=== PATIENT | female | born 1960 | race Caucasian/White ===

== ENCOUNTER 2016-10-16 20:04 | Inpatient (IN) ==
[2016-10-16] MEDS ORDERED: Aspirin 81 MG TAB.CHEW PO ONE (20:11)
[2016-10-16] MEDS ORDERED: Ipratropium/Albuterol Neb 3 ML IH ONE (20:12)
--- NOTE | 2016-10-16 20:13 | Emergency Department Note ---
Disposition Clinical Impression: COPD exacerbation, Elevated troponin Disposition: Admitted As Inpatient Condition: Good Referrals: Unassigned,Provider [Non-Partnered Physician] - Forms: ED Satisfaction Letter Chest Pain HPI - General Chief Complaint: ED Chest Pain Stated Complaint: CP/NELLIE Time Seen by Provider: 10/16/16 20:11 Source: patient, EMS Mode of arrival: EMS Limitations: no limitations Vital Signs Reviewed: Yes Nursing Notes Reviewed: Yes - History of Present Illness HPI Narrative: 56-year-old female presents to the ER due to shortness of breath and chest pain. Pt complaint: chest pain, other (Dyspnea) Onset (ago): hour(s) Time: 19:00 Duration: constant Onset: during rest Pain Location: left chest Severity: severe Quality: sharp Pain Radiation: LUE Improves with: nothing Worsens with: palpation Associated symptoms: Reports: diaphoresis, dyspnea. Denies: nausea, vomiting, syncope, fever Treatments prior to arrival chest pain: oxygen - Related Data On Oral Contraceptives: No Home Medications Medication Instructions Recorded Confirmed Albuterol Sulfate [Albuterol 1 - 2 puff IH Q6H PRN 10/12/15 06/01/16 Inhaler] Carvedilol [Coreg] 6.25 mg PO BID 10/12/15 06/01/16 Pregabalin [Lyrica] 150 mg PO BID 10/12/15 06/01/16 SitaGLIPtin [Januvia] 100 mg PO DAILY 10/12/15 06/01/16 Loratadine [Claritin] 10 mg PO DAILY 01/09/16 06/01/16 Meloxicam [Mobic] 7.5 mg PO DAILY 01/09/16 06/01/16 Metformin HCl [Metformin HCl ER] 1,000 mg PO BID 01/09/16 06/01/16 [place]-3/Dha/Epa/Fish Oil [Fish Oil 1,000 mg PO DAILY 01/09/16 06/01/16 Dr 500 mg Softgel] Pantoprazole Sodium [Protonix] 40 mg PO BID 01/09/16 06/01/16 Venlafaxine XR (24 HR) [Effexor Xr] 150 mg PO DAILY 01/09/16 06/01/16 Famotidine [Heartburn Prevention] 20 mg PO DAILY 04/30/16 06/01/16 Nitroglycerin [Nitrostat] 0.4 mg PO Q5M PRN 04/30/16 06/01/16 SUMAtriptan Succinate [Imitrex] 100 mg PO AD PRN 04/30/16 06/01/16 Previous Rx's Medication Instructions Recorded Fenofibrate [Lofibra] 160 mg PO DAILY #30 tablet 10/14/15 Rosuvastatin [Crestor] 20 mg PO HS #30 tablet 10/14/15 Ipratropium/Albuterol Neb [Duoneb] 3 ml IH Q4HR 30 Days 05/02/16 Buspirone HCl [Buspar] 5 mg PO TID #90 tablet 06/06/16 Hydroxyzine HCl 50 mg PO TID PRN #90 tablet 06/06/16 Quetiapine Fumarate [Seroquel] 50 mg PO HS #30 tablet 06/06/16 Allergies Allergy/AdvReac Type Severity Reaction Status Date / Time latex Allergy Hives Verified 04/30/16 13:37 fluoxetine [From Prozac] AdvReac Irritable Verified 04/30/16 13:37 All systems ED: reviewed and negative except as stated. Constitutional: Denies: fever Cardiovascular: Reports: chest pain. Denies: palpitations, dyspnea on exertion Respiratory: Reports: cough, dyspnea, wheezes Gastrointestinal: Denies: abdominal pain, nausea, vomiting Musculoskeletal: Denies: neck pain Chest Pain PMH - Past Medical History Medical history: Reports: arthritis, asthma, COPD, coronary artery disease, diabetes, fibromyalgia, GERD, hyperlipidemia, hypertension, migraine, myocardial infarction, osteoporosis, peripheral artery disease, renal disease, syncope, venous stasis, other Surgical history: Reports: cholecystectomy, orthopedic, other, other Psychiatric history: Reports: anxiety, depression - Social History Smoking Status: Current every day smoker Alcohol use: Reports: none Drug use: Reports: none Physical Exam - General Limitations: no limitations General appearance: alert, anxious, in distress - Head Head exam: atraumatic, normocephalic, normal inspection - Eye Eye exam: Present: normal appearance - ENT ENT exam: normal exam - Neck Neck exam: Present: normal inspection - Chest Chest inspection: Present: normal inspection, tenderness ( tender to palpate along the left lateral rib angles as well as the sternum. ) - Respiratory Respiratory exam: Present: respiratory distress, accessory muscle use, other ( Diminished breath sounds bilaterally.) - Cardiovascular Cardiovascular exam: Present: normal rhythm, tachycardia, normal heart sounds - Abdominal Exam Abdominal exam: Present: soft, Non-Tender. Absent: guarding, rigidity - Extremities Exam Extremities exam: Present: normal inspection - Expanded Lower Extremity Exam Hip/Pelvis exam: Present: normal inspection Upper leg exam: Present: normal inspection Knee exam: Present: normal inspection Lower leg exam: Present: normal inspection Ankle exam: Present: normal inspection Foot/toe exam: Present: normal inspection - Back Exam Back exam: Present: normal inspection - Neurological Exam Neurological exam: Present: alert - Psychiatric Psychiatric exam: Present: normal affect, normal mood, anxious - Skin Skin exam: Present: warm, dry, intact Course Course Narrative: 56-year-old female history of hypertension, hyperlipidemia, diabetes, COPD on home oxygen at night who presents to the ER with a chief complaint of chest pain and shortness of breath. Patient states she had not been feeling well throughout the day. She reports that she woke up at 7 PM with abrupt onset of chest pain and shortness of breath. She reports the chest pain is sharp originating in her left chest and radiating into her left upper extremity. She reports worsening shortness of breath with this. No recent illnesses. No sick contacts that she is aware of. Denies history of DVT or PE. Reports a history of SD many years ago. Did not require stent placement. Reports she had a catheter maybe 3 or 4 years ago without intervention. No other complaints. Plan for this patient is EKG, chest x-ray, basic labs including troponin, BNP and d-dimer. Ordered DuoNebs now and aspirin. - Reevaluation(s) Reevaluation #1: Discussed results of lab work and imaging with the patient. She currently reports developing a migraine and requests Imitrex. Vital Signs Temperature 98.1 F 10/16/16 20:07 Pulse Rate 127 10/16/16 20:07 Respiratory Rate 22 10/16/16 20:07 Blood Pressure 167/126 10/16/16 20:07 O2 Sat by Pulse Oximetry 99 10/16/16 20:07 Temperature 98.1 F 10/16/16 20:07 Pulse Rate 118 10/16/16 21:43 Respiratory Rate 21 10/16/16 21:43 Blood Pressure 131/87 10/16/16 21:43 O2 Sat by Pulse Oximetry 95 10/16/16 21:43 Oxygen Delivery Oxygen Delivery Nasal Cannula Chest Pain - [facility] Narrative Medical decision making narrative: 56-year-old female presents to the ER due to chest pain and shortness of breath. Her EKG is sinus tachycardia with ST depressions and T-wave inversions which are new. Chest x-ray unremarkable. Troponin of 0.08. D-dimer negative. Did not redo an abscess, aspirin and IV Solu-Medrol. Patient will be admitted to the hospital for further management. - Lab Data Lab results reviewed: Yes I reviewed the patient's lab results. Result diagrams: 10/16/16 21:02 10/16/16 21:02 Lab Results 10/16/16 10/16/16 10/16/16 Range/Units 21:02 21: 21:02 WBC 9.2 (4.3-11.1) K/mcL RBC 4.62 (3.82-4.97) M/mcL Hgb 11.2 L (11.5-15.4) g/dL Hct 35.8 (35.3-44.9) % MCV 77.5 L (83.0-100.0) fL MCH 24.2 L (28.0-33.3) pg MCHC 31.3 L (31.6-35.5) g/dL RDW 15.4 H (11.5-14.5) % Plt Count 274 (140-400) K/mcL MPV 10.4 (9.4-12.4) fL Immature Gran % 1.3 (0-4) % Seg Neutrophils % 45.4 % Lymphocytes % 46.3 % Monocytes % 5.1 % Eosinophils % 1.5 % Basophils % 0.4 % Neutrophils # 4.1 (1.6-8.9) K/mcL Lymphocytes # 4.2 (0.6-4.6) K/mcL Monocytes # 0.5 (0.0-1.3) K/mcL Eosinophils # 0.1 (0.0-0.6) K/mcL Basophils # 0.0 (0.0-0.2) K/mcL PT 10.5 (9.4-12.1) Seconds INR 1.0 APTT 28.9 (26.0-36.0) Seconds D-Dimer 267 (0-500) ng/mLFEU Sodium (136-145) mEq/L Potassium (3.5-4.5) mEq/L Chloride (98-109) mEq/L Carbon Dioxide (19-29) mEq/L BUN (7-20) mg/dL Creatinine (0.57-1.11) mg/dL Est GFR ( Amer) (> 60) Est GFR (Non-Af Amer) (> 60) BUN/Creatinine Ratio (6-26) Glucose (70-99) mg/dL Calculated Osmolality (280-300) Calcium (8.6-10.8) mg/dL Troponin I (0-0.03) ng/mL B-Natriuretic Peptide 491 H (0-100) pg/mL 10/16/16 10/16/16 Range/Units 21:02 21:02 WBC (4.3-11.1) K/mcL RBC (3.82-4.97) M/mcL Hgb (11.5-15.4) g/dL Hct (35.3-44.9) % MCV (83.0-100.0) fL MCH (28.0-33.3) pg MCHC (31.6-35.5) g/dL RDW (11.5-14.5) % Plt Count (140-400) K/mcL MPV (9.4-12.4) fL Immature Gran % (0-4) % Seg Neutrophils % % Lymphocytes % % Monocytes % % Eosinophils % % Basophils % % Neutrophils # (1.6-8.9) K/mcL Lymphocytes # (0.6-4.6) K/mcL Monocytes # (0.0-1.3) K/mcL Eosinophils # (0.0-0.6) K/mcL Basophils # (0.0-0.2) K/mcL PT (9.4-12.1) Seconds INR APTT (26.0-36.0) Seconds D-Dimer (0-500) ng/mLFEU Sodium 139 (136-145) mEq/L Potassium 4.1 (3.5-4.5) mEq/L Chloride 103 (98-109) mEq/L Carbon Dioxide 22 (19-29) mEq/L BUN 14 (7-20) mg/dL Creatinine 0.77 (0.57-1.11) mg/dL Est GFR ( Amer) > 60 (> 60) Est GFR (Non-Af Amer) > 60 (> 60) BUN/Creatinine Ratio 18 (6-26) Glucose 275 H (70-99) mg/dL Calculated Osmolality 298 (280-300) Calcium 9.3 (8.6-10.8) mg/dL Troponin I 0.08 H* (0-0.03) ng/mL B-Natriuretic Peptide (0-100) pg/mL - Radiology Data Radiology results reviewed: Yes I reviewed the patient's radiology results. Chest X-Ray 10/16/16 20:11 IMPRESSION: No acute cardiopulmonary process. D/ / Noah Forrest MD / Noah Forrest MD Interpreting Provider: Noah Forrest MD - EKG Data EKG attestation: Yes I reviewed and interpreted this EKG. EKG results narrative: EKG shows sinus tachycardia with a rate of 126. Normal axis. UT interval 158 QRS duration 96 QTc [address] depression in leads V5. There are new T- wave inversions in leads V5 and V6 with flattening in leads V4. No ST elevations. EKG shows normal: sinus rhythm Rate: tachycardia Rhythm: other (Sinus tachycardia) [place]/QRS: normal When compared to previous EKG there are: changes noted (ST depressions in lead V5 as well as T-wave inversions in leads V5 and V6) Interpretation: nonspecific ST-T wave changes Heart Score - Score History: Slightly Suspicious EKG: Non Specific repolarisation Disturbance Age: 45-65 Risk Factors: Equal/Greater than 3 risk factor or history of atherosclerotic disease Troponin: 1-3x normal limit HEART Score Total: 5 S.B.A.R. - S.B.A.R. Situation: Demographics, MOA Background: Presenting Complaint, Relevant PMH, Meds, & Allergies Assessment: Vital Signs, Course and respsone to treatment, Exam Concerns, Patient/Family Expectation, Pertinant Lab Results, Outstanding Labs Recommendation: Barrier(s) to disposition, Recommendation based on pending studies, treatments, or consults S.B.A.R. Report Given to: Dr. Mahesh Fernández Repor Time: 22:03
[2016-10-16 21:22] LABS: Basophils % 0.4 %; Eosinophils # 0.1 K/mcL (0.0-0.6); Eosinophils % 1.5 %; Hematocrit 35.8 % (35.3-44.9); Hemoglobin 11.2 g/dL (11.5-15.4); Immature Granulocytes % 1.3 % (0-4); Lymphocytes # 4.2 K/mcL (0.6-4.6); Lymphocytes % 46.3 %; Mean Corpuscular HGB Conc 31.3 g/dL (31.6-35.5); Mean Corpuscular Hemoglobin 24.2 pg (28.0-33.3); Mean Corpuscular Volume 77.5 fL (83.0-100.0); Mean Platelet Volume 10.4 fL (9.4-12.4); Monocytes # 0.5 K/mcL (0.0-1.3); Monocytes % 5.1 %; Neutrophils # 4.1 K/mcL (1.6-8.9); Platelet Count 274 K/mcL (140-400); Red Blood Count 4.62 M/mcL (3.82-4.97); Red Cell Distribution Width 15.4 % (11.5-14.5); Segmented Neutrophils % 45.4 %
[2016-10-16] MEDS ORDERED: methylPREDNISolone 125 MG/2 ML VIAL IVP ONE (21:25)
[2016-10-16 21:33] LABS: Prothrombin Time 10.5 Seconds (9.4-12.1)
[2016-10-16 21:35] LABS: Activated Partial Thrombo Time 28.9 Seconds (26.0-36.0)
[2016-10-16 21:36] LABS: BUN/Creatinine Ratio 18 (6-26); Blood Urea Nitrogen 14 mg/dL (7-20); Calcium 9.3 mg/dL (8.6-10.8); Carbon Dioxide 22 mEq/L (19-29); Chloride 103 mEq/L (98-109); Glucose 275 mg/dL (70-99); Osmolality,Calculated 298 (280-300); Potassium 4.1 mEq/L (3.5-4.5); Sodium 139 mEq/L (136-145); eGFR For African Americans > 60 (> 60); eGFR For Non-African Americans > 60 (> 60)
[2016-10-16] MEDS ORDERED: SUMAtriptan succinate 50 MG TABLET PO ONE (21:46)
--- NOTE | 2016-10-16 22:13 | Emergency Department Note ---
Disposition Clinical Impression: COPD exacerbation, Elevated troponin Disposition: Admitted As Inpatient Condition: Good Referrals: Unassigned,Provider [Non-Partnered Physician] - Forms: ED Satisfaction Letter General Adult HPI - General Chief complaint: ED Chest Pain Stated complaint: CP/NELLIE Time Seen by Provider: 10/16/16 20:11 Source: patient, EMS Mode of arrival: EMS Limitations: no limitations - History of Present Illness Pain Scale: 9 - Related Data Home Medications Medication Instructions Recorded Confirmed Albuterol Sulfate [Albuterol 1 - 2 puff IH Q6H PRN 10/12/15 06/01/16 Inhaler] Carvedilol [Coreg] 6.25 mg PO BID 10/12/15 06/01/16 Pregabalin [Lyrica] 150 mg PO BID 10/12/15 06/01/16 SitaGLIPtin [Januvia] 100 mg PO DAILY 10/12/15 06/01/16 Loratadine [Claritin] 10 mg PO DAILY 01/09/16 06/01/16 Meloxicam [Mobic] 7.5 mg PO DAILY 01/09/16 06/01/16 Metformin HCl [Metformin HCl ER] 1,000 mg PO BID 01/09/16 06/01/16 [place]-3/Dha/Epa/Fish Oil [Fish Oil 1,000 mg PO DAILY 01/09/16 06/01/16 Dr 500 mg Softgel] Pantoprazole Sodium [Protonix] 40 mg PO BID 01/09/16 06/01/16 Venlafaxine XR (24 HR) [Effexor Xr] 150 mg PO DAILY 01/09/16 06/01/16 Famotidine [Heartburn Prevention] 20 mg PO DAILY 04/30/16 06/01/16 Nitroglycerin [Nitrostat] 0.4 mg PO Q5M PRN 04/30/16 06/01/16 SUMAtriptan Succinate [Imitrex] 100 mg PO AD PRN 04/30/16 06/01/16 Previous Rx's Medication Instructions Recorded Fenofibrate [Lofibra] 160 mg PO DAILY #30 tablet 10/14/15 Rosuvastatin [Crestor] 20 mg PO HS #30 tablet 10/14/15 Ipratropium/Albuterol Neb [Duoneb] 3 ml IH Q4HR 30 Days 05/02/16 Buspirone HCl [Buspar] 5 mg PO TID #90 tablet 06/06/16 Hydroxyzine HCl 50 mg PO TID PRN #90 tablet 06/06/16 Quetiapine Fumarate [Seroquel] 50 mg PO HS #30 tablet 06/06/16 Allergies Allergy/AdvReac Type Severity Reaction Status Date / Time latex Allergy Hives Verified 04/30/16 13:37 fluoxetine [From Prozac] AdvReac Irritable Verified 04/30/16 13:37 Constitutional: Denies: fever Cardiovascular: Reports: chest pain. Denies: palpitations, dyspnea on exertion Respiratory: Reports: cough, dyspnea, wheezes Gastrointestinal: Denies: abdominal pain, nausea, vomiting Musculoskeletal: Denies: neck pain Past Medical History - Past Medical History Medical history: Reports: arthritis, asthma, COPD, coronary artery disease, diabetes, fibromyalgia, GERD, hyperlipidemia, hypertension, migraine, myocardial infarction, osteoporosis, peripheral artery disease, renal disease, syncope, venous stasis, other Surgical history: Reports: cholecystectomy, orthopedic, other, other Psychiatric history: Reports: anxiety, depression - Social History Smoking Status: Current every day smoker Smokeless Tobacco Status: No Alcohol use: Reports: none Drug use: Reports: none Physical Exam - General Limitations: no limitations General appearance: alert, anxious, in distress Course - Reevaluation(s) Reevaluation #1: I saw the patient with the resident, Dr. Viveros. Patient presented with shortness of breath. On arrival she looks pretty short of breath with diffuse wheezing. She responded to breathing treatments. However her troponin ended up elevated. On arrival to exacerbation of her COPD seems so severe and with the elevated troponin, I patient is admitted to the hospital despite the fact that she looks better lying in bed. I am afraid to get up and walk her around because I fear she will decompensate. We spoke with the hospitalist and arranged admission Time: 22:12 Vital Signs Temperature 98.1 F 10/16/16 20:07 Pulse Rate 127 10/16/16 20:07 Respiratory Rate 22 10/16/16 20:07 Blood Pressure 167/126 10/16/16 20:07 O2 Sat by Pulse Oximetry 99 10/16/16 20:07 Temperature 98.1 F 10/16/16 20:07 Pulse Rate 118 10/16/16 21:43 Respiratory Rate 21 10/16/16 21:43 Blood Pressure 131/87 10/16/16 21:43 O2 Sat by Pulse Oximetry 95 10/16/16 21:43 Oxygen Delivery Oxygen Delivery Nasal Cannula Medical Decision Making - Lab Data Result diagrams: 10/16/16 21:02 10/16/16 21:02 Lab Results 10/16/16 10/16/16 10/16/16 Range/Units 21:02 21:02 21:02 WBC 9.2 (4.3-11.1) K/mcL RBC 4.62 (3.82-4.97) M/mcL Hgb 11.2 L (11.5-15.4) g/dL Hct 35.8 (35.3-44.9) % MCV 77.5 L (83.0-100.0) fL MCH 24.2 L (28.0-33.3) pg MCHC 31.3 L (31.6-35.5) g/dL RDW 15.4 H (11.5-14.5) % Plt Count 274 (140-400) K/mcL MPV 10.4 (9.4-12.4) fL Immature Gran % 1.3 (0-4) % Seg Neutrophils % 45.4 % Lymphocytes % 46.3 % Monocytes % 5.1 % Eosinophils % 1.5 % Basophils % 0.4 % Neutrophils # 4.1 (1.6-8.9) K/mcL Lymphocytes # 4.2 (0.6-4.6) K/mcL Monocytes # 0.5 (0.0-1.3) K/mcL Eosinophils # 0.1 (0.0-0.6) K/mcL Basophils # 0.0 (0.0-0.2) K/mcL PT 10.5 (9.4-12.1) Seconds INR 1.0 APTT 28.9 (26.0-36.0) Seconds D-Dimer 267 (0-500) ng/mLFEU Sodium (136-145) mEq/L Potassium (3.5-4.5) mEq/L Chloride (98-109) mEq/L Carbon Dioxide (19-29) mEq/L BUN (7-20) mg/dL Creatinine (0.57-1.11) mg/dL Est GFR ( Amer) (> 60) Est GFR (Non-Af Amer) (> 60) BUN/Creatinine Ratio (6-26) Glucose (70-99) mg/dL Calculated Osmolality (280-300) Calcium (8.6-10.8) mg/dL Troponin I (0-0.03) ng/mL B-Natriuretic Peptide 491 H (0-100) pg/mL 10/16/16 10/16/16 Range/Units 21:02 21:02 WBC (4.3-11.1) K/mcL RBC (3.82-4.97) M/mcL Hgb (11.5-15.4) g/dL Hct (35.3-44.9) % MCV (83.0-100.0) fL MCH (28.0-33.3) pg MCHC (31.6-35.5) g/dL RDW (11.5-14.5) % Plt Count (140-400) K/mcL MPV (9.4-12.4) fL Immature Gran % (0-4) % Seg Neutrophils % % Lymphocytes % % Monocytes % % Eosinophils % % Basophils % % Neutrophils # (1.6-8.9) K/mcL Lymphocytes # (0.6-4.6) K/mcL Monocytes # (0.0-1.3) K/mcL Eosinophils # (0.0-0.6) K/mcL Basophils # (0.0-0.2) K/mcL PT (9.4-12.1) Seconds INR APTT (26.0-36.0) Seconds D-Dimer (0-500) ng/mLFEU Sodium 139 (136-145) mEq/L Potassium 4.1 (3.5-4.5) mEq/L Chloride 103 (98-109) mEq/L Carbon Dioxide 22 (19-29) mEq/L BUN 14 (7-20) mg/dL Creatinine 0.77 (0.57-1.11) mg/dL Est GFR ( Amer) > 60 (> 60) Est GFR (Non-Af Amer) > 60 (> 60) BUN/Creatinine Ratio 18 (6-26) Glucose 275 H (70-99) mg/dL Calculated Osmolality 298 (280-300) Calcium 9.3 (8.6-10.8) mg/dL Troponin I 0.08 H* (0-0.03) ng/mL B-Natriuretic Peptide (0-100) pg/mL Attestation Statement - Attestation Attestation: I, Dr. Rowe, examined this patient [id number] and my medical decision- making was reviewed with Dr. Viveros, Resident Physician. I agree with the documented findings, disposition and treatment plan as described except to the extent set forth below. Please see my progress notes for details.
[2016-10-16] MEDS ORDERED: Naloxone 0.4 MG/ML INJ IVP PRN (23:50)
[2016-10-16] MEDS ORDERED: Acetaminophen 325 MG TABLET PO PRN (23:50)
[2016-10-16] MEDS ORDERED: Albuterol 2.5 MG/3 ML NEBULIZER ONE (23:59)
[2016-10-17] MEDS ORDERED: Nitroglycerin 1 INCH/GM PACKET ONE
[2016-10-17] MEDS ORDERED: *HR* Morphine 2 MG/ML SYRINGE ONE (00:07)
[2016-10-17] MEDS: *HR* Morphine 2 MG/ML SYRINGE IVP PRN ×3 (00:12→21:02)
[2016-10-17 00:24] LABS: ABG HCO3 18.8 mEQ/L (21-27); ABG Oxygen Saturation 100 % (95-98); ABG PO2 347 mmHg (85-104); ABG TCO2 21.3 mEq/L (20-26)
[2016-10-17 00:25] LABS: ABG PCO2 80 mmHg (35-45); ABG PH 6.98 pH Units (7.32-7.45)
[2016-10-17 00:26] LABS: Blood Gas FiO2 100 %
[2016-10-17] MEDS ORDERED: *HR* Heparin 5,000 UNIT/ML VIAL IVP ONE (00:50)
[2016-10-17] MEDS ORDERED: *HR* Heparin 5,000 UNIT/ML VIAL IVP PRN (00:50)
[2016-10-17 00:52] LABS: Prothrombin Time 10.4 Seconds (9.4-12.1)
[2016-10-17 00:55] LABS: Activated Partial Thrombo Time 27.4 Seconds (26.0-36.0)
[2016-10-17 01:00] LABS: Blood Urea Nitrogen 16 mg/dL (7-20); Calcium 9.4 mg/dL (8.6-10.8); Carbon Dioxide 18 mEq/L (19-29); Chloride 102 mEq/L (98-109); Chol/HDL Ratio 15.6 (0-4.9); Cholesterol 591 mg/dL (< 200); Glucose 484 mg/dL (70-99); HDL Cholesterol 38 mg/dL (40-59); Magnesium 1.4 mg/dL (1.6-2.6); Osmolality,Calculated 307 (280-300); Potassium 4.1 mEq/L (3.5-4.5); Sodium 137 mEq/L (136-145); Triglycerides 1711 mg/dL (< 150)
[2016-10-17] MEDS ORDERED: SUMAtriptan 6 MG/0.5 ML SQ PRN (01:01)
[2016-10-17 01:10] LABS: BUN/Creatinine Ratio 18 (6-26); eGFR For African Americans > 60 (> 60); eGFR For Non-African Americans > 60 (> 60)
[2016-10-17 01:13] LABS: Basophils % 0.4 %; Eosinophils % 0.4 %; Hematocrit 39.1 % (35.3-44.9); Hemoglobin 12.2 g/dL (11.5-15.4); Immature Granulocytes % 1.4 % (0-4); Immature Platelets 6.5 % (1.1-6.1); Lymphocytes # 1.1 K/mcL (0.6-4.6); Lymphocytes % 11.2 %; Mean Corpuscular HGB Conc 31.2 g/dL (31.6-35.5); Mean Corpuscular Hemoglobin 24.3 pg (28.0-33.3); Mean Corpuscular Volume 77.9 fL (83.0-100.0); Mean Platelet Volume 10.6 fL (9.4-12.4); Monocytes # 0.2 K/mcL (0.0-1.3); Monocytes % 1.7 %; Neutrophils # 8.3 K/mcL (1.6-8.9); Platelet Count 307 K/mcL (140-400); Red Blood Count 5.02 M/mcL (3.82-4.97); Red Cell Distribution Width 15.3 % (11.5-14.5); Segmented Neutrophils % 84.9 %
[2016-10-17] MEDS ORDERED: 0.9 % Sodium Chloride 1,000 ML IVC SCH (01:15)
--- NOTE | 2016-10-17 01:16 | Internal Med History&Physical ---
Date of Encounter: 10/17/16 Time of Encounter: 23:50 Assessment and Plan (1) NSTEMI (non-ST elevated myocardial infarction) Current visit: Yes Status: Acute During the rapid response checked an EKG which showed nonspecific ST depressions , troponin was 0.08 obtained stat. I have administered 2 mg of morphine for chest pain. I have ordered nitroglycerin paste. Within 10-15 minutes after administration of these medications. Chest pain has resolved and the patient was able to fall asleep. She was easily arousable . For COPD exacerbation I will treat the patient for IV steroids and start BiPAP. I have obtained a stat ABG which shows severe metabolic and respiratory acidosis and hypercarbic respiratory failure. I have adjusted the BiPAP settings and will recheck the ABG. We will start heparin drip. Continue with aspirin. Avoid beta blockers due to severe COPD exacerbation. Obtain echocardiogram. Consult cardiology. (2) COPD exacerbation Current visit: Yes Status: Acute (3) Acute on chronic respiratory failure with hypoxia and hypercapnia Current visit: No Status: Acute I started the patient on on BiPAP as above. We will adjust the minute ventilation according to needs to clear carbon dioxide. Repeat ABG shows improvement with BiPAP with a pH increasing from 6.89-7.17 and CO2 decreasing with BiPAP. At this point the patient is responding to therapy and does not require invasive mechanical ventilation. We will continue with BiPAP for now and recheck ABG in 2 hours. We will initiate treatment with IV bronchodilators (during the rapid response we administered 9 mL DuoNeb with a good bronchodilator response by auscultation), IV steroids and IV antibiotics. The patient is highly unstable and there is high probability of emergent and significant clinical decompensation with potential impairment of organ function including cardiovascular system and respiratory system. I have performed 45 minutes of critical care time which involved decision making of high complexity to assess, manipulate, and support vital organ system, in order to prevent further life threatening deterioration of the patient's condition. The time involved in the performance of any procedures was not counted toward critical care time and will be billed separately. Critical care time was spent evaluating the patient, reviewing EKGs, telemetry tracing, imaging studies and laboratory data, ordering medications, noninvasive ventilation and managing the settings, and reevaluating for clinical response and making adjustments to ordered medications. (4) Diabetes mellitus type 2 in obese Current visit: No Status: Chronic (5) Nicotine dependence with nicotine-induced disorder Current visit: No Status: Chronic We will provide smoking cessation counseling once the patient is no longer an acute distress Qualifiers: Nicotine product type: cigarettes Qualified Code(s): F17.219 - Nicotine dependence, cigarettes, with unspecified nicotine-induced disorders (6) Tobacco abuse Current visit: No Status: Chronic (7) DVT prophylaxis Current visit: Yes Status: Acute Currently on heparin drip. Internal Medicine - H&P: HPI Chief complaint: Shortness of breath Admitted From: Emergency Dept Plans for Post Hospital Care: Home History of present illness: Ms. Lorenzo is a 56 year old female with past medical history significant for COPD and type 2 diabetes who presented to the hospital for shortness of breath. At the time I evaluated the patient she was an acute and severe distress due to chest pain and shortness of breath and the history was extremely limited by her distress. At this time she reports crushing severe midsternal chest pain worse with breathing associated with shortness of breath and anxiety. She was admitted earlier for COPD exacerbation and she was reported to be slightly improving although in a serious condition. Review of systems past medical family and social history is per the medical record. Unobtainable from the patient due to severe respiratory distress. The patient has a history of tobacco smoking. Past Med Surg Social Fam HX - Past Medical History Medical history: arthritis, asthma, COPD, coronary artery disease, diabetes, fibromyalgia, GERD, hyperlipidemia, hypertension, migraine, myocardial infarction, osteoporosis, peripheral artery disease, renal disease, syncope, venous stasis, other Psychiatric history: anxiety, depression - Past Surgical History Surgical History: cholecystectomy, orthopedic, other, other - Social History Smoking Status: Current every day smoker Smokeless Tobacco Status: No Alcohol use: none Drug use: none - Family History Mother Living Status: Hx Family Cardiac Disorders: Yes (cardiomyothy) Father Living Status: Still Living Hx Family Cardiac Disorders: Yes (4 heart stents) Internal Medicine - H&P: Meds Albuterol Sulfate [Albuterol Inhaler] 1 - 2 puff IH Q6H PRN 10/12/15 [History] Carvedilol [Coreg] 6.25 mg PO BID 10/12/15 [History] Pregabalin [Lyrica] 150 mg PO BID 10/12/15 [History] SitaGLIPtin [Januvia] 100 mg PO DAILY 10/12/15 [History] Fenofibrate [Lofibra] 160 mg PO DAILY #30 tablet 10/14/15 [Rx] Rosuvastatin [Crestor] 20 mg PO HS #30 tablet 10/14/15 [Rx] Loratadine [Claritin] 10 mg PO DAILY 01/09/16 [History] Meloxicam [Mobic] 7.5 mg PO DAILY 01/09/16 [History] Metformin HCl [Metformin HCl ER] 1,000 mg PO BID 01/09/16 [History] [place]-3/Dha/Epa/Fish Oil [Fish Oil Dr 500 mg Softgel] 1,000 mg PO DAILY [History] Pantoprazole Sodium [Protonix] 40 mg PO BID 01/09/16 [History] Venlafaxine XR (24 HR) [Effexor Xr] 150 mg PO DAILY 01/09/16 [History] Famotidine [Heartburn Prevention] 20 mg PO DAILY 04/30/16 [History] Nitroglycerin [Nitrostat] 0.4 mg PO Q5M PRN 04/30/16 [History] SUMAtriptan Succinate [Imitrex] 100 mg PO AD PRN 04/30/16 [History] Ipratropium/Albuterol Neb [Duoneb] 3 ml IH Q4HR 30 Days 05/02/16 [Rx] Buspirone HCl [Buspar] 5 mg PO TID #90 tablet 06/06/16 [Rx] Hydroxyzine HCl 50 mg PO TID PRN #90 tablet 06/06/16 [Rx] Quetiapine Fumarate [Seroquel] 50 mg PO HS #30 tablet 06/06/16 [Rx] Citalopram [CeleXA] 20 mg PO DAILY 10/16/16 [History] Duloxetine HCl [Cymbalta] 60 mg PO DAILY 10/16/16 [History] Allergies latex Allergy (Verified 04/30/16 13:37) Hives fluoxetine [From Prozac] Adverse Reaction (Verified 04/30/16 13:37) Irritable All Systems PM: A 10-system review of systems was performed and is negative for pertinent findings except as documented above in the HPI. - Constitutional Vitals: Temp Pulse Resp BP Pulse Ox 98.1 F 117 22 135/82 97 02/20/17 20:07 10/16/16 22:53 10/16/16 23:16 10/16/16 23:16 10/16/16 22:53 General appearance: Present: severe distress - Head Head exam: Present: atraumatic, normocephalic - Eye Eye exam: Present: PERRL, conjuntiva pink, sclera anicteric Pupils: Present: PERRL - Neck Neck exam general surgery: Present: supple, trachea midline. Absent: lymphadenopathy - Respiratory Respiratory exam: Present: accessory muscle use, decreased breath sounds, prolonged expiratory phase, respiratory distress, wheezes, tachypnea. Absent: rhonchi - Cardiovascular Cardiovascular exam: Present: +S1, +S2, tachycardia. Absent: diastolic murmur, gallop, rubs, systolic murmur - GI/Abdominal GI/Abdominal exam: Present: normal bowel sounds, soft, no peritoneal signs. Absent: distended, tenderness - Extremities Exam Extremities exam: Present: warm, radial pulses palpable and symetrical. Absent : calf tenderness, cyanotic, pedal edema - Skin Skin exam: Present: dry, intact Internal Med - H&P Results - Labs CBC & Chem 7: 10/17/16 01:03 10/17/16 00:24 Labs: Short CBC 10/17/16 Range/Units 01:03 WBC 9.8 (4.3-11.1) K/mcL Hgb 12.2 (11.5-15.4) g/dL Hct 39.1 (35.3-44.9) % Plt Count 307 (140-400) K/mcL Neutrophils # 8.3 (1.6-8.9) K/mcL BMP 10/17/16 00:24 Sodium 137 Potassium 4.1 Chloride 102 Carbon Dioxide 18 L BUN 16 Creatinine 0.88 Glucose 484 H Calcium 9.4 Cardiac Enzymes 10/17/16 Range/Units 00:24 Troponin I 0.08 H* (0-0.03) ng/mL - ABG Interpretation ABG results: 10/17/16 00:23 ABG pH 6.98 L* ABG pCO2 80 H* ABG pO2 347 H ABG HCO3 18.8 L ABG Total CO2 21.3 ABG O2 Saturation 100 H ABG Base Excess -14.0 L - EKG Data -: EKG Interpreted by Myself - EKG Data EKG comments: 10/17/16 06:52 EKG from her shows sinus tachycardia [address] depressions in lateral leads. Telemetry monitoring during the time I provided bedside care shows continued sinus tachycardia 135-150.
[2016-10-17] MEDS: Heparin 25,000 UNIT/500 ML D5W 25,000 UNIT/500 ML MLS IVC SCH (01:39)
[2016-10-17 02:19] LABS: ABG Base Excess -5.9 mEq/L (-2.0 to 3.0); ABG HCO3 21.8 mEQ/L (21-27); ABG Oxygen Saturation 94 % (95-98); ABG PCO2 52 mmHg (35-45); ABG PH 7.23 pH Units (7.32-7.45); ABG PO2 83 mmHg (85-104); ABG TCO2 23.4 mEq/L (20-26)
[2016-10-17 02:23] LABS: Blood Gas FiO2 40 %
[2016-10-17] MEDS: 0.9 % Sodium Chloride 1,000 ML IVC SCH ×2 (03:01→13:15)
[2016-10-17 05:38] LABS: ABG Base Excess -2.1 mEq/L (-2.0 to 3.0); ABG HCO3 24.6 mEQ/L (21-27); ABG Oxygen Saturation 99 % (95-98); ABG PCO2 50 mmHg (35-45); ABG PO2 138 mmHg (85-104); ABG TCO2 26.1 mEq/L (20-26)
[2016-10-17 05:39] LABS: Blood Gas FiO2 40 %
[2016-10-17] MEDS: Ipratropium/Albuterol Neb 3 ML IH SCH ×6 (05:49→22:51)
[2016-10-17] MEDS ORDERED: methylPREDNISolone 125 MG/2 ML VIAL IVP SCH (08:00)
[2016-10-17] MEDS: Piperacillin/Tazobactam 3.375 GM in D5% in Water (Mini-Bag+) 100 ML IVPB SCH ×2 (08:14→18:13)
[2016-10-17] MEDS: Aspirin 81 MG TAB.CHEW PO SCH (08:15)
[2016-10-17] MEDS: Pregabalin 75 MG CAPSULE PO SCH ×2 (08:15→21:02)
--- NOTE | 2016-10-17 09:07 | Internal Med Progress Note ---
Date of Encounter: 10/17/16 Time of Encounter: 09:00 - Assessment and plan (1) NSTEMI (non-ST elevated myocardial infarction) Current Visit: Yes Status: Acute Assessment and plan: Patient was admitted due to shortness of breath, associated with substernal chest pain. Mild elevation of cardiac biomarkers. A rapid response was called overnight and the patient was started on heparin drip. There was no evidence of hypoxemia, d-dimer has been negative. Low probability of pulmonary embolism. However, in light of chest pain and elevation of cardiac biomarkers, the patient was started on heparin drip ovrnight. Additionally, she was started on noninvasive mechanical ventilation via BiPAP. The pH was 6.9 initially, has improved to 7.3. There is a component of lactic acidosis with a lactic acid of 6.9. We will monitor lactic acid levels today. We will continue with BiPAP, heparin drip. We will obtain a consultation with cardiology for further recommendations. The patient was started on Zosyn, there is no history of recent hospital admission, leukocytosis, no fever, no evidence of pneumonia in the chest x-ray. At this point we will de-escalate with switch to IV Levaquin. (2) COPD exacerbation Current Visit: Yes Status: Acute Assessment and plan: COPD exacerbation in the setting of a patient who is a chronic active smoker. She smokes one pack of cigarettes daily. She is also a use of long-term oxygen therapy. We will continue with nebulizer therapy, systemic steroids and IV antibiotics. Continue with BiPAP. High risk of respiratory failure. (3) Respiratory failure Current Visit: Yes Status: Acute Assessment and plan: Secondary to underlying COPD with CO2 retention and respiratory acidosis. Qualifiers: Chronicity: acute on chronic Respiratory failure complication: hypercapnia Qualified Code(s): J96.22 - Acute and chronic respiratory failure with hypercapnia (4) Acute exacerbation of chronic obstructive airways disease Current Visit: No Status: Acute Assessment and plan: Continue with therapy of COPD exacerbation including antibiotics, steroids, nebulizer therapy and oxygen supplementation. Continue with BiPAP. (5) Hypomagnesemia Current Visit: No Status: Acute Assessment and plan: On admission was 1.4, will supplement accordingly. (6) Tobacco abuse Current Visit: No Status: Chronic Assessment and plan: Smoking cessation was strongly recommended. - Time Spent With Patient 25 - 35 minutes - Subjective Interval history: 1st encounter with the patient. The patient was seen and examined at bedside. She was complaining of substernal chest pain and shortness of breath. She was using a BiPAP. - Constitutional Vitals: Temp Pulse Resp BP Pulse Ox 96.8 F L 116 16 106/76 98 10/17/16 08:37 10/17/16 08:37 10/17/16 08:37 10/17/16 08:37 10/17/16 08:37 General appearance: Present: cooperative, A&O X 3, obese, severe distress - Head Head exam: Present: atraumatic, normocephalic - Eye Eye exam: Present: PERRL, conjuntiva pink, sclera anicteric Pupils: Present: PERRL - Neck Neck exam general surgery: Present: supple, trachea midline. Absent: lymphadenopathy - Respiratory Respiratory exam: Present: decreased breath sounds. Absent: accessory muscle use, rales, rhonchi, wheezes - Cardiovascular Cardiovascular exam: Present: RRR, +S1, +S2. Absent: diastolic murmur, gallop, rubs, systolic murmur - GI/Abdominal GI/Abdominal exam: Present: normal bowel sounds, soft, no peritoneal signs. Absent: distended, tenderness - Extremities Exam Extremities exam: Present: warm, radial pulses palpable and symetrical. Absent : calf tenderness, cyanotic, pedal edema - Neurological Exam Neurological exam: Present: CN II-XII intact, oriented X3, no focal deficits. Absent: pronater drift, facial droop, speech deficit - Skin Skin exam: Present: dry, intact Internal Medicine: Result - Labs CBC & Chem 7: 10/17/16 01:03 10/17/16 00:24 Labs: Short CBC 10/17/16 Range/Units 01:03 WBC 9.8 (4.3-11.1) K/mcL Hgb 12.2 (11.5-15.4) g/dL Hct 39.1 (35.3-44.9) % Plt Count 307 (140-400) K/mcL Neutrophils # 8.3 (1.6-8.9) K/mcL BMP 10/17/16 00:24 Sodium 137 Potassium 4.1 Chloride 102 Carbon Dioxide 18 L BUN 16 Creatinine 0.88 Glucose 484 H Calcium 9.4 Cardiac Enzymes 10/17/16 10/17/16 Range/Units 00:24 06:48 Troponin I 0.08 H* 0.15 H* (0-0.03) ng/mL - ABG Interpretation ABG results: ABG ABG pH 7.30 pH Units (7.32-7.45) L 10/17/16 05:28 ABG pCO2 50 mmHg (35-45) H 10/17/16 05:28 ABG pO2 138 mmHg (85-104) H 10/17/16 05:28 ABG O2 Saturation 99 % (95-98) H 10/17/16 05:28 PT/INR, D-dimer PT 10.4 Seconds (9.4-12.1) 10/17/16 00:24 D-Dimer 267 ng/mLFEU (0-500) 10/16/16 21:02 Consult Discharge Plan - Plan Referrals: Roxane Henson DO [Primary Care Provider] -
--- NOTE | 2016-10-17 09:46 | Cardiology Consult Note ---
<Trinidad Onofre - Last Filed: 10/17/16 11:13> Date of Encounter: 10/17/16 Time of Encounter: 09:00 Assessment and Plan (1) Respiratory failure Current Visit: Yes Status: Acute Per cardiology: -Patient admitted for respiratory distress. Patient with pH 6.98 on admission. Patient on BiPAP and continuous pulse oximetry. -Patient with most recent pH 7.3. -Chest x-ray with no acute cardiopulmonary process. -Conversational dyspnea noted. -Patient on nebulizers, antibiotics, and BiPAP. -Continue current regimen. -Discussed with regarding persistent dyspnea. states he will order CT chest to rule out PE. D.DImer is 267, but patient remains tachycardic and dyspnic. -Management per primary service. Qualifiers: Chronicity: acute on chronic Respiratory failure complication: hypercapnia Qualified Code(s): J96.22 - Acute and chronic respiratory failure with hypercapnia (2) Elevated troponin Current Visit: Yes Status: Acute Per cardiology -Patient with elevated troponins of 0.08, 0.08, and 0.15 in the setting of respiratory failure. -Lactic acid 6.9, glucose 484, trigylcerides 1711, cholesterol 591, LDL unable to perform. -Patient currently on statin, heparin drip, and aspirin. -Patient currently tachycardic with heart rate 115. -Patient with atypical chest pain. Chest pain reproduceable with palpation. Chest pain occurs at rest and with excertion and is not relieved by rest. -Echocardiogram 06/01/16 showed LVEF 60%, normal LV chamber and size, atypical septal motion, normal right ventricular size and function, no significant valvular dysfunction, mild left diastolic dysfunction, mildly dilated left atrium. -Will add patient's home dose of beta michele. -Will increase statin therapy. -Will consider adding caleb inhibitor once we see if blood pressure is stable with adding beta michele. -Elevated troponins most likely due to demand ischemia due to respiratory failure. -Will check limited echocardiogram. -Further recommendations once echocardiogram and CT chest complete. -Recommend medical management at this time. No need for cardiac rehab. Discussion w patient/family: The assessment and plan as outlined above was discussed with the patient who expressed understanding and agreement. All questions were answered. Thank you for involving us in the care of your patient. Please call with any questions. Patient seen and examined with VIKA Cheung. Discussed and reviewed with . History of Present Illness Consult date: 10/16/16 Requesting physician: Brayden Wilson Consult reason: NSTEMI Chief complaint: Shortness of breath History of present illness: Ms. Lorenzo is a 56 year old female who presented to [place] for shortness of breath. Patient is somewhat of a poor historian. Patient states she has been sick for "3 days to a week." Patient states she has not been feeling well. Patient states she has also been having chest pain that radiates down left arm. Patient states that pain occurs at rest and with exertion. Patient states she took nitroglycerin at home and it did not relieve pain. Patient states pain was aggervated by movement and was not relieved by anything. Patient states currently she has chest pressure. Patient states pain is increased with palpation of chest. Patient is currently on Bipap. Past Med Surg Social Fam HX - Past Medical History Medical history: arthritis, asthma, COPD, coronary artery disease, diabetes, fibromyalgia, GERD, hyperlipidemia, hypertension, migraine, myocardial infarction, osteoporosis, peripheral artery disease, renal disease, syncope, venous stasis, other Psychiatric history: anxiety, depression - Past Surgical History Surgical History: cholecystectomy, orthopedic, other, other - Social History Smoking Status: Current every day smoker Smokeless Tobacco Status: No Alcohol use: none Drug use: none - Family History Mother Living Status: Hx Family Cardiac Disorders: Yes (cardiomyothy) Father Living Status: Still Living Hx Family Cardiac Disorders: Yes (4 heart stents) Medications and Allergies Albuterol Sulfate [Albuterol Inhaler] 1 - 2 puff IH Q6H PRN 10/12/15 [History] Carvedilol [Coreg] 6.25 mg PO BID 10/12/15 [History] Pregabalin [Lyrica] 150 mg PO BID 10/12/15 [History] SitaGLIPtin [Januvia] 100 mg PO DAILY 10/12/15 [History] Fenofibrate [Lofibra] 160 mg PO DAILY #30 tablet 10/14/15 [Rx] Rosuvastatin [Crestor] 20 mg PO HS #30 tablet 10/14/15 [Rx] Loratadine [Claritin] 10 mg PO DAILY 01/09/16 [History] Meloxicam [Mobic] 7.5 mg PO DAILY 01/09/16 [History] Metformin HCl [Metformin HCl ER] 1,000 mg PO BID 01/09/16 [History] [place]-3/Dha/Epa/Fish Oil [Fish Oil Dr 500 mg Softgel] 1,000 mg PO DAILY [History] Pantoprazole Sodium [Protonix] 40 mg PO BID 01/09/16 [History] Venlafaxine XR (24 HR) [Effexor Xr] 150 mg PO DAILY 01/09/16 [History] Famotidine [Heartburn Prevention] 20 mg PO DAILY 04/30/16 [History] Nitroglycerin [Nitrostat] 0.4 mg PO Q5M PRN 04/30/16 [History] SUMAtriptan Succinate [Imitrex] 100 mg PO AD PRN 04/30/16 [History] Ipratropium/Albuterol Neb [Duoneb] 3 ml IH Q4HR 30 Days 05/02/16 [Rx] Buspirone HCl [Buspar] 5 mg PO TID #90 tablet 06/06/16 [Rx] Hydroxyzine HCl 50 mg PO TID PRN #90 tablet 06/06/16 [Rx] Quetiapine Fumarate [Seroquel] 50 mg PO HS #30 tablet 06/06/16 [Rx] Citalopram [CeleXA] 20 mg PO DAILY 10/16/16 [History] Duloxetine HCl [Cymbalta] 60 mg PO DAILY 10/16/16 [History] Allergies latex Allergy (Verified 04/30/16 13:37) Hives fluoxetine [From Prozac] Adverse Reaction (Verified 04/30/16 13:37) Irritable All Systems Review: A 10-system review of systems was performed and is negative for pertinent findings except as documented above in the HPI. - Cardiovascular Cardiovascular: chest pain at rest, chest pain with exertion, dyspnea on exertion Physical Examination Vital Signs, Last 4 Hours Temp Pulse Resp BP Pulse Ox 10/17/16 08:37 96.8 F L 116 16 106/76 98 10/17/16 06:31 97.3 F L 117 15 115/77 99 10/17/16 05:49 19 99 General: Conversant, Other (Conversational dyspnea noted.) HEENT: Atraumatic, Normocephaly, Mucus Membranes Moist Neck: No JVD, Normal carotid pulses Cardiac: Normal S1 and S2, No Murmur, Other (Tachycardic) Lungs: Other (Scattered rhonchi throughout. On BiPAP 14/5. FiO2 40%. Conversational dyspnea noted. ) Abdomen: Soft, Non-Tender Skin: No rashes noted on visualized skin Musculoskeletal: Other (Left chest wall tenderness with palpation. ) Extremities: No Clubbing, No Cyanosis, No Edema, Normal Pulses Results 10/17/16 01:03 10/17/16 00:24 Lab Results 10/17/16 10/17/16 10/17/16 00:24 00:24 00:24 WBC Hgb Hct Plt Count INR 1.0 APTT 27.4 Sodium 137 Potassium 4.1 Chloride 102 Carbon Dioxide 18 L BUN 16 Creatinine 0.88 Glucose 484 H Calcium 9.4 Magnesium 1.4 L Troponin I 0.08 H* 10/17/16 10/17/16 10/17/16 01:03 06:48 06:48 WBC 9.8 Hgb 12.2 Hct 39.1 Plt Count 307 INR APTT 34.4 Sodium Potassium Chloride Carbon Dioxide BUN Creatinine Glucose Calcium Magnesium Troponin I 0.15 H* - Imaging and Cardiology Chest Xray: report reviewed Echo: pending - EKG Interpretation EKG results cardiology: personally reviewed, sinus rhythm, other (ECG reviewed with sinus tachycardia. Telemtry reviewed with average heart rate 114, sinus tachycardia. Minimum heart rate 109 and maximum heart rate 122. Occasional PVCs noted.) Consult Discharge Plan - Plan Referrals: Roxane Henson DO [Primary Care Provider] - <Chris Greenwood - Last Filed: 10/17/16 12:26> Date of Encounter: 10/17/16 Assessment and Plan Discussion w patient/family: The assessment and plan as outlined above was discussed with the patient and/or family members who expressed understanding and agreement. All questions were answered. Thank you for involving us in the care of your patient. Please call with any questions. History of Present Illness History of present illness: Ms. Lorenzo is a 56 year old female All Systems Review: A 10-system review of systems was performed and is negative for pertinent findings except as documented above in the HPI. Physical Examination Vital Signs, Last 4 Hours Temp Pulse Resp BP Pulse Ox 10/17/16 10:31 98.3 F 115 16 111/72 99 10/17/16 08:37 96.8 F L 116 16 106/76 98 Results 10/17/16 01:03 10/17/16 00:24 Lab Results 10/17/16 10/17/16 10/17/16 00:24 00:24 00:24 WBC Hgb Hct Plt Count INR 1.0 APTT 27.4 Sodium 137 Potassium 4.1 Chloride 102 Carbon Dioxide 18 L BUN 16 Creatinine 0.88 Glucose 484 H Calcium 9.4 Magnesium 1.4 L Troponin I 0.08 H* 10/17/16 10/17/16 10/17/16 01:03 06:48 06:48 WBC 9.8 Hgb 12.2 Hct 39.1 Plt Count 307 INR APTT 34.4 Sodium Potassium Chloride Carbon Dioxide BUN Creatinine Glucose Calcium Magnesium Troponin I 0.15 H* - Attending Attestation I examined this patient and my medical decision-making was reviewed with the ABORIGINAL EDUCATION TEACHER/PA/Advanced Practice Nurse/Resident Physician. I agree with the documented findings, disposition and treatment plan as described except to the extent set forth below. Pt here for COPD exacerbation , asked to see pt for left sided CP , sharp , increased with DB, no diaphoresis VSS JVD: 6 cm Chest : occ crackles CVS: CP is reproducible EKG: no a/c changes enzymes; neg plan; check ECHO does not appear to be cardiac in nature Thanks !
[2016-10-17] MEDS: Magnesium Sulfate 2 GM in D5% in Water 100 ML IVPB SCH ×2 (10:25→12:30)
--- NOTE | 2016-10-17 16:07 | ECHO - Doppler Report ---
Limited Echocardiogram Name: Bebe Lorenzo Date of Study: 10/17/2016 Date: 1960 Ht: 56.0 in Medical Record#: [id number] Age: 56 Wt: 137.0 lb Gender: Female BSA: 1.51 Order #: [id number] Location: [facility] Room #: [facility] [place] Physician: Rosa Santacruz DO Traffic Expert: Kalin Marmolejo RN Ordering Physician: Henry Chris CNP Primary Physician: Annie Henson DO Indications: Elevated Troponin Impressions: Tachycardia, consider sinus at rate 110's. Low normal LV systolic function in setting of sinus tachycardia, LVEF 50%. No LV wall motion abnormalities. RV size and function appear normal. Left Ventricular Wall Motion: Rest Echo Findings All wall segments showed normal motion. Findings: Study Quality * Technically adequate exam. ECG Findings * Regular tachycardia, consider sinus tachycardia. Left Ventricle * LVEF 50%. * Normal LV size and wall thickness. Left Atrium * Normal left atrial size. Right Ventricle * Normal right ventricular structure and function. Right Atrium * Normal right atrial size. History Hypertension Diabetes Hypercholesteremia History of Smoking Years 11 Packs 1 Family History of CAD History of CAD/PTCA Myocardial Infarction 06/01/2016 a Previous Echo was performed. Measurements: BP: 111/ 72 2D Normal Values IVSd: 1.00 cm 0.6 - 1.0 cm LVIDd: 5.40 cm 3.7 - 5.6 cm LVPWd: 1.00 cm 0.6 - 1.1 cm %FS: 25.90 cm >25 % LA volume: Updated by Rosa Santacruz on 10/17/2016 4:02:13 PM electronically signed on 10/17/2016 4:03:21 PM with status of Final Wall Motion [place]: 1=Normal, 2=Hypokinesis, 3=Akinesis, 4=Dyskinesis, 5=Aneurysmal, 6=Hyperkinetic, X=Not Visualized (Blank)=Missing
--- NOTE | 2016-10-17 17:22 | Electrocardiograph Report ---
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
[2016-10-17] MEDS ORDERED: Dextrose Gel 15 GM PO PRN ×2 (17:24)
[2016-10-17] MEDS ORDERED: *HR* Dextrose 50 % in Water (Syg) 50 ML SYRINGE IVP PRN (17:24)
[2016-10-17] MEDS ORDERED: D5% in Water 1,000 ML IV PRN (17:24)
[2016-10-17] MEDS: *HR* Heparin 5,000 UNIT/ML VIAL IVP PRN (17:30)
--- NOTE | 2016-10-17 18:09 | Electrocardiograph Report ---
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
[2016-10-17] MEDS: Insulin LISPRO 300 UNITS/3 ML VIAL SQ SCH ×2 (18:14)
[2016-10-17] MEDS ORDERED: Insulin DETEMIR 100 UNIT/ML X5UNITS SQ SCH (21:00)
[2016-10-17] MEDS ORDERED: Insulin LISPRO 300 UNITS/3 ML VIAL SQ SCH (21:00)
[2016-10-18] MEDS: Piperacillin/Tazobactam 3.375 GM in D5% in Water (Mini-Bag+) 100 ML IVPB SCH ×2 (00:40→08:15)
[2016-10-18] MEDS: methylPREDNISolone 125 MG/2 ML VIAL IVP SCH ×4 (00:42→20:25)
[2016-10-18 01:06] LABS: Prothrombin Time 10.4 Seconds (9.4-12.1)
[2016-10-18 01:09] LABS: Activated Partial Thrombo Time 54.9 Seconds (26.0-36.0)
[2016-10-18] MEDS: *HR* Heparin 5,000 UNIT/ML VIAL IVP PRN (01:31)
[2016-10-18] MEDS: Heparin 25,000 UNIT/500 ML D5W 25,000 UNIT/500 ML MLS IVC SCH (03:30)
[2016-10-18 03:36] LABS: BUN/Creatinine Ratio 26 (6-26); Blood Urea Nitrogen 22 mg/dL (7-20); Calcium 8.4 mg/dL (8.6-10.8); Carbon Dioxide 21 mEq/L (19-29); Chloride 104 mEq/L (98-109); Glucose 279 mg/dL (70-99); Osmolality,Calculated 295 (280-300); Potassium 5.1 mEq/L (3.5-4.5); Sodium 136 mEq/L (136-145); eGFR For African Americans > 60 (> 60); eGFR For Non-African Americans > 60 (> 60)
[2016-10-18 03:49] LABS: Basophils % 0.1 %; Eosinophils % 0.2 %; Hematocrit 32.4 % (35.3-44.9); Hemoglobin 10.3 g/dL (11.5-15.4); Immature Platelets 6.6 % (1.1-6.1); Lymphocytes # 1.3 K/mcL (0.6-4.6); Lymphocytes % 10.6 %; Mean Corpuscular HGB Conc 31.8 g/dL (31.6-35.5); Mean Corpuscular Hemoglobin 24.8 pg (28.0-33.3); Mean Corpuscular Volume 77.9 fL (83.0-100.0); Monocytes # 0.4 K/mcL (0.0-1.3); Monocytes % 3.3 %; Neutrophils # 10.1 K/mcL (1.6-8.9); Platelet Count 307 K/mcL (140-400); Red Blood Count 4.16 M/mcL (3.82-4.97); Red Cell Distribution Width 16.1 % (11.5-14.5); Segmented Neutrophils % 84.8 %
[2016-10-18] MEDS: Ipratropium/Albuterol Neb 3 ML IH SCH ×6 (04:14→23:21)
[2016-10-18] MEDS ORDERED: Insulin LISPRO 300 UNITS/3 ML VIAL SQ SCH ×3 (07:30→21:00)
[2016-10-18] MEDS: Aspirin 81 MG TAB.CHEW PO SCH (08:12)
[2016-10-18] MEDS: Pregabalin 75 MG CAPSULE PO SCH ×2 (08:12→22:15)
[2016-10-18] MEDS: Insulin LISPRO 300 UNITS/3 ML VIAL SQ SCH ×6 (08:14→17:56)
[2016-10-18] MEDS ORDERED: Insulin DETEMIR 100 UNIT/ML X5UNITS SQ SCH (08:47)
--- NOTE | 2016-10-18 08:59 | Cardiology Progress Note ---
Date of Encounter: 10/18/16 Time of Encounter: 08:30 Assessment and Plan (1) Respiratory failure Current Visit: Yes Status: Acute Per cardiology: -Patient admitted for respiratory distress. Patient with pH 6.98 on admission. Patient on nasal cannula at this point and continuous pulse oximetry. 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 -Patient with most recent pH 7.3. -Chest x-ray with no acute cardiopulmonary process. -Conversational dyspnea noted. -Patient on nebulizers, antibiotics, and BiPAP. -CT chest negative for PE. -Appears clinically improved from yesterday. -Continue current regimen. -Management per primary service. Qualifiers: Chronicity: acute on chronic Respiratory failure complication: hypercapnia Qualified Code(s): J96.22 - Acute and chronic respiratory failure with hypercapnia (2) Elevated troponin Current Visit: Yes Status: Acute Per cardiology -Patient with elevated troponins of 0.08, 0.08, and 0.15 in the setting of respiratory failure. Most recent troponin 0.12. -Lactic acid 6.9, glucose 484, trigylcerides 1711, cholesterol 591, LDL unable to perform. -Patient currently on statin, heparin drip, beta michele, and asa. Currently on nebulizers, antibiotics, and steroids for respiratory symptoms. -Patient currently tachycardic with heart rate 110. -Patient with atypical chest pain. Chest pain reproduceable with palpation. Chest pain occurs at rest and with excertion and is not relieved by rest. Currently chest pain free. -Echocardiogram 06/01/16 showed LVEF 60%, normal LV chamber and size, atypical septal motion, normal right ventricular size and function, no significant valvular dysfunction, mild left diastolic dysfunction, mildly dilated left atrium. -Echocardiogram 10/17/16 with LVEF 50%, no LV wall motion abnormalities, RV size and function appear normal. -Stress test 2013 negative for ischemia. -Consider increasing beta michele when blood pressure will allow. -Will consider adding caleb inhibitor once we see if blood pressure is stable with adding beta michele. -Elevated troponins most likely due to demand ischemia due to respiratory failure. -Will stop heparin drip due to most likely troponins elevated due to demand ischemia. -Consider switching nebulizers to Xopenox due to tachycardia. -Recommend medical management at this time. No need for cardiac rehab. -Can consider further ischemic evaluation as outpatient. -Cardiology will sign off and follow up in cardiology office has been set up. Discussion w patient/family: The assessment and plan as outlined above was discussed with the patient who expressed understanding and agreement. All questions were answered. Thank you for involving us in the care of your patient. Please call with any questions. Patient seen and examined with VIKA Cheung. Discussed and reviewed with . Subjective Principal diagnosis: chest pain, shortness of breath Interval history: Patient is a 56 year old female admitted for chest pain and shortness of breath. Patient with initial pH of 6.98. Latest pH 7.3. Patient has been intermittently on Bipap. Currently off Bipap. Patient states she had chest pain that was left chest wall and raidated to left arm. Patient states pain occured at rest and excertion. Pain was aggervated with palpation. Patient denied alleviating factor. Patient denies chest pain at current time. Patient states breathing is better. Objective Vital Signs, Last 4 Hours Temp Pulse Resp BP Pulse Ox 10/18/16 08:36 16 100 10/18/16 07:36 98.2 F 69 18 94/62 96 General: Conversant, Other (Conversational dyspnea noted. ) HEENT: Atraumatic, Normocephaly, Mucus Membranes Moist Neck: No JVD, Normal carotid pulses Cardiac: Normal S1 and S2, No Murmur, Other (Tachycardic) Lungs: Other (Expiratory wheezes noted throughout. ) Neuro: Alert and responsive, No focal deficits noted Abdomen: Soft, Non-Tender Skin: No rashes noted on visualized skin Musculoskeletal: No Chest Wall Tenderness Extremities: No Clubbing, No Cyanosis, No Edema, Normal Pulses Results 10/18/16 03:23 10/18/16 00:49 Lab Results 10/17/16 10/17/16 10/18/16 15:00 15:00 00:49 WBC Hgb Hct Plt Count INR 1.0 APTT 50.9 H 54.9 H Sodium Potassium Chloride Carbon Dioxide BUN Creatinine Glucose Calcium Magnesium Troponin I 0.12 H* 10/18/16 10/18/16 10/18/16 00:49 00:49 03:23 WBC 11.9 H Hgb 10.3 L D Hct 32.4 L Plt Count 307 INR APTT Sodium 136 Potassium 5.1 H D Chloride 104 Carbon Dioxide 21 BUN 22 H Creatinine 0.84 Glucose 279 H Calcium 8.4 L Magnesium 1.6 Troponin I 10/18/16 07:52 WBC Hgb Hct Plt Count INR APTT 73.6 H Sodium Potassium Chloride Carbon Dioxide BUN Creatinine Glucose Calcium Magnesium Troponin I - Imaging and Cardiology Chest Xray: report reviewed Echo: report reviewed Other Results: Chest CT report reviewed - EKG Interpretation EKG results cardiology: personally reviewed, sinus rhythm, other (ECG with sinus tachycardia. 24 hour telemetry reviewed with average heart rate 115, sinus rhythm. Occasional PVCs noted.) Consult Discharge Plan - Plan Referrals: Roxane Henson DO [Primary Care Provider] - Yemi Dietrich DO [Partnered Physician] - 10/26/16 12:00 pm
--- NOTE | 2016-10-18 09:33 | Internal Med Progress Note ---
Date of Encounter: 10/18/16 Time of Encounter: 09:31 - Assessment and plan (1) Respiratory failure Current Visit: Yes Status: Acute Assessment and plan: Secondary to underlying COPD with CO2 retention and respiratory acidosis. Clinically getting better. Has responded well to therapy with BiPAP. We will taper down steroids. Qualifiers: Chronicity: acute on chronic Respiratory failure complication: hypercapnia Qualified Code(s): J96.22 - Acute and chronic respiratory failure with hypercapnia (2) NSTEMI (non-ST elevated myocardial infarction) Current Visit: Yes Status: Acute Assessment and plan: Patient was admitted due to shortness of breath, associated with substernal chest pain. Mild elevation of cardiac biomarkers. A rapid response was called the night of admission and the patient was started on heparin drip. There was no evidence of hypoxemia, d-dimer has been negative. Low probability of pulmonary embolism. However, in light of chest pain and elevation of cardiac biomarkers, the patient was started on heparin drip. Additionally, she was started on noninvasive mechanical ventilation via BiPAP. The pH was 6.9 initially, has improved to 7.3. Lactic acid got better. Cardiology recommendations noted, no acute interventions at this point Zosyn stopped, switched to Levaquin. (3) COPD exacerbation Current Visit: Yes Status: Acute Assessment and plan: COPD exacerbation in the setting of a patient who is a chronic active smoker. She smokes one pack of cigarettes daily. She is also a use of long-term oxygen therapy. We will continue with nebulizer therapy, systemic steroids and IV antibiotics. Continue with BiPAP. High risk of respiratory failure. Patient is not a user of noninvasive ventilation at home, will try to qualify for for BiPAP with pulse oximeter evaluation overnight. (4) Acute exacerbation of chronic obstructive airways disease Current Visit: No Status: Acute Assessment and plan: Continue with therapy of COPD exacerbation including antibiotics, steroids, nebulizer therapy and oxygen supplementation. Continue with BiPAP. (5) Hypomagnesemia Current Visit: No Status: Acute Assessment and plan: On admission was 1.4, today is 1.6. (6) Tobacco abuse Current Visit: No Status: Chronic Assessment and plan: Smoking cessation was strongly recommended. - Time Spent With Patient 25 - 35 minutes - Subjective Interval history: The patient was seen and examined at bedside. The patient states that if the Metamucil indefinitely, less shortness of breath. No chest pain. She used BiPAP on and off yesterday. Today she is breathing with a nasal cannula. No fever. - Constitutional Vitals: Temp Pulse Resp BP Pulse Ox 98.2 F 69 16 94/62 100 10/18/16 07:36 10/18/16 07:36 10/18/16 08:36 10/18/16 07:36 10/18/16 08:36 General appearance: Present: cooperative, mild distress, A&O X 3, obese - Head Head exam: Present: atraumatic, normocephalic - Eye Eye exam: Present: PERRL, conjuntiva pink, sclera anicteric Pupils: Present: PERRL - Neck Neck exam general surgery: Present: supple, trachea midline. Absent: lymphadenopathy - Respiratory Respiratory exam: Present: CTAB. Absent: accessory muscle use, rales, rhonchi, wheezes - Cardiovascular Cardiovascular exam: Present: RRR, +S1, +S2. Absent: diastolic murmur, gallop, rubs, systolic murmur - GI/Abdominal GI/Abdominal exam: Present: normal bowel sounds, soft, no peritoneal signs. Absent: distended, tenderness - Extremities Exam Extremities exam: Present: warm, radial pulses palpable and symetrical. Absent : calf tenderness, cyanotic, pedal edema - Neurological Exam Neurological exam: Present: CN II-XII intact, oriented X3, no focal deficits. Absent: pronater drift, facial droop, speech deficit - Skin Skin exam: Present: dry, intact Internal Medicine: Result - Labs CBC & Chem 7: 10/18/16 03:23 10/18/16 00:49 Labs: Short CBC 10/18/16 Range/Units 03:23 WBC 11.9 H (4.3-11.1) K/mcL Hgb 10.3 L D (11.5-15.4) g/dL Hct 32.4 L (35.3-44.9) % Plt Count 307 (140-400) K/mcL Neutrophils # 10.1 H (1.6-8.9) K/mcL BMP 10/18/16 00:49 Sodium 136 Potassium 5.1 H D Chloride 104 Carbon Dioxide 21 BUN 22 H Creatinine 0.84 Glucose 279 H Calcium 8.4 L Cardiac Enzymes 02/21/17 Range/Units 15:00 Troponin I 0.12 H* (0-0.03) ng/mL - ABG Interpretation ABG results: ABG ABG pH 7.30 pH Units (7.32-7.45) L 10/17/16 05:28 ABG pCO2 50 mmHg (35-45) H 10/17/16 05:28 ABG pO2 138 mmHg (85-104) H 10/17/16 05:28 ABG O2 Saturation 99 % (95-98) H 10/17/16 05:28 PT/INR, D-dimer PT 10.4 Seconds (9.4-12.1) 10/18/16 00:49 D-Dimer 267 ng/mLFEU (0-500) 10/16/16 21:02 - Impressions Impressions Chest CTA 10/17/16 10:50 IMPRESSION: 1. No evidence of pulmonary embolism 2. Probable pulmonary venous hypertension with trace bilateral pleural effusions and bibasilar atelectasis 3. Ground-glass disease in the left lung is felt to either represent asymmetric edema or superimposed pneumonia D/ / Kyrie Roa MD / Kyrie Roa MD Interpreting Provider: Kyrie Roa MD Consult Discharge Plan - Plan Referrals: Roxane Henson DO [Primary Care Provider] -
[2016-10-18] MEDS: levoFLOXacin 500 MG TABLET PO SCH (10:47)
[2016-10-18] MEDS: hydrOXYzine pamoate 25 MG CAPSULE PO PRN ×2 (15:11→23:17)
[2016-10-18] MEDS: Insulin DETEMIR 100 UNIT/ML X5UNITS SQ SCH (22:20)
[2016-10-19] MEDS: methylPREDNISolone 125 MG/2 ML VIAL IVP SCH ×3 (00:23→10:05)
[2016-10-19] MEDS ORDERED: *HR* HYDROcodone/Acet 5/325 mg TABLET ONE (03:49)
[2016-10-19] MEDS ORDERED: Melatonin 3 MG TABLET ONE (03:49)
[2016-10-19] MEDS: Ipratropium/Albuterol Neb 3 ML IH SCH ×4 (05:46→16:22)
[2016-10-19 06:22] LABS: Basophils % 0.2 %; Eosinophils % 0.1 %; Hematocrit 30.6 % (35.3-44.9); Hemoglobin 9.5 g/dL (11.5-15.4); Immature Granulocytes % 3.7 % (0-4); Immature Platelets 7.5 % (1.1-6.1); Lymphocytes # 1.5 K/mcL (0.6-4.6); Lymphocytes % 13.8 %; Mean Corpuscular Hemoglobin 24.2 pg (28.0-33.3); Mean Corpuscular Volume 78.1 fL (83.0-100.0); Mean Platelet Volume 10.9 fL (9.4-12.4); Monocytes # 0.4 K/mcL (0.0-1.3); Monocytes % 3.7 %; Neutrophils # 8.3 K/mcL (1.6-8.9); Platelet Count 278 K/mcL (140-400); Red Blood Count 3.92 M/mcL (3.82-4.97); Red Cell Distribution Width 15.9 % (11.5-14.5); Segmented Neutrophils % 78.5 %
[2016-10-19 07:10] LABS: BUN/Creatinine Ratio 31 (6-26); Blood Urea Nitrogen 22 mg/dL (7-20); Calcium 8.7 mg/dL (8.6-10.8); Carbon Dioxide 22 mEq/L (19-29); Chloride 105 mEq/L (98-109); Glucose 313 mg/dL (70-99); Osmolality,Calculated 301 (280-300); Potassium 4.7 mEq/L (3.5-4.5); Sodium 138 mEq/L (136-145); eGFR For African Americans > 60 (> 60); eGFR For Non-African Americans > 60 (> 60)
[2016-10-19] MEDS: Pregabalin 75 MG CAPSULE PO SCH (08:02)
[2016-10-19] MEDS: levoFLOXacin 500 MG TABLET PO SCH (08:02)
[2016-10-19] MEDS: Aspirin 81 MG TAB.CHEW PO SCH (08:02)
[2016-10-19] MEDS: Insulin LISPRO 300 UNITS/3 ML VIAL SQ SCH ×4 (08:03→13:33)
[2016-10-19] MEDS: Insulin DETEMIR 100 UNIT/ML X5UNITS SQ SCH (08:03)
--- NOTE | 2016-10-19 09:35 | Discharge Summary ---
Date of Encounter: 10/19/16 Time of Encounter: 09:31 - Discharge Diagnosis (1) Respiratory failure Priority: Primary Status: Acute Qualifiers: Chronicity: acute on chronic Respiratory failure complication: hypercapnia Qualified Code(s): J96.22 - Acute and chronic respiratory failure with hypercapnia (2) NSTEMI (non-ST elevated myocardial infarction) Priority: Secondary Status: Acute (3) COPD exacerbation Priority: Secondary Status: Acute (4) Acute exacerbation of chronic obstructive airways disease Priority: Secondary Status: Acute (5) Hypomagnesemia Priority: Secondary Status: Acute (6) Tobacco abuse Priority: Secondary Status: Chronic - Discharge Medications Prescriptions: Fluticasone/Salmeterol [Advair 250-50 Diskus] 1 each IH BID 30 Days Levofloxacin [Levaquin] 500 mg PO DAILY #5 tablet PredniSONE [Prednisone] 20 mg PO DAILY 3 Days Tiotropium [Spiriva] 18 mcg IH 0700 #30 capsule Home Medications: Albuterol Sulfate [Albuterol Inhaler] 1 - 2 puff IH Q6H PRN 10/12/15 [History] Carvedilol [Coreg] 6.25 mg PO BID 10/12/15 [History] Pregabalin [Lyrica] 150 mg PO BID 10/12/15 [History] SitaGLIPtin [Januvia] 100 mg PO DAILY 10/12/15 [History] Fenofibrate [Lofibra] 160 mg PO DAILY #30 tablet 10/14/15 [Rx] Rosuvastatin [Crestor] 20 mg PO HS #30 tablet 10/14/15 [Rx] Loratadine [Claritin] 10 mg PO DAILY 01/09/16 [History] Metformin HCl [Metformin HCl ER] 1,000 mg PO BID 01/09/16 [History] [place]-3/Dha/Epa/Fish Oil [Fish Oil Dr 500 mg Softgel] 1,000 mg PO DAILY [History] Pantoprazole Sodium [Protonix] 40 mg PO BID 01/09/16 [History] Venlafaxine XR (24 HR) [Effexor Xr] 150 mg PO DAILY 01/09/16 [History] Famotidine [Heartburn Prevention] 20 mg PO DAILY 04/30/16 [History] Nitroglycerin [Nitrostat] 0.4 mg PO Q5M PRN 04/30/16 [History] SUMAtriptan Succinate [Imitrex] 100 mg PO AD PRN 04/30/16 [History] Ipratropium/Albuterol Neb [Duoneb] 3 ml IH Q4HR 30 Days 05/02/16 [Rx] Buspirone HCl [Buspar] 5 mg PO TID #90 tablet 06/06/16 [Rx] Hydroxyzine HCl 50 mg PO TID PRN #90 tablet 06/06/16 [Rx] Quetiapine Fumarate [Seroquel] 50 mg PO HS #30 tablet 06/06/16 [Rx] Citalopram [CeleXA] 20 mg PO DAILY 10/16/16 [History] Duloxetine HCl [Cymbalta] 60 mg PO DAILY 10/16/16 [History] Fluticasone/Salmeterol [Advair 250-50 Diskus] 1 each IH BID 30 Days 10/19/16 [Rx ] Levofloxacin [Levaquin] 500 mg PO DAILY #5 tablet 10/19/16 [Rx] PredniSONE [Prednisone] 20 mg PO DAILY 3 Days 10/19/16 [Rx] Tiotropium [Spiriva] 18 mcg IH 0700 #30 capsule 10/19/16 [Rx] Allergies/Adverse Reactions: Allergies latex Allergy (Verified 04/30/16 13:37) Hives fluoxetine [From Prozac] Adverse Reaction (Verified 04/30/16 13:37) Irritable Procedures/tests Complete & Pending: Procedures Performed prior 72 hours Category Date Time Status CTA chest [CT angio chest] [CT] Stat Cat Scan 10/17/16 10:50 Completed ECG 12 lead ECG [ECG] Routine Y 10/17/16 00:00 Completed EV limited echocardiogram Routine Y 10/17/16 08:11 Completed Date of admission: 10/17/16 00:20 Primary care physician: Roxane Henson DO Consults: 10/17/16 09:36 Consult to Booth Cleaner [CONS] Routine Reason for SW Consult: might need plaement to rehab upon discharge, lives by herself. 10/17/16 12:28 Consult to Occupational Therapy [CONS] Routine Comment: Evaluate, develop and implement POC Consult to Physical Therapy [CONS] Routine Comment: Evaluate, develop and implement POC Discharging clinician: Corona Benson Anticipated date of discharge: 10/19/16 - Patient Status Disposition: Home Health Service Condition: Good Functional capacity at discharge: independent ambulation Overall status at discharge: patient is back to baseline - Discharge Instructions Follow Up With: Roxane Henson DO [Primary Care Provider] - Yemi Dietrich DO [Partnered Physician] - 10/26/16 12:00 pm - Diet and Activity Activity: increase activity as tolerated Diet: diabetic diet Interval History: Ms. Lorenzo is a 56 year old female with past medical history significant for COPD and type 2 diabetes who presented to the hospital for shortness of breath. At the time I evaluated the patient she was an acute and severe distress due to chest pain and shortness of breath and the history was extremely limited by her distress. At this time she reports crushing severe midsternal chest pain worse with breathing associated with shortness of breath and anxiety. She was admitted earlier for COPD exacerbation and she was reported to be slightly improving although in a serious condition. Review of systems past medical family and social history is per the medical record. Unobtainable from the patient due to severe respiratory distress. The patient has a history of tobacco smoking. Hospital course: Ms. Lorenzo is a 56 year old female Patient was admitted due to shortness of breath, associated with substernal chest pain. Mild elevation of cardiac biomarkers. A rapid response was called the night of admission and the patient was started on heparin drip. There was no evidence of hypoxemia, d-dimer has been negative. Low probability of pulmonary embolism. However, in light of chest pain and elevation of cardiac biomarkers, the patient was started on heparin drip. Additionally, she was started on noninvasive mechanical ventilation via BiPAP. The pH was 6.9 initially, has improved to 7.3. Lactic acid got better. She responded well to bipap. Cardiology recommendations noted, no acute interventions at this point, heparin drip was stopped yesterday. Zosyn stopped, switched to Levaquin, will continue with levaquin po for 5 more days. COPD exacerbation in the setting of a patient who is a chronic active smoker. She smokes one pack of cigarettes daily. She is also a use of long-term oxygen therapy, will discharge her on albuterol and spiriva, also will eed inhaled steroids. Patient was not a user of noninvasive ventilation at home, she did qualify for BiPAP after pulse oxymeter evaluation overnight. D/W patient about discharge plan , she expressed understanding. - Time Spent with Patient Total time spent providing and/or coordinating discharge services: Greater than 30 minutes - Constitutional Vitals: Temp Pulse Resp BP Pulse Ox 97.0 F L 115 18 125/69 99 10/19/16 06:54 10/19/16 06:54 10/19/16 08:10 10/19/16 06:54 10/19/16 08:10 General appearance: Present: cooperative, mild distress, A&O X 3, obese - Head Head exam: Present: atraumatic, normocephalic - Eye Eye exam: Present: PERRL, conjuntiva pink, sclera anicteric Pupils: Present: PERRL - Neck Neck exam general surgery: Present: supple, trachea midline. Absent: lymphadenopathy - Respiratory Respiratory exam: Present: CTAB. Absent: accessory muscle use, rales, rhonchi, wheezes - Cardiovascular Cardiovascular exam: Present: RRR, +S1, +S2. Absent: diastolic murmur, gallop, rubs, systolic murmur - GI/Abdominal GI/Abdominal exam: Present: normal bowel sounds, soft, no peritoneal signs. Absent: distended, tenderness - Extremities Exam Extremities exam: Present: warm, radial pulses palpable and symetrical. Absent : calf tenderness, cyanotic, pedal edema - Neurological Exam Neurological exam: Present: CN II-XII intact, oriented X3, no focal deficits. Absent: pronater drift, facial droop, speech deficit - Skin Skin exam: Present: dry, intact
--- NOTE | 2016-10-19 09:47 | Physician Discharge Referral ---
Home Health/Hosp Referral Info Provider in Charge Post Discharge: PCP - Diagnosis (1) Respiratory failure Status: Acute (2) NSTEMI (non-ST elevated myocardial infarction) Status: Acute (3) COPD exacerbation Status: Acute (4) Acute exacerbation of chronic obstructive airways disease Status: Acute (5) Hypomagnesemia Status: Acute (6) Tobacco abuse Status: Chronic - Respiratory Orders Oxygen / L per min (3), Other (Bipap at night) Smoking Cessation: Smoking cessation has been advised. For more information, call the [place] [employer] Quit Line at 4-025-ORJU-NOW. - Diet/Nutrition Diet/Nutrition Orders: Cardiac - Activity Activity Orders: Up ad analy - Services Needed Following services are medically necessary services: Home Health Aide - Transfer Medications Prescriptions: Fluticasone/Salmeterol [Advair 250-50 Diskus] 1 each IH BID 30 Days Levofloxacin [Levaquin] 500 mg PO DAILY #5 tablet PredniSONE [Prednisone] 20 mg PO DAILY 3 Days Tiotropium [Spiriva] 18 mcg IH 0700 #30 capsule Home Medications: Albuterol Sulfate [Albuterol Inhaler] 1 - 2 puff IH Q6H PRN 10/12/15 [History] Carvedilol [Coreg] 6.25 mg PO BID 10/12/15 [History] Pregabalin [Lyrica] 150 mg PO BID 10/12/15 [History] SitaGLIPtin [Januvia] 100 mg PO DAILY 10/12/15 [History] Fenofibrate [Lofibra] 160 mg PO DAILY #30 tablet 10/14/15 [Rx] Rosuvastatin [Crestor] 20 mg PO HS #30 tablet 10/14/15 [Rx] Loratadine [Claritin] 10 mg PO DAILY 01/09/16 [History] Metformin HCl [Metformin HCl ER] 1,000 mg PO BID 01/09/16 [History] [place]-3/Dha/Epa/Fish Oil [Fish Oil Dr 500 mg Softgel] 1,000 mg PO DAILY [History] Pantoprazole Sodium [Protonix] 40 mg PO BID 01/09/16 [History] Venlafaxine XR (24 HR) [Effexor Xr] 150 mg PO DAILY 01/09/16 [History] Famotidine [Heartburn Prevention] 20 mg PO DAILY 09/04/16 [History] Nitroglycerin [Nitrostat] 0.4 mg PO Q5M PRN 04/30/16 [History] SUMAtriptan Succinate [Imitrex] 100 mg PO AD PRN 04/30/16 [History] Ipratropium/Albuterol Neb [Duoneb] 3 ml IH Q4HR 30 Days 05/02/16 [Rx] Buspirone HCl [Buspar] 5 mg PO TID #90 tablet 06/06/16 [Rx] Hydroxyzine HCl 50 mg PO TID PRN #90 tablet 06/06/16 [Rx] Quetiapine Fumarate [Seroquel] 50 mg PO HS #30 tablet 06/06/16 [Rx] Citalopram [CeleXA] 20 mg PO DAILY 10/16/16 [History] Duloxetine HCl [Cymbalta] 60 mg PO DAILY 10/16/16 [History] Fluticasone/Salmeterol [Advair 250-50 Diskus] 1 each IH BID 30 Days 10/19/16 [Rx ] Levofloxacin [Levaquin] 500 mg PO DAILY #5 tablet 10/19/16 [Rx] PredniSONE [Prednisone] 20 mg PO DAILY 3 Days 10/19/16 [Rx] Tiotropium [Spiriva] 18 mcg IH 0700 #30 capsule 10/19/16 [Rx] Allergies/Adverse Reactions: Allergies latex Allergy (Verified 04/30/16 13:37) Hives fluoxetine [From Prozac] Adverse Reaction (Verified 04/30/16 13:37) Irritable Certification: Further, I certify that my clinical findings support that this patient is homebound (i.e. absences from home require considerable and taxing effort and are for medical reasons or alevism services or infrequently or short duration when for other reasons) because: Homebound Reason: Leaving home requires considerable and taxing effort due to condition, Severity of cardiac or pulmonary status limits activity tolerance Attestation: My signature below is to certify that this patient is under my care and that I, or nurse practitioner, or a physician's bindery assistant working with me, has a face-to -face encounter with this patient.
[2016-10-19 11:07] VITALS: BP 131/75
== END 2016-10-19 16:22 | disposition home health service (06) | DRG 280 ==
LOC: 3BNU 20:04 → EMEROO 20:04 → 3BNU 23:30 → SUATTDRO 10-17 00:20
PROVIDERS: ADMIT Family Medicine; ATTEND Internal Medicine

== ENCOUNTER 2016-10-20 03:56 | Inpatient (IN) ==
[2016-10-20] MEDS ORDERED: *HR* FentaNYL (PF) 100 MCG/2 ML VIAL IVP ONE ×2 (04:10→05:44)
[2016-10-20] MEDS ORDERED: *HR* Enoxaparin 60 MG/0.6 ML SYRINGE SQ STA (04:26)
--- NOTE | 2016-10-20 04:34 | Emergency Department Note ---
Disposition Clinical Impression: NSTEMI (non-ST elevated myocardial infarction) Chest pain Qualifiers: Chest pain type: other chest pain Qualified Code(s): R07.89 - Other chest pain Disposition: Admitted As Inpatient Condition: Critical Time of Disposition: 07:31 Chest Pain HPI - General Chief Complaint: ED Chest Pain Stated Complaint: CP Time Seen by Provider: 10/20/16 04:03 Source: patient, EMS Mode of arrival: EMS Limitations: no limitations Vital Signs Reviewed: Yes Nursing Notes Reviewed: Yes - History of Present Illness HPI Narrative: 56-year-old female with history of CAD, COPD 3 L home oxygen, hypertension, hyperlipidemia, former smoker quit today presents the ED with sudden sharp left sided pleuritic chest pain and shortness of breath. This occurred an hour prior to arrival while sitting on the couch. Pain is on the left chest wall with radiation into the left arm. Patient is very diaphoretic. She took a total of 2 nitroglycerin without relief. She reports being discharged from the hospital yesterday. She reports a history of 2 heart attacks in the past with similar anginal pain. Denies any stents. She denies any recent illness, cough, blood in the stool, home offices, blood in the urine. Denies use of anticoagulation. Denies any heart catheterization or stents. Denies any history of blood clots but was recently hospitalized. Pt complaint: chest pain Severity scale (1-10): 10 - Related Data Home Medications Medication Instructions Recorded Confirmed Albuterol Sulfate [Albuterol 1 - 2 puff IH Q6H PRN 10/12/15 10/20/16 Inhaler] Pregabalin [Lyrica] 150 mg PO BID 10/12/15 10/20/16 SitaGLIPtin [Januvia] 100 mg PO DAILY 10/12/15 10/20/16 Loratadine [Claritin] 10 mg PO DAILY 01/09/16 10/20/16 [place]-3/Dha/Epa/Fish Oil [Fish Oil 1,000 mg PO DAILY 01/09/16 10/20/16 Dr 500 mg Softgel] Pantoprazole Sodium [Protonix] 40 mg PO BID 01/09/16 10/20/16 Venlafaxine XR (24 HR) [Effexor Xr] 150 mg PO DAILY 01/09/16 10/20/16 Famotidine [Heartburn Prevention] 20 mg PO DAILY 04/30/16 10/20/16 Citalopram [CeleXA] 20 mg PO DAILY 10/16/16 10/20/16 Duloxetine HCl [Cymbalta] 60 mg PO DAILY 10/16/16 10/20/16 Fluticasone/Salmeterol [Advair 1 puff IH BID 10/20/16 10/20/16 250-50 Diskus] Oxygen 3 l .ROUTE AD 10/20/16 10/20/16 Tiotropium [Spiriva] 18 mcg IH DAILY 10/20/16 10/20/16 Previous Rx's Medication Instructions Recorded Fenofibrate [Lofibra] 160 mg PO DAILY #30 tablet 10/14/15 Rosuvastatin [Crestor] 20 mg PO HS #30 tablet 10/14/15 Ipratropium/Albuterol Neb [Duoneb] 3 ml IH Q4HR 30 Days 05/02/16 Buspirone HCl [Buspar] 5 mg PO TID #90 tablet 06/06/16 Hydroxyzine HCl 50 mg PO TID PRN #90 tablet 06/06/16 Quetiapine Fumarate [Seroquel] 50 mg PO HS #30 tablet 06/06/16 PredniSONE [Prednisone] 20 mg PO DAILY 3 Days 10/19/16 Acetaminophen [Tylenol] 650 mg PO Q6HR PRN #0 tablet 10/23/16 Aspirin 81 mg PO DAILY tab.chew 10/23/16 Carvedilol [Coreg] 6.25 mg PO BIDWM tablet 10/23/16 Dextrose 50 % in Water (Syg) 25 ml IVP AD PRN #0 syringe 10/23/16 [Dextrose 50% (Syg)] Dextrose Gel [Gluctose] 15 gm PO ONCE PRN #0 gel..gram. 10/23/16 Dextrose Gel [Gluctose] 30 gm PO ONCE PRN #0 gel..gram. 10/23/16 Furosemide [Lasix] 20 mg IVP BIDDIURETIC vial 10/23/16 Heparin 2,400 unit IVP Q6H PRN #0 vial 10/23/16 Heparin 4,800 unit IVP Q6HR PRN #0 vial 10/23/16 Nicotine Gum [Nicorette gum] 2 mg BC Q2HWA PRN #0 gum 10/23/16 Nicotine Patch [Nicoderm] 14 mg TD DAILY PRN #0 patch.td24 10/23/16 Nitroglycerin 0.4 mg SL Q5MIN PRN #0 tab.subl 10/23/16 Allergies Allergy/AdvReac Type Severity Reaction Status Date / Time latex Allergy Hives Verified 04/30/16 13:37 fluoxetine [From Prozac] AdvReac Agitated Verified 10/20/16 08:23 All systems ED: reviewed and negative except as stated. Constitutional: Denies: fever, chills Cardiovascular: Reports: chest pain Respiratory: Reports: dyspnea. Denies: cough Gastrointestinal: Denies: abdominal pain, nausea, vomiting Psychiatric: Reports: anxiety Chest Pain PMH - Past Medical History Medical history: Reports: arthritis, asthma, COPD, coronary artery disease, diabetes, fibromyalgia, GERD, hyperlipidemia, hypertension, migraine, myocardial infarction, osteoporosis, peripheral artery disease, renal disease, syncope, venous stasis, other Surgical history: Reports: cholecystectomy, orthopedic, other, other Psychiatric history: Reports: anxiety, bipolar, depression - Social History Smoking Status: Former smoker Alcohol use: Reports: none Drug use: Reports: none Physical Exam - General Limitations: no limitations General appearance: alert, anxious, in distress, other (diaphoretic) - Head Head exam: atraumatic, normocephalic, normal inspection - Eye Eye exam: Present: normal appearance, PERRL, EOMI - ENT ENT exam: normal exam, normal oropharynx, mucous membranes moist - Chest Chest inspection: Present: normal inspection, symmetric chest wall rise, tenderness (pleuritic pain to left chest wall) - Respiratory Respiratory exam: Present: normal lung sounds bilaterally, respiratory distress. Absent: wheezes, stridor - Cardiovascular Cardiovascular exam: Present: normal rhythm, tachycardia, normal heart sounds. Absent: systolic murmur, diastolic murmur - Abdominal Exam Abdominal exam: Present: soft, Non-Tender, normal bowel sounds. Absent: tenderness, distention, guarding, rebound, rigidity - Extremities Exam Extremities exam: Present: normal inspection, full ROM, normal capillary refill. Absent: tenderness, pedal edema, calf tenderness - Psychiatric Psychiatric exam: Present: anxious - Skin Skin exam: Present: intact, diaphoresis Course Course Narrative: 56-year-old female presents via EMS for chest pain and difficulty in breathing. Patient reports being discharged from the hospital yesterday for similar symptoms. She is having sharp left chest pain with radiation, left arm not relieved with nitroglycerin. Patients diaphoretic and in respiratory distress. EKG does not have any ST elevations or depressions. She is tachycardia 138 with 93% on 2 L and 96% oxygen saturation on 3 L. Concern for possible pulmonary embolism. Lung are clear to auscultation bilaterally. She is very anxious. Heart is tachycardic but regular. No murmurs are heard. Negative CTA of the chest 3 days ago. Renal function checked yesterday normal, will repeat CTA of chest for R/O PE. Bedside ultrasound was limited due to tachycardia and tachypneic however on 4 chamber view reveals a thrombus. No obvious signs of RV dilatation. Will administer 1 mg/kg lovenox SQ 60 mg. Review of medical record her troponin peaked at 0.15. - Reevaluation(s) Reevaluation #1: Patient requested that I speak with daughter, Sherly, who lives in [place]. After explaining the current situation, patient wishes to remain here for further management while daughter wants transfer to [facility]. As long as we have to necessary interventions for her management it is appropriate to keep the patient's wishes as she does not have a POA. Critical troponin 0.27. She has elevated BNP 1206. Concerning for possible submassive PE pending CTA of chest. She has no absolute contraindications for thrombolysis which include no prior intracranial hemorrhage, known AVM, intracranial neoplasm, ischemic stroke within 3 months, aortic dissection, active bleed, recent surgery, or head trauma. She denies any hemoptysis, hematuria, abdominal pain, bloody stool, or black tarry stool. Reports most recent surgery was 15 years ago for right knee. Time: 05:53 Reevaluation #2: Spoke with patient's daughter Sherly again regarding patient status and situation. Daughter wishes for patient to be transferred but spoke with patient and confirmed her wishes to remain here at [facility] for treatment. Daughter spoke to patient directly on the phone and is in agreement with plan. Will proceed with admission. Repeat EKG shows no new ischemic changes, persistent ST depressions in lateral leads with T wave inversion. Patient continues to have discomfort and chest pain. Blood pressures are tolerating metoprolol. After 5 mg Metoprolol HR 100 and BP 110/83. Time: 07:10 - Consultations Consultation #1: Spoke to Dr. Salmon, interventionalist, discussed case regarding need for catheterization with elevated troponin and BNP. Initial concern for PE but negative on CTA. EKG has lateral ST depression and inverted T waves that are old but she continues to be tachycardic 130s and symptomatic. Orders to control the rate with metoprolol and admit to hospitalist Time: 06:50 Consultation #2: Spoke with Dr. Peña, hospitalist, ok to admit for chest pain and NSTEMI. No further orders at this time. Time: 07:32 Vital Signs Temperature 97.9 F 10/20/16 03:57 Pulse Rate 135 10/20/16 03:57 Respiratory Rate 36 10/20/16 03:57 Blood Pressure 158/128 10/20/16 03:57 O2 Sat by Pulse Oximetry 96 10/20/16 03:57 Temperature 97.5 F L 10/23/16 15:17 Pulse Rate 106 10/23/16 18:50 Respiratory Rate 16 10/23/16 18:50 Blood Pressure 118/78 10/23/16 18:50 O2 Sat by Pulse Oximetry 97 10/23/16 16:03 Oxygen Delivery Oxygen Delivery Nasal Cannula Chest Pain - Medical Records Medical records reviewed: Yes I reviewed the patient's medical records. - Lab Data Lab results reviewed: Yes I reviewed the patient's lab results. Result diagrams: 10/23/16 05:21 10/23/16 05:21 Lab Results 10/20/16 10/20/16 10/20/16 Range/Units 05:19 05:19 05:19 WBC 13.7 H (4.3-11.1) K/mcL RBC 4.14 (3.82-4.97) M/mcL Hgb 9.9 L (11.5-15.4) g/dL Hct 31.4 L (35.3-44.9) % MCV 75.8 L (83.0-100.0) fL MCH 23.9 L (28.0-33.3) pg MCHC 31.5 L (31.6-35.5) g/dL RDW 15.3 H (11.5-14.5) % Plt Count 245 (140-400) K/mcL MPV 9.8 (9.4-12.4) fL Immature Gran % 3.1 (0-4) % Seg Neutrophils % 61.3 % Lymphocytes % 27.2 % Monocytes % 7.7 % Eosinophils % 0.3 % Basophils % 0.4 % Neutrophils # 8.4 (1.6-8.9) K/mcL Lymphocytes # 3.7 (0.6-4.6) K/mcL Monocytes # 1.1 (0.0-1.3) K/mcL Eosinophils # 0.0 (0.0-0.6) K/mcL Basophils # 0.1 (0.0-0.2) K/mcL Nucleated RBCs/100 WBC 0.2 H (0) /100 WBC Sodium 139 (136-145) mEq/L Potassium 3.9 (3.5-4.5) mEq/L Chloride 103 (98-109) mEq/L Carbon Dioxide 24 (19-29) mEq/L BUN 18 (7-20) mg/dL Creatinine 0.72 (0.57-1.11) mg/dL Est GFR ( Amer) > 60 (> 60) Est GFR (Non-Af Amer) > 60 (> 60) BUN/Creatinine Ratio 25 (6-26) Glucose 181 H (70-99) mg/dL POC Glucose (58-89) Calculated Osmolality 294 (280-300) Calcium 8.6 (8.6-10.8) mg/dL Troponin I (0-0.03) ng/mL B-Natriuretic Peptide 1206 H (0-100) pg/mL 10/20/16 10/20/16 Range/Units 05:19 08:50 WBC (4.3-11.1) K/mcL RBC (3.82-4.97) M/mcL Hgb (11.5-15.4) g/dL Hct (35.3-44.9) % MCV (83.0-100.0) fL MCH (28.0-33.3) pg MCHC (31.6-35.5) g/dL RDW (11.5-14.5) % Plt Count (140-400) K/mcL MPV (9.4-12.4) fL Immature Gran % (0-4) % Seg Neutrophils % % Lymphocytes % % Monocytes % % Eosinophils % % Basophils % % Neutrophils # (1.6-8.9) K/mcL Lymphocytes # (0.6-4.6) K/mcL Monocytes # (0.0-1.3) K/mcL Eosinophils # (0.0-0.6) K/mcL Basophils # (0.0-0.2) K/mcL Nucleated RBCs/100 WBC (0) /100 WBC Sodium (136-145) mEq/L Potassium (3.5-4.5) mEq/L Chloride (98-109) mEq/L Carbon Dioxide (19-29) mEq/L BUN (7-20) mg/dL Creatinine (0.57-1.11) mg/dL Est GFR ( Amer) (> 60) Est GFR (Non-Af Amer) (> 60) BUN/Creatinine Ratio (6-26) Glucose (70-99) mg/dL POC Glucose 190 H (58-89) Calculated Osmolality (280-300) Calcium (8.6-10.8) mg/dL Troponin I 0.27 H* (0-0.03) ng/mL B-Natriuretic Peptide (0-100) pg/mL - Radiology Data Radiology results reviewed: Yes I reviewed the patient's radiology results. Chest X-Ray 10/20/16 04:05 IMPRESSION: No acute disease. D/ / Ismael Hercules MD / Ismael Hercules MD Interpreting Provider: Ismael Hercules MD Chest CTA 10/20/16 04:09 IMPRESSION: 1. Limited study with no definite evidence for pulmonary embolus. Small emboli cannot be excluded. 2. Slight increase in size of a trace right pleural effusion. 3. Coronary artery disease. D/ / Ismael Hercules MD / Ismael Hercules MD Interpreting Provider: Ismael Hercules MD - EKG Data EKG attestation: Yes I reviewed and interpreted this EKG. EKG results narrative: EKG performed 358 shows sinus tachycardia 140 bpm regular rhythm there is some underlying artifacts likely due to movement but does not appear to have any ST elevations. This is not a STEMI. There are ST depressions in lateral leads <1mm with T wave inversions. Compared to old EKG performed 10/16/[address] changes and T wave inversions in lateral leads. Heart Score - Score History: Highly Suspicious EKG: Non Specific repolarisation Disturbance Age: 45-65 Risk Factors: Equal/Greater than 3 risk factor or history of atherosclerotic disease Troponin: Greater than 3x normal limit HEART Score Total: 8 Attestation Statement - Attestation Attestation: I examined this patient and my medical decision-making was reviewed with the Resident Physician. I agree with the documented findings, disposition and treatment plan as described except to the extent set forth below. Clinical picture classic for PE. Awoke from sleep days after a hospitalization with severe sharp chest pain and SOB. Mildly hypoxic on presentation with persistent tachycardia 130s, tachypnea, anxiety. Procedure, emergency bedside echo: Performed by me, images obtained and interpreted by me. Image quality poor due to patient's tachypnea and restlessness. Moderately decreased LV function, no effusion. No paradoxical septal movement or RV dilation to suggest right heart strain from PE. Due to high suspicion for PE and lack of contraindications for anticoagulation, therapeutic anticoagulation was ordered with Lovenox. BNP significantly elevated , troponin mildly elevated - was strongly suspicious of a submassive PE. CT was negative, much to our surprise. Pain continued. Resident spoke with interventional cardiology, recommended emergent cath for NSTEMI with persistent pain, welfare manager declined, wanted pt admitted with plan to optimize medical management with plan for cath in AM. Checked out to relieving physician at change of shift. Critical care time: I was directly and primarily involved in the care of this pt for 65 minutes excluding procedures.
[2016-10-20 05:26] LABS: Basophils # 0.1 K/mcL (0.0-0.2); Basophils % 0.4 %; Eosinophils % 0.3 %; Hematocrit 31.4 % (35.3-44.9); Hemoglobin 9.9 g/dL (11.5-15.4); Immature Granulocytes % 3.1 % (0-4); Lymphocytes # 3.7 K/mcL (0.6-4.6); Lymphocytes % 27.2 %; Mean Corpuscular HGB Conc 31.5 g/dL (31.6-35.5); Mean Corpuscular Hemoglobin 23.9 pg (28.0-33.3); Mean Corpuscular Volume 75.8 fL (83.0-100.0); Mean Platelet Volume 9.8 fL (9.4-12.4); Monocytes # 1.1 K/mcL (0.0-1.3); Monocytes % 7.7 %; Neutrophils # 8.4 K/mcL (1.6-8.9); Nucleated Red Blood Cells 0.2 /100 WBC (0); Platelet Count 245 K/mcL (140-400); Red Blood Count 4.14 M/mcL (3.82-4.97); Red Cell Distribution Width 15.3 % (11.5-14.5); Segmented Neutrophils % 61.3 %
[2016-10-20] MEDS ORDERED: 0.9 % Sodium Chloride 1,000 ML IVC ONE (05:28)
[2016-10-20 05:39] LABS: BUN/Creatinine Ratio 25 (6-26); Blood Urea Nitrogen 18 mg/dL (7-20); Calcium 8.6 mg/dL (8.6-10.8); Carbon Dioxide 24 mEq/L (19-29); Chloride 103 mEq/L (98-109); Glucose 181 mg/dL (70-99); Osmolality,Calculated 294 (280-300); Potassium 3.9 mEq/L (3.5-4.5); Sodium 139 mEq/L (136-145); eGFR For African Americans > 60 (> 60); eGFR For Non-African Americans > 60 (> 60)
[2016-10-20] MEDS ORDERED: Aspirin 81 MG TAB.CHEW PO STA (05:53)
[2016-10-20] MEDS ORDERED: *HR* HYDROmorphone (PF) 1 MG/ML SYRINGE IVP ONE (05:53)
[2016-10-20] MEDS ORDERED: *HR* Metoprolol 5 MG/5 ML VIAL IVP PRN (06:52)
[2016-10-20] MEDS ORDERED: Nitroglycerin 25 MG/250 ML INFUS..BTL IVC SCH (08:00)
[2016-10-20] MEDS ORDERED: Naloxone 0.4 MG/ML INJ IVP PRN (09:37)
[2016-10-20] MEDS ORDERED: Ondansetron 4 MG/2 ML VIAL IVP PRN (09:37)
[2016-10-20] MEDS ORDERED: 0.9 % Sodium Chloride 1,000 ML IVC SCH ×2 (09:45→11:44)
[2016-10-20] MEDS ORDERED: NON-FORMULARY MEDICATION 1 EACH EACH (Oxygen [Oxygen] 3 L) SCH (09:45)
[2016-10-20] MEDS: Ipratropium/Albuterol Neb 3 ML IH SCH ×3 (10:41→21:50)
[2016-10-20] MEDS ORDERED: *HR* Dextrose 50 % in Water (Syg) 50 ML SYRINGE IVP PRN (10:44)
[2016-10-20] MEDS ORDERED: D5% in Water 1,000 ML IV PRN (10:44)
[2016-10-20] MEDS ORDERED: Dextrose Gel 15 GM PO PRN ×2 (10:44)
--- NOTE | 2016-10-20 11:16 | Cardiology Consult Note ---
<Ricci Campos R - Last Filed: 10/20/16 11:17> Date of Encounter: 10/20/16 Time of Encounter: 11:15 Assessment and Plan (1) NSTEMI (non-ST elevated myocardial infarction) Current Visit: Yes Status: Acute Troponin 0.27. Troponins earlier this week peaked at 0.15. Could be demand ischemia in setting of CHF exacerbation and respiratory distress , but unable to rule out NSTEMI. Will treat as NSTEMI with heparin gtt, ASA, Statin, BB. Will wait until [facility] to start Plavix. No recent ischemic evaluation. She reports LHC 15-20 years ago without intervention. Negative stress test in 2013. Compains of chest pain with typical and atypical symptoms. She reports it woke from her from sleep, was left sided and radiated down left arm, but has been constant, worse with deep inspiration and she is tender on palpation. Risk factors include HTN, HLD, DM, tobacco abuse and family hx. Recommend LHC during inpt stay once diuresed and more stable from a respiratory standpoint. R/B/A discussed and pt is agreeable. Tentatively plan for Sunday. Check limited echo to evaluate EF/wall motion. Recent echo 10/17 showed low normal EF 50%. (2) CHF (congestive heart failure) Current Visit: Yes Status: Acute BNP increased from 491 on 10/16 to 2124 currently. Chest CTA showed a trace right pleural effusion that had increased in size. No lower extremity edema, but has respiratory distress. Will diurese with IV Lasix. Recommend strict I/O, daily weights, Na and fluid restriction. Echo 10/17 low normal EF 50%. Will recheck limited echo. Qualifiers: Congestive heart failure type: diastolic Congestive heart failure chronicity: acute Qualified Code(s): I50.31 - Acute diastolic (congestive) heart failure (3) Anemia Current Visit: No Status: Chronic HGB 9.9. No evidence of bleeding. Continue to monitor. Hx of iron deficiency anemia. Qualifiers: Anemia type: iron deficiency Iron deficiency anemia type: unspecified iron deficiency Qualified Code(s): D50.9 - Iron deficiency anemia, unspecified (4) Hyperlipemia Current Visit: No Status: Chronic Total cholesterol 591, triglycerides 1711. Statin recently increased and is on fenofibrate. Lifestyle modification encouraged. Qualifiers: Hyperlipidemia type: unspecified Qualified Code(s): E78.5 - Hyperlipidemia , unspecified (5) Hypertension Current Visit: No Status: Chronic Controlled currently. Will continue to monitor. Qualifiers: Hypertension type: essential hypertension Qualified Code(s): I10 - Essential (primary) hypertension (6) Tobacco abuse Current Visit: Yes Status: Chronic Smoking cessation counseling given. Discussion w patient/family: The assessment and plan as outlined above was discussed with the patient and/or family members who expressed understanding and agreement. All questions were answered. Thank you for involving us in the care of your patient. Please call with any questions. I will discuss all the above with Dr. Greenwood and make changes as necessary. History of Present Illness Consult date: 10/20/16 Requesting physician: Marquis Bonilla Consult reason: Elevated troponin, chest pain Chief complaint: chest pain, dyspnea History of present illness: Ms. Lorenzo is a 56 year old female with documented PMH of arthritis, asthma, COPD , DM, fibromyalgia, GERD, HLD, HTN, migraine, MO, osteoporosis, PAD, renal disease, syncope, venous stasis, anxiety, depression that was discharged yesterday from [facility] for respiratory distress. She states overnight she developed acute worsening dyspnea and acute onset of chest pain--left sided that radiated down her left arm described as sharp and cramping associated with diaphoresis and dyspnea. She reports she vomited last night. She states the chest pain has been constant, worsened with breathing. Not associated with exertion. Troponin 0.27. During hospital stay this past week peak troponin was 0.12. Echo at that time showed EF 50%. She reports one of the pain medications helped her pain. Reportedly had MO 15-20 years ago and had a LHC at that time without stent placement, per pt. Mother had early CAD with first MO in her 40s, at 59 from coronary disease. She unfortunately continues to smoke. Past Med Surg Social Fam HX - Past Medical History Medical history: arthritis, asthma, COPD, coronary artery disease, diabetes, fibromyalgia, GERD, hyperlipidemia, hypertension, migraine, myocardial infarction, osteoporosis, peripheral artery disease, renal disease, syncope, venous stasis, other Psychiatric history: anxiety, bipolar, depression, schizophrenia - Past Surgical History Surgical History: cholecystectomy, orthopedic, other, other - Social History Smoking Status: Current every day smoker Packs per day: 1 Smokeless Tobacco Status: No Alcohol use: none Drug use: none - Family History Mother Living Status: Hx Family Cardiac Disorders: Yes (cardiomyothy) Father Living Status: Still Living Hx Family Cardiac Disorders: Yes (4 heart stents) Medications and Allergies Albuterol Sulfate [Albuterol Inhaler] 1 - 2 puff IH Q6H PRN 10/12/15 [History] Carvedilol [Coreg] 6.25 mg PO BID 10/12/15 [History] Pregabalin [Lyrica] 150 mg PO BID 10/12/15 [History] SitaGLIPtin [Januvia] 100 mg PO DAILY 10/12/15 [History] Fenofibrate [Lofibra] 160 mg PO DAILY #30 tablet 10/14/15 [Rx] Rosuvastatin [Crestor] 20 mg PO HS #30 tablet 10/14/15 [Rx] Loratadine [Claritin] 10 mg PO DAILY 01/09/16 [History] Metformin HCl [Metformin HCl ER] 1,000 mg PO BID 01/09/16 [History] [place]-3/Dha/Epa/Fish Oil [Fish Oil Dr 500 mg Softgel] 1,000 mg PO DAILY [History] Pantoprazole Sodium [Protonix] 40 mg PO BID 01/09/16 [History] Venlafaxine XR (24 HR) [Effexor Xr] 150 mg PO DAILY 01/09/16 [History] Famotidine [Heartburn Prevention] 20 mg PO DAILY 04/30/16 [History] Nitroglycerin [Nitrostat] 0.4 mg PO Q5M PRN 04/30/16 [History] SUMAtriptan Succinate [Imitrex] 100 mg PO AD PRN 04/30/16 [History] Ipratropium/Albuterol Neb [Duoneb] 3 ml IH Q4HR 30 Days 05/02/16 [Rx] Buspirone HCl [Buspar] 5 mg PO TID #90 tablet 06/06/16 [Rx] Hydroxyzine HCl 50 mg PO TID PRN #90 tablet 06/06/16 [Rx] Quetiapine Fumarate [Seroquel] 50 mg PO HS #30 tablet 06/06/16 [Rx] Citalopram [CeleXA] 20 mg PO DAILY 10/16/16 [History] Duloxetine HCl [Cymbalta] 60 mg PO DAILY 10/16/16 [History] Levofloxacin [Levaquin] 500 mg PO DAILY #5 tablet 10/19/16 [Rx] PredniSONE [Prednisone] 20 mg PO DAILY 3 Days 10/19/16 [Rx] Fluticasone/Salmeterol [Advair 250-50 Diskus] 1 puff IH BID 10/20/16 [History] Oxygen 3 l .ROUTE AD 10/20/16 [History] Tiotropium [Spiriva] 18 mcg IH DAILY 10/20/16 [History] Allergies latex Allergy (Verified 04/30/16 13:37) Hives fluoxetine [From Prozac] Adverse Reaction (Verified 10/20/16 08:23) Agitated All Systems Review: A 10-system review of systems was performed and is negative for pertinent findings except as documented above in the HPI. - Cardiovascular Cardiovascular: as per HPI, chest pain at rest, chest pain with exertion, diaphoresis, dyspnea at rest, dyspnea on exertion, radiating jaw, neck or arm pain - Respiratory Respiratory: dyspnea Physical Examination Vital Signs, Last 4 Hours Temp Pulse Resp BP Pulse Ox 10/20/16 08:36 98.4 F 103 22 120/94 99 10/20/16 08:23 98.4 F 102 18 120/94 93 L 10/20/16 08:11 16 108/86 Results 10/20/16 05:19 10/20/16 05:19 Lab Results 10/20/16 08:50 POC Glucose 190 H Short CBC 10/20/16 Range/Units 05:19 WBC 13.7 H (4.3-11.1) K/mcL Hgb 9.9 L (11.5-15.4) g/dL Hct 31.4 L (35.3-44.9) % Plt Count 245 (140-400) K/mcL Neutrophils # 8.4 (1.6-8.9) K/mcL BMP 10/20/16 Range/Units 05:19 Sodium 139 (136-145) mEq/L Potassium 3.9 (3.5-4.5) mEq/L Chloride 103 (98-109) mEq/L Carbon Dioxide 24 (19-29) mEq/L BUN 18 (7-20) mg/dL Creatinine 0.72 (0.57-1.11) mg/dL Glucose 181 H (70-99) mg/dL Calcium 8.6 (8.6-10.8) mg/dL Cardiac Enzymes 10/20/16 Range/Units 05:19 Troponin I 0.27 H* (0-0.03) ng/mL Impressions Chest X-Ray 10/20/16 04:05 IMPRESSION: No acute disease. D/ / Ismael Hercules MD / Ismael Hercules MD Interpreting Provider: Ismael Hercules MD Chest CTA 10/20/16 04:09 IMPRESSION: 1. Limited study with no definite evidence for pulmonary embolus. Small emboli cannot be excluded. 2. Slight increase in size of a trace right pleural effusion. 3. Coronary artery disease. D/ / Ismael Hercules MD / Ismael Hercules MD Interpreting Provider: Ismael Hercules MD Active Medications Acetaminophen (Tylenol) 650 mg PO Q6HR PRN PRN Reason: Mild Pain (1-3) Stop: 04/21/17 09:38 Albuterol/Ipratropium (Duoneb) 3 ml IH QIDR DAVID PRN Reason: Protocol Stop: 04/21/17 11:01 Last Admin: 10/20/16 10:41 Dose: 3 ml Budesonide/Formoterol Fumarate (Symbicort) 2 puff IH BIDRESP [facility] Stop: 04/21/17 22:01 Buspirone HCl (Buspar) 5 mg PO TID DAVID Stop: 04/21/17 15:01 Carvedilol (Coreg) 6.25 mg PO BIDWM DAVID PRN Reason: Protocol Stop: 04/21/17 17:01 Citalopram Hydrobromide (Celexa) 20 mg PO DAILY DAVID Stop: 04/22/17 09:01 Dextrose/Water (Dextrose 50% (Syg)) 25 ml IVP AD PRN PRN Reason: Hypoglycemia Stop: 04/21/17 10:45 Duloxetine HCl (Cymbalta) 60 mg PO DAILY [facility] Stop: 04/22/17 09:01 Famotidine (Pepcid) 20 mg PO DAILY DAVID PRN Reason: Protocol Stop: 04/22/17 09:01 Fenofibrate (Tricor) 162 mg PO DAILY [facility] Stop: 04/22/17 09:01 Glucagon (Glucagen) 1 mg IM ONCE PRN PRN Reason: Hypoglycemia Stop: 04/21/17 10:45 Glucose (Gluctose) 15 gm PO ONCE PRN PRN Reason: Hypoglycemia Stop: 04/21/17 10:45 Glucose (Gluctose) 30 gm PO ONCE PRN PRN Reason: Hypoglycemia Stop: 04/21/17 10:45 Hydroxyzine HCl (Hydroxyzine) 50 mg PO TID PRN PRN Reason: Anxiety Nitroglycerin (Nitroglycerin) 25 mg in 250 mls @ 3 mls/hr IVC .Q24H DAVID PRN Reason: 5 MCG/MIN Stop: 04/21/17 08:01 Last Admin: 10/20/16 08:07 Dose: 5 mcg/min, 3 mls/hr Sodium Chloride (0.9 % Sodium Chloride) 1,000 mls @ 100 mls/hr IVC .Q10H [facility] Stop: 04/21/17 09:46 Dextrose (Dextrose 5%) 1,000 mls @ 100 mls/hr IV CONT PRN PRN Reason: HYPOGLYCEMIA Stop: 04/21/17 10:45 Insulin Human Lispro (Humalog) 0 units SQ Q6HR DAVID PRN Reason: Protocol Stop: 04/21/17 12:01 Loratadine (Claritin) 10 mg PO DAILY DAVID PRN Reason: Protocol Stop: 04/22/17 09:01 Metoprolol Tartrate (Lopressor) 5 mg IVP Q5MIN PRN PRN Reason: TACHYCARDIA Stop: 10/22/16 07:01 Last Admin: 10/20/16 07:21 Dose: 5 mg Morphine Sulfate (Morphine Sulfate) 2 mg IVP Q2HR PRN PRN Reason: Severe Pain (7-10) Stop: 04/21/17 09:38 Naloxone HCl (Narcan) 0.4 mg IVP Q2MIN PRN PRN Reason: Opioid Reversal Stop: 04/21/17 09:38 Omeprazole (Prilosec) 20 mg PO BIDAC [facility] Stop: 04/21/17 16:31 Ondansetron HCl (Zofran) 4 mg IVP Q8HR PRN PRN Reason: Nausea And Vomiting Stop: 04/21/17 09:38 Pharmacy Profile Note (Patient Taking Own Medication) 0 each PO DAILY DAVID Stop: 04/22/17 09:01 Prednisone (Prednisone) 20 mg PO DAILY DAVID Stop: 04/22/17 09:01 Pregabalin (Lyrica) 150 mg PO BID DAVID Stop: 04/21/17 21:01 Quetiapine Fumarate (Seroquel) 50 mg PO HS DAVID Stop: 04/21/17 21:01 Rosuvastatin Calcium (Crestor) 20 mg PO HS DAVID Stop: 04/21/17 21:01 Sitagliptin Phosphate (Januvia) 100 mg PO DAILY DAVID Stop: 04/22/17 09:01 Venlafaxine HCl (Effexor Xr) 150 mg PO DAILY DAVID PRN Reason: Protocol Stop: 04/22/17 09:01 - Imaging and Cardiology Chest Xray: report reviewed Echo: report reviewed - EKG Interpretation EKG results cardiology: personally reviewed (Sinus tach, evidence of pulmonary disease) Consult Discharge Plan - Plan Referrals: Roxane Henson DO [Primary Care Provider] - 10/26/16 11:00 am <Chris Greenwood - Last Filed: 10/20/16 12:10> Date of Encounter: 10/20/16 Assessment and Plan Discussion w patient/family: The assessment and plan as outlined above was discussed with the patient and/or family members who expressed understanding and agreement. All questions were answered. Thank you for involving us in the care of your patient. Please call with any questions. History of Present Illness History of present illness: Ms. Lorenzo is a 56 year old female All Systems Review: A 10-system review of systems was performed and is negative for pertinent findings except as documented above in the HPI. Physical Examination Vital Signs, Last 4 Hours Temp Pulse Resp BP Pulse Ox 10/20/16 11:40 98.2 F 107 16 145/106 98 10/20/16 10:41 18 95 Results 10/20/16 05:19 10/20/16 05:19 - Attending Attestation I examined this patient and my medical decision-making was reviewed with the CARE ASST/PA/Advanced Practice Nurse/Resident Physician. I agree with the documented findings, disposition and treatment plan as described except to the extent set forth below. Pt admitted with CP , appears to be atypical . increased COPD EKG: reviewed by me shows : LIZA , poor R wave progression, st depression in lateral leads VSS mild resp distress JVD: 6-7 cm Chest : diffuse wheezes CVS: no murmurs Plan; Heparin ASA Statin nicotine patch cath probably Sunday when resp status is better d/w pt Thanks !
[2016-10-20] MEDS ORDERED: Furosemide 40 MG/4 ML VIAL IVP SCH (11:45)
--- NOTE | 2016-10-20 11:58 | Internal Med History&Physical ---
Date of Encounter: 10/20/16 Time of Encounter: 08:30 Internal Medicine - H&P: HPI Chief complaint: Chest pain, SOB. Admitted From: Emergency Dept Plans for Post Hospital Care: Home History of present illness: Ms. Lorenzo is a 56 year old female with medical history significant for oxygen- dependent 3L/min oxygen by nasal cannula, COPD/asthma, DM2, HLD, HTN, CAD/KS (15 -20 years ago), PAD, GERD fibromyalgia, peripheral neuropathy, migraine, osteoporosis, CKD, syncope, chronic venous insufficiency, anxiety, depression, she was only discharged yeterday. She presents with acute onset chest pain, as well as SOB. She has baseline SOB, but this has worsened since this morning. She reports the pain radiated to her left arm, neck and jaw. The pain was sharp and was associated with diaphoresis. Chest pain appears to have a pleuritic componennt as it is worse with deep breathing. Troponin done in the ED was reported as 0.27. During her last admission, she was evaluated for respiratory distress that was thought to be related to COPD exacerbation, however she had elevated troponin and CTA done at that time exclude major PE. She was evaluated by cardiology at that time, there was no plans to perform LHC as her chest pain and dyspnea was thought to be related to COPD exacerbation. Elevated troponin (peaking at 0.12) was blamed on demand ischemia. ED ECHO DONE AT THAT TIME DID NOT SHOW WMA, LVEF was low normal (50%). Her last LHC was 15-20 years ago, did not require stenting. She continues to smoke cigarettes, though she declares intention to quit. She indicates she has has 2 prior KS. No history of DVT/PE. ROS: A 10-point ROS was performed, positives and relevant negatives are detailed , system-symptoms not mentioned is assumed negatives unless otherwise stated. No new-onset urinary or neurological symptoms. No rash, no sore throat, she has a chronic cough which she relates to her COPD. No PND, she has a 1 pillow orthopnea (chronic), she has intermittent leg swelling which she says correlates with peaks of her neuropathic pain. No N/V/ diarrhea. No glandular enlargement. Family history: Mother: CAD in her 40s, and at 59 from [place]. Vital Signs Temperature 97.9 F 10/20/16 03:57 Pulse Rate 135 10/20/16 03:57 Respiratory Rate 36 10/20/16 03:57 Blood Pressure 158/128 10/20/16 03:57 O2 Sat by Pulse Oximetry 96 10/20/16 03:57 Temperature 97.9 F 10/20/16 03:57 Pulse Rate 104 10/20/16 07:31 Respiratory Rate 18 10/20/16 07:31 Blood Pressure 111/83 10/20/16 07:31 O2 Sat by Pulse Oximetry 99 10/20/16 07:31 O/E: In mild respiratory distress, not ill or toxic looking. HEENT: Not pale, anicteric, afebrile, acyanotic. no cervical lymphadenopathy. No JVD. Chest: Reduced air entry in the right lower lung zone, mild scattered expiratory wheezing. Heart: RRR, HS1.2 no murmur Abdomen: soft, non-tender, no masses. BS+, no inguinal lymphadenopathy. : no flank tenderness, no CVA tenderness, no suprapubic tenderness. [employer]: aao x 3, no focal neurological deficits. Psychiatry: mood is good, affect is congruent, speech is normal, thought process is logical and goal-directed. Skin: No active skin lesion Extremities: no pedal edema, normal pedal pulse, no calf tenderness. Lab Results 10/20/16 10/20/16 10/20/16 Range/Units 05:19 05:19 05:19 WBC 13.7 H (4.3-11.1) K/mcL RBC 4.14 (3.82-4.97) M/mcL Hgb 9.9 L (11.5-15.4) g/dL Hct 31.4 L (35.3-44.9) % MCV 75.8 L (83.0-100.0) fL MCH 23.9 L (28.0-33.3) pg MCHC 31.5 L (31.6-35.5) g/dL RDW 15.3 H (11.5-14.5) % Plt Count 245 (140-400) K/mcL MPV 9.8 (9.4-12.4) fL Immature Gran % 3.1 (0-4) % Seg Neutrophils % 61.3 % Lymphocytes % 27.2 % Monocytes % 7.7 % Eosinophils % 0.3 % Basophils % 0.4 % Neutrophils # 8.4 (1.6-8.9) K/mcL Lymphocytes # 3.7 (0.6-4.6) K/mcL Monocytes # 1.1 (0.0-1.3) K/mcL Eosinophils # 0.0 (0.0-0.6) K/mcL Basophils # 0.1 (0.0-0.2) K/mcL Nucleated RBCs/100 WBC 0.2 H (0) /100 WBC Sodium 139 (136-145) mEq/L Potassium 3.9 (3.5-4.5) mEq/L Chloride 103 (98-109) mEq/L Carbon Dioxide 24 (19-29) mEq/L BUN 18 (7-20) mg/dL Creatinine 0.72 (0.57-1.11) mg/dL Est GFR ( Amer) > 60 (> 60) Est GFR (Non-Af Amer) > 60 (> 60) BUN/Creatinine Ratio 25 (6-26) Glucose 181 H (70-99) mg/dL Calculated Osmolality 294 (280-300) Calcium 8.6 (8.6-10.8) mg/dL Troponin I (0-0.03) ng/mL B-Natriuretic Peptide 1206 H (0-100) pg/mL 10/20/16 Range/Units 05:19 WBC (4.3-11.1) K/mcL RBC (3.82-4.97) M/mcL Hgb (11.5-15.4) g/dL Hct (35.3-44.9) % MCV (83.0-100.0) fL MCH (28.0-33.3) pg MCHC (31.6-35.5) g/dL RDW (11.5-14.5) % Plt Count (140-400) K/mcL MPV (9.4-12.4) fL Immature Gran % (0-4) % Seg Neutrophils % % Lymphocytes % % Monocytes % % Eosinophils % % Basophils % % Neutrophils # (1.6-8.9) K/mcL Lymphocytes # (0.6-4.6) K/mcL Monocytes # (0.0-1.3) K/mcL Eosinophils # (0.0-0.6) K/mcL Basophils # (0.0-0.2) K/mcL Nucleated RBCs/100 WBC (0) /100 WBC Sodium (136-145) mEq/L Potassium (3.5-4.5) mEq/L Chloride (98-109) mEq/L Carbon Dioxide (19-29) mEq/L BUN (7-20) mg/dL Creatinine (0.57-1.11) mg/dL Est GFR ( Amer) (> 60) Est GFR (Non-Af Amer) (> 60) BUN/Creatinine Ratio (6-26) Glucose (70-99) mg/dL Calculated Osmolality (280-300) Calcium (8.6-10.8) mg/dL Troponin I 0.27 H* (0-0.03) ng/mL B-Natriuretic Peptide (0-100) pg/mL Chest X-Ray 10/20/16 04:05 No acute disease. Chest CTA 10/20/16 04:09 1. Limited study with no definite evidence for pulmonary embolus. Small emboli cannot be excluded. 2. Slight increase in size of a trace right pleural effusion. 3. Coronary artery disease. EKG: ST @ 140. No significant ST depressions, T wave inversions in the lateral leads. Unchanged from EKG of 10/16/2016. IMP Atypical chest pain NSTEMI COPD exacerbation At risk of contrast nephropathy giving 2 contrast studies in less than 72 hours , and imminent need for LHC requiring another contrast exposure. Chronic morbidities Probable CHF, mixed diastolic-systolic, no clear evidence suggestive of exacerbation HTN HLD DM2 CAD s/p [place], Fibromyalgia Peripheral neuropathy Chronic venous insufficiency Corticosteroid/smoking related type 2, secondary osteoporosis. PLAN Admit to telemetry Serial EKG, CYCLE troponin Consult cardiology. The patient received therapeutic dose of Lovenox in the ED, will start heparin drip at 2:00pm Start nitro drip, titrate within the limits of blood pressure. The patient will need LHC. Duoneb QID Albuterol nebs q4h PRN Hold Metformin Continue Januvia and low dose insulin sliding scale. Start NS @ 50mls in view of increase risk of contrast nephropathy. The patient is not in acute heart failure despite finding of increase right sided pleural effusion, the risk of contrast nephropathy informs my decision to hold diuresis at least for now unless she deteriorates and is unable to maintain acceptable saturation. Continue other medication of chronic morbidities. I discussed my findings and assessment with the patient, she verbalized understanding and agrees with plan to admit. High risk due to NSTEMI ansd risk of decompensation. Past Med Surg Social Fam HX - Past Medical History Medical history: arthritis, asthma, COPD, coronary artery disease, diabetes, fibromyalgia, GERD, hyperlipidemia, hypertension, migraine, myocardial infarction, osteoporosis, peripheral artery disease, renal disease, syncope, venous stasis, other Psychiatric history: anxiety, bipolar, depression, schizophrenia - Past Surgical History Surgical History: cholecystectomy, orthopedic, other, other - Social History Smoking Status: Current every day smoker Packs per day: 1 Smokeless Tobacco Status: No Alcohol use: none Drug use: none - Family History Mother Living Status: Hx Family Cardiac Disorders: Yes (cardiomyothy) Father Living Status: Still Living Hx Family Cardiac Disorders: Yes (4 heart stents) Internal Medicine - H&P: Meds Albuterol Sulfate [Albuterol Inhaler] 1 - 2 puff IH Q6H PRN 10/12/15 [History] Carvedilol [Coreg] 6.25 mg PO BID 10/12/15 [History] Pregabalin [Lyrica] 150 mg PO BID 10/12/15 [History] SitaGLIPtin [Januvia] 100 mg PO DAILY 10/12/15 [History] Fenofibrate [Lofibra] 160 mg PO DAILY #30 tablet 10/14/15 [Rx] Rosuvastatin [Crestor] 20 mg PO HS #30 tablet 10/14/15 [Rx] Loratadine [Claritin] 10 mg PO DAILY 01/09/16 [History] Metformin HCl [Metformin HCl ER] 1,000 mg PO BID 01/09/16 [History] [place]-3/Dha/Epa/Fish Oil [Fish Oil Dr 500 mg Softgel] 1,000 mg PO DAILY [History] Pantoprazole Sodium [Protonix] 40 mg PO BID 01/09/16 [History] Venlafaxine XR (24 HR) [Effexor Xr] 150 mg PO DAILY 01/09/16 [History] Famotidine [Heartburn Prevention] 20 mg PO DAILY 04/30/16 [History] Nitroglycerin [Nitrostat] 0.4 mg PO Q5M PRN 04/30/16 [History] SUMAtriptan Succinate [Imitrex] 100 mg PO AD PRN 04/30/16 [History] Ipratropium/Albuterol Neb [Duoneb] 3 ml IH Q4HR 30 Days 05/02/16 [Rx] Buspirone HCl [Buspar] 5 mg PO TID #90 tablet 06/06/16 [Rx] Hydroxyzine HCl 50 mg PO TID PRN #90 tablet 06/06/16 [Rx] Quetiapine Fumarate [Seroquel] 50 mg PO HS #30 tablet 06/06/16 [Rx] Citalopram [CeleXA] 20 mg PO DAILY 10/16/16 [History] Duloxetine HCl [Cymbalta] 60 mg PO DAILY 10/16/16 [History] Levofloxacin [Levaquin] 500 mg PO DAILY #5 tablet 10/19/16 [Rx] PredniSONE [Prednisone] 20 mg PO DAILY 3 Days 10/19/16 [Rx] Fluticasone/Salmeterol [Advair 250-50 Diskus] 1 puff IH BID 10/20/16 [History] Oxygen 3 l .ROUTE AD 10/20/16 [History] Tiotropium [Spiriva] 18 mcg IH DAILY 10/20/16 [History] Allergies latex Allergy (Verified 04/30/16 13:37) Hives fluoxetine [From Prozac] Adverse Reaction (Verified 10/20/16 08:23) Agitated All Systems PM: A 10-system review of systems was performed and is negative for pertinent findings except as documented above in the HPI. - Constitutional Vitals: Temp Pulse Resp BP Pulse Ox 98.2 F 107 16 145/106 98 10/20/16 11:40 10/20/16 11:40 10/20/16 11:40 10/20/16 11:40 10/20/16 11:40 Internal Med - H&P Results - Labs CBC & Chem 7: 10/20/16 05:19 10/20/16 05:19
[2016-10-20] MEDS ORDERED: Insulin LISPRO 300 UNITS/3 ML VIAL SQ SCH ×2 (12:00)
[2016-10-20] MEDS ORDERED: Albuterol 2.5 MG/3 ML NEBULIZER IH PRN (12:19)
[2016-10-20 12:44] LABS: Hematocrit 31.9 % (35.3-44.9); Hemoglobin 10.1 g/dL (11.5-15.4); Mean Corpuscular HGB Conc 31.7 g/dL (31.6-35.5); Mean Corpuscular Hemoglobin 24.6 pg (28.0-33.3); Mean Corpuscular Volume 77.8 fL (83.0-100.0); Mean Platelet Volume 10.5 fL (9.4-12.4); Platelet Count 241 K/mcL (140-400); Red Cell Distribution Width 15.5 % (11.5-14.5)
[2016-10-20 12:48] LABS: INR 1.1
[2016-10-20 12:58] LABS: Activated Partial Thrombo Time 32.3 Seconds (26.0-36.0)
[2016-10-20] MEDS: 0.9 % Sodium Chloride 1,000 ML IVC SCH (13:18)
[2016-10-20] MEDS: Insulin LISPRO 300 UNITS/3 ML VIAL SQ SCH ×3 (13:19→22:30)
[2016-10-20] MEDS: *HR* Morphine 2 MG/ML SYRINGE IVP PRN ×2 (14:17→21:27)
[2016-10-20] MEDS ORDERED: *HR* Heparin 5,000 UNIT/ML VIAL IVP ONE (16:30)
[2016-10-20] MEDS ORDERED: *HR* Heparin 5,000 UNIT/ML VIAL IVP PRN (16:30)
--- NOTE | 2016-10-20 17:04 | Electrocardiograph Report ---
[place] [address] Test Date: 2016-10-20 Pat Name: Bebe Lorenzo Department: 104 Room: 2NE16 Gender: F Drier: : 1960 Requested By: Marquis Bonilla Order Number: [id number] Reading MD: Pily Bocanegra Measurements Intervals [place] Rate: 137 P: 75 [place]: 136 QRS: 55 QRSD: 98 T: 34 QT: 274 QTc: 354 Interpretive Statements SINUS TACHYCARDIA ST DEVIATION AND MODERATE T-WAVE ABNORMALITY, CONSIDER LATERAL ISCHEMIA ST DEVIATION AND MODERATE T-WAVE ABNORMALITY, CONSIDER INFERIOR ISCHEMIA Electronically Signed On 10-20-2016 17:02:39 EST by Pily Bocanegra
--- NOTE | 2016-10-20 17:06 | Electrocardiograph Report ---
[address] [place] [address] Test Date: 2016-10-20 Pat Name: Bebe Lorenzo Department: 104 Room: 2NE16 Gender: F Lap Hand Tool: : 1960 Requested By: Panchito Novak Order Number: [id number] Reading MD: Pily Bocanegra Measurements Intervals [place] Rate: 122 P: 78 [place]: 140 QRS: 60 QRSD: 95 T: 56 QT: 308 QTc: 380 Interpretive Statements SINUS TACHYCARDIA ST DEVIATION AND MODERATE T-WAVE ABNORMALITY, CONSIDER LATERAL ISCHEMIA Electronically Signed On 10-20-2016 17:04:32 EST by Pily Bocanegra
[2016-10-20] MEDS: MethylPREDNISolone 40 MG/ML VIAL IVP SCH (18:10)
[2016-10-20] MEDS: Heparin 25,000 UNIT/500 ML D5W 25,000 UNIT/500 ML MLS IVC SCH (18:13)
[2016-10-20] MEDS ORDERED: Nitroglycerin 0.4 MG TAB.SUBL SL PRN (21:42)
[2016-10-20] MEDS ORDERED: Nitroglycerin 0.4 MG TAB.SUBL SL ONE (21:48)
[2016-10-20] MEDS ORDERED: Ondansetron 4 MG/2 ML VIAL IVP ONE (21:49)
[2016-10-20] MEDS ORDERED: Furosemide 20 MG/2 ML VIAL IVP ONE (21:57)
[2016-10-20] MEDS ORDERED: Budesonide/Formoterol 80/4.5 MDI IH SCH (22:00)
--- NOTE | 2016-10-20 22:14 | Internal Med History&Physical ---
Date of Encounter: 10/20/16 Time of Encounter: 22:14 Internal Medicine - H&P: HPI History of present illness: Ms. Lorenzo is a 56 year old female Past Med Surg Social Fam HX - Past Medical History Medical history: arthritis, asthma, COPD, coronary artery disease, diabetes, fibromyalgia, GERD, hyperlipidemia, hypertension, migraine, myocardial infarction, osteoporosis, peripheral artery disease, renal disease, syncope, venous stasis, other Psychiatric history: anxiety, bipolar, depression, schizophrenia - Past Surgical History Surgical History: cholecystectomy, orthopedic, other, other - Social History Smoking Status: Current every day smoker Packs per day: 1 Smokeless Tobacco Status: No Alcohol use: none Drug use: none - Family History Mother Living Status: Hx Family Cardiac Disorders: Yes (cardiomyothy) Father Living Status: Still Living Hx Family Cardiac Disorders: Yes (4 heart stents) Internal Medicine - H&P: Meds Albuterol Sulfate [Albuterol Inhaler] 1 - 2 puff IH Q6H PRN 10/12/15 [History] Carvedilol [Coreg] 6.25 mg PO BID 10/12/15 [History] Pregabalin [Lyrica] 150 mg PO BID 10/12/15 [History] SitaGLIPtin [Januvia] 100 mg PO DAILY 10/12/15 [History] Fenofibrate [Lofibra] 160 mg PO DAILY #30 tablet 10/14/15 [Rx] Rosuvastatin [Crestor] 20 mg PO HS #30 tablet 10/14/15 [Rx] Loratadine [Claritin] 10 mg PO DAILY 01/09/16 [History] Metformin HCl [Metformin HCl ER] 1,000 mg PO BID 01/09/16 [History] Tiller-3/Dha/Epa/Fish Oil [Fish Oil Dr 500 mg Softgel] 1,000 mg PO DAILY [History] Pantoprazole Sodium [Protonix] 40 mg PO BID 01/09/16 [History] Venlafaxine XR (24 HR) [Effexor Xr] 150 mg PO DAILY 01/09/16 [History] Famotidine [Heartburn Prevention] 20 mg PO DAILY 04/30/16 [History] Nitroglycerin [Nitrostat] 0.4 mg PO Q5M PRN 04/30/16 [History] SUMAtriptan Succinate [Imitrex] 100 mg PO AD PRN 04/30/16 [History] Ipratropium/Albuterol Neb [Duoneb] 3 ml IH Q4HR 30 Days 05/02/16 [Rx] Buspirone HCl [Buspar] 5 mg PO TID #90 tablet 06/06/16 [Rx] Hydroxyzine HCl 50 mg PO TID PRN #90 tablet 06/06/16 [Rx] Quetiapine Fumarate [Seroquel] 50 mg PO HS #30 tablet 06/06/16 [Rx] Citalopram [CeleXA] 20 mg PO DAILY 10/16/16 [History] Duloxetine HCl [Cymbalta] 60 mg PO DAILY 10/16/16 [History] Levofloxacin [Levaquin] 500 mg PO DAILY #5 tablet 10/19/16 [Rx] PredniSONE [Prednisone] 20 mg PO DAILY 3 Days 10/19/16 [Rx] Fluticasone/Salmeterol [Advair 250-50 Diskus] 1 puff IH BID 10/20/16 [History] Oxygen 3 l .ROUTE AD 10/20/16 [History] Tiotropium [Spiriva] 18 mcg IH DAILY 10/20/16 [History] Allergies latex Allergy (Verified 04/30/16 13:37) Hives fluoxetine [From Prozac] Adverse Reaction (Verified 10/20/16 08:23) Agitated All Systems PM: A 10-system review of systems was performed and is negative for pertinent findings except as documented above in the HPI. - Constitutional Vitals: Temp Pulse Resp BP Pulse Ox 98.8 F 108 28 135/97 96 10/20/16 19:52 10/20/16 19:52 10/20/16 21:51 10/20/16 19:52 10/20/16 21:51 Internal Med - H&P Results - Labs CBC & Chem 7: 10/20/16 12:35 10/20/16 05:19 Labs: Short CBC 10/20/16 Range/Units 12:35 WBC 11.4 H (4.3-11.1) K/mcL Hgb 10.1 L (11.5-15.4) g/dL Hct 31.9 L (35.3-44.9) % Plt Count 241 (140-400) K/mcL Cardiac Enzymes 10/20/16 10/20/16 Range/Units 12:35 18:52 Troponin I 0.29 H* 0.22 H* (0-0.03) ng/mL
[2016-10-20] MEDS: Pregabalin 75 MG CAPSULE PO SCH (22:16)
[2016-10-21 01:05] LABS: BUN/Creatinine Ratio 23 (6-26); Blood Urea Nitrogen 14 mg/dL (7-20); Calcium 8.7 mg/dL (8.6-10.8); Carbon Dioxide 24 mEq/L (19-29); Chloride 102 mEq/L (98-109); Glucose 225 mg/dL (70-99); Osmolality,Calculated 296 (280-300); Potassium 4.1 mEq/L (3.5-4.5); Sodium 139 mEq/L (136-145); eGFR For African Americans > 60 (> 60); eGFR For Non-African Americans > 60 (> 60)
[2016-10-21] MEDS: *HR* Heparin 5,000 UNIT/ML VIAL IVP PRN (01:42)
--- NOTE | 2016-10-21 01:42 | Event Note ---
Date of Encounter: 10/20/16 Time of Encounter: 21:36 Called by nursing staff because patient was having 10/10 crushing substernal chest pain radiating into her left chest and down her left arm. Patient reports associated difficulty breathing and nausea. HR elevated in the 130 range, blood pressure 133/86, 94% on her supplemental oxygen. Patient is sitting on edge of bed diaphoretic and tachypneic stating that she cannot breathe and that her chest hurts. Lungs have crackles bilaterally. EKG showed sinus tachycardia with HR of 108 but no changes from previous EKG taken on admission. No ST segment elevation or Twave inversion. CXR showed acute pulmonary edema. Patient had been given 2mg of morphine with no relief of the pain. She was given 0.4mg SL nitroglycerin and zofran for her nausea. Respiratory was called and she was given 1 duoneb treatment. Because of the pulmonary edema, patient was given 20mg IVP of lasix. After the nitro, patient reported improvement of her chest pain from 10/10 to 8/10 which patient states has been her baseline since arriving at the hospital. Stat troponin was drawn. Over the next 1 hour patient had 900cc urine out. On re-evaluation patient was asleep, breathing at a regular rate with O2 saturaiton of 100% on 3L. Patient seen and discussed with attending, Dr. Paul
[2016-10-21] MEDS: *HR* Morphine 2 MG/ML SYRINGE IVP PRN ×2 (01:43→16:49)
[2016-10-21] MEDS: Ipratropium/Albuterol Neb 3 ML IH SCH ×4 (04:06→22:59)
[2016-10-21] MEDS: MethylPREDNISolone 40 MG/ML VIAL IVP SCH ×2 (06:49→16:49)
--- NOTE | 2016-10-21 08:23 | Cardiology Progress Note ---
Date of Encounter: 10/21/16 Time of Encounter: 08:00 Assessment and Plan Discussion w patient/family: The assessment and plan as outlined above was discussed with the patient and/or family members who expressed understanding and agreement. All questions were answered. Thank you for involving us in the care of your patient. Please call with any questions. cont present rx most likely cath on Sunday Subjective Interval history: less sob, no recurrence of CP , palpitations Objective Vital Signs, Last 4 Hours Temp Pulse Resp BP Pulse Ox 10/21/16 08:20 97.7 F 100 18 125/79 96 10/21/16 07:56 99 Results 10/20/16 12:35 10/21/16 00:38 Lab Results 10/20/16 10/20/16 10/20/16 12:35 12:35 12:35 WBC 11.4 H Hgb 10.1 L Hct 31.9 L Plt Count 241 INR 1.1 APTT 32.3 D Sodium Potassium Chloride Carbon Dioxide BUN Creatinine Glucose Calcium Troponin I 0.29 H* 10/20/16 10/20/16 10/21/16 18:52 23:04 00:38 WBC Hgb Hct Plt Count INR APTT Sodium 139 Potassium 4.1 Chloride 102 Carbon Dioxide 24 BUN 14 Creatinine 0.62 Glucose 225 H Calcium 8.7 Troponin I 0.22 H* 0.18 H* 10/21/16 00:38 WBC Hgb Hct Plt Count INR APTT 56.5 H D Sodium Potassium Chloride Carbon Dioxide BUN Creatinine Glucose Calcium Troponin I Consult Discharge Plan - Plan Referrals: Roxane Henson DO [Primary Care Provider] - 10/26/16 11:00 am
[2016-10-21] MEDS: FISH OIL PO SCH (08:33)
[2016-10-21] MEDS: EPA PO SCH (08:33)
[2016-10-21] MEDS: OMEGA PO SCH (08:33)
[2016-10-21] MEDS: DHA PO SCH (08:33)
--- NOTE | 2016-10-21 08:36 | Internal Med Progress Note ---
<Jed Ross - Last Filed: 10/21/16 08:32> Date of Encounter: 10/21/16 Time of Encounter: 08:32 - Assessment and plan (1) NSTEMI (non-ST elevated myocardial infarction) Current Visit: Yes Status: Acute Assessment and plan: 56-year-old female with a history of COPD, on 3 L home oxygen, diabetes mellitus 2, hypertension, hyperlipidemia, coronary artery disease/[place], anxiety, depression presented with acute onset of chest pain. Patient elevated troponin which peaked at 0.29. Echocardiogram showed EF of 55% with no wall motion abnormalities, valvular dysfunction. Patient was recently discharged on 10/19 with diagnosis of COPD exacerbation. At that time CTA excluded PE. Patient's last left heart catheter was 15-20 years ago and did not require stenting. During previous admission her BNP was 412. Currently BNP was 1206. EKG did not show any ischemic changes. MEME socre 4 Cardiology evaluated patient and treating as an STEMI. Patient is currently on heparin, aspirin and metoprolol and Crestor. She is scheduled for left heart catheter on Sunday. Currently patient is being diuresed for acute on chronic congestive heart failure. Repeat echo to evaluate for ejection fraction and wall motion. Patient continues to have substernal chest pain that radiates to her breast and left arm. This morning she rates it 7 out of 10. (2) CHF (congestive heart failure) Current Visit: Yes Status: Acute Assessment and plan: Patient's BNP was 491 on 10/16. During this admission BNP is 1206. Patient has crackles bilaterally in her lungs and pedal edema on physical exam. Previous echo shows EF of 55% with no wall motion abnormality or valvular dysfunction. Repeat echo ordered. As of now patient's decubitus I/O -430. Will give patient another 20 of IV Lasix. Qualifiers: Congestive heart failure type: diastolic Congestive heart failure chronicity: acute Qualified Code(s): I50.31 - Acute diastolic (congestive) heart failure (3) COPD (chronic obstructive pulmonary disease) Current Visit: Yes Status: Chronic Assessment and plan: Patient has a history of COPD. She continues to be a smoker. Patient smokes 1 pack per day. Patient is on 2 L of oxygen which was decreased from 3.5 L. She continues to have shortness breath how her this is secondary to CHF. Patient was recently discharged for COPD exacerbation on 08/18.We will continue patient on DuoNeb, Symbicort, Solu-Medrol. Qualifiers: COPD type: emphysema Emphysema type: unspecified Qualified Code(s): J43.9 - Emphysema, unspecified (4) Anemia Current Visit: Yes Status: Chronic Assessment and plan: Patient has a history of iron deficiency anemia. Currently her hemoglobin is stable at 10.1. Her MCV indicates this is a microcytic anemia. We will continue to monitor her hemoglobin. Qualifiers: Anemia type: iron deficiency Iron deficiency anemia type: inadequate dietary iron intake Qualified Code(s): D50.8 - Other iron deficiency anemias (5) Diabetes mellitus type 2 in obese Current Visit: No Status: Chronic Assessment and plan: Patient has a history of diabetes mellitus type 2. Her last hemoglobin A1c was 7.5%. She is currently being treated with Januvia at home. We will continue her on sliding scale insulin and Januvia. Her blood sugars are elevated most likely secondary to being on steroids. Continue to monitor and adjust insulin accordingly. (6) DVT prophylaxis Current Visit: Yes Status: Acute Assessment and plan: Patient is currently on heparin for NSTEMI (7) Depression Current Visit: No Status: Chronic Assessment and plan: Patient's depression and anxiety is treated at home by Seroquel, Celexa, effexor and cymbalata. We will continue this for now, however patient should consult psychiatrist or PCP due to polypharmacy. Patient would need a slow taper to prevent withdrawal from these medications if discontinued. Qualifiers: Depression Type: major depressive disorder Major depression recurrence: recurrent Active/Remission status: currently active Major depression episode severity: unspecified Qualified Code(s): F33.9 - Major depressive disorder, recurrent, unspecified (8) Hypertension Current Visit: No Status: Chronic Assessment and plan: Patient's blood pressure is under control. We will continue her on Toprol and Coreg. She does not seem to be on any first-line blood pressure medications. Qualifiers: Hypertension type: essential hypertension Qualified Code(s): I10 - Essential (primary) hypertension - Subjective Interval history: 56-year-old female admitted for NSTEMI, acute on chronic congestive heart failure. Last night patient had 10 out of 10 substernal radiating into her left chest and down her arm. Her vitals are stable with a heart rate of 1:30. Patient was diaphoretic and tachypneic. She had crackles bilaterally. EKG showed sinus tachycardia with no ischemic changes. She was given nitroglycerin and 20 g of IV Lasix. Her chest pain improved from 10 out of 10-8 out of 10. Repeat troponin was 0.18 which is decreased from previous. This morning patient says her chest pain is 7 out of 10 and radiating around her breasts. Her pain worsens with inspiration and cough. She continues to complain of shortness of breath. Patient denies nausea, vomiting, fevers, chills. - Constitutional Vitals: Temp Pulse Resp BP Pulse Ox 97.7 F 100 18 125/79 96 10/21/16 08:20 10/21/16 08:20 10/21/16 08:20 10/21/16 08:20 10/21/16 08:20 General appearance: Present: mild distress, A&O X 3, answers questions appropriately - Respiratory Respiratory exam: Present: decreased breath sounds, rales (Bilaterally basilar) , wheezes, tachypnea. Absent: rhonchi - Cardiovascular Cardiovascular exam: Present: RRR, +S1, +S2. Absent: JVD, systolic murmur - GI/Abdominal GI/Abdominal exam: Present: normal bowel sounds, soft, no peritoneal signs. Absent: distended, tenderness - Extremities Exam Extremities exam: Present: pedal edema (1+), radial pulses palpable and symetrical. Absent: joint swelling, tenderness - Neurological Exam Neurological exam: Present: CN II-XII intact, oriented X3, no focal deficits. Absent: pronater drift, facial droop, speech deficit - Skin Skin exam: Present: dry, intact Internal Medicine: Result - Labs CBC & Chem 7: 10/20/16 12:35 10/21/16 00:38 Labs: Short CBC 10/20/16 Range/Units 12:35 WBC 11.4 H (4.3-11.1) K/mcL Hgb 10.1 L (11.5-15.4) g/dL Hct 31.9 L (35.3-44.9) % Plt Count 241 (140-400) K/mcL BMP 10/21/16 00:38 Sodium 139 Potassium 4.1 Chloride 102 Carbon Dioxide 24 BUN 14 Creatinine 0.62 Glucose 225 H Calcium 8.7 Cardiac Enzymes 10/20/16 10/20/16 10/20/16 Range/Units 12:35 18:52 23:04 Troponin I 0.29 H* 0.22 H* 0.18 H* (0-0.03) ng/mL - ABG Interpretation ABG results: PT/INR, D-dimer PT 12.0 Seconds (9.4-12.1) 10/20/16 12:35 - EKG Interpretation EKG Interpreted by Myself: Yes EKG shows normal: sinus rhythm Rate: tachycardia - Prior EKG Data Prior EKG available for review: yes When compared to previous EKG: there is no significant change - Impressions Impressions Chest X-Ray 10/20/16 21:54 IMPRESSION: Acute pulmonary edema. D/ / Yevgeniy Menjivar MD / Yevgeniy Menjivar MD Interpreting Provider: Yevgeniy Menjivar MD Consult Discharge Plan - Plan Referrals: Roxane Henson DO [Primary Care Provider] - 10/26/16 11:00 am <Panchito Novak - Last Filed: 10/21/16 13:59> Date of Encounter: 10/21/16 - Assessment and plan (1) Systolic heart failure Current Visit: Yes Status: Acute Assessment and plan: Pt's EF markedly decreased in last few days. Currently on diuresis and supportive care. Cardiology evaluating as well. Will order scheduled Lasix and continue current medications as ordered. Qualifiers: Heart failure chronicity: acute Qualified Code(s): I50.21 - Acute systolic (congestive) heart failure (2) NSTEMI (non-ST elevated myocardial infarction) Current Visit: Yes Status: Acute (3) COPD (chronic obstructive pulmonary disease) Current Visit: Yes Status: Chronic Qualifiers: COPD type: emphysema Emphysema type: unspecified Qualified Code(s): J43.9 - Emphysema, unspecified (4) Chest pain Current Visit: Yes Status: Acute Qualifiers: Chest pain type: other chest pain Qualified Code(s): R07.89 - Other chest pain; R07.8 - Other chest pain (5) Anemia Current Visit: Yes Status: Chronic Qualifiers: Anemia type: iron deficiency Iron deficiency anemia type: inadequate dietary iron intake Qualified Code(s): D50.8 - Other iron deficiency anemias (6) Chronic respiratory failure with hypoxia Current Visit: No Status: Chronic (7) Diabetes Current Visit: No Status: Chronic Qualifiers: Diabetes mellitus type: type 2 Diabetes mellitus complication status: with hyperglycemia Diabetes mellitus oil heaterman insulin use: without oil heaterman use Qualified Code(s): E11.65 - Type 2 diabetes mellitus with hyperglycemia (8) Tobacco abuse Current Visit: Yes Status: Chronic Assessment and plan: Counselling cessation. (9) Obesity (BMI 30.0-34.9) Current Visit: No Status: Chronic - Constitutional Vitals: Temp Pulse Resp BP Pulse Ox 97.8 F 96 16 128/89 96 10/21/16 11:26 10/21/16 11:26 10/21/16 11:26 10/21/16 11:26 10/21/16 11:26 Internal Medicine: Result - Labs CBC & Chem 7: 10/20/16 12:35 10/21/16 00:38 Labs: BMP 10/21/16 00:38 Sodium 139 Potassium 4.1 Chloride 102 Carbon Dioxide 24 BUN 14 Creatinine 0.62 Glucose 225 H Calcium 8.7 Cardiac Enzymes 10/20/16 10/20/16 10/20/16 Range/Units 12:35 18:52 23:04 Troponin I 0.29 H* 0.22 H* 0.18 H* (0-0.03) ng/mL - ABG Interpretation ABG results: PT/INR, D-dimer PT 12.0 Seconds (9.4-12.1) 10/20/16 12:35 - Impressions Impressions Chest X-Ray 10/20/16 21:54 IMPRESSION: Acute pulmonary edema. D/ / Yevgeniy Menjivar MD / Yevgeniy Menjivar MD Interpreting Provider: Yevgeniy Menjivar MD - Attending Attestation I examined this patient and my medical decision-making was reviewed with the Resident Physician on 10/21/16. I agree with the documented findings, disposition and treatment plan as described except to the extent set forth below. Ms. Lorenzo is currently admitted for acute NSTEMI and acute CHF. She is moderate to high risk due to potential for worsening respiratory and cardiac issues. Ms. Lorenzo had worsened chest pain last night. She required nitro SL and IV diuresis. Currently she is resting in bed. She still has chest pain but it is the same as it has been before. Still quite dyspneic. No GI symptoms at this time. Exam Alert. Comfortable currently Heart reg with S3 gallop noted. Lungs diminished Abd soft Echo on 06/11 - EF 60%, Echo on 10/17/16 - 50%, EF on 10/20 now 20-25% I/P 1. Acute NSTEMI - peak troponin 0.29. Currently on nitro, heparin, ASA, metoprolol. Plan is for cardiac cath on Sunday. 2. Acute systolic heart failure - pt has had a significant decrease in EF in just few days. Cardiology following at this time. Further diagnoses and plan as above.
[2016-10-21] MEDS ORDERED: predniSONE 20 MG TABLET PO SCH (09:00)
[2016-10-21] MEDS ORDERED: *HR* SitaGLIPtin 100 MG TABLET PO SCH (09:00)
[2016-10-21] MEDS ORDERED: Famotidine 20 MG TABLET PO SCH (09:00)
[2016-10-21] MEDS ORDERED: Furosemide 20 MG/2 ML VIAL IVP ONE (09:01)
[2016-10-21] MEDS: Fenofibrate 54 MG TABLET PO SCH (10:06)
[2016-10-21] MEDS: 0.9 % Sodium Chloride 1,000 ML IVC SCH (10:06)
[2016-10-21] MEDS: Loratadine 10 MG TABLET PO SCH (10:07)
[2016-10-21] MEDS: Venlafaxine XR (24 HR) 150 MG CAP.ER.24H PO SCH (10:07)
[2016-10-21] MEDS: Pregabalin 75 MG CAPSULE PO SCH ×2 (10:07→20:21)
[2016-10-21] MEDS: Aspirin 81 MG TAB.CHEW PO SCH (10:07)
[2016-10-21] MEDS: Insulin LISPRO 300 UNITS/3 ML VIAL SQ SCH ×4 (10:08→20:22)
--- NOTE | 2016-10-21 10:31 | ECHO - Doppler Report ---
Limited Echocardiogram Name: Bebe Lorenzo Date of Study: 10/20/2016 Date: 1960 Ht: 56.0 in Medical Record#: [id number] Age: 56 Wt: 149.0 lb Gender: Female BSA: 1.57 Order #: [id number] Location: [facility] Room #: [id number] Reading Physician: Darshan Salmon MD, [facility] Viscera Washer: Julissa Almazan RDCS Ordering Physician: Ricci Campos CNP Primary Physician: Annie Henson DO Indications: NSTEMI, Congestive heart failure Impressions: LVEF 20-25%. Mild concentric left ventricular hypertrophy. Severe global and segmental left ventricular systolic dysfunction. Left Ventricular Wall Motion: Rest Echo Findings The apex, apical inferior, mid inferior, basal inferior, mid anterior, basal anterior, apical septal, mid inferior septal, basal inferior septal, apical lateral, mid anterior lateral, basal anterior lateral, mid anterior septal, mid inferior lateral, basal anterior septal and basal inferior lateral [place] were hypokinetic. The apical anterior wall was akinetic. Findings: ECG Findings * Sinus tachycardia. Left Ventricle * LVEF 20-25%. * Mild concentric left ventricular hypertrophy. * Severe global and segmental left ventricular systolic dysfunction. History Hypertension Diabetes Hypercholesteremia Family History of CAD History of CAD/PTCA Myocardial Infarction 10/17/2016 a Previous Echo was performed. Measurements: BP: 124/ 96 2D Normal Values RVIDd: 2.29 cm <2.7 cm IVSd: 1.09 cm 0.6 - 1.0 cm LVIDd: 5.39 cm 3.7 - 5.6 cm LVPWd: 1.27 cm 0.6 - 1.1 cm LVIDs: 3.64 cm 1.5 - 3.6 cm %FS: 32.50 cm >25 % LA volume: Updated by Darshan Salmon MD, [facility] on 10/21/2016 10:21:54 AM electronically signed on 10/21/2016 10:25:29 AM with status of Final Wall Motion [place]: 1=Normal, 2=Hypokinesis, 3=Akinesis, 4=Dyskinesis, 5=Aneurysmal, 6=Hyperkinetic, X=Not Visualized (Blank)=Missing
[2016-10-21] MEDS: Furosemide 20 MG/2 ML VIAL IVP SCH ×2 (14:26→16:51)
[2016-10-21] MEDS: Heparin 25,000 UNIT/500 ML D5W 25,000 UNIT/500 ML MLS IVC SCH (17:46)
[2016-10-21] MEDS: Insulin DETEMIR 100 UNIT/ML X5UNITS SQ SCH (20:22)
[2016-10-22] MEDS: *HR* Heparin 5,000 UNIT/ML VIAL IVP PRN (00:09)
[2016-10-22] MEDS: MethylPREDNISolone 40 MG/ML VIAL IVP SCH ×2 (04:54→16:36)
[2016-10-22] MEDS: Acetaminophen 325 MG TABLET PO PRN (04:54)
[2016-10-22] MEDS: Ipratropium/Albuterol Neb 3 ML IH SCH ×4 (04:55→23:11)
[2016-10-22 06:44] LABS: Basophils % 0.1 %; Eosinophils % 0.1 %; Hematocrit 31.2 % (35.3-44.9); Hemoglobin 9.9 g/dL (11.5-15.4); Immature Granulocytes % 2.1 % (0-4); Lymphocytes # 1.2 K/mcL (0.6-4.6); Lymphocytes % 15.7 %; Mean Corpuscular HGB Conc 31.7 g/dL (31.6-35.5); Mean Corpuscular Hemoglobin 24.5 pg (28.0-33.3); Mean Corpuscular Volume 77.2 fL (83.0-100.0); Mean Platelet Volume 11.6 fL (9.4-12.4); Monocytes # 0.4 K/mcL (0.0-1.3); Monocytes % 5.4 %; Neutrophils # 5.9 K/mcL (1.6-8.9); Platelet Count 247 K/mcL (140-400); Red Blood Count 4.04 M/mcL (3.82-4.97); Red Cell Distribution Width 15.3 % (11.5-14.5); Segmented Neutrophils % 76.6 %
[2016-10-22 06:58] LABS: BUN/Creatinine Ratio 27 (6-26); Blood Urea Nitrogen 23 mg/dL (7-20); Calcium 8.8 mg/dL (8.6-10.8); Carbon Dioxide 30 mEq/L (19-29); Chloride 98 mEq/L (98-109); Glucose 382 mg/dL (70-99); Osmolality,Calculated 305 (280-300); Potassium 4.1 mEq/L (3.5-4.5); Sodium 138 mEq/L (136-145); eGFR For African Americans > 60 (> 60); eGFR For Non-African Americans > 60 (> 60)
[2016-10-22 07:11] LABS: Activated Partial Thrombo Time 171.2 Seconds (26.0-36.0)
[2016-10-22 07:18] LABS: Heparin anti-factor XA UFH 1.2 IU/mL (0.30-0.70)
[2016-10-22] MEDS: EPA PO SCH (08:00)
[2016-10-22] MEDS: DHA PO SCH (08:00)
[2016-10-22] MEDS: OMEGA PO SCH (08:00)
[2016-10-22] MEDS: FISH OIL PO SCH (08:00)
[2016-10-22] MEDS: Furosemide 20 MG/2 ML VIAL IVP SCH ×2 (08:07→16:36)
[2016-10-22] MEDS: *HR* Morphine 2 MG/ML SYRINGE IVP PRN ×4 (08:07→21:41)
[2016-10-22] MEDS: Pregabalin 75 MG CAPSULE PO SCH ×2 (08:08→21:41)
[2016-10-22] MEDS: Fenofibrate 54 MG TABLET PO SCH (08:08)
[2016-10-22] MEDS: Venlafaxine XR (24 HR) 150 MG CAP.ER.24H PO SCH (08:08)
[2016-10-22] MEDS: Aspirin 81 MG TAB.CHEW PO SCH (08:08)
[2016-10-22] MEDS: Loratadine 10 MG TABLET PO SCH (08:08)
[2016-10-22] MEDS: Insulin LISPRO 300 UNITS/3 ML VIAL SQ SCH ×4 (08:09→21:42)
--- NOTE | 2016-10-22 09:18 | Cardiology Progress Note ---
Date of Encounter: 10/22/16 Time of Encounter: 08:45 Assessment and Plan (1) Acute systolic (congestive) heart failure Current Visit: Yes Status: Acute Acute systolic CHF with reduction an EF. EF 20-25% with severe global and segmental dysfunction. Continue IV diuretic. Respiratory status has improved. Low-sodium diet and daily weights. Continue carvedilol and add KRISTAL inhibitor. Fluid status is actually positive over the last 24 hours. She did receive IV fluid. Continue Lasix 20 mg IV twice a day. I will give one extra dose this afternoon. Plan for left heart catheterization on Sunday. (2) NSTEMI (non-ST elevated myocardial infarction) Current Visit: Yes Status: Acute Troponin elevation and decreased EF concerning for non-STEMI. Will treat NSTEMI with heparin gtt, ASA, Statin, BB. Will wait until [facility] to start Plavix. No recent ischemic evaluation. She reports LHC 15-20 years ago without intervention. Negative stress test in 2013. Compains of chest pain with typical and atypical symptoms. Reported atypical chest pain that is more pleuritic this morning. Risk factors include HTN, HLD, DM, tobacco abuse and family hx. Recent echo 10/17 showed low normal EF 50%. No EF 20-25%. Indication, risks, benefits, and alternatives of LHC reviewed with patient. She agrees to proceed. Discussion w patient/family: The assessment and plan as outlined above was discussed with the patient and/or family members who expressed understanding and agreement. All questions were answered. Thank you for involving us in the care of your patient. Please call with any questions. Subjective Principal diagnosis: Acute systolic CHF, NSTEMI Interval history: Ms. Lorenzo reports she is breathing better. C/o chest discomfort this morning with deep breaths. Chest discomfort is reproducible. Objective Vital Signs, Last 4 Hours Temp Pulse Resp BP Pulse Ox 10/22/16 08:00 98 10/22/16 07:20 97.4 F L 103 18 102/74 98 10/22/16 05:13 16 96 General: Conversant, No Apparent Distress HEENT: Atraumatic, Normocephaly, Mucus Membranes Moist Neck: No JVD, Normal carotid pulses Cardiac: Reg Rate and Rhythm, Normal S1 and S2, No Murmur Lungs: Normal Breath Sounds, No Wheeze, Rales, Rhonchi, Other (Rales in BLL) Neuro: Alert and responsive, No focal deficits noted Abdomen: Soft, Non-Tender Skin: No rashes noted on visualized skin Musculoskeletal: No Chest Wall Tenderness Extremities: No Clubbing, No Cyanosis, Normal Pulses, Other (Trace BLE edema) Results 10/22/16 05:50 10/22/16 05:50 Lab Results 10/21/16 10/21/16 10/22/16 14:02 22:57 05:50 WBC 7.7 Hgb 9.9 L Hct 31.2 L Plt Count 247 APTT 50.6 H 55.9 H Sodium Potassium Chloride Carbon Dioxide BUN Creatinine Glucose Calcium 10/22/16 10/22/16 05:50 05:50 WBC Hgb Hct Plt Count APTT 171.2 H* D Sodium 138 Potassium 4.1 Chloride 98 Carbon Dioxide 30 H BUN 23 H Creatinine 0.84 Glucose 382 H Calcium 8.8 - Imaging and Cardiology Echo: report reviewed (EF 20-25%, mild LVH, severe global and segmental systolic dysfunction.) - EKG Interpretation EKG results cardiology: other (Telemetry review shows sinus tachycardia to sinus rhythm. Heart rate currently 110. Average heart rate is 99 bpm.) Consult Discharge Plan - Plan Referrals: Roxane Henson DO [Primary Care Provider] - 10/26/16 11:00 am
[2016-10-22] MEDS ORDERED: Furosemide 20 MG/2 ML VIAL IVP ONE (12:00)
--- NOTE | 2016-10-22 12:44 | Internal Med Progress Note ---
Date of Encounter: 10/22/16 Time of Encounter: 07:45 - Assessment and plan (1) Systolic heart failure Current Visit: Yes Status: Acute Assessment and plan: EF 20-25%. Currently on medical management per cardiology. Extra Lasix given today. Plan for [facility] tomorrow to eval for ischemic cause. Qualifiers: Heart failure chronicity: acute Qualified Code(s): I50.21 - Acute systolic (congestive) heart failure (2) NSTEMI (non-ST elevated myocardial infarction) Current Visit: Yes Status: Acute Assessment and plan: Continues to have chest discomfort - no change in EKG or troponin. Currently on aggressive medical management and plan is for [facility] tomorrow. (3) COPD (chronic obstructive pulmonary disease) Current Visit: Yes Status: Chronic Assessment and plan: Does not appear to be in acute exacerbation at this time. Will switch steroids to PO and taper down to decrease effect on blood sugar at this time. Continue aerosols and oxygen as well as her other home meds. Qualifiers: COPD type: emphysema Emphysema type: unspecified Qualified Code(s): J43.9 - Emphysema, unspecified (4) Chest pain Current Visit: Yes Status: Acute Assessment and plan: Persists at this time but no change in cardiac markers. Given pain medications. Qualifiers: Chest pain type: other chest pain Qualified Code(s): R07.89 - Other chest pain; R07.8 - Other chest pain (5) Anemia Current Visit: Yes Status: Chronic Assessment and plan: Hemoglobin has been stable around 10. No acute issues at this time. Have not seen a drop with IV heparin. Qualifiers: Anemia type: iron deficiency Iron deficiency anemia type: inadequate dietary iron intake Qualified Code(s): D50.8 - Other iron deficiency anemias (6) Diabetes Current Visit: Yes Status: Chronic Assessment and plan: Blood sugars very uncontrolled most likely related to steroid use. Will adjust insulin at this time. Qualifiers: Diabetes mellitus type: type 2 Diabetes mellitus complication status: with hyperglycemia Diabetes mellitus assisted insulin use: without intermediate school teacher use Qualified Code(s): E11.65 - Type 2 diabetes mellitus with hyperglycemia (7) Diabetic neuropathy Current Visit: Yes Status: Chronic Assessment and plan: On Lyrica Qualifiers: Diabetes mellitus type: type 2 Diabetes mellitus complication detail: diabetic polyneuropathy Qualified Code(s): E11.42 - Type 2 diabetes mellitus with diabetic polyneuropathy (8) Chronic respiratory failure with hypoxia Current Visit: Yes Status: Chronic Assessment and plan: Continue home medications. (9) Tobacco abuse Current Visit: Yes Status: Chronic Assessment and plan: Counselling cessation. (10) CAD (coronary artery disease) Current Visit: Yes Status: Chronic Assessment and plan: Plan for [facility] tomorrow. Qualifiers: Coronary Disease-Associated Artery/Lesion type: [place] artery [place] vs. transplanted heart: [place] heart Associated angina: without angina Qualified Code(s): I25.10 - Atherosclerotic heart disease of [place] coronary artery without angina pectoris (11) Obesity (BMI 30.0-34.9) Current Visit: Yes Status: Chronic Assessment and plan: Chronic issue - Subjective Interval history: Ms. Lorenzo is currently admitted for acute systolic heart failure and NSTEMI. She is high risk due to the potential for worsening cardiac and respiratory status. Ms. Lorenzo is still having chest pain. Remains on nitro and heparin. Fluid status has been positive (was on IV fluids). She feels her breathing is a little better than yesterday. She has also had some nausea. No vomiting or diarrhea. She understands that the plan is for heart cath tomorrow. She is able to lie flatter today and seems to be less dyspneic. - Constitutional Vitals: Temp Pulse Resp BP Pulse Ox 97.5 F L 101 18 92/67 97 10/22/16 11:10 10/22/16 11:10 10/22/16 11:10 10/22/16 11:10 10/22/16 11:10 General appearance: Present: mild distress, A&O X 3, answers questions appropriately - Head Head exam: Present: normocephalic - Eye Eye exam: Present: EOMI, conjuntiva pink - ENT ENT exam: Present: mucous membranes dry - Respiratory Respiratory exam: Present: decreased breath sounds, rales. Absent: wheezes - Cardiovascular Cardiovascular exam: Present: RRR, +S3. Absent: tachycardia Additional comments: S3 still audible today. - GI/Abdominal GI/Abdominal exam: Present: soft. Absent: tenderness - Extremities Exam Extremities exam: Present: warm. Absent: pedal edema, tenderness - Neurological Exam Neurological exam: Present: alert, oriented X3, no focal deficits - Psychiatric Psychiatric exam: Present: normal affect, normal mood - Skin Skin exam: Present: dry, warm. Absent: rash Internal Medicine: Result - Labs CBC & Chem 7: 10/22/16 05:50 10/22/16 05:50 Labs: Short CBC 10/22/16 Range/Units 05:50 WBC 7.7 (4.3-11.1) K/mcL Hgb 9.9 L (11.5-15.4) g/dL Hct 31.2 L (35.3-44.9) % Plt Count 247 (140-400) K/mcL Neutrophils # 5.9 (1.6-8.9) K/mcL BMP 10/22/16 05:50 Sodium 138 Potassium 4.1 Chloride 98 Carbon Dioxide 30 H BUN 23 H Creatinine 0.84 Glucose 382 H Calcium 8.8 - ABG Interpretation ABG results: PT/INR, D-dimer PT 12.0 Seconds (9.4-12.1) 10/20/16 12:35 Consult Discharge Plan - Plan Referrals: Roxane Henson DO [Primary Care Provider] - 10/26/16 11:00 am
[2016-10-22] MEDS: Heparin 25,000 UNIT/500 ML D5W 25,000 UNIT/500 ML MLS IVC SCH (14:22)
[2016-10-22] MEDS: Insulin DETEMIR 100 UNIT/ML X5UNITS SQ SCH (21:41)
[2016-10-23] MEDS: Ipratropium/Albuterol Neb 3 ML IH SCH ×3 (04:51→16:03)
[2016-10-23] MEDS: MethylPREDNISolone 40 MG/ML VIAL IVP SCH (05:26)
[2016-10-23] MEDS: *HR* Morphine 2 MG/ML SYRINGE IVP PRN (05:26)
[2016-10-23 06:04] LABS: Basophils % 0.2 %; Eosinophils % 0.2 %; Hematocrit 30.7 % (35.3-44.9); Hemoglobin 9.7 g/dL (11.5-15.4); Immature Granulocytes % 2.1 % (0-4); Lymphocytes # 2.2 K/mcL (0.6-4.6); Lymphocytes % 21.6 %; Mean Corpuscular HGB Conc 31.6 g/dL (31.6-35.5); Mean Corpuscular Hemoglobin 24.6 pg (28.0-33.3); Mean Corpuscular Volume 77.7 fL (83.0-100.0); Mean Platelet Volume 11.3 fL (9.4-12.4); Monocytes # 0.6 K/mcL (0.0-1.3); Neutrophils # 7.2 K/mcL (1.6-8.9); Platelet Count 233 K/mcL (140-400); Red Blood Count 3.95 M/mcL (3.82-4.97); Red Cell Distribution Width 15.2 % (11.5-14.5); Segmented Neutrophils % 69.9 %
[2016-10-23 06:17] LABS: BUN/Creatinine Ratio 35 (6-26); Blood Urea Nitrogen 25 mg/dL (7-20); Calcium 8.8 mg/dL (8.6-10.8); Carbon Dioxide 33 mEq/L (19-29); Chloride 96 mEq/L (98-109); Glucose 223 mg/dL (70-99); Magnesium 1.5 mg/dL (1.6-2.6); Osmolality,Calculated 299 (280-300); Sodium 139 mEq/L (136-145); eGFR For African Americans > 60 (> 60); eGFR For Non-African Americans > 60 (> 60)
[2016-10-23 06:20] LABS: Potassium 4.7 mEq/L (3.5-4.5)
--- NOTE | 2016-10-23 06:59 | Electrocardiograph Report ---
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
[2016-10-23] MEDS ORDERED: Magnesium Sulfate 1 GM in D5% in Water 100 ML IVPB ONE (07:37)
--- NOTE | 2016-10-23 08:48 | Pre-Sedation Evaluation ---
Pre-sedation evaluation - Pre-sedation checklist Date of procedure: 10/23/16 Procedure: [facility] Recent Vitals: Last Vital Signs Temp 97.6 F 10/23/16 06:53 Pulse 103 10/23/16 06:53 Resp 15 10/23/16 06:53 BP 115/85 10/23/16 06:53 Pulse Ox 98 10/23/16 06:53 H&P (including ROS) documented in medical record: Yes Previous reaction to sedatives/anesthetics: No Dietary Status: NPO after Midnight Airway Assessment: Patient can open mouth completely, TMJ function normal ASA Classification *see protocol: CLASS II-Mild systemic disease Plan of Care: Pt appropriate candidate for procedure/moderate/conscious sedation , Risks/benefits of procedure/sedation discussed w/ patient/family
[2016-10-23] MEDS: Insulin LISPRO 300 UNITS/3 ML VIAL SQ SCH ×3 (09:05→17:08)
[2016-10-23] MEDS: Aspirin 81 MG TAB.CHEW PO SCH (09:08)
[2016-10-23] MEDS: Loratadine 10 MG TABLET PO SCH (09:09)
[2016-10-23] MEDS: Venlafaxine XR (24 HR) 150 MG CAP.ER.24H PO SCH (09:09)
[2016-10-23] MEDS: Pregabalin 75 MG CAPSULE PO SCH (09:09)
[2016-10-23] MEDS: Acetaminophen 325 MG TABLET PO PRN (09:10)
[2016-10-23] MEDS: FISH OIL PO SCH (09:10)
[2016-10-23] MEDS: OMEGA PO SCH (09:10)
[2016-10-23] MEDS: Fenofibrate 54 MG TABLET PO SCH (09:10)
[2016-10-23] MEDS: DHA PO SCH (09:10)
[2016-10-23] MEDS: EPA PO SCH (09:10)
[2016-10-23] MEDS ORDERED: Budesonide/Formoterol 80/4.5 MDI IH SCH (10:00)
[2016-10-23] MEDS ORDERED: Insulin LISPRO 300 UNITS/3 ML VIAL SQ SCH (10:45)
--- NOTE | 2016-10-23 10:50 | Internal Med Progress Note ---
<TutuKarely sanderson - Last Filed: 10/23/16 13:43> Date of Encounter: 10/23/16 Time of Encounter: 08:00 - Assessment and plan (1) NSTEMI (non-ST elevated myocardial infarction) Current Visit: Yes Status: Acute Assessment and plan: patient presented tot [facility] with acute chest pain radiating down her left arm, neck, and jaw, and shortness of breath, diaphoresis. CXR showed no acute process. CTA was limited, no definite evidence of pulmonary emboli, small emboli cannot be excluded. There was a slight increase in size of right pleural effusion. Troponins were .27, .29, .22, .18 Echo showed LVEF 25-30%, mild concentric LVH, severe global and segmental LV systolic dysfunction. Last echo on 10/17 showed EF 50% Patient had LCH 15-20 years ago without intervention, and had a negative stress test in 2013. Patient on ASA, statin, BB, s/p LHC today, found to have severe 3 vessal CAD and LVEF of 20%. Patient had 70 -80% proximal LAD lesion, 80% proximal RCA lesion. CT surgery is on board, , patient would be high risk CABG and is asking to be transferred to be transferred to [place]. Per CT surgery, she is a high risk patient and should be transferred to a tertiary medical center because she may need LV support postoperatively. (2) Systolic heart failure Current Visit: Yes Status: Acute Assessment and plan: EF 20-25%. Currently on medical management per cardiology. Previous echo showed LVEF 50%. Qualifiers: Heart failure chronicity: acute Qualified Code(s): I50.21 - Acute systolic (congestive) heart failure (3) Chest pain Current Visit: Yes Status: Acute Assessment and plan: plan as above. Qualifiers: Chest pain type: other chest pain Qualified Code(s): R07.89 - Other chest pain; R07.8 - Other chest pain (4) CAD (coronary artery disease) Current Visit: Yes Status: Chronic Assessment and plan: [facility] today. Patient is on ASA, BB, statin, Tricor cardiac diet after cath. Qualifiers: Coronary Disease-Associated Artery/Lesion type: [place] artery [place] vs. transplanted heart: [place] heart Associated angina: without angina Qualified Code(s): I25.10 - Atherosclerotic heart disease of [place] coronary artery without angina pectoris (5) COPD (chronic obstructive pulmonary disease) Current Visit: Yes Status: Chronic Assessment and plan: Does not appear to be in acute exacerbation at this time. Will switch steroids to PO and taper down to decrease effect on blood sugar. Continue aerosols and oxygen as well as her other home meds. on 3L oxygen at home. Patient was placed on IV steroids upon admission, will start oral steroid taper of prednisone 40mg, 20mg, 10mg. Qualifiers: COPD type: emphysema Emphysema type: unspecified Qualified Code(s): J43.9 - Emphysema, unspecified (6) Anemia Current Visit: Yes Status: Chronic Assessment and plan: Hemoglobin has been stable around 10. No acute issues at this time. Have not seen a drop with IV heparin. Qualifiers: Anemia type: iron deficiency Iron deficiency anemia type: inadequate dietary iron intake Qualified Code(s): D50.8 - Other iron deficiency anemias (7) Diabetes Current Visit: Yes Status: Chronic Assessment and plan: Blood sugars very uncontrolled most likely related to steroid use. Switched from low to medium dose sliding scale insulin Will continue to monitor. Qualifiers: Diabetes mellitus type: type 2 Diabetes mellitus complication status: with hyperglycemia Diabetes mellitus care home insulin use: without care home use Qualified Code(s): E11.65 - Type 2 diabetes mellitus with hyperglycemia (8) Diabetic neuropathy Current Visit: Yes Status: Chronic Assessment and plan: On Lyrica Qualifiers: Diabetes mellitus type: type 2 Diabetes mellitus complication detail: diabetic polyneuropathy Qualified Code(s): E11.42 - Type 2 diabetes mellitus with diabetic polyneuropathy (9) Chronic respiratory failure with hypoxia Current Visit: Yes Status: Chronic Assessment and plan: Continue home inhalers. (10) Tobacco abuse Current Visit: Yes Status: Chronic Assessment and plan: patient counseled on importance of tobacco cessation, and its associated risks. Nicotine gum and patch as needed for cravings. (11) Obesity (BMI 30.0-34.9) Current Visit: Yes Status: Chronic Assessment and plan: Chronic issue, patient counseled on importance of importance of exercise, weight loss, diet. (12) DVT prophylaxis Current Visit: Yes Status: Acute Assessment and plan: Patient is currently on heparin drip for NSTEMI - Subjective Interval history: 56 year old female evaluated at bedside. She states she feels "rough" this morning with some mild chest pain and has a headache. She denies nausea, vomiting, diarrhea, fever, chills. She denies dizziness and shortness f breath. Currently on Heparin drip. Plan for C later tday. - Constitutional Vitals: Temp Pulse Resp BP Pulse Ox 97.6 F 103 15 115/85 98 10/23/16 06:53 10/23/16 06:53 10/23/16 06:53 10/23/16 06:53 10/23/16 06:53 General appearance: Present: mild distress, A&O X 3, answers questions appropriately - Head Head exam: Present: atraumatic, normocephalic - Neck Neck exam general surgery: Present: supple, trachea midline - Respiratory Respiratory exam: Present: wheezes - Cardiovascular Cardiovascular exam: Present: gallop (S3 gallop present. ), irregular rhythm - GI/Abdominal GI/Abdominal exam: Present: normal bowel sounds Additional comments: bese, soft, distended, mildly tender. positive bowel sounds. - Extremities Exam Extremities exam: Absent: cyanotic, pedal edema - Neurological Exam Neurological exam: Present: alert, oriented X3, no focal deficits Internal Medicine: Result - Labs CBC & Chem 7: 10/23/16 05:21 10/23/16 05:21 Labs: Short CBC 10/23/16 Range/Units 05:21 WBC 10.3 (4.3-11.1) K/mcL Hgb 9.7 L (11.5-15.4) g/dL Hct 30.7 L (35.3-44.9) % Plt Count 233 (140-400) K/mcL Neutrophils # 7.2 (1.6-8.9) K/mcL BMP 10/23/16 05:21 Sodium 139 Potassium 4.7 H Chloride 96 L Carbon Dioxide 33 H BUN 25 H Creatinine 0.72 Glucose 223 H Calcium 8.8 - ABG Interpretation ABG results: PT/INR, D-dimer PT 12.0 Seconds (9.4-12.1) 10/20/16 12:35 Consult Discharge Plan - Plan Referrals: Roxane Henson DO [Primary Care Provider] - 10/26/16 11:00 am <Panchito Novak - Last Filed: 10/23/16 18:10> - Assessment and plan (1) Systolic heart failure Current Visit: Yes Status: Acute Qualifiers: Heart failure chronicity: acute Qualified Code(s): I50.21 - Acute systolic (congestive) heart failure (2) NSTEMI (non-ST elevated myocardial infarction) Current Visit: Yes Status: Acute (3) CAD (coronary artery disease) Current Visit: Yes Status: Chronic Qualifiers: Coronary Disease-Associated Artery/Lesion type: [place] artery [place] vs. transplanted heart: [place] heart Associated angina: without angina Qualified Code(s): I25.10 - Atherosclerotic heart disease of [place] coronary artery without angina pectoris (4) COPD (chronic obstructive pulmonary disease) Current Visit: Yes Status: Chronic Qualifiers: COPD type: emphysema Emphysema type: unspecified Qualified Code(s): J43.9 - Emphysema, unspecified (5) Chest pain Current Visit: Yes Status: Acute Qualifiers: Chest pain type: other chest pain Qualified Code(s): R07.89 - Other chest pain; R07.8 - Other chest pain (6) Anemia Current Visit: Yes Status: Chronic Qualifiers: Anemia type: iron deficiency Iron deficiency anemia type: inadequate dietary iron intake Qualified Code(s): D50.8 - Other iron deficiency anemias (7) Diabetes Current Visit: Yes Status: Chronic Qualifiers: Diabetes mellitus type: type 2 Diabetes mellitus complication status: with hyperglycemia Diabetes mellitus care home insulin use: without care home use Qualified Code(s): E11.65 - Type 2 diabetes mellitus with hyperglycemia (8) Diabetic neuropathy Current Visit: Yes Status: Chronic Qualifiers: Diabetes mellitus type: type 2 Diabetes mellitus complication detail: diabetic polyneuropathy Qualified Code(s): E11.42 - Type 2 diabetes mellitus with diabetic polyneuropathy (9) Chronic respiratory failure with hypoxia Current Visit: Yes Status: Chronic (10) Tobacco abuse Current Visit: Yes Status: Chronic (11) Obesity (BMI 30.0-34.9) Current Visit: Yes Status: Chronic - Constitutional Vitals: Temp Pulse Resp BP Pulse Ox 97.5 F L 107 18 126/85 97 10/23/16 15:17 10/23/16 16:55 10/23/16 16:03 10/23/16 16:55 10/23/16 16:03 Internal Medicine: Result - Labs CBC & Chem 7: 10/23/16 05:21 10/23/16 05:21 Labs: Short CBC 10/23/16 Range/Units 05:21 WBC 10.3 (4.3-11.1) K/mcL Hgb 9.7 L (11.5-15.4) g/dL Hct 30.7 L (35.3-44.9) % Plt Count 233 (140-400) K/mcL Neutrophils # 7.2 (1.6-8.9) K/mcL BMP 10/23/16 05:21 Sodium 139 Potassium 4.7 H Chloride 96 L Carbon Dioxide 33 H BUN 25 H Creatinine 0.72 Glucose 223 H Calcium 8.8 - ABG Interpretation ABG results: PT/INR, D-dimer PT 12.0 Seconds (9.4-12.1) 10/20/16 12:35 - Attending Attestation I examined this patient and my medical decision-making was reviewed with the Resident Physician on 10/23/16. I agree with the documented findings, disposition and treatment plan as described except to the extent set forth below. Pt had heart cath and needs CABG which will be high risk procedure. She is being transferred to [place]. Please see discharge summary completed by myself on this date.
[2016-10-23] MEDS ORDERED: *HR* Midazolam HCl 2 MG/2 ML VIAL ONE (10:52)
[2016-10-23] MEDS ORDERED: 0.9 % Sodium Chloride 1,000 ML ONE ×2 (10:53→11:09)
[2016-10-23] MEDS ORDERED: *HR* FentaNYL (PF) 100 MCG/2 ML VIAL ONE (10:53)
[2016-10-23] MEDS ORDERED: Nitroglycerin 1,000 MCG/10 ML VIAL IV ONE (10:53)
[2016-10-23] MEDS ORDERED: Verapamil 5 MG/2 ML VIAL ONE (10:53)
[2016-10-23] MEDS ORDERED: *HR* Heparin 10,000 UNIT/10 ML VIAL ONE (10:53)
[2016-10-23] MEDS ORDERED: Heparin 1,000 UNITS/500 mL NS 500 ML ONE (10:53)
[2016-10-23] MEDS ORDERED: Nicotine 2 MG GUM BC PRN (11:00)
[2016-10-23] MEDS ORDERED: Nicotine 14 MG PATCH.TD24 TD PRN (11:00)
[2016-10-23] MEDS ORDERED: predniSONE 20 MG TABLET PO ONE (11:53)
--- NOTE | 2016-10-23 12:15 | Invasive Diagnostic Lab Proc ---
Name: Bebe Lorenzo Date of Study: 10/23/2016 Date: 1960 Ht: 55.9in Medical Record#: [id number] Age: 56 Wt: 145.51lb Gender: Female BSA: 1.55 Order #: [id number] BMI: 32.73 Physicians Procedure Physician: Darshan Salmon MD, FACC Referring MD: Referring MD: Staff Name Position Time In KinderZenobia RN Monitor 11:05 AM Christie Ramirez RN Ship Fitter 11:05 AM Alexa Dhillon RT (R) Scrub 11:15 AM Indications Indication Non-Stemi Procedures Performed Procedure L HRT ARTERY/VENTRICLE ANGIO Pre-Procedure Checklist Informed consent is complete signed and on chart. H\\T\\P is on chart. ID band is on and ID verified with patient. Patient NPO for procedure The procedure was described for the patient and questions were answered. Blood Pressure: 129/87 ECG is on chart. Rhythm: Sinus Tachycardia Plan of Care Patient will tolerate the procedure without complications. Adequate level of comfort will be maintained. Hemodynamics will remain stable Patient will recover from procedure without complications. Respiratory function will be maintained. Cardiac rhythm will remain stable. Patient temperature will be maintained. Patient and/or family have verbalized understanding of the procedure. Patient Education Chief Complaint/Reason for Test: Cardiac Cath Developmental Category: Adult (18-64 years) Developmentally Appropriate for Age: Yes Learning Barriers: None Education Needs: Procedure Education Method: Verbal Information Taught: Cardiac Cath Educational Evaluation: Able to repeat information Intravenous Access Time IV Size Location DC'd Fluid/Drip Rate Units RN 11:02 AM 20g 1 /" Patent On Arrival Rt Hand 0.9NaCl 25 ml/hr Christie Ramirez RN Allergies latex fluoxetine Vital Signs Time BP (mmHg) HR (bpm) O2 Sat. RR (bpm) LOC 11:17 AM / % 5 = Fully awake and oriented or at pre-proc level 11:17 AM / % 4 = Oriented but drowsy 11:32 AM / % 4 = Oriented but drowsy 11:11 AM 131 / 94 106 98 % 11:15 AM 129 / 87 101 99 % 6 11:20 AM 128 / 92 102 97 % 16 11:25 AM 113 / 86 196 95 % 7 11:30 AM 119 / 83 96 95 % 14 11:35 AM 124 / 81 97 95 % 11:40 AM 97 / 63 72 92 % 31 11:45 AM 99 / 67 88 96 % 11:47 AM 98 / 64 90 97 % 11:50 AM 106 / 66 92 98 % 18 11:55 AM 104 / 81 97 97 % 15 12:00 PM 116 / 79 96 97 % 14 Procedural Medications Time Medication Dose Units Method Given By 11:10 AM Oxygen 2 L/min nasal cannula Christie Ramirez RN 11:13 AM Versed 2 mg Intravenous Christie Ramirez RN 11:13 AM Fentanyl 50 mcg Intravenous Christie Ramirez RN 11:26 AM Lidocaine 2% 20 ml Subcutaneous Darshan Salmon MD, FACC 11:38 AM Nitroglycerin 200 mcg Intracoronary Darshan Salmon MD 11:40 AM Oxygen 20 L/min nasal cannula Christie Ramirez RN ASA Classification: CLASS II- Mild systemic disease (i.e. well-controlled diabetes, hypertension, asthma, cigarette smoking) Rosalio Score Preprocedure Postprocedure Activity 2- Moves 4 extremities sustained head lift Activity 2- Moves 4 extremities sustained head lift Circulation 2- SBP +/= 20 points of pre-anesthetic level Circulation 2- SBP +/= 20 points of pre-anesthetic level Consciousness 2- Awake and alert oriented x 3 Consciousness 2- Awake and alert oriented x 3 O2 Saturation 2- Able to maintain O2 satruation of 92% on room air O2 Saturation 2- Able to maintain O2 satruation of 92% on room air Respiratory 2- Able to deep breathe and cough well Respiratory 2- Able to deep breathe and cough well Total Score 10 Total Score 10 Contrast Agent: Isovue Diagnostic Contrast: 69 ml Total Contrast: 69 ml Fluoro Dose: 203 mGy Procedure Log Time Note Enter By 11:05 AM 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 well-controlled diabetes, hypertension, asthma, cigarette smoking) scoates 11:05 AM Meet and greet completed scoates 11:05 AM Sign in performed according to hospital policy. scoates 11:05 AM Procedure start 11:05 scoates 11:09 AM Vitals capture started with the following parameters, Patient=Adult, Interval=5 min, Initial Nawmgxoj=225 mmHg, Deflation Rate=5 mmHg, Cuff placed on Left Arm 11:10 AM Time: 11:10 Oxygen on at 2 L/min per nasal cannula by Christie Ramirez RN scoates 11:11 AM PY=116 bpm, SDZT=752/94 mmhg, SpO2=98.0 %, Comment=st 11:13 AM Time: 11:13 Versed 2 mg Intravenous Given by Christie Ramirez RN scoates 11:14 AM Time: 11:13 Fentanyl 50 mcg Intravenous Given by Christie Ramirez RN scoates 11:15 AM QZ=116 bpm, OQYX=041/87 mmhg, SpO2=99.0 %, Resp=6 B/min, Comment=st 11:16 AM Case Delayed No: Inpatient scoates 11:17 AM Time: :17 Patient comfortable and pain free: Yes scoates 11:17 AM Time: :17LOC: 5 = Fully awake and oriented or at pre-proc level scoates 11:18 AM Zenobia Cole RN Position: Monitor Time in: 11:05 scoates 11:18 AM Christie Ramirez RN Position: Ship Fitter Time in: 11:05 scoates 11:18 AM Alexa Dhillon RT (R) Position: Scrub Time in: 11:15 scoates 11:18 AM Patient charges- Angio tray pack, Navilyst 3mm J, Pulse Oximetry and ACIST tubing and transducer scoates 11:19 AM Hair removed from procedure site in procedure lab using clippers. Bilateral groin prepped with Chloraprep by Alejo, Alexa RT (R), safety strap applied then patient was draped. Skin intact. scoates 11:20 AM BV=682 bpm, WAGL=562/92 mmhg, SpO2=97.0 %, Resp=16 B/min, Comment=st 11: AM Pressure channel 1 zero failed. 11:21 AM Pressure channel 1 zeroed. 11:[address] scoates 11:25 AM XH=540 bpm, KJIH=151/86 mmhg, SpO2=95.0 %, Resp=7 B/min, Comment=st 11:26 AM Clinical Presentation: Non-STEMI scoates 11:26 AM Time out performed according to hospital policy scoates 11: AM Time: 20 ml Lidocaine 2% to right groin Subcutaneous Given by Darshan Salmon MD, [facility] scoates 11:27 AM Unsuccessful access attempt # 1 into the right Femoral artery. Manual pressure applied to achieve hemostasis.. scoates 11:28 AM Access obtained by percutaneous puncture. 5Fr 10cm Terumo [place] sheath placed in right Femoral artery. [id number] scoates 11:30 AM 5Fr FL 4 catheter inserted over the wire DNC scoates 11:30 AM HR=96 bpm, KCHR=436/83 mmhg, SpO2=95.0 %, Resp=14 B/min, Comment=st 11:31 AM Recorded Pressure: Ao, HR=97, Condition=Condition 1 (Aorta) Ao 105/81/93 11:31 AM LCA angiography performed in multiple views. scoates 11:32 AM Lesion found in Proximal LAD. Pre Stenosis: 80 Pre MEME Flow: scoates 11:32 AM Time: 11:17LOC: 4 = Oriented but drowsy scoates 11:32 AM Time: 11:17 Patient comfortable and pain free: Yes scoates 11:33 AM Lesion found in Mid LAD. Pre Stenosis: 90 Pre MEME Flow: scoates 11:33 AM Catheter removed scoates 11:33 AM 5Fr FR 4 catheter inserted over the wire DNC scoates 11:35 AM RCA angiography performed in multiple views. scoates 11:35 AM Recorded Pressure: Ao, HR=98, Condition=Condition 1 (Aorta) Ao 101/82/91 11:35 AM HR=97 bpm, JXIF=827/81 mmhg, SpO2=95.0 %, Comment=st/sr 11:36 AM Catheter removed scoates 11:37 AM 5Fr Pigtail catheter inserted over the wire DNC scoates 11:37 AM Lesion found in Proximal RCA. Pre Stenosis: 85 Pre MEME Flow: scoates 11:37 AM Lesion found in Mid RCA. Pre Stenosis: 65 Pre MEME Flow: scoates 11:37 AM Catheter selectively placed in left ventricle scoates 11:38 AM Bolus angiogram of left Ventricle complete: 12 ml/sec for a total of 35 mls scoates 11:38 AM Time: 11:38 Nitroglycerin 200 mcg Intracoronary Given by Darshan Salmon MD scoates 11:38 AM Recorded Pressure: LV, HR=92, Condition=Condition 1 (Left Ventricle) LV 90/15/33 11:39 AM Recorded Pressure: LV, HR=89, Condition=Condition 1 (Left Ventricle) LV 92/20/32 11:40 AM HR=72 bpm, NIBP=97/63 mmhg, SpO2=92.0 %, Resp=31 B/min, Comment=st/sr 11:40 AM Recorded Pressure: LV, Ao, QJ=443, Condition=Condition 1 (Left Ventricle) LV 92/23/29, (Aorta) Ao 83/47/62 11:41 AM Time: 11:40 Oxygen on at 20 L/min per nasal cannula by Christie Ramirez RN scoates 11:42 AM Catheter removed scoates 11:42 AM Coronary Dominance: right scoates 11:43 AM Bolus angiogram of right Femoral complete: 4 ml/sec for a total of 7 mls scoates 11:45 AM Procedure completed at 11:45 scoates 11:45 AM HR=88 bpm, NIBP=99/67 mmhg, SpO2=96.0 %, Comment=st/sr 11:46 AM Sign out completed: Radiation Dose 203 mGy Fluoro Time: 2.6 Isovue 370 - 200ml contrast 69 ml given by [facility], [facility] Complications: NoneCardiac Rehab Consult needed: YesConfirmed administered medications: Yes scoates 11:46 AM Isovue 370 - 200ml,1 Bottle(s) used. scoates 11:46 AM Arterial sheath pulled using manual compression and V+ Pad for 15 minutes by Alexa Dhillon RT (R) scoates 11:47 AM Post ECG NSR scoates 11:47 AM NIBP STAT measurement started. 11:47 AM 11:47 Post Pulses Bilateral DP \\T\\ PT 1+ scoates 11:47 AM Time: 11:32 Patient comfortable and pain free: Yes scoates 11:47 AM Time: 11:32LOC: 4 = Oriented but drowsy scoates 11:47 AM HR=90 bpm, NIBP=98/64 mmhg, SpO2=97.0 %, Comment=st/sr 11:47 AM Information taught Cardiac Cath scoates 11:47 AM Education needs Procedure, Plan of Care, and Responsibilities of Patient in Care scoates 11:48 AM Learning barriers :None scoates 11:48 AM Education Methods Verbal scoates 11:48 AM Education evaluation Able to repeat information scoates 11:48 AM Plavix, Effient or Brilinta given No scoates 11:48 AM Delay to floor No scoates 11:48 AM Lesion found in Proximal Circumflex. Pre Stenosis: 70 Pre MEME Flow: scoates 11:48 AM Proximal Left Anterior Descending Coronary Artery with 80% stenosis. If graft is supplying this territory, 0 % stenosis. scoates 11:49 AM Mid/Distal Left Anterior Descending Coronary Artery and diagonal branches with 90% stenosis. If graft is supplying this area, 0 % stenosis scoates 11:49 AM Circumflex, Obtuse Marginal, Left Posterior Descending, and Left Posterolateral Coronary Arteries with 70 % stenosis. If graft is supplying this area, 0 % stenosis scoates 11:49 AM Right Coronary, Right Posterior Descending Arteries with Right Posterolateral and Acute Marginal branches with 85 % stenosis. If graft is supplying this area, 0 % stenosis scoates 11:49 AM Post Blood Pressure 98/64 scoates 11:50 AM HR=92 bpm, GMLR=169/66 mmhg, SpO2=98.0 %, Resp=18 B/min, Comment=sr 11:53 AM Complications: None scoates 11:53 AM No family present. Dr. Salmon will call family scoates 11:54 AM Fluoro Time: 2.6 scoates 11:54 AM Isovue 370 - 200ml contrast 69 ml given by Darshan Salmon MD, [facility]. scoates 11:55 AM HR=97 bpm, XDLF=470/81 mmhg, SpO2=97.0 %, Resp=15 B/min, Comment=st/sr 11:57 AM Radiation Dose 203 mGy scoates 12:00 PM HR=96 bpm, CNEL=952/79 mmhg, SpO2=97.0 %, Resp=14 B/min 12:01 PM Site status No bleeding/hematoma - Rt Groin as reported by Sites, Alexa RT (R) at 12:01 scoates 12:06 PM Report given to joaquim TANNER Pt taken to 2NE Room #16. 12:06 scoates 12:10 PM Patient out of room: 12:10 scoates Complications Complication None None Hemodynamics Pressures Site Systolic/A Wave Diastolic/V Wave Mean AO 105 81 93 AO 101 82 91 LV 90 15 33 LV 92 20 32 LV 92 23 29 AO 83 47 62 Post Procedure Information Blood Pressure: 98/64 mmHg Rhythm: NSR Post procedural instructions were given Surgery consult for CABG Closure Device Time Device Success/Fail 10/23/2016 11:51:00 AM Manual Compression Successful Site Checks Time Location Status Staff Sheath In? Note 12:01 PM Rt Groin No bleeding/hematoma Sites, Alexa RT (R) Pulses Time Site Pre-Procedure Post-Procedure Note 10/23/2016 11:02:00 AM Bilateral DP \\T\\ PT 1+ 10/23/2016 11:02:00 AM Bilateral radial 2+ 11:47:00 AM Bilateral DP \\T\\ PT 1+ Updated by Zenobia Silveira RN on 10/23/2016 12:10:35 PM electronically signed on 10/23/2016 12:11:14 PM with status of Final
--- NOTE | 2016-10-23 13:15 | Cardiothoracic Consult Note ---
Date of Encounter: 10/23/16 Time of Encounter: 13:14 Assessment and Plan (1) NSTEMI (non-ST elevated myocardial infarction) Current Visit: Yes Status: Acute The patient is a 56-year-old lady with multiple medical problems including known CAD, diabetes mellitus, type II, hypertension, hypercholesterolemia, and oxygen-dependent COPD. The patient presented to [facility] emergency department with evidence of an acute NSTEMI. She was admitted for further cardiac workup and a transthoracic echocardiogram revealed an LVEF 25-30 %. Subsequent cardiac catheterization revealed severe 3 vessel CAD and an LVEF 20%. The patient has been recommended for high risk CABG. The STS risk calculator revealed an operative mortality 3.4%, stroke rate 0.85% prolonged ventilation 17.8%, renal failure 1.9%, and reoperation rate 8.2%. The patient should be transferred to a tertiary [facility] for this high-risk operation , particularly because she may need LV support postoperatively. The patient is requesting transfer to [facility] in [facility]. I will discuss this with the patient's glaze wiper. The assessment and plan as outlined above was discussed with the patient and/or family members who expressed understanding and agreement. All questions were answered. - History of Present Illness Consult date: 10/23/16 Requesting physician: Darshan Salmon Consult reason: CABG evaluation. Chief complaint: Substernal chest pain. History of present illness: Ms. Lorenzo is a 56 year old lady with multiple medical problems including known CAD, diabetes mellitus, type II, hypertension, hypercholesterolemia, peripheral arterial disease, diabetic neuropathy, and oxygen-dependent COPD. The patient's cardiac history dates back some 15-20 years ago at which time she suffered an acute myocardial infarction and underwent cardiac catheterization. At that time the patient did not require cardiac intervention. She had a second myocardial infarction (unsure of the year) which also did not require cardiac stenting. The patient did well until approximately 2 weeks ago when she began experiencing intermittent, nonexertional substernal chest pain radiating to her left arm. She states that the pain could occur within either exertion or at rest. On October 20, 2016 the patient was awakened from sleep with severe left precordial chest pain radiating to her left arm, neck, and jaw, and associated shortness of breath. She was evaluated [facility] emergency department and found to have elevated troponin I levels consistent with an acute NSTEMI. She was treated medically with resolution of her pain and admitted for further cardiac care. She underwent a transthoracic echocardiogram which revealed an LVEF 25-30%. Mild concentric left ventricular hypertrophy was noted as was severe global and segmental left ventricular systolic dysfunction. The patient and underwent cardiac catheterization today was found to have severe 3 vessel CAD and an LVEF 20%. In particular the patient had tandem 70-80% proximal LAD lesions, an 80% proximal LCx lesion, and a long proximal 80% proximal RCA lesion. The patient has been recommended for possible high risk CABG. Past Med Surg Social Fam HX - Past Medical History Medical history: arthritis, asthma, cardiomyopathy, COPD, coronary artery disease, diabetes, fibromyalgia, GERD, hyperlipidemia, hypertension, migraine, myocardial infarction, osteoporosis, peripheral artery disease, renal disease, syncope, other (Diabetic neuropathy.) Psychiatric history: anxiety, bipolar, depression, schizophrenia - Past Surgical History Surgical History: cholecystectomy, orthopedic, other - Social History Smoking Status: Current every day smoker Packs per day: 1 Smokeless Tobacco Status: No Alcohol use: none Drug use: none Occupational status: unemployed Current living situation: Home - Independent Activity Level: Independent ambulation Recent Out of Country Travel Within the Last 8 Weeks: No Exposure or Possible Exposure to Illness During Travel: No - Family History Mother Living Status: Hx Family Cardiac Disorders: Yes (cardiomyothy) Father Living Status: Still Living Hx Family Cardiac Disorders: Yes (4 heart stents) Medications and Allergies Albuterol Sulfate [Albuterol Inhaler] 1 - 2 puff IH Q6H PRN 10/12/15 [History] Carvedilol [Coreg] 6.25 mg PO BID 10/12/15 [History] Pregabalin [Lyrica] 150 mg PO BID 10/12/15 [History] SitaGLIPtin [Januvia] 100 mg PO DAILY 10/12/15 [History] Fenofibrate [Lofibra] 160 mg PO DAILY #30 tablet 10/14/15 [Rx] Rosuvastatin [Crestor] 20 mg PO HS #30 tablet 10/14/15 [Rx] Loratadine [Claritin] 10 mg PO DAILY 01/09/16 [History] Metformin HCl [Metformin HCl ER] 1,000 mg PO BID 01/09/16 [History] [place]-3/Dha/Epa/Fish Oil [Fish Oil Dr 500 mg Softgel] 1,000 mg PO DAILY [History] Pantoprazole Sodium [Protonix] 40 mg PO BID 01/09/16 [History] Venlafaxine XR (24 HR) [Effexor Xr] 150 mg PO DAILY 01/09/16 [History] Famotidine [Heartburn Prevention] 20 mg PO DAILY 04/30/16 [History] Nitroglycerin [Nitrostat] 0.4 mg PO Q5M PRN 04/30/16 [History] SUMAtriptan Succinate [Imitrex] 100 mg PO AD PRN 04/30/16 [History] Ipratropium/Albuterol Neb [Duoneb] 3 ml IH Q4HR 30 Days 05/02/16 [Rx] Buspirone HCl [Buspar] 5 mg PO TID #90 tablet 06/06/16 [Rx] Hydroxyzine HCl 50 mg PO TID PRN #90 tablet 06/06/16 [Rx] Quetiapine Fumarate [Seroquel] 50 mg PO HS #30 tablet 06/06/16 [Rx] Citalopram [CeleXA] 20 mg PO DAILY 10/16/16 [History] Duloxetine HCl [Cymbalta] 60 mg PO DAILY 10/16/16 [History] Levofloxacin [Levaquin] 500 mg PO DAILY #5 tablet 10/19/16 [Rx] PredniSONE [Prednisone] 20 mg PO DAILY 3 Days 10/19/16 [Rx] Fluticasone/Salmeterol [Advair 250-50 Diskus] 1 puff IH BID 10/20/16 [History] Oxygen 3 l .ROUTE AD 10/20/16 [History] Tiotropium [Spiriva] 18 mcg IH DAILY 10/20/16 [History] Allergies latex Allergy (Verified 04/30/16 13:37) Hives fluoxetine [From Prozac] Adverse Reaction (Verified 10/20/16 08:23) Agitated All Systems Review: A 10-system review of systems was performed and is negative for pertinent findings except as documented above in the HPI. Physical Examination Vital Signs, Last 4 Hours Temp Pulse Resp BP Pulse Ox 10/23/16 13:00 108 16 126/93 98 10/23/16 12:45 104 16 115/80 99 10/23/16 12:30 103 16 118/93 99 10/23/16 12:18 97.6 F 103 14 114/84 100 General: Conversant, No Apparent Distress HEENT: Atraumatic, Normocephaly, Trachea midline Neck: No JVD, Normal carotid pulses Cardiac: Reg Rate and Rhythm, Normal S1 and S2, No Murmur Lungs: Normal Breath Sounds, No Wheeze, Rales, Rhonchi Neuro: Alert and responsive, No focal deficits noted Vascular: Normal capillary refill Abdomen: Soft, Non-tender Skin: No rashes noted on visualized skin Extremities: No Clubbing, No Cyanosis, No Edema Results 10/23/16 05:21 10/23/16 05:21 Lab Results, Last 24 hours 10/22/16 10/22/16 10/23/16 13:46 22:04 05:21 WBC 10.3 Hgb 9.7 L Hct 30.7 L Plt Count 233 APTT 82.5 H D 64.8 H Sodium Potassium Chloride Carbon Dioxide BUN Creatinine Glucose Calcium Magnesium 10/23/16 05:21 WBC Hgb Hct Plt Count APTT Sodium 139 Potassium 4.7 H Chloride 96 L Carbon Dioxide 33 H BUN 25 H Creatinine 0.72 Glucose 223 H Calcium 8.8 Magnesium 1.5 L - Imaging Chest Xray: image reviewed (Increased cardiac size. No active pulmonary disease. Calcified granuloma in left lung base.) Consult Discharge Plan - Plan Referrals: Roxane Henson DO [Primary Care Provider] - 10/26/16 11:00 am
[2016-10-23] MEDS ORDERED: Nitroglycerin 1 INCH/GM PACKET TP ONE (15:06)
[2016-10-23] MEDS: Furosemide 20 MG/2 ML VIAL IVP SCH ×2 (15:21→17:36)
--- NOTE | 2016-10-23 16:30 | Invasive Diagnostic Lab ---
Name: Bebe Lorenzo Date of Study: 10/23/2016 Date: 1960 Ht: 142.0 cm /55.9 in Medical Record#: [id number] Age: 56 Wt: 66. kg / 145.51 lb Account/Order#: [id number] Gender: Female BSA: 1.55 Order #: [id number] Fluoro Dose: 203 mGy BMI: 32.73 Procedure Physician: Darshan Salmon MD, FACC Referring MD: Referring MD: Procedures Performed: LEFT HEART CATH Indications: Non-Stemi Impressions: There is severe three vessel coronary artery disease including proximal LAD, ostial RCA and LCx Diabetes There is severe LV Dysfunction EF 20% Recommendations: Optimal medical therapy of patient's disease. Aggressive risk factor modification. Suggest patient have coronary artery bypass surgery. History/Risk Factors: arthritis asthma COPD CAD GERD renal dx Diabetes Hypertension Dyslipidemia Prior SC Procedure Access obtained in the right Femoral artery by percutaneous puncture Complications: None, None Contrast: Isovue 69ml Closure Device: Manual Compression Hemodynamics: Pressures Site Systolic/ A Wave Diastolic/ V Wave End Diastolic/ Mean HR AO 105 81 93 97 AO 101 82 91 98 LV 90 15 33 92 LV 92 20 32 89 LV 92 23 29 85 AO 83 47 62 118 LV Ventriculography Ejection Method: LV Gram Ejection Fraction: 20% Wall Motion: FERRIS Anterobasal Severe Hypokinesis Anterolateral Severe Hypokinesis Apical: Severe Hypokinesis Inferoapical Severe Hypokinesis Inferobasal Severe Hypokinesis Coronary Dominance: right Lesion Findings/Interventions * Left Main Coronary Artery The LMCA is angiographically free of disease. * Left Anterior Descending There is a hazy 80% stenosis in the Proximal LAD. There is a 80-90% stenosis in the Mid LAD. * Circumflex There is a 70% stenosis in the Ostial/Proximal Circumflex. * Right Coronary Artery There is a 85% stenosis in the Ostial/Proximal RCA. There is a 60-70% stenosis in the Mid RCA. Updated by Zenobia Silveira RN on 10/23/2016 12:01:28 PM Darshan Salmon MD, FACC electronically signed on 10/23/2016 4:25:25 PM with status of Final
[2016-10-23] MEDS: Heparin 25,000 UNIT/500 ML D5W 25,000 UNIT/500 ML MLS IVC SCH (17:37)
--- NOTE | 2016-10-23 17:39 | Discharge Summary ---
Date of Encounter: 10/23/16 Time of Encounter: 17:34 - Discharge Diagnosis (1) Systolic heart failure Priority: Primary Status: Acute Qualifiers: Heart failure chronicity: acute Qualified Code(s): I50.21 - Acute systolic (congestive) heart failure (2) NSTEMI (non-ST elevated myocardial infarction) Priority: Primary Status: Acute (3) CAD (coronary artery disease) Priority: Primary Status: Chronic Qualifiers: Coronary Disease-Associated Artery/Lesion type: [place] artery [place] vs. transplanted heart: [place] heart Associated angina: without angina Qualified Code(s): I25.10 - Atherosclerotic heart disease of [place] coronary artery without angina pectoris (4) COPD (chronic obstructive pulmonary disease) Priority: Secondary Status: Chronic Qualifiers: COPD type: emphysema Emphysema type: unspecified Qualified Code(s): J43.9 - Emphysema, unspecified (5) Chest pain Priority: Secondary Status: Acute Qualifiers: Chest pain type: other chest pain Qualified Code(s): R07.89 - Other chest pain; R07.8 - Other chest pain (6) Anemia Priority: Secondary Status: Chronic Qualifiers: Anemia type: iron deficiency Iron deficiency anemia type: inadequate dietary iron intake Qualified Code(s): D50.8 - Other iron deficiency anemias (7) Diabetes Priority: Secondary Status: Chronic Qualifiers: Diabetes mellitus type: type 2 Diabetes mellitus complication status: with hyperglycemia Diabetes mellitus shelter insulin use: without shelter use Qualified Code(s): E11.65 - Type 2 diabetes mellitus with hyperglycemia (8) Diabetic neuropathy Priority: Secondary Status: Chronic Qualifiers: Diabetes mellitus type: type 2 Diabetes mellitus complication detail: diabetic polyneuropathy Qualified Code(s): E11.42 - Type 2 diabetes mellitus with diabetic polyneuropathy (9) Chronic respiratory failure with hypoxia Priority: Secondary Status: Chronic (10) Tobacco abuse Priority: Secondary Status: Chronic (11) Obesity (BMI 30.0-34.9) Priority: Secondary Status: Chronic - Discharge Medications Home Medications: Albuterol Sulfate [Albuterol Inhaler] 1 - 2 puff IH Q6H PRN 10/12/15 [History] Pregabalin [Lyrica] 150 mg PO BID 10/12/15 [History] SitaGLIPtin [Januvia] 100 mg PO DAILY 10/12/15 [History] Fenofibrate [Lofibra] 160 mg PO DAILY #30 tablet 10/14/15 [Rx] Rosuvastatin [Crestor] 20 mg PO HS #30 tablet 10/14/15 [Rx] Loratadine [Claritin] 10 mg PO DAILY 01/09/16 [History] [place]-3/Dha/Epa/Fish Oil [Fish Oil Dr 500 mg Softgel] 1,000 mg PO DAILY [History] Pantoprazole Sodium [Protonix] 40 mg PO BID 01/09/16 [History] Venlafaxine XR (24 HR) [Effexor Xr] 150 mg PO DAILY 01/09/16 [History] Famotidine [Heartburn Prevention] 20 mg PO DAILY 04/30/16 [History] Ipratropium/Albuterol Neb [Duoneb] 3 ml IH Q4HR 30 Days 05/02/16 [Rx] Buspirone HCl [Buspar] 5 mg PO TID #90 tablet 06/06/16 [Rx] Hydroxyzine HCl 50 mg PO TID PRN #90 tablet 06/06/16 [Rx] Quetiapine Fumarate [Seroquel] 50 mg PO HS #30 tablet 06/06/16 [Rx] Citalopram [CeleXA] 20 mg PO DAILY 10/16/16 [History] Duloxetine HCl [Cymbalta] 60 mg PO DAILY 10/16/16 [History] PredniSONE [Prednisone] 20 mg PO DAILY 3 Days 10/19/16 [Rx] Fluticasone/Salmeterol [Advair 250-50 Diskus] 1 puff IH BID 10/20/16 [History] Oxygen 3 l .ROUTE AD 10/20/16 [History] Tiotropium [Spiriva] 18 mcg IH DAILY 10/20/16 [History] Acetaminophen [Tylenol] 650 mg PO Q6HR PRN #0 tablet 10/23/16 [Rx] Aspirin 81 mg PO DAILY tab.chew 10/23/16 [Rx] Carvedilol [Coreg] 6.25 mg PO BIDWM tablet 10/23/16 [Rx] Dextrose 50 % in Water (Syg) [Dextrose 50% (Syg)] 25 ml IVP AD PRN #0 syringe [Rx] Dextrose Gel [Gluctose] 15 gm PO ONCE PRN #0 gel..gram. 10/23/16 [Rx] Dextrose Gel [Gluctose] 30 gm PO ONCE PRN #0 gel..gram. 10/23/16 [Rx] Furosemide [Lasix] 20 mg IVP BIDDIURETIC vial 10/23/16 [Rx] Heparin 2,400 unit IVP Q6H PRN #0 vial 10/23/16 [Rx] Heparin 4,800 unit IVP Q6HR PRN #0 vial 10/23/16 [Rx] Nicotine Gum [Nicorette gum] 2 mg BC Q2HWA PRN #0 gum 10/23/16 [Rx] Nicotine Patch [Nicoderm] 14 mg TD DAILY PRN #0 patch.td24 10/23/16 [Rx] Nitroglycerin 0.4 mg SL Q5MIN PRN #0 tab.subl 10/23/16 [Rx] Allergies/Adverse Reactions: Allergies latex Allergy (Verified 04/30/16 13:37) Hives fluoxetine [From Prozac] Adverse Reaction (Verified 10/20/16 08:23) Agitated Procedures/tests Complete & Pending: Procedures Performed prior 72 hours Category Date Time Status CL Cardiac Catheterization [CL] 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 Completed ECG 12 lead ECG [ECG] Routine Y 10/20/16 21:42 Completed Date of admission: 10/20/16 09:37 Primary care physician: Roxane Henson DO Consults: 10/20/16 13:12 Consult to Cardiac Rehabilitation-Phase1 [CONS] Routine Comment: Reason for Consult: NSTEMI Call Completed: No 10/23/16 12:03 Consult to Cardiac Rehabilitation-Phase1 [CONS] Routine Comment: Reason for Consult: post op cath Call Completed: Yes 10/23/16 12:04 Consult to Cardiothoracic Surgery [CONS] Routine Consulting Provider: Cardiothoracic Surgery Alana Reason for Consult: cabg Call Completed: Yes Discharging clinician: Panchito Novak Anticipated date of discharge: 10/23/16 - Patient Status Disposition: Transfer Short-Term Hosp Condition: Critical Functional capacity at discharge: independent ambulation Overall status at discharge: patient is progressing back to baseline - Discharge Instructions Follow Up With: Roxane Henson DO [Primary Care Provider] - 10/26/16 11:00 am - Diet and Activity Activity: other Diet: advance to your usual diet Hospital course: Ms. Lorenzo is a 56 year old female with hx of COPD presented to ED with chest pain and dyspnea. She was found to have a slightly elevated troponin and pulmonary edema. She was admitted for further evaluation and treatment. Ms. Lorenzo was admitted to [facility]. Her medications were continued as she had just been discharged a few days before. She continued to have chest pain and was seen by cardiology. No change in EKG or troponin were noted. She was maintained on nitro and heparin. She was diuresed due to pulmonary edema. She had a repeat echo and her EF was now 20% (down from 50% just a few days earlier). On 10/23/16 she underwent LHC and was found to have significant diffuse disease requiring CABG. She was evaluated by CTS and due to high risk she will be transferred to [place] for further treatment. She is afebrile and stable for transfer at this time. - Time Spent with Patient Total time spent providing and/or coordinating discharge services: 40min - Constitutional Vitals: Temp Pulse Resp BP Pulse Ox 97.5 F L 107 18 126/85 97 10/23/16 15:17 10/23/16 16:55 10/23/16 16:03 10/23/16 16:55 10/23/16 16:03 General appearance: Present: mild distress, A&O X 3, answers questions appropriately - Head Head exam: Present: normocephalic - Eye Eye exam: Present: conjuntiva pink - ENT ENT exam: Present: mucous membranes dry - Respiratory Respiratory exam: Present: decreased breath sounds. Absent: wheezes - Cardiovascular Cardiovascular exam: Present: RRR, +S3. Absent: tachycardia - GI/Abdominal GI/Abdominal exam: Present: soft. Absent: tenderness - Extremities Exam Extremities exam: Present: warm. Absent: tenderness - Neurological Exam Neurological exam: Present: alert, oriented X3, no focal deficits - Psychiatric Psychiatric exam: Present: anxious - Skin Skin exam: Present: warm. Absent: rash
[2016-10-23 18:50] VITALS: BP 118/78
[2016-10-24] MEDS ORDERED: predniSONE 20 MG TABLET PO ONE ×2 (09:00→11:51)
--- NOTE | 2016-10-24 16:18 | Electrocardiograph Report ---
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
[2016-10-25] MEDS ORDERED: predniSONE 10 MG TABLET PO ONE (09:00)
== END 2016-10-23 19:15 | disposition short-term general hospital (02) | DRG 280 ==
LOC: EMEROO 03:56 → 2NENU 03:56
PROVIDERS: ADMIT Family Medicine; ATTEND Internal Medicine

== ENCOUNTER 2017-01-10 14:43 | Observation (INO) ==
[2017-01-10 16:04] LABS: Basophils % 0.5 %; Eosinophils # 0.2 K/mcL (0.0-0.6); Eosinophils % 2.9 %; Hematocrit 31.8 % (35.3-44.9); Hemoglobin 10.3 g/dL (11.5-15.4); Immature Granulocytes % 1.6 % (0-4); Lymphocytes # 3.1 K/mcL (0.6-4.6); Lymphocytes % 41.4 %; Mean Corpuscular HGB Conc 32.4 g/dL (31.6-35.5); Mean Corpuscular Hemoglobin 25.3 pg (28.0-33.3); Mean Corpuscular Volume 78.1 fL (83.0-100.0); Mean Platelet Volume 10.7 fL (9.4-12.4); Monocytes # 0.5 K/mcL (0.0-1.3); Monocytes % 7.2 %; Neutrophils # 3.5 K/mcL (1.6-8.9); Platelet Count 273 K/mcL (140-400); Red Blood Count 4.07 M/mcL (3.82-4.97); Segmented Neutrophils % 46.4 %
[2017-01-10 16:19] LABS: Alanine Aminotransferase 7 Units/L (0-55); Albumin 3.3 g/dL (3.5-5.0); Albumin/Globulin Ratio 1.1 (1.1-2.2); Alkaline Phosphatase 80 Units/L (38-126); Aspartate Amino Transferase 8 Units/L (5-34); BUN/Creatinine Ratio 12 (6-26); Bilirubin,Direct 0.1 mg/dL (0.0-0.5); Bilirubin,Total 0.1 mg/dL (0.2-1.2); Blood Urea Nitrogen 14 mg/dL (7-20); Calcium 8.7 mg/dL (8.6-10.8); Carbon Dioxide 24 mEq/L (19-29); Chloride 109 mEq/L (98-109); Glucose 118 mg/dL (70-99); Osmolality,Calculated 296 (280-300); Potassium 3.2 mEq/L (3.5-4.5); Sodium 142 mEq/L (136-145); Total Protein 6.3 g/dL (6.0-8.3); eGFR For African Americans > 60 (> 60); eGFR For Non-African Americans 50 (> 60)
[2017-01-10 16:23] LABS: Ethanol < 10 mg/dL (0-10); Salicylate < 5.0 mg/dL (15-30)
[2017-01-10 16:59] LABS: Bilirubin,Urine Negative (Negative); Blood,Urine Negative (Negative); Clarity,Urine Cloudy (Clear); Color,Urine Yellow (Yellow); Glucose,Urine (UA) Normal (Normal); Ketones,Urine Negative (Negative); Leukocyte Esterase,Urine Moderate (Negative); Nitrite,Urine Negative (Negative); PH,Urine 5.5 pH Units (5.0-8.0); Protein,Urine Negative (Neg-Trace); Specific Gravity,Urine 1.017 (1.010-1.025); Urobilinogen,Urine Normal (Normal)
[2017-01-10 17:01] LABS: Bacteria,Urine Many per hpf (None-Few); Hyaline Casts,Urine None Seen per lpf (None-Few); Squamous Epithelial Cell,Urine Moderate per lpf (None-Few); WBC,Urine 15-30 per hpf (0-3)
[2017-01-10 17:14] LABS: Amphetamine Screen,Urine Negative ng/mL (Cutoff=1000); Barbiturate Screen,Urine Negative ng/mL (Cutoff=200); Benzodiazepines Screen,Urine Negative ng/mL (Cutoff=200); Cannabinoid Screen,Urine Negative ng/mL (Cutoff = 50); Cocaine Screen,Urine Negative ng/mL (Cutoff= 300); Opiate Screen,Urine Negative ng/mL (Cutoff=300); Phencyclidine Screen,Urine Negative ng/mL (Cutoff=25)
--- NOTE | 2017-01-10 18:15 | Emergency Department Note ---
Overdose - Differential Diagnosis Likely: intentional overdose, accidental drug ingestion - Medical Records Medical records reviewed: Yes I reviewed the patient's medical records. - Lab Data Lab results reviewed: Yes I reviewed the patient's lab results. Result diagrams: 01/10/17 15:56 01/10/17 15:56 Lab Results 01/10/17 01/10/17 01/10/17 Range/Units 15:56 15:56 16:50 WBC 7.5 (4.3-11.1) K/mcL RBC 4.07 (3.82-4.97) M/mcL Hgb 10.3 L (11.5-15.4) g/dL Hct 31.8 L (35.3-44.9) % MCV 78.1 L (83.0-100.0) fL MCH 25.3 L (28.0-33.3) pg MCHC 32.4 (31.6-35.5) g/dL RDW 14.0 (11.5-14.5) % Plt Count 273 (140-400) K/mcL MPV 10.7 (9.4-12.4) fL Immature Gran % 1.6 (0-4) % Seg Neutrophils % 46.4 % Lymphocytes % 41.4 % Monocytes % 7.2 % Eosinophils % 2.9 % Basophils % 0.5 % Neutrophils # 3.5 (1.6-8.9) K/mcL Lymphocytes # 3.1 (0.6-4.6) K/mcL Monocytes # 0.5 (0.0-1.3) K/mcL Eosinophils # 0.2 (0.0-0.6) K/mcL Basophils # 0.0 (0.0-0.2) K/mcL Sodium 142 (136-145) mEq/L Potassium 3.2 L (3.5-4.5) mEq/L Chloride 109 (98-109) mEq/L Carbon Dioxide 24 (19-29) mEq/L BUN 14 (7-20) mg/dL Creatinine 1.13 H (0.57-1.11) mg/dL Est GFR ( Amer) > 60 (> 60) Est GFR (Non-Af Amer) 50 L (> 60) BUN/Creatinine Ratio 12 (6-26) Glucose 118 H (70-99) mg/dL Calculated Osmolality 296 (280-300) Calcium 8.7 (8.6-10.8) mg/dL Total Bilirubin 0.1 L (0.2-1.2) mg/dL Direct Bilirubin 0.1 (0.0-0.5) mg/dL Indirect Bilirubin 0.0 (0.0-1.2) mg/dL AST 8 (5-34) Units/L ALT 7 (0-55) Units/L Alkaline Phosphatase 80 (38-126) Units/L Serum Total Protein 6.3 (6.0-8.3) g/dL Albumin 3.3 L (3.5-5.0) g/dL Globulin 3.0 (2.4-3.5) g/dL Albumin/Globulin Ratio 1.1 (1.1-2.2) Urine Color Yellow (Yellow) Urine Clarity Cloudy A (Clear) Urine pH 5.5 (5.0-8.0) pH Units Ur Specific [place] 1.017 (1.010-1.025) Urine Protein Negative (Neg-Trace) mg/dL Urine Glucose (UA) Normal (Normal) mg/dL Urine Ketones Negative (Negative) mg/dL Urine Blood Negative (Negative) Urine Nitrite Negative (Negative) Urine Bilirubin Negative (Negative) Urine Urobilinogen Normal (Normal) mg/dL Ur Leukocyte Esterase Moderate H (Negative) Urine Microscopic RBC 3-5 H (0-3) per hpf Urine Microscopic WBC 15-30 H (0-3) per hpf Ur Squamous Epith Cells Moderate H (None-Few) per lpf Urine Bacteria Many H (None-Few) per hpf Hyaline Casts None Seen (None-Few) per lpf Salicylates < 5.0 L (15-30) mg/dL Urine Opiates Screen (Ktvoos=746) ng/mL Acetaminophen 2.0 L (10-30) mcg/mL Ur Barbiturates Screen (Qhoycc=736) ng/mL Ur Phencyclidine Scrn (Cutoff=25) ng/mL Ur Amphetamines Screen (Coluqc=5385) ng/mL U Benzodiazepines Scrn (Nufdsc=358) ng/mL Urine Cocaine Screen (Cutoff= 300) ng/mL U Marijuana (THC) Screen (Cutoff = 50) ng/mL Ethyl Alcohol < 10 (0-10) mg/dL 01/10/17 Range/Units 16:50 WBC (4.3-11.1) K/mcL RBC (3.82-4.97) M/mcL Hgb (11.5-15.4) g/dL Hct (35.3-44.9) % MCV (83.0-100.0) fL MCH (28.0-33.3) pg MCHC (31.6-35.5) g/dL RDW (11.5-14.5) % Plt Count (140-400) K/mcL MPV (9.4-12.4) fL Immature Gran % (0-4) % Seg Neutrophils % % Lymphocytes % % Monocytes % % Eosinophils % % Basophils % % Neutrophils # (1.6-8.9) K/mcL Lymphocytes # (0.6-4.6) K/mcL Monocytes # (0.0-1.3) K/mcL Eosinophils # (0.0-0.6) K/mcL Basophils # (0.0-0.2) K/mcL Sodium (136-145) mEq/L Potassium (3.5-4.5) mEq/L Chloride (98-109) mEq/L Carbon Dioxide (19-29) mEq/L BUN (7-20) mg/dL Creatinine (0.57-1.11) mg/dL Est GFR ( Amer) (> 60) Est GFR (Non-Af Amer) (> 60) BUN/Creatinine Ratio (6-26) Glucose (70-99) mg/dL Calculated Osmolality (280-300) Calcium (8.6-10.8) mg/dL Total Bilirubin (0.2-1.2) mg/dL Direct Bilirubin (0.0-0.5) mg/dL Indirect Bilirubin (0.0-1.2) mg/dL AST (5-34) Units/L ALT (0-55) Units/L Alkaline Phosphatase (38-126) Units/L Serum Total Protein (6.0-8.3) g/dL Albumin (3.5-5.0) g/dL Globulin (2.4-3.5) g/dL Albumin/Globulin Ratio (1.1-2.2) Urine Color (Yellow) Urine Clarity (Clear) Urine pH (5.0-8.0) pH Units Ur Specific [place] (1.010-1.025) Urine Protein (Neg-Trace) mg/dL Urine Glucose (UA) (Normal) mg/dL Urine Ketones (Negative) mg/dL Urine Blood (Negative) Urine Nitrite (Negative) Urine Bilirubin (Negative) Urine Urobilinogen (Normal) mg/dL Ur Leukocyte Esterase (Negative) Urine Microscopic RBC (0-3) per hpf Urine Microscopic WBC (0-3) per hpf Ur Squamous Epith Cells (None-Few) per lpf Urine Bacteria (None-Few) per hpf Hyaline Casts (None-Few) per lpf Salicylates (15-30) mg/dL Urine Opiates Screen Negative (Bvqrsy=621) ng/mL Acetaminophen (10-30) mcg/mL Ur Barbiturates Screen Negative (Mboauu=668) ng/mL Ur Phencyclidine Scrn Negative (Cutoff=25) ng/mL Ur Amphetamines Screen Negative (Nnbhvq=4885) ng/mL U Benzodiazepines Scrn Negative (Eezqlw=087) ng/mL Urine Cocaine Screen Negative (Cutoff= 300) ng/mL U Marijuana (THC) Screen Negative (Cutoff = 50) ng/mL Ethyl Alcohol (0-10) mg/dL - EKG Data EKG attestation: Yes I reviewed and interpreted this EKG. EKG shows normal: sinus rhythm Rate: normal Rhythm: NSR Interpretation: nonspecific ST-T wave changes Overdose HPI - General Chief Complaint: ED Overdose Stated Complaint: Accidental overdose Time Seen by Provider: 01/10/17 14:48 Source: patient, EMS Limitations: no limitations Nursing Notes Reviewed: Yes Vital Signs Reviewed: Yes - History of Present Illness HPI Narrative: Patient is a 56-year-old female who has home health aides organize her pills she states she might have taken up to 2 days' worth of medications that were filled incorrectly. She has no idea of the names of her medications are not total amount of pills that she took. She states she feels very tired and weak she is afraid she was going to fall sleep and not wake up so she called 911 Pt Subjective Complaint: accidental overdose Intent: accidental How Overdose Was Discovered: called 911 Associated symptoms: other (Somnolence) Treatments Prior to Arrival: none - Related Data Home Medications Medication Instructions Recorded Confirmed Albuterol Sulfate [Albuterol 2 puff IH Q4H PRN 10/12/15 01/10/17 Inhaler] Pregabalin [Lyrica] 150 mg PO BID 10/12/15 01/10/17 SitaGLIPtin [Januvia] 100 mg PO DAILY 10/12/15 01/10/17 Loratadine [Claritin] 10 mg PO DAILY 01/09/16 01/10/17 [place]-3/Dha/Epa/Fish Oil [Fish Oil 1,000 mg PO DAILY 01/09/16 01/10/17 Dr 500 mg Softgel] Pantoprazole Sodium [Protonix] 40 mg PO BID 01/09/16 01/10/17 Venlafaxine XR (24 HR) [Effexor Xr] 150 mg PO DAILY 01/09/16 01/10/17 Famotidine [Heartburn Prevention] 20 mg PO DAILY PRN 04/30/16 01/10/17 Citalopram [CeleXA] 20 mg PO DAILY 10/16/16 01/10/17 Duloxetine HCl [Cymbalta] 60 mg PO DAILY 10/16/16 01/10/17 Oxygen 3 l .ROUTE AD 10/20/16 01/10/17 Acetaminophen [Tylenol] 650 mg PO Q4H PRN 01/10/17 01/10/17 Aspirin Enteric Coated [Aspirin EC] 325 mg PO DAILY 01/10/17 01/10/17 Atorvastatin Calcium [Lipitor] 80 mg PO HS 01/10/17 01/10/17 Buspirone HCl [Buspar] 10 mg PO DAILY 01/10/17 01/10/17 Ferrous Sulfate 325 mg PO BIDWM 01/10/17 01/10/17 Fluticasone/Salmeterol [Advair Hfa 1 puff IH BID 01/10/17 01/10/17 115-21 Mcg Inhaler] Furosemide [Lasix] 20 mg PO DAILY 01/10/17 01/10/17 Insulin Glargine,Hum.rec.anlog 15 unit SQ QAM 01/10/17 01/10/17 [Lantus Solostar] Meloxicam [Mobic] 7.5 mg PO DAILY 01/10/17 01/10/17 Metformin HCl [Glucophage] 1,000 mg PO BID 01/10/17 01/10/17 Metoprolol [Lopressor] 25 mg PO BID 01/10/17 01/10/17 SUMAtriptan Succinate [Imitrex] 100 mg PO DAILY PRN 01/10/17 01/10/17 Topiramate [Topamax] 25 mg PO DAILY 01/10/17 01/10/17 hydrOXYzine HCl [Hydroxyzine HCl] 50 mg PO TID 01/10/17 01/10/17 Previous Rx's Medication Instructions Recorded Fenofibrate [Lofibra] 160 mg PO DAILY #30 tablet 10/14/15 Quetiapine Fumarate [Seroquel] 50 mg PO HS #30 tablet 06/06/16 Nitroglycerin 0.4 mg SL Q5MIN PRN #0 tab.subl 10/23/16 Allergies Allergy/AdvReac Type Severity Reaction Status Date / Time latex Allergy Hives Verified 04/30/16 13:37 fluoxetine [From Prozac] AdvReac Agitated Verified 10/20/16 08:23 All systems ED: reviewed and negative except as stated. Constitutional: Reports: weakness Gastrointestinal: Denies: abdominal pain, nausea, vomiting Neurological: Reports: weakness Past Medical History - Past Medical History Source: patient, old records reviewed, nursing notes reviewed Medical history: Reports: arthritis, asthma, COPD, coronary artery disease, diabetes, fibromyalgia, GERD, hyperlipidemia, hypertension, migraine, myocardial infarction, osteoporosis, peripheral artery disease, renal disease, syncope, venous stasis, other Surgical history: Reports: cholecystectomy, orthopedic, other, other Psychiatric history: Reports: anxiety, bipolar, depression [employer]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 - Social History Smoking Status: Former smoker Smokeless Tobacco Status: No Alcohol use: Reports: none Drug use: Reports: none Physical Exam - General Limitations: no limitations General appearance: alert - Head Head exam: atraumatic, normocephalic, normal inspection - Eye Eye exam: Present: normal appearance, PERRL, EOMI - Expanded Eye Exam Pupils: Left: reactive - ENT ENT exam: normal exam, normal oropharynx, mucous membranes moist - Expanded ENT Exam External ear exam: Present: normal external inspection Mouth exam: Present: normal external inspection Teeth exam: Present: normal inspection Throat exam: Present: normal inspection - Neck Neck exam: Present: normal inspection, full ROM, trachea midline - Chest Chest inspection: Present: normal inspection, symmetric chest wall rise - Respiratory Respiratory exam: Present: normal lung sounds bilaterally - Cardiovascular Cardiovascular exam: Present: regular rate, normal rhythm, normal heart sounds - Abdominal Exam Abdominal exam: Present: soft, Non-Tender. Absent: tenderness, distention, guarding, rebound, rigidity - Extremities Exam Extremities exam: Present: normal inspection, full ROM. Absent: tenderness, pedal edema - Expanded Upper Extremity Exam Shoulder exam: Present: normal inspection, full ROM Arm exam: Present: normal inspection, full ROM Elbow exam: Present: normal inspection, full ROM Forearm/Wrist exam: Present: normal inspection, full ROM Hand exam: Present: normal inspection, full ROM Vascular exam: Normal: capillary refill, radial pulse - Expanded Lower Extremity Exam Hip/Pelvis exam: Present: normal inspection, full ROM Upper leg exam: Present: normal inspection, full ROM Knee exam: Present: normal inspection, full ROM Lower leg exam: Present: normal inspection, full ROM Ankle exam: Present: normal inspection, full ROM Foot/toe exam: Present: normal inspection, full ROM Neurovascular/Tendon exam: Absent: motor deficit, sensory deficit, tendon deficit - Back Exam Back exam: Present: normal inspection, full ROM. Absent: tenderness - Neurological Exam Neurological exam: Present: alert, oriented X3 - Expanded Neurological Exam Patient oriented to: Present: person, place, time Coma Scale Eye Opening: Spontaneous Coma Scale Motor Response: Obeys Commands Coma Scale Verbal Response: Oriented Coma Scale Total: 15 - Psychiatric Psychiatric exam: Present: normal affect, normal mood - Skin Skin exam: Present: warm, dry, intact, normal color Course - Reevaluation(s) Reevaluation #1: patient sleeping but arousable Time: 18:10 Vital Signs Temperature 98.5 F 01/10/17 14:51 Pulse Rate 90 01/10/17 14:51 Respiratory Rate 18 01/10/17 14:51 Blood Pressure 108/67 01/10/17 14:51 O2 Sat by Pulse Oximetry 95 01/10/17 14:51 Temperature 98.5 F 01/10/17 14:51 Pulse Rate 94 01/10/17 18:30 Respiratory Rate 16 01/10/17 18:30 Blood Pressure 125/83 01/10/17 18:30 O2 Sat by Pulse Oximetry 97 01/10/17 18:30 Oxygen Delivery Oxygen Delivery Room Air Disposition Clinical Impression: Hypokalemia Accidental drug ingestion Qualifiers: Encounter type: initial encounter Qualified Code(s): T50.901A - Poisoning by unspecified drugs, medicaments and biological substances, accidental ( unintentional), initial encounter UTI (urinary tract infection) Qualifiers: Urinary tract infection type: acute cystitis Hematuria presence: without hematuria Qualified Code(s): N30.00 - Acute cystitis without hematuria Disposition: Admitted As Inpatient Referrals: Roxane Henson DO [Primary Care Provider] - Forms: ED Satisfaction Letter
[2017-01-10] MEDS ORDERED: Potassium Effervescent 25 MEQ TABLET.EFF PO ONE (19:37)
[2017-01-10 19:51] LABS: Magnesium 1.3 mg/dL (1.6-2.6)
[2017-01-10] MEDS ORDERED: Acetaminophen 325 MG TABLET PO PRN (20:56)
[2017-01-10] MEDS ORDERED: Naloxone 0.4 MG/ML INJ IVP PRN (20:56)
[2017-01-10] MEDS ORDERED: Ondansetron 4 MG/2 ML VIAL IVP PRN (20:56)
[2017-01-10] MEDS ORDERED: Dextrose Gel 15 GM PO PRN ×2 (20:59)
[2017-01-10] MEDS ORDERED: D5% in Water 1,000 ML IVC PRN (20:59)
[2017-01-10] MEDS ORDERED: *HR* Dextrose 50 % in Water (Syg) 50 ML SYRINGE IVP PRN (20:59)
[2017-01-10] MEDS ORDERED: Magnesium Sulfate 2 GM in D5% in Water 100 ML IVPB ONE (20:59)
[2017-01-10] MEDS ORDERED: Insulin LISPRO 300 UNITS/3 ML VIAL SQ SCH (21:00)
--- NOTE | 2017-01-10 21:05 | Internal Med History&Physical ---
Date of Encounter: 01/10/17 Time of Encounter: 20:45 Assessment and Plan (1) Accidental drug overdose Current visit: Yes Status: Acute Unclear medications and unclear dosages. Patient is noted to be on multiple antidepressants and anxiolytics. Will hold sedatives for now and continue to monitor closely. Monitor Telemetry and vital signs closely. Supportive care. Qualifiers: Encounter type: initial encounter Qualified Code(s): T50.901A - Poisoning by unspecified drugs, medicaments and biological substances, accidental ( unintentional), initial encounter (2) Hypomagnesemia Current visit: Yes Status: Acute Supplement with IV magnesium sulfate and follow-up serum magnesium. (3) UTI (urinary tract infection) Current visit: Yes Status: Acute Urinalysis is suggestive of UTI with moderate leukocyte esterase, 15-30 WBC and many bacteria. Continue IV antibiotics and follow up urine culture. Qualifiers: Urinary tract infection type: acute cystitis Hematuria presence: without hematuria Qualified Code(s): N30.00 - Acute cystitis without hematuria (4) Lethargy Current visit: Yes Status: Resolved Improving somnolence and lethargy at this time. Continue to monitor. (5) Hypokalemia Current visit: Yes Status: Acute Supplement with oral potassium chloride and monitor serum potassium. (6) Bipolar disease, chronic Current visit: Yes Status: Chronic (7) Diabetes Current visit: Yes Status: Chronic Accu-Chek blood glucose monitoring with basal bolus insulin regimen. Diabetic diet. Check hemoglobin A1c. Qualifiers: Diabetes mellitus type: type 2 Diabetes mellitus complication status: with neurologic complications Diabetes mellitus complication detail: with polyneuropathy Diabetes mellitus superintendent terminal insulin use: with superintendent terminal use Qualified Code(s): E11.42 - Type 2 diabetes mellitus with diabetic polyneuropathy; Z79.4 - penitentiary (current) use of insulin (8) Depression Current visit: Yes Status: Chronic Patient was recently hospitalized for homicidal ideation. She has been discharged on when necessary hydroxyzine, Seroquel, Effexor. Hold these medications for now. Qualifiers: Depression Type: major depressive disorder Major depression recurrence: recurrent Active/Remission status: currently active Major depression episode severity: unspecified Qualified Code(s): F33.9 - Major depressive disorder, recurrent, unspecified (9) Fibromyalgia Current visit: Yes Status: Chronic (10) Anemia Current visit: Yes Status: Chronic Continue ferrous sulfate supplements. Qualifiers: Anemia type: iron deficiency Iron deficiency anemia type: unspecified iron deficiency Qualified Code(s): D50.9 - Iron deficiency anemia, unspecified (11) CAD (coronary artery disease) Current visit: Yes Status: Chronic Patient was recently transferred to [facility] and underwent triple vessel CABG. Continue aspirin, beta michele, statin. Qualifiers: Coronary Disease-Associated Artery/Lesion type: bypass graft [place] vs. transplanted heart: [place] heart Associated angina: without angina Qualified Code(s): I25.810 - Atherosclerosis of coronary artery bypass graft(s) without angina pectoris (12) Chronic respiratory failure with hypoxia Current visit: Yes Status: Chronic (13) Diabetic neuropathy Current visit: Yes Status: Chronic Qualifiers: Diabetes mellitus type: type 2 Diabetes mellitus complication detail: diabetic polyneuropathy Qualified Code(s): E11.42 - Type 2 diabetes mellitus with diabetic polyneuropathy Internal Medicine - H&P: HPI Chief complaint: Somnolence Admitted From: Emergency Dept Plans for Post Hospital Care: Home History of present illness: Ms. Lorenzo is a 56 year old female with multiple medical problems, who presents with c/o- excessive somnolence and not feeling right since yesterday. Patient reports having a visiting nurse once a week to arrange her pill box and home health aide 6 hours a week. She claims that there has been a mistake in this weeks medication arrangement due to which she might have taken extra doses of some of her medications. She does not know what medication or the dosages that she might have taken extra. She reports generalized weakness, numbness, dizziness and feeling more tired and sleepy than usual and she attributes all this to medication overdose. No nausea, vomiting, chest or abdominal pain, shortness of breath, blurred vision or focal weakness. Past Med Surg Social Fam HX - Past Medical History Medical history: arthritis, CHF, COPD, coronary artery disease, diabetes, fibromyalgia, GERD, hyperlipidemia, hypertension, migraine, myocardial infarction, osteoporosis, peripheral artery disease, renal disease, syncope, venous stasis, other Psychiatric history: anxiety, bipolar, depression - Past Surgical History Surgical History: cholecystectomy, coronary bypass (CABG), orthopedic, other, other - Social History Smoking Status: Former smoker (quit 3 months ago, has been smoking 2 packs per day) Smokeless Tobacco Status: No Alcohol use: none Drug use: none Occupational status: disabled Current living situation: Home - Independent Activity Level: Independent ambulation Recent Out of Country Travel Within the Last 8 Weeks: No Exposure or Possible Exposure to Illness During Travel: No - Family History Mother Living Status: Hx Family Cardiac Disorders: Yes (cardiomyothy) Father Living Status: Still Living Hx Family Cardiac Disorders: Yes (4 heart stents) Internal Medicine - H&P: Meds Albuterol Sulfate [Albuterol Inhaler] 2 puff IH Q4H PRN 10/12/15 [History] Pregabalin [Lyrica] 150 mg PO BID 10/12/15 [History] SitaGLIPtin [Januvia] 100 mg PO DAILY 10/12/15 [History] Fenofibrate [Lofibra] 160 mg PO DAILY #30 tablet 10/14/15 [Rx] Loratadine [Claritin] 10 mg PO DAILY 01/09/16 [History] [place]-3/Dha/Epa/Fish Oil [Fish Oil Dr 500 mg Softgel] 1,000 mg PO DAILY [History] Pantoprazole Sodium [Protonix] 40 mg PO BID 01/09/16 [History] Venlafaxine XR (24 HR) [Effexor Xr] 150 mg PO DAILY 01/09/16 [History] Famotidine [Heartburn Prevention] 20 mg PO DAILY PRN 04/30/16 [History] Quetiapine Fumarate [Seroquel] 50 mg PO HS #30 tablet 06/06/16 [Rx] Citalopram [CeleXA] 20 mg PO DAILY 10/16/16 [History] Duloxetine HCl [Cymbalta] 60 mg PO DAILY 10/16/16 [History] Oxygen 3 l .ROUTE AD 10/20/16 [History] Nitroglycerin 0.4 mg SL Q5MIN PRN #0 tab.subl 10/23/16 [Rx] Acetaminophen [Tylenol] 650 mg PO Q4H PRN 01/10/17 [History] Aspirin Enteric Coated [Aspirin EC] 325 mg PO DAILY 01/10/17 [History] Atorvastatin Calcium [Lipitor] 80 mg PO HS 01/10/17 [History] Buspirone HCl [Buspar] 10 mg PO DAILY 01/10/17 [History] Ferrous Sulfate 325 mg PO BIDWM 01/10/17 [History] Fluticasone/Salmeterol [Advair Hfa 115-21 Mcg Inhaler] 1 puff IH BID 01/10/17 [ History] Furosemide [Lasix] 20 mg PO DAILY 01/10/17 [History] Insulin Glargine,Hum.rec.anlog [Lantus Solostar] 15 unit SQ QAM 01/10/17 [ History] Meloxicam [Mobic] 7.5 mg PO DAILY 01/10/17 [History] Metformin HCl [Glucophage] 1,000 mg PO BID 01/10/17 [History] Metoprolol [Lopressor] 25 mg PO BID 01/10/17 [History] SUMAtriptan Succinate [Imitrex] 100 mg PO DAILY PRN 01/10/17 [History] Topiramate [Topamax] 25 mg PO DAILY 01/10/17 [History] hydrOXYzine HCl [Hydroxyzine HCl] 50 mg PO TID 01/10/17 [History] Allergies latex Allergy (Verified 04/30/16 13:37) Hives fluoxetine [From Prozac] Adverse Reaction (Verified 10/20/16 08:23) Agitated All Systems PM: A 10-system review of systems was performed and is negative for pertinent findings except as documented above in the HPI. - Constitutional Constitutional: lethargy, malaise, weakness - EENT Eyes: no change in vision, no discharge, no pain, no photophobia Ears: no ear discharge, no ear pain, no tinnitus Nose, mouth and throat: no dysphagia, no nasal discharge, no neck pain, no sore throat - Cardiovascular Cardiovascular ROS IM: lightheadedness - Respiratory Respiratory: no cough, no dyspnea, no wheezing, no excessive phlegm production - Gastrointestinal Gastrointestinal: no abdominal pain, no diarrhea, no hematemesis, no hematochezia, no melena, no nausea, no vomiting - Genitourinary Genitourinary: no change in urinary stream, no dysuria, no flank pain, no hematuria - Musculoskeletal Musculoskeletal ROS IM: numbness, no tingling - Integumentary Integumentary IM: no rash, no unusual bruising - Neurological Neurological ROS: behavioral changes, confusion, dizziness, numbness - Hematologic/Lymphatic Hematologic/Lymphatic: no easy bruising - Constitutional Vitals: Temp Pulse Resp BP Pulse Ox 97.9 F 95 18 121/83 97 01/10/17 20:45 01/10/17 20:45 01/10/17 20:45 01/10/17 20:45 01/10/17 20:45 General appearance: Present: A&O X 3, answers questions appropriately - Respiratory Respiratory exam: Present: CTAB. Absent: accessory muscle use, rales, rhonchi, wheezes - Cardiovascular Cardiovascular exam: Present: RRR, +S1, +S2. Absent: diastolic murmur, gallop, rubs, systolic murmur - GI/Abdominal GI/Abdominal exam: Present: normal bowel sounds, soft, no peritoneal signs. Absent: distended, tenderness - Extremities Exam Extremities exam: Present: full ROM, warm, radial pulses palpable and symetrical. Absent: calf tenderness, cyanotic, pedal edema - Neurological Exam Neurological exam: Present: CN II-XII intact, oriented X3, no focal deficits. Absent: pronater drift, facial droop, speech deficit - Skin Skin exam: Present: dry, intact Internal Med - H&P Results - Labs CBC & Chem 7: 01/10/17 15:56 01/10/17 15:56 - EKG Data -: EKG Interpreted by Myself EKG shows normal: sinus rhythm Rate: normal
[2017-01-10] MEDS ORDERED: 0.9 % Sodium Chloride 1,000 ML IVC SCH (21:30)
[2017-01-10 21:38] LABS: Hemoglobin A1C 6.6 %
[2017-01-10] MEDS: Insulin DETEMIR 100 UNIT/ML X5UNITS SQ SCH (22:13)
[2017-01-10] MEDS: SALMETEROL IH SCH (22:13)
[2017-01-10] MEDS: FLUTICASONE PROPIONATE IH SCH (22:13)
[2017-01-11 06:45] LABS: Basophils # 0.1 K/mcL (0.0-0.2); Basophils % 0.6 %; Eosinophils # 0.2 K/mcL (0.0-0.6); Eosinophils % 2.3 %; Hemoglobin 11.2 g/dL (11.5-15.4); Immature Granulocytes % 1.1 % (0-4); Lymphocytes # 3.6 K/mcL (0.6-4.6); Lymphocytes % 36.9 %; Mean Corpuscular HGB Conc 31.1 g/dL (31.6-35.5); Mean Corpuscular Hemoglobin 24.5 pg (28.0-33.3); Mean Corpuscular Volume 78.8 fL (83.0-100.0); Mean Platelet Volume 10.9 fL (9.4-12.4); Monocytes # 0.6 K/mcL (0.0-1.3); Neutrophils # 5.1 K/mcL (1.6-8.9); Platelet Count 323 K/mcL (140-400); Red Blood Count 4.57 M/mcL (3.82-4.97); Red Cell Distribution Width 14.1 % (11.5-14.5); Segmented Neutrophils % 53.1 %
[2017-01-11 07:24] LABS: BUN/Creatinine Ratio 14 (6-26); Blood Urea Nitrogen 12 mg/dL (7-20); Calcium 8.8 mg/dL (8.6-10.8); Carbon Dioxide 28 mEq/L (19-29); Chloride 105 mEq/L (98-109); Glucose 174 mg/dL (70-99); Magnesium 1.9 mg/dL (1.6-2.6); Osmolality,Calculated 296 (280-300); Sodium 141 mEq/L (136-145); eGFR For African Americans > 60 (> 60); eGFR For Non-African Americans > 60 (> 60)
[2017-01-11 07:30] LABS: Potassium 4.4 mEq/L (3.5-4.5)
[2017-01-11] MEDS ORDERED: Fenofibrate 54 MG TABLET PO SCH (09:00)
[2017-01-11] MEDS ORDERED: Aspirin Enteric Coated 325 MG Tablet PO SCH (09:00)
[2017-01-11] MEDS ORDERED: (Omega-3/Dha/Epa/Fish Oil [Fish Oil Dr 500 Mg Softgel) PO SCH (09:00)
[2017-01-11] MEDS: Insulin LISPRO 300 UNITS/3 ML VIAL SQ SCH ×2 (09:03→12:26)
[2017-01-11] MEDS: FLUTICASONE PROPIONATE IH SCH (09:03)
[2017-01-11] MEDS: SALMETEROL IH SCH (09:03)
[2017-01-11] MEDS: Insulin DETEMIR 100 UNIT/ML X5UNITS SQ SCH (09:08)
[2017-01-11 11:45] VITALS: BP 111/72
--- NOTE | 2017-01-11 13:59 | Electrocardiograph Report ---
[place] [id number] Test Date: 2017-01-10 Pat Name: Bebe Lorenzo Department: 102 Room: 3B54 Gender: F [employer] Gauger: Leif : 1960 Requested By: Zev Guidry Order Number: [id number] Reading MD: Han Menard MD Measurements Intervals Grahn Rate: 88 P: 70 AL: 175 QRS: 67 QRSD: 108 T: 101 QT: 401 QTc: 446 Interpretive Statements SINUS RHYTHM POOR R-WAVE PROGRESSION NONSPECIFIC T-WAVE ABNORMALITY Electronically Signed On 01-11-2017 13:57:30 EDT by Han Menard MD
--- NOTE | 2017-01-11 14:30 | Discharge Summary ---
Date of Encounter: 01/11/17 Time of Encounter: 10:30 - Discharge Diagnosis (1) Toxic metabolic encephalopathy Priority: Primary Status: Resolved Comments: Patient alert and oriented 3 throughout this admission. Suspect she may have taken too much of her medication. Unclear whether or not the patient took these medications on purpose but she denies any homicidal or suicidal ideations. She is alleging that her home health nurse set up her pillboxes incorrectly. career services coordinator was brought on board. Follow up outpatient. (2) Accidental drug overdose Priority: Primary Status: Suspected Qualifiers: Encounter type: initial encounter Qualified Code(s): T50.901A - Poisoning by unspecified drugs, medicaments and biological substances, accidental ( unintentional), initial encounter (3) Lethargy Priority: Primary Status: Resolved (4) Diabetes Priority: Secondary Status: Chronic Comments: Controlled with an A1c of 6.6%. Continue follow-up outpatient. Qualifiers: Diabetes mellitus type: type 2 Diabetes mellitus complication status: with neurologic complications Diabetes mellitus complication detail: with polyneuropathy Diabetes mellitus prison insulin use: with rat exterminator use Qualified Code(s): E11.42 - Type 2 diabetes mellitus with diabetic polyneuropathy; Z79.4 - intermediate (current) use of insulin (5) Asthma Priority: Secondary Status: Chronic Comments: No acute exacerbation. Patient denies shortness of breath above her norm. (6) UTI (urinary tract infection) Priority: Primary Status: Acute Comments: Abnormal urinalysis noted. Patient denies dysuria. Urine culture pending at time of discharge, treated with 1 dose of IV ceftriaxone while admitted, will send home on Cipro and will follow up with urine culture and will call the patient after discharge if change in antibiotics is warranted. Qualifiers: Urinary tract infection type: acute cystitis Hematuria presence: without hematuria Qualified Code(s): N30.00 - Acute cystitis without hematuria (7) Fibromyalgia Priority: Secondary Status: Chronic (8) GABO (obstructive sleep apnea) Priority: Secondary Status: Chronic (9) H/O noncompliance with medical treatment, presenting hazards to health Priority: Secondary Status: Chronic Comments: Patient has home health services. She has a nurse sets up her pillbox. career services coordinator was brought on board as the patient is alleging that and her medications were set up incorrectly (10) Anemia Priority: Secondary Status: Chronic Comments: Acute on chronic, mild, currently at the high end of her normal, follow-up outpatient. Qualifiers: Anemia type: iron deficiency Iron deficiency anemia type: unspecified iron deficiency Qualified Code(s): D50.9 - Iron deficiency anemia, unspecified (11) Hypertension Priority: Secondary Status: Chronic Comments: Controlled, follow-up outpatient (12) Nicotine dependence with nicotine-induced disorder Priority: Secondary Status: Chronic Comments: Declined counseling Qualifiers: Nicotine product type: cigarettes Qualified Code(s): F17.219 - Nicotine dependence, cigarettes, with unspecified nicotine-induced disorders (13) Hypomagnesemia Priority: Primary Status: Resolved (14) Chronic kidney disease (CKD) stage G3a/A1, moderately decreased glomerular filtration rate (GFR) between 45-59 mL/min/1.73 square meter and albuminuria creatinine ratio less than 30 mg/g Priority: Secondary Status: Chronic Comments: Stable throughout this admission, normal renal functioning on day of discharge (15) CAD (coronary artery disease) Priority: Secondary Status: Chronic Comments: Patient denied chest pain or shortness of breath above her normal throughout this admission. Qualifiers: Coronary Disease-Associated Artery/Lesion type: bypass graft [place] vs. transplanted heart: [place] heart Associated angina: without angina Qualified Code(s): I25.810 - Atherosclerosis of coronary artery bypass graft(s) without angina pectoris (16) DVT prophylaxis Priority: Primary Status: Acute Comments: Observation patient. Up ad analy. (17) CHF (congestive heart failure) Priority: Secondary Status: Chronic Comments: No acute exacerbation Qualifiers: Congestive heart failure type: combined Congestive heart failure chronicity : chronic Qualified Code(s): I50.42 - Chronic combined systolic (congestive) and diastolic (congestive) heart failure (18) Hypokalemia Priority: Primary Status: Resolved (19) Bipolar disease, chronic Priority: Secondary Status: Chronic - Discharge Medications Prescriptions: Ciprofloxacin HCl [Cipro] 250 mg PO BID #10 tab Home Medications: Albuterol Sulfate [Albuterol Inhaler] 2 puff IH Q4H PRN 10/12/15 [History] Pregabalin [Lyrica] 150 mg PO BID 10/12/15 [History] SitaGLIPtin [Januvia] 100 mg PO DAILY 10/12/15 [History] Fenofibrate [Lofibra] 160 mg PO DAILY #30 tablet 10/14/15 [Rx] Loratadine [Claritin] 10 mg PO DAILY 01/09/16 [History] [place]-3/Dha/Epa/Fish Oil [Fish Oil Dr 500 mg Softgel] 1,000 mg PO DAILY [History] Pantoprazole Sodium [Protonix] 40 mg PO BID 01/09/16 [History] Venlafaxine XR (24 HR) [Effexor Xr] 150 mg PO DAILY 01/09/16 [History] Famotidine [Heartburn Prevention] 20 mg PO DAILY PRN 04/30/16 [History] Quetiapine Fumarate [Seroquel] 50 mg PO HS #30 tablet 06/06/16 [Rx] Citalopram [CeleXA] 20 mg PO DAILY 10/16/16 [History] Duloxetine HCl [Cymbalta] 60 mg PO DAILY 10/16/16 [History] Oxygen 3 l .ROUTE AD 10/20/16 [History] Nitroglycerin 0.4 mg SL Q5MIN PRN #0 tab.subl 10/23/16 [Rx] Acetaminophen [Tylenol] 650 mg PO Q4H PRN 01/10/17 [History] Aspirin Enteric Coated [Aspirin EC] 325 mg PO DAILY 01/10/17 [History] Atorvastatin Calcium [Lipitor] 80 mg PO HS 01/10/17 [History] Buspirone HCl [Buspar] 10 mg PO DAILY 01/10/17 [History] Ferrous Sulfate 325 mg PO BIDWM 01/10/17 [History] Fluticasone/Salmeterol [Advair Hfa 115-21 Mcg Inhaler] 1 puff IH BID 01/10/17 [ History] Furosemide [Lasix] 20 mg PO DAILY 01/10/17 [History] Insulin Glargine,Hum.rec.anlog [Lantus Solostar] 15 unit SQ QAM 01/10/17 [ History] Meloxicam [Mobic] 7.5 mg PO DAILY 01/10/17 [History] Metformin HCl [Glucophage] 1,000 mg PO BID 01/10/17 [History] Metoprolol [Lopressor] 25 mg PO BID 01/10/17 [History] SUMAtriptan Succinate [Imitrex] 100 mg PO DAILY PRN 01/10/17 [History] Topiramate [Topamax] 25 mg PO DAILY 01/10/17 [History] hydrOXYzine HCl [Hydroxyzine HCl] 50 mg PO TID 01/10/17 [History] Ciprofloxacin HCl [Cipro] 250 mg PO BID #10 tab 01/11/17 [Rx] Allergies/Adverse Reactions: Allergies latex Allergy (Verified 04/30/16 13:37) Hives fluoxetine [From Prozac] Adverse Reaction (Verified 10/20/16 08:23) Agitated Date of admission: 01/10/17 19:38 Primary care physician: Roxane Henson DO Consults: 01/11/17 14:28 Consult to [place] [CONS] Routine Reason for SW Consult: pt alleging nurse doubled up some of her medications in her pill box Discharging clinician: Rosemarie Barr Anticipated date of discharge: 01/11/17 - Patient Status Disposition: Home Health Service Condition: Fair Functional capacity at discharge: independent ambulation Overall status at discharge: patient is back to baseline - Discharge Instructions Follow Up With: Roxane Henson DO [Primary Care Provider] - 01/17/17 9:30 am Additional Instructions: Follow-up with primary care provider as scheduled - Diet and Activity Activity: increase activity as tolerated Diet: diabetic diet, low fat, low cholesterol, low salt diet Hospital course: Ms. Lorenzo is a 56 year old female with past medical history of CHF, COPD, CAD status post CABG, diabetes, fibromyalgia, GERD, hyperlipidemia, hypertension, migraine, PAD, chronic kidney disease, venous stasis, bipolar disorder, former heavy tobacco abuse. Patient presented to the emergency department chief complaint of excessive somnolence and not feeling right since the day prior to presentation. Patient stating she had a home care nurse that comes out once a week to arrange her pillbox. She states that the nurse from this week made a mistake in her medications and she alleges that she was overdosed on certain medications but she does not know the name or dosages of these alleged medications. Patient also endorsed generalized weakness, numbness, dizziness, and feeling more tired and sleepy than usual which she attributes to medication overdose. Patient denied nausea, vomiting, chest or abdominal pain, shortness of breath or difficulty with ambulation. Workup in the emergency department unremarkable. Patient was admitted to the hospitalist service for further evaluation and management noted. Abnormal urinalysis noted in the patient was given a dose of IV ceftriaxone 1. Urine culture still pending at time of discharge, she was sent home on ciprofloxacin and will be called after culture is resulted if she needs to change her antibiotics. Tox screen negative. Hypokalemia and hypomagnesemia both resolved. Patient was alert and oriented 3 throughout her one night admission. career services coordinator was brought on board due to the allegations of inappropriate medication setup. The patient did not have any focal neurological weaknesses present during this admission. She was discharged home with home health services in stable condition with close outpatient follow-up recommended. - Time Spent with Patient Total time spent providing and/or coordinating discharge services: - Constitutional Vitals: Temp Pulse Resp BP Pulse Ox 98.1 F 89 16 111/72 97 01/11/17 11:40 01/11/17 11:40 01/11/17 11:40 01/11/17 11:40 01/11/17 11:40 General appearance: Present: A&O X 3, pleasant, no acute distress, answers questions appropriately - Head Head exam: Present: atraumatic, normocephalic - Eye Eye exam: Present: PERRL, conjuntiva pink, sclera anicteric Pupils: Present: PERRL - Neck Neck exam general surgery: Present: supple, trachea midline. Absent: lymphadenopathy - Respiratory Respiratory exam: Present: decreased breath sounds. Absent: accessory muscle use, rales, respiratory distress, rhonchi, wheezes - Cardiovascular Cardiovascular exam: Present: RRR, +S1, +S2. Absent: diastolic murmur, gallop, rubs, systolic murmur - GI/Abdominal GI/Abdominal exam: Present: normal bowel sounds, soft, no peritoneal signs. Absent: distended, tenderness - Extremities Exam Extremities exam: Present: warm, radial pulses palpable and symetrical. Absent : calf tenderness, cyanotic, pedal edema - Neurological Exam Neurological exam: Present: alert, CN II-XII intact, normal gait, oriented X3, no focal deficits, strengths equal and symetr throughout. Absent: pronater drift, facial droop, speech deficit - Skin Skin exam: Present: dry, intact, normal color, warm
--- NOTE | 2017-01-11 14:56 | Physician Discharge Referral ---
Home Health/Hosp Referral Info Transfer to: Home Health Attending Provider: Barrie Barr CNP Provider in Charge Post Discharge: PCP - Diagnosis (1) Toxic metabolic encephalopathy Priority: Primary Status: Resolved (2) Accidental drug overdose Priority: Primary Status: Suspected (3) Lethargy Priority: Primary Status: Resolved (4) Diabetes Priority: Secondary Status: Chronic (5) Asthma Priority: Secondary Status: Chronic (6) UTI (urinary tract infection) Priority: Primary Status: Acute (7) Fibromyalgia Priority: Secondary Status: Chronic (8) GABO (obstructive sleep apnea) Priority: Secondary Status: Chronic (9) H/O noncompliance with medical treatment, presenting hazards to health Priority: Secondary Status: Chronic (10) Anemia Priority: Secondary Status: Chronic (11) Hypertension Priority: Secondary Status: Chronic (12) Nicotine dependence with nicotine-induced disorder Priority: Secondary Status: Chronic (13) Hypomagnesemia Priority: Primary Status: Resolved (14) Chronic kidney disease (CKD) stage G3a/A1, moderately decreased glomerular filtration rate (GFR) between 45-59 mL/min/1.73 square meter and albuminuria creatinine ratio less than 30 mg/g Priority: Secondary Status: Chronic (15) CAD (coronary artery disease) Priority: Secondary Status: Chronic (16) DVT prophylaxis Priority: Primary Status: Acute (17) CHF (congestive heart failure) Priority: Secondary Status: Chronic (18) Hypokalemia Priority: Primary Status: Resolved (19) Bipolar disease, chronic Priority: Secondary Status: Chronic - Respiratory Orders Smoking Cessation: Smoking cessation has been advised. For more information, call the [place] Tobacco Quit Line at 5-735-DFVJ-NOW. - Diet/Nutrition Diet/Nutrition Orders: No Added Salt (NINA), No Concentrated Sweets - Activity Activity Orders: Ambulate - Services Needed Following services are medically necessary services: Nursing, Home Health Aide, Med Social Work - Transfer Medications Prescriptions: Ciprofloxacin HCl [Cipro] 250 mg PO BID #10 tab Home Medications: Albuterol Sulfate [Albuterol Inhaler] 2 puff IH Q4H PRN 10/12/15 [History] Pregabalin [Lyrica] 150 mg PO BID 10/12/15 [History] SitaGLIPtin [Januvia] 100 mg PO DAILY 10/12/15 [History] Fenofibrate [Lofibra] 160 mg PO DAILY #30 tablet 10/14/15 [Rx] Loratadine [Claritin] 10 mg PO DAILY 01/09/16 [History] Max-3/Dha/Epa/Fish Oil [Fish Oil Dr 500 mg Softgel] 1,000 mg PO DAILY [History] Pantoprazole Sodium [Protonix] 40 mg PO BID 01/09/16 [History] Venlafaxine XR (24 HR) [Effexor Xr] 150 mg PO DAILY 01/09/16 [History] Famotidine [Heartburn Prevention] 20 mg PO DAILY PRN 04/30/16 [History] Quetiapine Fumarate [Seroquel] 50 mg PO HS #30 tablet 06/06/16 [Rx] Citalopram [CeleXA] 20 mg PO DAILY 10/16/16 [History] Duloxetine HCl [Cymbalta] 60 mg PO DAILY 10/16/16 [History] Oxygen 3 l .ROUTE AD 10/20/16 [History] Nitroglycerin 0.4 mg SL Q5MIN PRN #0 tab.subl 10/23/16 [Rx] Acetaminophen [Tylenol] 650 mg PO Q4H PRN 01/10/17 [History] Aspirin Enteric Coated [Aspirin EC] 325 mg PO DAILY 01/10/17 [History] Atorvastatin Calcium [Lipitor] 80 mg PO HS 01/10/17 [History] Buspirone HCl [Buspar] 10 mg PO DAILY 01/10/17 [History] Ferrous Sulfate 325 mg PO BIDWM 01/10/17 [History] Fluticasone/Salmeterol [Advair Hfa 115-21 Mcg Inhaler] 1 puff IH BID 01/10/17 [ History] Furosemide [Lasix] 20 mg PO DAILY 01/10/17 [History] Insulin Glargine,Hum.rec.anlog [Lantus Solostar] 15 unit SQ QAM 01/10/17 [ History] Meloxicam [Mobic] 7.5 mg PO DAILY 01/10/17 [History] Metformin HCl [Glucophage] 1,000 mg PO BID 01/10/17 [History] Metoprolol [Lopressor] 25 mg PO BID 01/10/17 [History] SUMAtriptan Succinate [Imitrex] 100 mg PO DAILY PRN 01/10/17 [History] Topiramate [Topamax] 25 mg PO DAILY 01/10/17 [History] hydrOXYzine HCl [Hydroxyzine HCl] 50 mg PO TID 01/10/17 [History] Ciprofloxacin HCl [Cipro] 250 mg PO BID #10 tab 01/11/17 [Rx] Allergies/Adverse Reactions: Allergies latex Allergy (Verified 04/30/16 13:37) Hives fluoxetine [From Prozac] Adverse Reaction (Verified 10/20/16 08:23) Agitated Certification: Further, I certify that my clinical findings support that this patient is homebound (i.e. absences from home require considerable and taxing effort and are for medical reasons or rastafarian services or infrequently or short duration when for other reasons) because: Homebound Reason: Altered mental status requiring supervision when leaving home Attestation: My signature below is to certify that this patient is under my care and that I, or nurse practitioner, or a physician's desk assistant working with me, has a face-to -face encounter with this patient.
== END 2017-01-11 17:15 | disposition home health service (06) ==
LOC: 3BNU 14:43 → EMEROO 14:43 → 3BNU 20:33
PROVIDERS: ADMIT Internal Medicine; ATTEND Nurse Practitioner Family

== ENCOUNTER 2017-05-20 07:40 | Observation (INO) ==
[2017-05-20] MEDS ORDERED: 0.9 % Sodium Chloride 1,000 ML IVC ONE (08:09)
[2017-05-20 08:20] LABS: Basophils % 0.6 %; Eosinophils # 0.1 K/mcL (0.0-0.6); Eosinophils % 1.5 %; Hematocrit 35.7 % (35.3-44.9); Hemoglobin 11.5 g/dL (11.5-15.4); Immature Granulocytes % 0.7 % (0-4); Immature Platelets 6.3 % (1.1-6.1); Lymphocytes # 2.5 K/mcL (0.6-4.6); Lymphocytes % 35.9 %; Mean Corpuscular HGB Conc 32.2 g/dL (31.6-35.5); Mean Corpuscular Hemoglobin 25.8 pg (28.0-33.3); Mean Corpuscular Volume 80.2 fL (83.0-100.0); Mean Platelet Volume 10.1 fL (9.4-12.4); Monocytes # 0.5 K/mcL (0.0-1.3); Monocytes % 6.8 %; Neutrophils # 3.8 K/mcL (1.6-8.9); Platelet Count 264 K/mcL (140-400); Red Blood Count 4.45 M/mcL (3.82-4.97); Red Cell Distribution Width 14.6 % (11.5-14.5); Segmented Neutrophils % 54.5 %
[2017-05-20 08:35] LABS: Alanine Aminotransferase 27 Units/L (0-55); Albumin 3.5 g/dL (3.5-5.0); Alkaline Phosphatase 98 Units/L (38-126); Aspartate Amino Transferase 21 Units/L (5-34); BUN/Creatinine Ratio 21 (6-26); Bilirubin,Total 0.3 mg/dL (0.2-1.2); Blood Urea Nitrogen 16 mg/dL (7-20); Calcium 9.6 mg/dL (8.6-10.8); Carbon Dioxide 24 mEq/L (19-29); Chloride 104 mEq/L (98-109); Globulin 3.6 g/dL (2.4-3.5); Glucose 214 mg/dL (70-99); Lipase 11 Units/L (8-78); Osmolality,Calculated 296 (280-300); Potassium 3.7 mEq/L (3.5-4.5); Sodium 139 mEq/L (136-145); Total Protein 7.1 g/dL (6.0-8.3); eGFR For African Americans > 60 (> 60); eGFR For Non-African Americans > 60 (> 60)
[2017-05-20] MEDS ORDERED: Promethazine 25 MG in 0.9 % Sodium Chloride 50 ML IVPB ONE (08:42)
[2017-05-20 08:54] LABS: Bilirubin,Urine Negative (Negative); Blood,Urine Negative (Negative); Clarity,Urine Clear (Clear); Color,Urine Yellow (Yellow); Glucose,Urine (UA) Normal (Normal); Ketones,Urine Negative (Negative); Leukocyte Esterase,Urine Negative (Negative); Nitrite,Urine Negative (Negative); PH,Urine 6.5 pH Units (5.0-8.0); Protein,Urine 30 mg/dL (Neg-Trace); Specific Gravity,Urine 1.008 (1.010-1.025); Urobilinogen,Urine Normal (Normal)
[2017-05-20 08:56] LABS: Bacteria,Urine None Seen per hpf (None-Few); Hyaline Casts,Urine None Seen per lpf (None-Few); RBC,Urine 0-3 per hpf (0-3); Squamous Epithelial Cell,Urine Few per lpf (None-Few); WBC,Urine 0-3 per hpf (0-3)
--- NOTE | 2017-05-20 09:27 | Emergency Department Note ---
Disposition Clinical Impression: Cough, COPD exacerbation, H/O noncompliance with medical treatment, presenting hazards to health, Hypertensive urgency Intractable nausea and vomiting Qualifiers: Vomiting type: unspecified Qualified Code(s): R11.2 - Nausea with vomiting, unspecified COPD (chronic obstructive pulmonary disease) Qualifiers: COPD type: COPD with acute exacerbation Qualified Code(s): J44.1 - Chronic obstructive pulmonary disease with (acute) exacerbation CAD (coronary artery disease) Qualifiers: Coronary Disease-Associated Artery/Lesion type: unspecified vessel or lesion type [place] vs. transplanted heart: [place] heart Associated angina: without angina Qualified Code(s): I25.10 - Atherosclerotic heart disease of [place] coronary artery without angina pectoris Disposition: Admitted As Inpatient Condition: Fair Nausea/Vomiting/Diarrhea HPI - General Chief complaint: ED Nausea/Vomiting/Diarrhea Stated complaint: vomiting Time Seen by Provider: 05/20/17 07:57 Source: patient Mode of arrival: private vehicle Limitations: no limitations Nursing Notes Reviewed: Yes Vital Signs Reviewed: Yes - History of Present Illness Pt Subjective Complaint: nausea, vomiting, diarrhea Onset (ago): week(s) (vomiting for a week, diarrhea began yesterday) Description of emesis: food contents, watery Description of Diarrhea: other ("loose stool a couple times since yesterday") Associated Abdominal Pain: Yes ("Just sore from puking") If pain, Location of pain: epigastric Severity: mild Quality: other ("Just sore") Consistency: intermittent Improves with: nothing Worsens with: vomiting Context: other (Unsure, patient states that she thinks it is "just a stomach bug " but she also states that she has been off of all of her medications for 2 months ) Associated symptoms: Reports: chest pain (last week, none since then), cough ( chronic), nausea/vomiting. Denies: myalgias, diaphoresis, fever/chills, headaches, loss of appetite ("I want my Pepsi, but the nurse said I can't have it"), malaise, rash, dysuria, shortness of breath, syncope, weakness - Related Data Home Medications Medication Instructions Recorded Confirmed Albuterol Sulfate [Albuterol 2 puff IH Q4H PRN 10/12/15 05/20/17 Inhaler] Pregabalin [Lyrica] 150 mg PO BID 10/12/15 05/20/17 SitaGLIPtin [Januvia] 100 mg PO DAILY 10/12/15 05/20/17 Loratadine [Claritin] 10 mg PO DAILY 01/09/16 05/20/17 Crescent-3/Dha/Epa/Fish Oil [Fish Oil 1,000 mg PO DAILY 01/09/16 05/20/17 Dr 500 mg Softgel] Famotidine [Heartburn Prevention] 20 mg PO DAILY PRN 04/30/16 05/20/17 Duloxetine HCl [Cymbalta] 60 mg PO DAILY 10/16/16 05/20/17 Insulin Glargine,Hum.rec.anlog 15 unit SQ QAM 01/10/17 05/20/17 [Lantus Solostar] Meloxicam [Mobic] 7.5 mg PO DAILY 01/10/17 05/20/17 Metformin HCl [Glucophage] 1,000 mg PO BID 01/10/17 05/20/17 SUMAtriptan Succinate [Imitrex] 100 mg PO AD PRN 01/10/17 05/20/17 hydrOXYzine HCl [Hydroxyzine HCl] 50 mg PO TID 01/10/17 05/20/17 Aspirin [Lo-Dose Aspirin EC] 162 mg PO DAILY 05/20/17 05/20/17 Carvedilol [Coreg] 6.25 mg PO BID 05/20/17 05/20/17 Divalproex (24 HR) [Depakote ER 500 mg PO HS 05/20/17 05/20/17 (24 HR)] Ipratropium/Albuterol Neb [Duoneb] 3 ml IH Q6HR 05/20/17 05/20/17 Lisinopril [Zestril] 10 mg PO DAILY 05/20/17 05/20/17 Nitroglycerin 0.4 mg SL AD PRN 05/20/17 05/20/17 Rosuvastatin [Crestor] 20 mg PO DAILY 05/20/17 05/20/17 Previous Rx's Medication Instructions Recorded Fenofibrate [Lofibra] 160 mg PO DAILY #30 tablet 10/14/15 Quetiapine Fumarate [Seroquel] 50 mg PO HS #30 tablet 06/06/16 Allergies Allergy/AdvReac Type Severity Reaction Status Date / Time latex Allergy Hives Verified 05/20/17 07:52 fluoxetine [From Prozac] AdvReac Agitated Verified 05/20/17 07:52 All systems ED: reviewed and negative except as stated. Review of Systems: As Per HPI Constitutional: Denies: fever, chills, weakness Cardiovascular: Reports: chest pain (last week), dyspnea on exertion ("Not worse than usua"). Denies: palpitations, orthopnea, edema, syncope Respiratory: Reports: cough (worse than usual, dry and hacking), dyspnea (" About the same as usual when resting, but much worse when coughing" She aslo states that her Doctor recently diagnosed her with a COPD exacerbation.), sputum production. Denies: wheezes, hemoptysis, stridor Gastrointestinal: Reports: as per HPI, abdominal pain, nausea, vomiting, diarrhea. Denies: constipation, hematemesis, melena, hematochezia Genitourinary: Denies: urgency, dysuria, frequency Musculoskeletal: Denies: back pain, neck pain, joint swelling Integumentary: Denies: rash Neurological: Denies: headache, weakness, numbness, paresthesias, confusion, abnormal gait Psychiatric: Reports: anxiety Hematological/Lymphatic: Denies: easy bleeding, easy bruising, lymphadenopathy Past Medical History - Past Medical History Attestation: Yes The following information was validated with the patient. Source: patient Medical history: Reports: arthritis, CHF, COPD, coronary artery disease, diabetes, fibromyalgia, GERD, hyperlipidemia, hypertension, migraine, myocardial infarction, osteoporosis, peripheral artery disease, renal disease, syncope, venous stasis, other Surgical history: Reports: cholecystectomy, coronary bypass (CABG), orthopedic, other, other Psychiatric history: Reports: anxiety, bipolar, depression [employer]ER history: Reports: non-contributory - Social History Smoking Status: Current every day smoker Smokeless Tobacco Status: No Alcohol use: Reports: none Drug use: Reports: none Physical Exam - General Limitations: no limitations General appearance: alert, in no apparent distress, anxious - Head Head exam: atraumatic, normocephalic, normal inspection - Eye Eye exam: Present: normal appearance, PERRL, periorbital swelling. Absent: scleral icterus, conjunctival injection - ENT ENT exam: mucous membranes dry - Neck Neck exam: Present: normal inspection, full ROM, trachea midline. Absent: tenderness, meningismus - Chest Chest inspection: Present: symmetric chest wall rise, other (WHSS) - Respiratory Respiratory exam: Present: normal lung sounds bilaterally. Absent: respiratory distress, wheezes, stridor, accessory muscle use, prolonged expiratory phase - Cardiovascular Cardiovascular exam: Present: normal rhythm, tachycardia, normal heart sounds - Abdominal Exam Abdominal exam: Present: soft, tenderness, scar. Absent: distention, guarding, rebound, rigidity, organomegaly, trauma, Cisneros's sign, Rovsing's sign, tenderness at McBurney's Point, ascites, mass, pulsatile mass Abdominal tenderness: Present: epigastrium, mild - Extremities Exam Extremities exam: Present: normal inspection, full ROM, normal capillary refill - Expanded Lower Extremity Exam Neurovascular/Tendon exam: Present: normal capillary refill. Absent: pulse deficit, motor deficit, sensory deficit Gait: observed and normal - Back Exam Back exam: Present: normal inspection - Neurological Exam Neurological exam: Present: alert, oriented X3, CN II-XII intact, normal gait - Psychiatric Psychiatric exam: Present: normal affect, anxious - Skin Skin exam: Present: warm, dry, intact, normal color Course Course Narrative: Patient presents for evaluation of nausea, vomiting and diarrhea. She has had the vomiting and nausea for a week and the "loose stool." Started yesterday. She has mild epigastric abdominal pain which she describes as being soreness from vomiting. She is hypertensive and tachycardic, but states that she has not taken any of her medications for two months. She is currently seeing a new primary care provider and previously was seeing a physician at the [facility]. She states that her records have not yet been transferred and she was only given two refills of her medications when she left this practice. She notes that she was unable to afford her medications last month, so she did not get any of them filled. She denies chest pain or now, but states that she did have some last week. She feels short of breath and has a cough that is sometimes productive and sometimes dry. She states that when she is coughing. She feels very short of breath and this is new for her. She denies recent surgeries or procedures prolonged sedentary periods leg pain or swelling, fever, chills, unilateral weakness, paresthesias, ataxia, vertigo, syncope, headache or vision change. Labs and meds have been ordered along with IV fluids. With a week of vomiting. It is possible that her tachycardia is from dehydration. Patient received a liter bolus. She is still tachycardic and hypertensive. I wrote for her home medications, carvedilol and lisinopril. She is still having intermittent vomiting. I wrote for additional antibiotics. She also requested another breathing treatment, so this has been ordered. X-ray does not show pneumonia. Labs are not consistent with dehydration or acute systemic infectious process. Kidney function is normal. Liver enzymes and lipase are normal. She has very minimal tenderness in the epigastrium, but states that it just soreness from vomiting so much. She does not have an acute abdomen. I do not feel that imaging of the abdomen is indicated at this time. The case has been discussed with Dr. Chris James. She has had [id number] time with the patient, reviewed the labs, EKG, and agrees with the assessment, plan. Patient will be admitted to the hospitalist. Vital Signs Temperature 97.4 F L 05/20/17 07:45 Pulse Rate 120 05/20/17 07:45 Respiratory Rate 18 05/20/17 07:45 Blood Pressure 183/95 05/20/17 07:45 O2 Sat by Pulse Oximetry 100 05/20/17 07:45 Temperature 97.4 F L 05/20/17 07:45 Pulse Rate 94 05/20/17 12:18 Respiratory Rate 18 05/20/17 12:18 Blood Pressure 150/94 05/20/17 12:18 O2 Sat by Pulse Oximetry 99 05/20/17 12:18 Oxygen Delivery Oxygen Delivery Nasal Cannula Nausea/Vomiting/Diarrhea - Medical Records Medical records reviewed: Yes I reviewed the patient's medical records. - Lab Data Lab results reviewed: Yes I reviewed the patient's lab results. Lab results narrative: Laboratory Last Values WBC 6.9 K/mcL (4.3-11.1) 05/20/17 08:15 RBC 4.45 M/mcL (3.82-4.97) 05/20/17 08:15 Hgb 11.5 g/dL (11.5-15.4) 05/20/17 08:15 Hct 35.7 % (35.3-44.9) 05/20/17 08:15 MCV 80.2 fL (83.0-100.0) L 05/20/17 08:15 MCH 25.8 pg (28.0-33.3) L 05/20/17 08:15 MCHC 32.2 g/dL (31.6-35.5) 05/20/17 08:15 RDW 14.6 % (11.5-14.5) H 05/20/17 08:15 Plt Count 264 K/mcL (140-400) 05/20/17 08:15 MPV 10.1 fL (9.4-12.4) 05/20/17 08:15 Immature Gran % 0.7 % (0-4) 05/20/17 08:15 Seg Neutrophils % 54.5 % 05/20/17 08:15 Lymphocytes % 35.9 % 05/20/17 08:15 Monocytes % 6.8 % 05/20/17 08:15 Eosinophils % 1.5 % 05/20/17 08:15 Basophils % 0.6 % 05/20/17 08:15 Neutrophils # 3.8 K/mcL (1.6-8.9) 05/20/17 08:15 Lymphocytes # 2.5 K/mcL (0.6-4.6) 05/20/17 08:15 Monocytes # 0.5 K/mcL (0.0-1.3) 05/20/17 08:15 Eosinophils # 0.1 K/mcL (0.0-0.6) 05/20/17 08:15 Basophils # 0.0 K/mcL (0.0-0.2) 05/20/17 08:15 Immature Plt Fraction 6.3 % (1.1-6.1) H 05/20/17 08:15 Sodium 139 mEq/L (136-145) 05/20/17 08:15 Potassium 3.7 mEq/L (3.5-4.5) 05/20/17 08:15 Chloride 104 mEq/L (98-109) 05/20/17 08:15 Carbon Dioxide 24 mEq/L (19-29) 05/20/17 08:15 BUN 16 mg/dL (7-20) 05/20/17 08:15 Creatinine 0.78 mg/dL (0.57-1.11) 05/20/17 08:15 Est GFR ( Amer) > 60 (> 60) 05/20/17 08:15 Est GFR (Non-Af Amer) > 60 (> 60) 05/20/17 08:15 BUN/Creatinine Ratio 21 (6-26) 05/20/17 08:15 Glucose 214 mg/dL (70-99) H 05/20/17 08:15 Calculated Osmolality 296 (280-300) 05/20/17 08:15 Calcium 9.6 mg/dL (8.6-10.8) 05/20/17 08:15 Total Bilirubin 0.3 mg/dL (0.2-1.2) 05/20/17 08:15 AST 21 Units/L (5-34) 05/20/17 08:15 ALT 27 Units/L (0-55) 05/20/17 08:15 Alkaline Phosphatase 98 Units/L (38-126) 05/20/17 08:15 Troponin I 0.01 ng/mL (0-0.03) 05/20/17 08:15 Serum Total Protein 7.1 g/dL (6.0-8.3) 05/20/17 08:15 Albumin 3.5 g/dL (3.5-5.0) 05/20/17 08:15 Globulin 3.6 g/dL (2.4-3.5) H 05/20/17 08:15 Albumin/Globulin Ratio 1.0 (1.1-2.2) L 05/20/17 08:15 Lipase 11 Units/L (8-78) 05/20/17 08:15 Urine Color Yellow (Yellow) 05/20/17 08:43 Urine Clarity Clear (Clear) 05/20/17 08:43 Urine pH 6.5 pH Units (5.0-8.0) 05/20/17 08:43 Ur Specific [place] 1.008 (1.010-1.025) L 05/20/17 08:43 Urine Protein 30 mg/dL (Neg-Trace) H 05/20/17 08:43 Urine Glucose (UA) Normal mg/dL (Normal) 05/20/17 08:43 Urine Ketones Negative mg/dL (Negative) 05/20/17 08:43 Urine Blood Negative (Negative) 05/20/17 08:43 Urine Nitrite Negative (Negative) 05/20/17 08:43 Urine Bilirubin Negative (Negative) 05/20/17 08:43 Urine Urobilinogen Normal mg/dL (Normal) 05/20/17 08:43 Ur Leukocyte Esterase Negative (Negative) 05/20/17 08:43 Urine Microscopic RBC 0-3 per hpf (0-3) 05/20/17 08:43 Urine Microscopic WBC 0-3 per hpf (0-3) 05/20/17 08:43 Ur Squamous Epith Cells Few per lpf (None-Few) 05/20/17 08:43 Urine Bacteria None Seen per hpf (None-Few) 05/20/17 08:43 Hyaline Casts None Seen per lpf (None-Few) 05/20/17 08:43 Ur Culture Indicated? NO (NO) 05/20/17 08:43 Result diagrams: 05/20/17 08:15 05/20/17 08:15 Lab Results 05/20/17 05/20/17 05/20/17 Range/Units 08:15 08:15 08:15 WBC 6.9 (4.3-11.1) K/mcL RBC 4.45 (3.82-4.97) M/mcL Hgb 11.5 (11.5-15.4) g/dL Hct 35.7 (35.3-44.9) % MCV 80.2 L (83.0-100.0) fL MCH 25.8 L (28.0-33.3) pg MCHC 32.2 (31.6-35.5) g/dL RDW 14.6 H (11.5-14.5) % Plt Count 264 (140-400) K/mcL MPV 10.1 (9.4-12.4) fL Immature Gran % 0.7 (0-4) % Seg Neutrophils % 54.5 % Lymphocytes % 35.9 % Monocytes % 6.8 % Eosinophils % 1.5 % Basophils % 0.6 % Neutrophils # 3.8 (1.6-8.9) K/mcL Lymphocytes # 2.5 (0.6-4.6) K/mcL Monocytes # 0.5 (0.0-1.3) K/mcL Eosinophils # 0.1 (0.0-0.6) K/mcL Basophils # 0.0 (0.0-0.2) K/mcL Immature Plt Fraction 6.3 H (1.1-6.1) % Sodium 139 (136-145) mEq/L Potassium 3.7 (3.5-4.5) mEq/L Chloride 104 (98-109) mEq/L Carbon Dioxide 24 (19-29) mEq/L BUN 16 (7-20) mg/dL Creatinine 0.78 (0.57-1.11) mg/dL Est GFR ( Amer) > 60 (> 60) Est GFR (Non-Af Amer) > 60 (> 60) BUN/Creatinine Ratio 21 (6-26) Glucose 214 H (70-99) mg/dL Calculated Osmolality 296 (280-300) Calcium 9.6 (8.6-10.8) mg/dL Total Bilirubin 0.3 (0.2-1.2) mg/dL AST 21 (5-34) Units/L ALT 27 (0-55) Units/L Alkaline Phosphatase 98 (38-126) Units/L Troponin I 0.01 (0-0.03) ng/mL Serum Total Protein 7.1 (6.0-8.3) g/dL Albumin 3.5 (3.5-5.0) g/dL Globulin 3.6 H (2.4-3.5) g/dL Albumin/Globulin Ratio 1.0 L (1.1-2.2) Lipase 11 (8-78) Units/L Urine Color (Yellow) Urine Clarity (Clear) Urine pH (5.0-8.0) pH Units Ur Specific [place] (1.010-1.025) Urine Protein (Neg-Trace) mg/dL Urine Glucose (UA) (Normal) mg/dL Urine Ketones (Negative) mg/dL Urine Blood (Negative) Urine Nitrite (Negative) Urine Bilirubin (Negative) Urine Urobilinogen (Normal) mg/dL Ur Leukocyte Esterase (Negative) Urine Microscopic RBC (0-3) per hpf Urine Microscopic WBC (0-3) per hpf Ur Squamous Epith Cells (None-Few) per lpf Urine Bacteria (None-Few) per hpf Hyaline Casts (None-Few) per lpf Ur Culture Indicated? (NO) 05/20/17 Range/Units 08:43 WBC (4.3-11.1) K/mcL RBC (3.82-4.97) M/mcL Hgb (11.5-15.4) g/dL Hct (35.3-44.9) % MCV (83.0-100.0) fL MCH (28.0-33.3) pg MCHC (31.6-35.5) g/dL RDW (11.5-14.5) % Plt Count (140-400) K/mcL MPV (9.4-12.4) fL Immature Gran % (0-4) % Seg Neutrophils % % Lymphocytes % % Monocytes % % Eosinophils % % Basophils % % Neutrophils # (1.6-8.9) K/mcL Lymphocytes # (0.6-4.6) K/mcL Monocytes # (0.0-1.3) K/mcL Eosinophils # (0.0-0.6) K/mcL Basophils # (0.0-0.2) K/mcL Immature Plt Fraction (1.1-6.1) % Sodium (136-145) mEq/L Potassium (3.5-4.5) mEq/L Chloride (98-109) mEq/L Carbon Dioxide (19-29) mEq/L BUN (7-20) mg/dL Creatinine (0.57-1.11) mg/dL Est GFR ( Amer) (> 60) Est GFR (Non-Af Amer) (> 60) BUN/Creatinine Ratio (6-26) Glucose (70-99) mg/dL Calculated Osmolality (280-300) Calcium (8.6-10.8) mg/dL Total Bilirubin (0.2-1.2) mg/dL AST (5-34) Units/L ALT (0-55) Units/L Alkaline Phosphatase (38-126) Units/L Troponin I (0-0.03) ng/mL Serum Total Protein (6.0-8.3) g/dL Albumin (3.5-5.0) g/dL Globulin (2.4-3.5) g/dL Albumin/Globulin Ratio (1.1-2.2) Lipase (8-78) Units/L Urine Color Yellow (Yellow) Urine Clarity Clear (Clear) Urine pH 6.5 (5.0-8.0) pH Units Ur Specific [place] 1.008 L (1.010-1.025) Urine Protein 30 H (Neg-Trace) mg/dL Urine Glucose (UA) Normal (Normal) mg/dL Urine Ketones Negative (Negative) mg/dL Urine Blood Negative (Negative) Urine Nitrite Negative (Negative) Urine Bilirubin Negative (Negative) Urine Urobilinogen Normal (Normal) mg/dL Ur Leukocyte Esterase Negative (Negative) Urine Microscopic RBC 0-3 (0-3) per hpf Urine Microscopic WBC 0-3 (0-3) per hpf Ur Squamous Epith Cells Few (None-Few) per lpf Urine Bacteria None Seen (None-Few) per hpf Hyaline Casts None Seen (None-Few) per lpf Ur Culture Indicated? NO (NO) - Radiology Data Radiology results reviewed: Yes I reviewed the patient's radiology results. Chest X-Ray 05/20/17 09:28 IMPRESSION: No acute cardiopulmonary process. D/ / 05/20/2017 10:28:25 Flaco Lorenzo MD / [facility] Interpreting Provider: Flaco Lorenzo MD - EKG Data EKG attestation: Yes I reviewed and interpreted this EKG. EKG shows normal: sinus rhythm Rate: tachycardia Rhythm: NSR P waves: LAE, LIZA T wave inversions noted in: v6 When compared to previous EKG there are: changes noted (v6 inverted t-waves - new compared with December 2016) Interpretation: nonspecific ST-T wave changes Attestation Statement - Attestation Attestation: For this encounter, I have reviewed the LORRY WEIGHER or PA documentation, treatment plan, and medical decision making; and I have had face to face time with this patient. Patient is a 56-year-old white female with a history of medication noncompliance for the last 2 months who presents with a vomiting and diarrheal illness, patient stating that she is unable to tolerate anything by mouth. Patient denies any significant abdominal pain but she has had ongoing cough and was told a week ago by a new family physician she is seeing that she is having an exacerbation of her COPD. Patient denies any chest pain pressure or heaviness, no diaphoresis, no shortness of breath is having a harsh sounding cough at bedside is nonproductive. Patient denies any flank pain or urinary symptoms. Patient arrives extremely hypertensive but denies any headaches, visual changes, no neurologic symptoms no focal weakness or numbness. Patient has extensive history including CAD, COPD, CHF, and additional multiple medical problems. I agree with patient's physical exam findings as documented. Patient was in no respiratory distress on arrival but was having frequent coughing and occasional vomiting at bedside. Patient denies any posttussive emesis. Evaluation in the ED shows ongoing hypertension and tachycardia despite administering her home meds for her blood pressure. Patient continues to have nausea and vomiting at bedside and will be unable to tolerate her meds at home. Patient with hypertensive urgency was administered labetalol IV for blood pressure control. Patient's EKG did not show any signs of acute ischemia. Chest x-ray is unremarkable for any consolidation or infiltrates. Patient also received IV fluid resuscitation here for her tachycardia which there was minimal response. Patient will be admitted to the hospital for hypertensive urgency, cough, intractable nausea vomiting and medication noncompliance. Case was discussed with the hospitalist to except the patient for admission. We will continue to monitor her blood pressure closely.
[2017-05-20] MEDS ORDERED: Ipratropium/Albuterol Neb 3 ML IH ONE ×2 (10:12→11:16)
[2017-05-20] MEDS ORDERED: Ondansetron 4 MG/2 ML VIAL IVP ONE (11:16)
[2017-05-20] MEDS ORDERED: methylPREDNISolone 125 MG/2 ML VIAL IVP ONE (11:16)
[2017-05-20] MEDS ORDERED: *HR* LORazepam 2 MG/ML VIAL IVP ONE (11:23)
[2017-05-20] MEDS ORDERED: *HR* Labetalol 100 MG/20 ML MDV IVP ONE (11:24)
[2017-05-20] MEDS ORDERED: Aspirin 81 MG TAB.CHEW PO ONE (11:46)
[2017-05-20] MEDS ORDERED: Acetaminophen 325 MG TABLET PO PRN (12:33)
[2017-05-20] MEDS ORDERED: Naloxone 0.4 MG/ML INJ IVP PRN (12:33)
[2017-05-20] MEDS ORDERED: Ondansetron 4 MG/2 ML VIAL IVP PRN (12:33)
[2017-05-20] MEDS ORDERED: *HR* Promethazine 25 MG/ML VIAL IVP PRN (12:33)
[2017-05-20] MEDS ORDERED: Albuterol 2.5 MG/3 ML NEBULIZER IH PRN (12:37)
[2017-05-20] MEDS ORDERED: Nitroglycerin 0.4 MG TAB.SUBL SL PRN (12:39)
[2017-05-20] MEDS ORDERED: Famotidine 20 MG TABLET PO PRN (12:39)
--- NOTE | 2017-05-20 12:58 | Internal Med History&Physical ---
<Alexa Ochoa M - Last Filed: 05/20/17 17:49> Date of Encounter: 05/20/17 Time of Encounter: 12:55 Assessment and Plan (1) COPD exacerbation Status: Acute Patient reporting shortness of breath and productive cough. CXR showed no acute cardiopulmonary disease. She is satting in the high 90s on room air. WBC count normal. She reports feeling better after breathing treatments. Scattered, mild wheezes on exam. Patient given 125mg of IVP solumedrol in ED, continue with 40mg IVP Q8hr Duoneb treatments QID albuterol nebulizer Q2hr PRN Levaquin 500mg PO daily titrate oxygen to maintain saturation. (2) Hypertensive urgency Status: Acute Patient was reporting headache and occasional chest pain over the last few days. Blood pressure was elevated on arrival: 183/95 and 202/128. She was also tachycardic to 120s. Patient has not been compliant with her home medications. She was given her home doses of Coreg and lisinopril as well as IVP labetalol and blood pressure and HR improved. Continue home doses of medications. Hydralazine 10mg IVP Q6hr PRN. (3) Intractable nausea and vomiting Status: Acute Patient reporting nausea and vomiting for the last 5 days. She denies fever chills or diarrhea. WBC count normal. Abdomen soft, non tender, with positive bowel sounds. She does not appear dehydrated on exam or by labs. Zofran and phenergan PRN for nausea. Diet as tolerated. Qualifiers: Vomiting type: cyclical vomiting Qualified Code(s): G43.A1 - Cyclical vomiting, intractable (4) H/O noncompliance with medical treatment, presenting hazards to health Status: Chronic Patient reports spotty compliance with her home medications. Will restart her home medications and consult social work to come up with strategies to improve compliance. (5) Anxiety Status: Acute Patient with history of anxiety and bipolar disorder. Patient was tachycardic and short of breath in ED, though she was satting in high 90s on room air. vitals improved after ativan. Continue home medications for bipolar disorder. Ativan PRN for anxiety. (6) Smoker Status: Acute Smoking cessation education and nicotine patch ordered. (7) Type 2 diabetes mellitus Status: Acute Check Hgb A1c diabetic, heart healthy diet, though patient has been nauseous with poor appetite. check blood sugars ACHS sliding scale correction dose aCHS Give half usual dose of long acting insulin with 7u HS (home dose is 15u, but patient reports spotty compliance) Qualifiers: Diabetes mellitus complication status: with unspecified complications Diabetes mellitus nursing home insulin use: with nursing home use Qualified Code(s) : E11.8 - Type 2 diabetes mellitus with unspecified complications; Z79.4 - longterm (current) use of insulin (8) DVT prophylaxis Status: Acute anti-embolic stockings heparin SQ TID Internal Medicine - H&P: HPI Chief complaint: COPD exacerbation Admitted From: Emergency Dept Plans for Post Hospital Care: Home History of present illness: Ms. Lorenzo is a 56 year old female with hypertension, hyperlipidemia, type 2 diabetes, coronary artery disease status post CABG, mitral valve repair, COPD, CHF, chronic kidney disease, anxiety, bipolar and depression presented to the emergency department today with complaints of vomiting, shortness of breath, and coughing. Patient reports that she is been having nausea and vomiting for the last 5 days, with poor appetite. She also has shortness of breath, productive cough, headache, occasional chest pain. Evaluation in the emergency department revealed patient was tachycardic and hypertensive with blood pressures of 180s to 200s systolic and heart rate in the 120s. White blood cell count was normal at 6.9. Troponin normal at 0.01. She was satting fine on room air. Her chest x-ray showed no acute cardiopulmonary process. EKG showed sinus tachycardia with no ST elevations or depressions. She was given home doses of blood pressure medications as well as IV push labetalol, 1L fluid bolus , DuoNeb treatments, aspirin, Solu-Medrol, and Ativan in the ER. Her vitals improved. On exam, patient drowsy but arousable. She reports feeling better than presentation to the ER. Heart has regular rate and rhythm, lungs mostly clear with mild scattered wheezes. No peripheral edema. Past Med Surg Social Fam HX - Past Medical History Medical history: arthritis, CHF, COPD, coronary artery disease, diabetes, fibromyalgia, GERD, hyperlipidemia, hypertension, migraine, myocardial infarction, osteoporosis, peripheral artery disease, renal disease, syncope, venous stasis, other Psychiatric history: anxiety, bipolar, depression - Past Surgical History Surgical History: cholecystectomy, coronary bypass (CABG), orthopedic, other, other - Social History Smoking Status: Current every day smoker Smokeless Tobacco Status: No Alcohol use: none Drug use: none - Family History Mother Living Status: Hx Family Cardiac Disorders: Yes (cardiomyothy) Hx Family Respiratory Disorders: No Hx Family Cancer: Yes ("female") Hx Family GI Disorders: No Hx Family Endocrine Disorder: No Hx Family Neuromuscular Disorders: No Hx Family Neurologic Disorders: No Hx Family HEENT Disorders: No Hx Family Autoimmune Disorders: No Father Living Status: Still Living Hx Family Cardiac Disorders: Yes (4 heart stents) Hx Family Respiratory Disorders: No Hx Family Cancer: No Hx Family GI Disorders: No Hx Family Endocrine Disorder: Yes Hx Family Neuromuscular Disorders: No Hx Family Neurologic Disorders: No Hx Family HEENT Disorders: No Hx Family Autoimmune Disorders: No Internal Medicine - H&P: Meds Fenofibrate [Lofibra] 160 mg PO DAILY #30 tablet 10/14/15 [Rx] [place]-3/Dha/Epa/Fish Oil [Fish Oil Dr 500 mg Softgel] 1,000 mg PO DAILY [History] Nitroglycerin 0.4 mg SL AD PRN 05/20/17 [History] Albuterol Sulfate [Albuterol Inhaler] 2 puff IH Q4H PRN #1 inhaler 05/21/17 [Rx] Aspirin [Lo-Dose Aspirin EC] 162 mg PO DAILY #30 tablet. 05/21/17 [Rx] Carvedilol [Coreg] 6.25 mg PO BID #30 tablet 05/21/17 [Rx] Divalproex (24 HR) [Depakote ER (24 HR)] 500 mg PO HS #30 tab.er.24h 05/21/17 [ Rx] Duloxetine HCl [Cymbalta] 60 mg PO DAILY #30 capsule. 05/21/17 [Rx] Famotidine [Heartburn Prevention] 20 mg PO DAILY PRN #30 tablet 05/21/17 [Rx] Insulin Glargine,Hum.rec.anlog [Lantus Solostar] 15 unit SQ QAM #5 insuln.pen [Rx] Ipratropium/Albuterol Neb [Duoneb] 3 ml IH Q6HR PRN #96 inhsol 05/21/17 [Rx] Lisinopril [Zestril] 10 mg PO DAILY #30 tablet 05/21/17 [Rx] Loratadine [Claritin] 10 mg PO DAILY #30 tablet 05/21/17 [Rx] Meloxicam [Mobic] 7.5 mg PO DAILY #30 tablet 05/21/17 [Rx] Metformin HCl [Glucophage] 1,000 mg PO BID #60 tablet 05/21/17 [Rx] Pregabalin [Lyrica] 150 mg PO BID #60 capsule 05/21/17 [Rx] Quetiapine Fumarate [Seroquel] 50 mg PO HS #30 tablet 05/21/17 [Rx] Rosuvastatin [Crestor] 20 mg PO DAILY #30 tablet 05/21/17 [Rx] SUMAtriptan Succinate [Imitrex] 100 mg PO AD PRN #9 tablet 05/21/17 [Rx] SitaGLIPtin [Januvia] 100 mg PO DAILY #30 tablet 05/21/17 [Rx] hydrOXYzine HCl [Hydroxyzine HCl] 50 mg PO TID #90 tablet 05/21/17 [Rx] 3 Allergy/AdvReac Type Severity Reaction Status Date / Time latex Allergy Hives Verified 05/20/17 07:52 fluoxetine [From Prozac] AdvReac Agitated Verified 05/20/17 07:52 All Systems PM: A 10-system review of systems was performed and is negative for pertinent findings except as documented above in the HPI. - Constitutional Constitutional: no chills, no fever(s), no night sweats - EENT Eyes: no change in vision, no discharge, no pain, no photophobia Ears: no ear discharge, no ear pain, no tinnitus Nose, mouth and throat: no dysphagia, no nasal discharge, no neck pain, no sore throat - Cardiovascular Cardiovascular ROS IM: chest pain, dyspnea on exertion, lightheadedness, no diaphoresis, no dyspnea, no palpitations, no syncope - Respiratory Respiratory: cough, dyspnea on exertion, excessive phlegm production, no dyspnea , no wheezing - Gastrointestinal Gastrointestinal: abdominal pain, nausea, vomiting, no diarrhea, no hematemesis , no hematochezia, no melena - Genitourinary Genitourinary: no change in urinary stream, no dysuria, no flank pain, no hematuria - Musculoskeletal Musculoskeletal ROS IM: no numbness, no tingling - Integumentary Integumentary IM: no rash, no unusual bruising - Neurological Neurological ROS: no confusion, no convulsions, no focal weakness, no numbness, no tingling, no tremor(s) - Hematologic/Lymphatic Hematologic/Lymphatic: no easy bruising - Constitutional Vitals: Temp Pulse Resp BP Pulse Ox 98.1 F 91 14 134/89 97 05/20/17 12:48 05/20/17 12:48 05/20/17 12:48 05/20/17 12:48 05/20/17 12:48 General appearance: Present: A&O X 3, pleasant, no acute distress - Head Head exam: Present: atraumatic, normocephalic - Eye Eye exam: Present: PERRL, conjuntiva pink, sclera anicteric Pupils: Present: PERRL - Neck Neck exam general surgery: Present: supple, trachea midline. Absent: lymphadenopathy - Respiratory Respiratory exam: Present: wheezes. Absent: accessory muscle use, rales, rhonchi - Cardiovascular Cardiovascular exam: Present: RRR, +S1, +S2. Absent: diastolic murmur, gallop, rubs, systolic murmur - GI/Abdominal GI/Abdominal exam: Present: normal bowel sounds, soft, no peritoneal signs. Absent: distended, tenderness - Extremities Exam Extremities exam: Present: warm, radial pulses palpable and symmetrical. Absent : calf tenderness, cyanotic, pedal edema - Neurological Exam Neurological exam: Present: CN II-XII intact, oriented X3, no focal deficits. Absent: pronater drift, facial droop, speech deficit - Skin Skin exam: Present: dry, intact Internal Med - H&P Results - Labs CBC & Chem 7: 05/20/17 08:15 05/20/17 08:15 Labs: All Lab Results (24 Hours) 05/20/17 05/20/17 05/20/17 Range/Units 08:15 08:15 08:15 WBC 6.9 (4.3-11.1) K/mcL RBC 4.45 (3.82-4.97) M/mcL Hgb 11.5 (11.5-15.4) g/dL Hct 35.7 (35.3-44.9) % MCV 80.2 L (83.0-100.0) fL MCH 25.8 L (28.0-33.3) pg MCHC 32.2 (31.6-35.5) g/dL RDW 14.6 H (11.5-14.5) % Plt Count 264 (140-400) K/mcL MPV 10.1 (9.4-12.4) fL Immature Gran % 0.7 (0-4) % Seg Neutrophils % 54.5 % Lymphocytes % 35.9 % Monocytes % 6.8 % Eosinophils % 1.5 % Basophils % 0.6 % Neutrophils # 3.8 (1.6-8.9) K/mcL Lymphocytes # 2.5 (0.6-4.6) K/mcL Monocytes # 0.5 (0.0-1.3) K/mcL Eosinophils # 0.1 (0.0-0.6) K/mcL Basophils # 0.0 (0.0-0.2) K/mcL Immature Plt Fraction 6.3 H (1.1-6.1) % Sodium 139 (136-145) mEq/L Potassium 3.7 (3.5-4.5) mEq/L Chloride 104 (98-109) mEq/L Carbon Dioxide 24 (19-29) mEq/L BUN 16 (7-20) mg/dL Creatinine 0.78 (0.57-1.11) mg/dL Est GFR ( Amer) > 60 (> 60) Est GFR (Non-Af Amer) > 60 (> 60) BUN/Creatinine Ratio 21 (6-26) Glucose 214 H (70-99) mg/dL POC Glucose (58-89) Calculated Osmolality 296 (280-300) Calcium 9.6 (8.6-10.8) mg/dL Total Bilirubin 0.3 (0.2-1.2) mg/dL AST 21 (5-34) Units/L ALT 27 (0-55) Units/L Alkaline Phosphatase 98 (38-126) Units/L Troponin I 0.01 (0-0.03) ng/mL Serum Total Protein 7.1 (6.0-8.3) g/dL Albumin 3.5 (3.5-5.0) g/dL Globulin 3.6 H (2.4-3.5) g/dL Albumin/Globulin Ratio 1.0 L (1.1-2.2) Lipase 11 (8-78) Units/L Urine Color (Yellow) Urine Clarity (Clear) Urine pH (5.0-8.0) pH Units Ur Specific Benson (1.010-1.025) Urine Protein (Neg-Trace) mg/dL Urine Glucose (UA) (Normal) mg/dL Urine Ketones (Negative) mg/dL Urine Blood (Negative) Urine Nitrite (Negative) Urine Bilirubin (Negative) Urine Urobilinogen (Normal) mg/dL Ur Leukocyte Esterase (Negative) Urine Microscopic RBC (0-3) per hpf Urine Microscopic WBC (0-3) per hpf Ur Squamous Epith Cells (None-Few) per lpf Urine Bacteria (None-Few) per hpf Hyaline Casts (None-Few) per lpf Ur Culture Indicated? (NO) 05/20/17 05/20/17 Range/Units 08:43 12:55 WBC (4.3-11.1) K/mcL RBC (3.82-4.97) M/mcL Hgb (11.5-15.4) g/dL Hct (35.3-44.9) % MCV (83.0-100.0) fL MCH (28.0-33.3) pg MCHC (31.6-35.5) g/dL RDW (11.5-14.5) % Plt Count (140-400) K/mcL MPV (9.4-12.4) fL Immature Gran % (0-4) % Seg Neutrophils % % Lymphocytes % % Monocytes % % Eosinophils % % Basophils % % Neutrophils # (1.6-8.9) K/mcL Lymphocytes # (0.6-4.6) K/mcL Monocytes # (0.0-1.3) K/mcL Eosinophils # (0.0-0.6) K/mcL Basophils # (0.0-0.2) K/mcL Immature Plt Fraction (1.1-6.1) % Sodium (136-145) mEq/L Potassium (3.5-4.5) mEq/L Chloride (98-109) mEq/L Carbon Dioxide (19-29) mEq/L BUN (7-20) mg/dL Creatinine (0.57-1.11) mg/dL Est GFR ( Amer) (> 60) Est GFR (Non-Af Amer) (> 60) BUN/Creatinine Ratio (6-26) Glucose (70-99) mg/dL POC Glucose 171 H (58-89) Calculated Osmolality (280-300) Calcium (8.6-10.8) mg/dL Total Bilirubin (0.2-1.2) mg/dL AST (5-34) Units/L ALT (0-55) Units/L Alkaline Phosphatase (38-126) Units/L Troponin I (0-0.03) ng/mL Serum Total Protein (6.0-8.3) g/dL Albumin (3.5-5.0) g/dL Globulin (2.4-3.5) g/dL Albumin/Globulin Ratio (1.1-2.2) Lipase (8-78) Units/L Urine Color Yellow (Yellow) Urine Clarity Clear (Clear) Urine pH 6.5 (5.0-8.0) pH Units Ur Specific Benson 1.008 L (1.010-1.025) Urine Protein 30 H (Neg-Trace) mg/dL Urine Glucose (UA) Normal (Normal) mg/dL Urine Ketones Negative (Negative) mg/dL Urine Blood Negative (Negative) Urine Nitrite Negative (Negative) Urine Bilirubin Negative (Negative) Urine Urobilinogen Normal (Normal) mg/dL Ur Leukocyte Esterase Negative (Negative) Urine Microscopic RBC 0-3 (0-3) per hpf Urine Microscopic WBC 0-3 (0-3) per hpf Ur Squamous Epith Cells Few (None-Few) per lpf Urine Bacteria None Seen (None-Few) per hpf Hyaline Casts None Seen (None-Few) per lpf Ur Culture Indicated? NO (NO) - Diagnostic Studies Chest x-ray Additional comments: Chest X-Ray 05/20/17 09:28 IMPRESSION: No acute cardiopulmonary process. D/ / 05/20/2017 10:28:25 Flaco Lorenzo MD / earnold Interpreting Provider: Flaco Lorenzo MD <Echo Zhang - Last Filed: 05/21/17 17:52> Date of Encounter: 05/21/17 Internal Medicine - H&P: HPI History of present illness: Ms. Lorenzo is a 56 year old female All Systems PM: A 10-system review of systems was performed and is negative for pertinent findings except as documented above in the HPI. - Constitutional Vitals: Temp Pulse Resp BP Pulse Ox 97.7 F 112 18 129/85 95 05/21/17 11:04 05/21/17 11:04 05/21/17 11:04 05/21/17 11:04 05/21/17 11:04 Internal Med - H&P Results - Labs CBC & Chem 7: 05/21/17 05:28 05/21/17 05:28 Labs: Short CBC 05/21/17 Range/Units 05:28 WBC 6.2 (4.3-11.1) K/mcL Hgb 10.4 L (11.5-15.4) g/dL Hct 33.5 L (35.3-44.9) % Plt Count 245 (140-400) K/mcL Neutrophils # 5.2 (1.6-8.9) K/mcL BMP 05/21/17 05:28 Sodium 138 Potassium 4.2 Chloride 103 Carbon Dioxide 22 BUN 20 Creatinine 1.07 Glucose 383 H Calcium 9.7 Cardiac Enzymes 05/20/17 Range/Units 20:14 Troponin I 0.01 (0-0.03) ng/mL - Attending Attestation I have personally performed a face to face evaluation on this patient and I discussed the assessment and plan with the nurse practitioner. I have reviewed and agree with the documented care plan. History and Exam by me shows: Ms. Lorenzo is a 56 year old female with hypertension, hyperlipidemia, type 2 diabetes, coronary artery disease status post CABG, mitral valve repair, COPD, CHF, chronic kidney disease, anxiety, bipolar and depression presented to the emergency department today with complaints of vomiting, shortness of breath, and coughing. Patient reports that she is been having nausea and vomiting for the last 5 days, with poor appetite. She also has shortness of breath, productive cough, headache, occasional chest pain. Evaluation in the emergency department revealed patient was tachycardic and hypertensive with blood pressures of 180s to 200s systolic and heart rate in the 120s. White blood cell count was normal at 6.9. Troponin normal at 0.01. She was satting fine on room air. Her chest x-ray showed no acute cardiopulmonary process. EKG showed sinus tachycardia with no ST elevations or depressions. Gen: A, A< O x 3 Chest : Wheezing +, Diminished BS b/l , no crackles Heart : S1S2+ a/p 1. Acute COPD exacerbation 2. Acute bronchitis Duoneb and IV steroids PO Levofloxacin
[2017-05-20] MEDS ORDERED: D5% in Water 1,000 ML IVC PRN (13:07)
[2017-05-20] MEDS ORDERED: *HR* Dextrose 50 % in Water (Syg) 50 ML SYRINGE IVP PRN (13:07)
[2017-05-20] MEDS ORDERED: Dextrose Gel 15 GM PO PRN ×2 (13:07)
[2017-05-20] MEDS: Nicotine 21 MG PATCH.TD24 TD SCH (13:45)
[2017-05-20] MEDS: levoFLOXacin 500 MG TABLET PO SCH (13:45)
[2017-05-20] MEDS: *HR* Heparin 5,000 UNIT/ML VIAL SQ SCH ×2 (13:45→21:50)
[2017-05-20 15:37] LABS: Hemoglobin A1C 6.4 %
[2017-05-20] MEDS: Ipratropium/Albuterol Neb 3 ML IH SCH ×2 (16:15→22:49)
[2017-05-20] MEDS: Insulin LISPRO 300 UNITS/3 ML VIAL SQ SCH (17:14)
[2017-05-20] MEDS: MethylPREDNISolone 40 MG/ML VIAL IVP SCH ×2 (17:14→23:24)
[2017-05-20] MEDS: hydrOXYzine pamoate 25 MG CAPSULE PO SCH ×2 (17:14→21:48)
[2017-05-20] MEDS ORDERED: Insulin LISPRO 300 UNITS/3 ML VIAL SQ SCH (21:00)
[2017-05-20] MEDS ORDERED: Divalproex (24 HR) 500 MG TABLET PO SCH (21:00)
[2017-05-20] MEDS ORDERED: Insulin DETEMIR 100 UNIT/ML X5UNITS SQ SCH (21:00)
[2017-05-20] MEDS: Pregabalin 75 MG CAPSULE PO SCH (21:48)
[2017-05-20] MEDS: *HR* LORazepam 2 MG/ML VIAL IVP PRN (23:29)
[2017-05-21] MEDS ORDERED: SUMAtriptan succinate 25 MG TABLET PO ONE (04:05)
[2017-05-21] MEDS: Ipratropium/Albuterol Neb 3 ML IH SCH ×2 (04:28→10:59)
[2017-05-21] MEDS: *HR* Heparin 5,000 UNIT/ML VIAL SQ SCH (05:58)
[2017-05-21 06:00] LABS: Basophils % 0.2 %; Hematocrit 33.5 % (35.3-44.9); Hemoglobin 10.4 g/dL (11.5-15.4); Immature Granulocytes % 1.5 % (0-4); Lymphocytes # 0.8 K/mcL (0.6-4.6); Lymphocytes % 12.2 %; Mean Corpuscular Hemoglobin 25.4 pg (28.0-33.3); Mean Corpuscular Volume 81.9 fL (83.0-100.0); Mean Platelet Volume 10.7 fL (9.4-12.4); Monocytes # 0.1 K/mcL (0.0-1.3); Monocytes % 1.5 %; Neutrophils # 5.2 K/mcL (1.6-8.9); Platelet Count 245 K/mcL (140-400); Red Blood Count 4.09 M/mcL (3.82-4.97); Red Cell Distribution Width 14.6 % (11.5-14.5); Segmented Neutrophils % 84.6 %
[2017-05-21 06:19] LABS: BUN/Creatinine Ratio 19 (6-26); Blood Urea Nitrogen 20 mg/dL (7-20); Calcium 9.7 mg/dL (8.6-10.8); Carbon Dioxide 22 mEq/L (19-29); Chloride 103 mEq/L (98-109); Chol/HDL Ratio 14.9 (0-4.9); Cholesterol 505 mg/dL (< 200); Glucose 383 mg/dL (70-99); HDL Cholesterol 34 mg/dL (40-59); Osmolality,Calculated 304 (280-300); Potassium 4.2 mEq/L (3.5-4.5); Sodium 138 mEq/L (136-145); Triglycerides 882 mg/dL (< 150); eGFR For African Americans > 60 (> 60); eGFR For Non-African Americans 53 (> 60)
[2017-05-21] MEDS: Pregabalin 75 MG CAPSULE PO SCH (08:21)
[2017-05-21] MEDS: hydrOXYzine pamoate 25 MG CAPSULE PO SCH (08:21)
[2017-05-21] MEDS: *HR* LORazepam 2 MG/ML VIAL IVP PRN (08:22)
[2017-05-21] MEDS: MethylPREDNISolone 40 MG/ML VIAL IVP SCH (08:22)
[2017-05-21] MEDS: levoFLOXacin 500 MG TABLET PO SCH (08:22)
[2017-05-21] MEDS: Nicotine 21 MG PATCH.TD24 TD SCH (08:22)
[2017-05-21] MEDS: Insulin LISPRO 300 UNITS/3 ML VIAL SQ SCH ×2 (08:23→11:38)
--- NOTE | 2017-05-21 08:36 | Discharge Summary ---
<Flcaa Szymanski - Last Filed: 05/21/17 09:06> Date of Encounter: 05/21/17 Time of Encounter: 08:34 - Discharge Diagnosis (1) Intractable nausea and vomiting Priority: Primary Status: Acute Qualifiers: Vomiting type: cyclical vomiting Qualified Code(s): G43.A1 - Cyclical vomiting, intractable (2) Hypertensive urgency Priority: Primary Status: Acute (3) H/O noncompliance with medical treatment, presenting hazards to health Priority: Primary Status: Chronic (4) COPD exacerbation Priority: Primary Status: Acute (5) Anxiety Priority: Secondary Status: Acute (6) Smoker Priority: Secondary Status: Acute (7) Type 2 diabetes mellitus Priority: Secondary Status: Acute Qualifiers: Diabetes mellitus complication status: with unspecified complications 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 Carvedilol [Coreg] 6.25 mg PO BID #30 tablet Divalproex (24 HR) [Depakote ER (24 HR)] 500 mg PO HS #30 tab.er.24h Duloxetine HCl [Cymbalta] 60 mg PO DAILY #30 capsule. Famotidine [Heartburn Prevention] 20 mg PO DAILY PRN #30 tablet PRN Reason: Heartburn hydrOXYzine HCl [Hydroxyzine HCl] 50 mg PO TID #90 tablet Insulin Glargine,Hum.rec.anlog [Lantus Solostar] 15 unit SQ QAM #5 insuln.pen Lisinopril [Zestril] 10 mg PO DAILY #30 tablet Loratadine [Claritin] 10 mg PO DAILY #30 tablet Meloxicam [Mobic] 7.5 mg PO DAILY #30 tablet Metformin HCl [Glucophage] 1,000 mg PO BID #60 tablet Pregabalin [Lyrica] 150 mg PO BID #60 capsule Quetiapine Fumarate [Seroquel] 50 mg PO HS #30 tablet Rosuvastatin [Crestor] 20 mg PO DAILY #30 tablet SitaGLIPtin [Januvia] 100 mg PO DAILY #30 tablet SUMAtriptan Succinate [Imitrex] 100 mg PO AD PRN #9 tablet PRN Reason: Migraine Headache Home Medications: Fenofibrate [Lofibra] 160 mg PO DAILY #30 tablet 10/14/15 [Rx] [place]-3/Dha/Epa/Fish Oil [Fish Oil Dr 500 mg Softgel] 1,000 mg PO DAILY [History] Nitroglycerin 0.4 mg SL AD PRN 05/20/17 [History] Albuterol Sulfate [Albuterol Inhaler] 2 puff IH Q4H PRN #1 inhaler 05/21/17 [Rx] Aspirin [Lo-Dose Aspirin EC] 162 mg PO DAILY #30 tablet. 05/21/17 [Rx] Carvedilol [Coreg] 6.25 mg PO BID #30 tablet 05/21/17 [Rx] Divalproex (24 HR) [Depakote ER (24 HR)] 500 mg PO HS #30 tab.er.24h 05/21/17 [ Rx] Duloxetine HCl [Cymbalta] 60 mg PO DAILY #30 capsule. 05/21/17 [Rx] Famotidine [Heartburn Prevention] 20 mg PO DAILY PRN #30 tablet 05/21/17 [Rx] Insulin Glargine,Hum.rec.anlog [Lantus Solostar] 15 unit SQ QAM #5 insuln.pen [Rx] Ipratropium/Albuterol Neb [Duoneb] 3 ml IH Q6HR PRN #96 inhsol 05/21/17 [Rx] Lisinopril [Zestril] 10 mg PO DAILY #30 tablet 05/21/17 [Rx] Loratadine [Claritin] 10 mg PO DAILY #30 tablet 05/21/17 [Rx] Meloxicam [Mobic] 7.5 mg PO DAILY #30 tablet 05/21/17 [Rx] Metformin HCl [Glucophage] 1,000 mg PO BID #60 tablet 05/21/17 [Rx] Pregabalin [Lyrica] 150 mg PO BID #60 capsule 05/21/17 [Rx] Quetiapine Fumarate [Seroquel] 50 mg PO HS #30 tablet 05/21/17 [Rx] Rosuvastatin [Crestor] 20 mg PO DAILY #30 tablet 05/21/17 [Rx] SUMAtriptan Succinate [Imitrex] 100 mg PO AD PRN #9 tablet 05/21/17 [Rx] SitaGLIPtin [Januvia] 100 mg PO DAILY #30 tablet 05/21/17 [Rx] hydrOXYzine HCl [Hydroxyzine HCl] 50 mg PO TID #90 tablet 05/21/17 [Rx] Allergies/Adverse Reactions: 3 Allergy/AdvReac Type Severity Reaction Status Date / Time latex Allergy Hives Verified 05/20/17 07:52 fluoxetine [From Prozac] AdvReac Agitated Verified 05/20/17 07:52 Date of admission: 05/20/17 12:07 Primary care physician: Roxane Henson DO Consults: 05/20/17 12:36 Consult to Elastic Yarn Twister Helper [CONS] Routine Reason for SW Consult: Patient has not been compliant with medications. Discharging clinician: Flaca Szymanski Anticipated date of discharge: 05/21/17 - Patient Status Disposition: Home, Self-Care Condition: Good Functional capacity at discharge: independent ambulation Overall status at discharge: patient is back to baseline - Discharge Instructions Instructions: Chronic Hypertension (DC) Follow Up With: Oscar Cerrato MD [Non-Partnered Physician] - 05/23/17 10:00 am ([facility], [place]- Patient is already aware of her follow up appointment) - Diet and Activity Diet: diabetic diet Interval History: Patient without complaints this morning; dressed and asking if she can go home. Hospital course: Ms. Lorenzo is a 56 year old female who reports that she has not taken her home medicines for approximately 5-6 months due to paying double energy bills and presented to the ER with a 6 day history of nausea and vomiting. She was found to be in hypertensive urgency in the ER - her blood pressure was responsive to her home medications plus IV labetalol. She also was complaining of shortness of breath with occasional chest pain. She was diagnosed and treated for COPD exacerbation and had a negative cardiac work-up. On day of discharge, she is dressed in street clothes and asking if she can go home. She states that she believes not taking her home medicines causes her symptoms. - Time Spent with Patient Total time spent providing and/or coordinating discharge services: - Constitutional Vitals: Temp Pulse Resp BP Pulse Ox 97.6 F 99 18 143/81 94 05/21/17 06:49 05/21/17 06:49 05/21/17 06:49 05/21/17 06:49 05/21/17 06:49 General appearance: Present: A&O X 3, pleasant, no acute distress - Head Head exam: Present: atraumatic, normocephalic - Eye Eye exam: Present: PERRL, conjuntiva pink, sclera anicteric Pupils: Present: PERRL - Neck Neck exam general surgery: Present: supple - Respiratory Respiratory exam: Present: CTAB. Absent: accessory muscle use, rales, rhonchi, wheezes - Cardiovascular Cardiovascular exam: Present: RRR, +S1, +S2. Absent: diastolic murmur, gallop, rubs, systolic murmur - Extremities Exam Extremities exam: Present: normal inspection, warm. Absent: mottling, pedal edema - Neurological Exam Neurological exam: Present: alert, normal gait, oriented X3, no focal deficits. Absent: abnormal gait, facial droop, speech deficit - Skin Skin exam: Present: dry, warm <Susana,Yefri P - Last Filed: 05/21/17 19:53> Date of Encounter: 05/21/17 Date of admission: 05/20/17 12:07 Primary care physician: Roxane Henson DO Consults: 05/20/17 12:36 Consult to Elastic Yarn Twister Helper [CONS] Routine Reason for SW Consult: Patient has not been compliant with medications. Hospital course: Ms. Lorenzo is a 56 year old female - Time Spent with Patient Total time spent providing and/or coordinating discharge services: - Constitutional Vitals: Temp Pulse Resp BP Pulse Ox 97.7 F 112 18 129/85 95 05/21/17 11:04 05/21/17 11:04 05/21/17 11:04 05/21/17 11:04 05/21/17 11:04 - Attending Attestation I examined this patient and my medical decision-making was reviewed with the Resident Physician. I agree with the documented findings, disposition and treatment plan as described except to the extent set forth below.
--- NOTE | 2017-05-21 08:47 | Electrocardiograph Report ---
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
[2017-05-21] MEDS ORDERED: Loratadine 10 MG TABLET PO SCH (09:00)
[2017-05-21] MEDS ORDERED: Fenofibrate 54 MG TABLET PO SCH (09:00)
[2017-05-21] MEDS ORDERED: Aspirin Enteric Coated 81 MG Tablet PO SCH (09:00)
[2017-05-21 11:09] VITALS: BP 129/85
--- NOTE | 2017-05-21 13:28 | Physician Discharge Referral ---
<Jed Ross - Last Filed: 05/21/17 13:26> Home Health/Hosp Referral Info Transfer to: Home Health Attending Provider: Dr. Meza Provider in Charge Post Discharge: PCP - Diagnosis (1) Intractable nausea and vomiting Priority: Primary Status: Acute (2) Anxiety Priority: Secondary Status: Acute (3) COPD exacerbation Priority: Secondary Status: Acute (4) H/O noncompliance with medical treatment, presenting hazards to health Priority: Secondary Status: Chronic (5) Hypertensive urgency Priority: Secondary Status: Acute (6) Smoker Priority: Secondary Status: Acute (7) Type 2 diabetes mellitus Priority: Secondary Status: Acute - Respiratory Orders None Smoking Cessation: Smoking cessation has been advised. For more information, call the [place] Tobacco Quit Line at 8-405-YBVL-NOW. - Diet/Nutrition Diet/Nutrition: List: diabetic diet - Activity Activity Orders: Ambulate - Services Needed Following services are medically necessary services: Nursing, Home Health Aide - Transfer Medications Prescriptions: Ipratropium/Albuterol Neb [Duoneb] 3 ml IH Q6HR PRN #96 inhsol PRN Reason: Shortness Of Breath Albuterol Sulfate [Albuterol Inhaler] 2 puff IH Q4H PRN #1 inhaler PRN Reason: Shortness Of Breath Aspirin [Lo-Dose Aspirin EC] 162 mg PO DAILY #30 tablet. Carvedilol [Coreg] 6.25 mg PO BID #30 tablet Divalproex (24 HR) [Depakote ER (24 HR)] 500 mg PO HS #30 tab.er.24h Duloxetine HCl [Cymbalta] 60 mg PO DAILY #30 capsule. Famotidine [Heartburn Prevention] 20 mg PO DAILY PRN #30 tablet PRN Reason: Heartburn hydrOXYzine HCl [Hydroxyzine HCl] 50 mg PO TID #90 tablet Insulin Glargine,Hum.rec.anlog [Lantus Solostar] 15 unit SQ QAM #5 insuln.pen Lisinopril [Zestril] 10 mg PO DAILY #30 tablet Loratadine [Claritin] 10 mg PO DAILY #30 tablet Meloxicam [Mobic] 7.5 mg PO DAILY #30 tablet Metformin HCl [Glucophage] 1,000 mg PO BID #60 tablet Pregabalin [Lyrica] 150 mg PO BID #60 capsule Quetiapine Fumarate [Seroquel] 50 mg PO HS #30 tablet Rosuvastatin [Crestor] 20 mg PO DAILY #30 tablet SitaGLIPtin [Januvia] 100 mg PO DAILY #30 tablet SUMAtriptan Succinate [Imitrex] 100 mg PO AD PRN #9 tablet PRN Reason: Migraine Headache Home Medications: Fenofibrate [Lofibra] 160 mg PO DAILY #30 tablet 10/14/15 [Rx] [place]-3/Dha/Epa/Fish Oil [Fish Oil Dr 500 mg Softgel] 1,000 mg PO DAILY [History] Nitroglycerin 0.4 mg SL AD PRN 05/20/17 [History] Albuterol Sulfate [Albuterol Inhaler] 2 puff IH Q4H PRN #1 inhaler 05/21/17 [Rx] Aspirin [Lo-Dose Aspirin EC] 162 mg PO DAILY #30 tablet. 05/21/17 [Rx] Carvedilol [Coreg] 6.25 mg PO BID #30 tablet 05/21/17 [Rx] Divalproex (24 HR) [Depakote ER (24 HR)] 500 mg PO HS #30 tab.er.24h 05/21/17 [ Rx] Duloxetine HCl [Cymbalta] 60 mg PO DAILY #30 capsule. 05/21/17 [Rx] Famotidine [Heartburn Prevention] 20 mg PO DAILY PRN #30 tablet 05/21/17 [Rx] Insulin Glargine,Hum.rec.anlog [Lantus Solostar] 15 unit SQ QAM #5 insuln.pen [Rx] Ipratropium/Albuterol Neb [Duoneb] 3 ml IH Q6HR PRN #96 inhsol 05/21/17 [Rx] Lisinopril [Zestril] 10 mg PO DAILY #30 tablet 05/21/17 [Rx] Loratadine [Claritin] 10 mg PO DAILY #30 tablet 05/21/17 [Rx] Meloxicam [Mobic] 7.5 mg PO DAILY #30 tablet 05/21/17 [Rx] Metformin HCl [Glucophage] 1,000 mg PO BID #60 tablet 05/21/17 [Rx] Pregabalin [Lyrica] 150 mg PO BID #60 capsule 05/21/17 [Rx] Quetiapine Fumarate [Seroquel] 50 mg PO HS #30 tablet 05/21/17 [Rx] Rosuvastatin [Crestor] 20 mg PO DAILY #30 tablet 05/21/17 [Rx] SUMAtriptan Succinate [Imitrex] 100 mg PO AD PRN #9 tablet 05/21/17 [Rx] SitaGLIPtin [Januvia] 100 mg PO DAILY #30 tablet 05/21/17 [Rx] hydrOXYzine HCl [Hydroxyzine HCl] 50 mg PO TID #90 tablet 05/21/17 [Rx] Allergies/Adverse Reactions: 3 Allergy/AdvReac Type Severity Reaction Status Date / Time latex Allergy Hives Verified 05/20/17 07:52 fluoxetine [From Prozac] AdvReac Agitated Verified 05/20/17 07:52 Certification: Further, I certify that my clinical findings support that this patient is homebound (i.e. absences from home require considerable and taxing effort and are for medical reasons or voodoo services or infrequently or short duration when for other reasons) because: Homebound Reason: Patient requires assistance of a person or device to safely leave home Attestation: My signature below is to certify that this patient is under my care and that I, or nurse practitioner, or a physician's information services assistant working with me, has a face-to -face encounter with this patient. <Yefri Meza P - Last Filed: 05/21/17 19:53> - Respiratory Orders Smoking Cessation: Smoking cessation has been advised. For more information, call the [place] Tobacco Quit Line at 1-842-CKGU-NOW. Certification: Further, I certify that my clinical findings support that this patient is homebound (i.e. absences from home require considerable and taxing effort and are for medical reasons or voodoo services or infrequently or short duration when for other reasons) because: Attestation: My signature below is to certify that this patient is under my care and that I, or nurse practitioner, or a physician's information services assistant working with me, has a face-to -face encounter with this patient.
== END 2017-05-21 14:43 | disposition home health service (06) ==
LOC: 2ANU 07:40 → EMEROO 07:40 → 2ANU 12:27
PROVIDERS: ADMIT Family Medicine; ATTEND Internal Medicine

== ENCOUNTER 2017-09-20 11:22 | Inpatient (IN) ==
[2017-09-20] MEDS ORDERED: Ipratropium/Albuterol Neb 3 ML IH ONE (11:31)
[2017-09-20] MEDS ORDERED: methylPREDNISolone 125 MG/2 ML VIAL IVP ONE (11:31)
--- NOTE | 2017-09-20 11:38 | Emergency Department Note ---
Disposition Clinical Impression: COPD exacerbation, Acute electrocardiogram changes Disposition: Admitted As Inpatient Condition: Good Instructions: Chronic Obstructive Pulmonary Disease (ED), How to Use a Nebulizer (ED) Reasons to Return/Additional Instructions: Return to the emergency department if you have continuing or worsening dyspnea. Return if he developed chest pain, faster funny heartbeats, or any new concerning symptoms. Treatment provided a prescription for albuterol nebulizer. Please use as prescribed. Please call the residency clinic first thing tomorrow morning to schedule follow -up appointment with your primary care physician in the next 2-4 days or sooner if needed. Prescriptions: Albuterol Neb [Proventil Neb] 2.5 mg IH Q4HR #6 inhsol Referrals: Roxane Henson DO [Primary Care Provider] - Forms: ED Satisfaction Letter Time of Disposition: 17:07 SOB HPI - General Chief Complaint: ED Shortness of Breath/Dyspnea Stated Complaint: NELLIE Time Seen by Provider: 09/20/17 11:30 Source: patient Limitations: no limitations Nursing Notes Reviewed: Yes Vital Signs Reviewed: Yes - History of Present Illness Mrs. Lorenzo, 57-year-old female, presents from home via EMS for evaluation of dyspnea. Onset 2-3 weeks ago and prominently worse the last 24 hours. Patient is a history of COPD and ran out of her albuterol nebulizer 2-3 weeks ago. She is oxygen dependent at night ran 3-4 L nasal cannula; no oxygen during the day. PMH: CHF, CAD status post remote 3X CABG, diabetes mellitus on oral and insulin into hyperglycemic, COPD ROS: Positive: Dry cough that is different from her baseline, chills, subjective fever, dyspnea with exertion, myalgia, headache, substernal chest pain with radiation to her left shoulder. Negative: Nausea, vomiting, palpitations, diaphoresis, abdominal pain, diarrhea , constipation, dysuria, numbness, tingling, weakness - Related Data Home Medications Medication Instructions Recorded Confirmed [place]-3/Dha/Epa/Fish Oil [Fish Oil 1,000 mg PO DAILY 01/09/16 05/20/17 Dr 500 mg Softgel] Nitroglycerin 0.4 mg SL AD PRN 05/20/17 05/20/17 Previous Rx's Medication Instructions Recorded Fenofibrate [Lofibra] 160 mg PO DAILY #30 tablet 10/14/15 Albuterol Sulfate [Albuterol 2 puff IH Q4H PRN #1 inhaler 05/21/17 Inhaler] Aspirin [Lo-Dose Aspirin EC] 162 mg PO DAILY #30 tablet. 05/21/17 Carvedilol [Coreg] 6.25 mg PO BID #30 tablet 05/21/17 Divalproex (24 HR) [Depakote ER 500 mg PO HS #30 tab.er.24h 05/21/17 (24 HR)] Duloxetine HCl [Cymbalta] 60 mg PO DAILY #30 capsule. 05/21/17 Famotidine [Heartburn Prevention] 20 mg PO DAILY PRN #30 tablet 05/21/17 Insulin Glargine,Hum.rec.anlog 15 unit SQ QAM #5 insuln.pen 05/21/17 [Lantus Solostar] Ipratropium/Albuterol Neb [Duoneb] 3 ml IH Q6HR PRN #96 inhsol 05/21/17 Lisinopril [Zestril] 10 mg PO DAILY #30 tablet 05/21/17 Loratadine [Claritin] 10 mg PO DAILY #30 tablet 05/21/17 Meloxicam [Mobic] 7.5 mg PO DAILY #30 tablet 05/21/17 Metformin HCl [Glucophage] 1,000 mg PO BID #60 tablet 05/21/17 Pregabalin [Lyrica] 150 mg PO BID #60 capsule 05/21/17 Quetiapine Fumarate [Seroquel] 50 mg PO HS #30 tablet 05/21/17 Rosuvastatin [Crestor] 20 mg PO DAILY #30 tablet 05/21/17 SUMAtriptan Succinate [Imitrex] 100 mg PO AD PRN #9 tablet 05/21/17 SitaGLIPtin [Januvia] 100 mg PO DAILY #30 tablet 05/21/17 hydrOXYzine HCl [Hydroxyzine HCl] 50 mg PO TID #90 tablet 05/21/17 Albuterol Neb [Proventil Neb] 2.5 mg IH Q4HR #6 inhsol 09/20/17 Allergies Allergy/AdvReac Type Severity Reaction Status Date / Time latex Allergy Hives Verified 05/20/17 07:52 fluoxetine [From Prozac] AdvReac Agitated Verified 05/20/17 07:52 All systems ED: reviewed and negative except as stated. Review of Systems: As Per HPI Past Medical History - Past Medical History Medical history: Reports: arthritis, CHF, COPD, coronary artery disease, diabetes, fibromyalgia, GERD, hyperlipidemia, hypertension, migraine, myocardial infarction, osteoporosis, peripheral artery disease, renal disease, syncope, venous stasis, other Surgical history: Reports: cholecystectomy, coronary bypass (CABG), orthopedic, other, other Psychiatric history: Reports: anxiety, bipolar, depression [employer] history: Reports: non-contributory - Social History Smoking Status: Current every day smoker Smokeless Tobacco Status: No Alcohol use: Reports: none Drug use: Reports: none Physical Exam Vital Signs Reviewed General: Patient is alert, oriented, and in no acute distress. HEENT: No facial asymmetry. Head is normocephalic and atraumatic. PERRLA, EOMI. oral mucosa moist. Cardiovascular: Heart regular rate and rhythm without clicks, rubs, gallops, or murmurs. No JVD. PMI nondisplaced. Bilateral radial posterior tibial pulses 2 /4 equal. No pedal edema. Respiratory: Symmetric chest rise with good respiratory effort. Bilateral breath sounds are clear without wheezing, crackles, or rhonchi. Abdomen: Bowel sounds present normoactive x-4 quadrants. Abdomen is soft, nondistended, and nontender. No organomegaly noted. Musculoskeletal: Spontaneously moving all extremities. Neuro: Alert and oriented 4. Sensation light touch intact. Psych: Patient's affect is appropriate for situation. - General Limitations: no limitations General appearance: alert, in no apparent distress Course Course Narrative: Patient symptoms are clinically consistent with acute exacerbation of COPD however, we will further investigate both potential cardiac etiology of her dyspnea as well as chest x-ray looking for pneumonia or potential pulmonary infection. In speaking with secondary social studies teacher, patient does have insurance coverage for medications and patient does have active prescriptions for her medications. The only thing she is lacking his her albuterol nebulizer. Will refill this prescription on discharge. Initially order CTA chest however, nursing after multiple attempts was unable to obtain IV access. As such, VQ scan was performed which subsequently showed low probability for PE. Chest x-ray on radiology reading was suggestive of mild pulmonary edema however, clinically, patient has no crackles on auscultation is not volume overloaded. EKG is concerning for new T-wave inversion in precordial leads. Patient has no chest pain and his negative troponin. She remains high risk, however, in the setting of her extensive cardiac history. Patient is agreeable to admission. I discussed the patient with on-call cardiology, Dr. Bocanegra, and discussed the patient's risk factors, clinical presentation, and concerning EKG changes. He recommended aspirin and heparinization at this time. I discussed the patient with the admitting hospitalist, Dr. Dominguez, who agrees to accept the patient continued evaluation and management. Chest X-Ray 09/20/17 11:31 IMPRESSION: No significant interval change in the finding suggestive of mild pulmonary interstitial edema. Correlation with volume status is recommended. D/ / Phillip Bray MD / Phillip Bray MD Interpreting Provider: Phillip Bray MD Pulmonary Perfusion Imaging 09/20/17 14:56 IMPRESSION: Low Probability for Pulmonary Embolus. D/ / Han Ace MD / Han Ace MD Interpreting Provider: Han Ace MD Vital Signs Temperature 98.1 F 09/20/17 11:23 Pulse Rate 106 09/20/17 11:23 Respiratory Rate 20 09/20/17 11:23 Blood Pressure 152/112 09/20/17 11:23 O2 Sat by Pulse Oximetry 94 09/20/17 11:23 Temperature 98.1 F 09/20/17 11:23 Pulse Rate 101 09/20/17 17:26 Respiratory Rate 20 09/20/17 17:26 Blood Pressure 130/77 09/20/17 16:47 O2 Sat by Pulse Oximetry 97 09/20/17 16:47 Oxygen Delivery Oxygen Delivery Nasal Cannula Shortness of Breath/Dyspnea - Medical Records Medical records reviewed: Yes I reviewed the patient's medical records. - Lab Data Lab results reviewed: Yes I reviewed the patient's lab results. Result diagrams: 09/20/17 11:41 09/20/17 11:41 Lab Results 09/20/17 09/20/17 09/20/17 Range/Units 11:41 11:41 11:41 WBC 7.8 (4.3-11.1) K/mcL RBC 4.55 (3.82-4.97) M/mcL Hgb 11.6 (11.5-15.4) g/dL Hct 36.8 (35.3-44.9) % MCV 80.9 L (83.0-100.0) fL MCH 25.5 L (28.0-33.3) pg MCHC 31.5 L (31.6-35.5) g/dL RDW 16.3 H (11.5-14.5) % Plt Count 299 (140-400) K/mcL MPV 10.7 (9.4-12.4) fL Immature Gran % 0.9 (0-4) % Seg Neutrophils % 58.8 % Lymphocytes % 32.6 % Monocytes % 4.9 % Eosinophils % 2.3 % Basophils % 0.5 % Neutrophils # 4.6 (1.6-8.9) K/mcL Lymphocytes # 2.5 (0.6-4.6) K/mcL Monocytes # 0.4 (0.0-1.3) K/mcL Eosinophils # 0.2 (0.0-0.6) K/mcL Basophils # 0.0 (0.0-0.2) K/mcL D-Dimer 971 H (0-500) ng/mLFEU Sodium 138 (136-145) mEq/L Potassium 3.8 (3.5-5.1) mEq/L Chloride 106 (98-107) mEq/L Carbon Dioxide 23 (23-29) mEq/L BUN 10 (6-20) mg/dL Creatinine 0.56 L (0.60-1.20) mg/dL Est GFR ( Amer) > 60 (> 60) Est GFR (Non-Af Amer) > 60 (> 60) BUN/Creatinine Ratio 18 (6-26) Glucose 126 H (70-105) mg/dL Calculated Osmolality 287 (280-300) Lactic Acid (0.5-2.2) mmol/L Calcium 8.9 (8.6-10.3) mg/dL Troponin I (< 0.04) ng/mL B-Natriuretic Peptide (Less than 100) pg/mL Specimen Rejected 09/20/17 09/20/17 09/20/17 Range/Units 11:41 11:41 11:41 WBC (4.3-11.1) K/mcL RBC (3.82-4.97) M/mcL Hgb (11.5-15.4) g/dL Hct (35.3-44.9) % MCV (83.0-100.0) fL MCH (28.0-33.3) pg MCHC (31.6-35.5) g/dL RDW (11.5-14.5) % Plt Count (140-400) K/mcL MPV (9.4-12.4) fL Immature Gran % (0-4) % Seg Neutrophils % % Lymphocytes % % Monocytes % % Eosinophils % % Basophils % % Neutrophils # (1.6-8.9) K/mcL Lymphocytes # (0.6-4.6) K/mcL Monocytes # (0.0-1.3) K/mcL Eosinophils # (0.0-0.6) K/mcL Basophils # (0.0-0.2) K/mcL D-Dimer (0-500) ng/mLFEU Sodium (136-145) mEq/L Potassium (3.5-5.1) mEq/L Chloride (98-107) mEq/L Carbon Dioxide (23-29) mEq/L BUN (6-20) mg/dL Creatinine (0.60-1.20) mg/dL Est GFR ( Amer) (> 60) Est GFR (Non-Af Amer) (> 60) BUN/Creatinine Ratio (6-26) Glucose (70-105) mg/dL Calculated Osmolality (280-300) Lactic Acid (0.5-2.2) mmol/L Calcium (8.6-10.3) mg/dL Troponin I < 0.03 (< 0.04) ng/mL B-Natriuretic Peptide 613 H (Less than 100) pg/mL Specimen Rejected Hemolyzed 09/20/17 Range/Units 13:05 WBC (4.3-11.1) K/mcL RBC (3.82-4.97) M/mcL Hgb (11.5-15.4) g/dL Hct (35.3-44.9) % MCV (83.0-100.0) fL MCH (28.0-33.3) pg MCHC (31.6-35.5) g/dL RDW (11.5-14.5) % Plt Count (140-400) K/mcL MPV (9.4-12.4) fL Immature Gran % (0-4) % Seg Neutrophils % % Lymphocytes % % Monocytes % % Eosinophils % % Basophils % % Neutrophils # (1.6-8.9) K/mcL Lymphocytes # (0.6-4.6) K/mcL Monocytes # (0.0-1.3) K/mcL Eosinophils # (0.0-0.6) K/mcL Basophils # (0.0-0.2) K/mcL D-Dimer (0-500) ng/mLFEU Sodium (136-145) mEq/L Potassium (3.5-5.1) mEq/L Chloride (98-107) mEq/L Carbon Dioxide (23-29) mEq/L BUN (6-20) mg/dL Creatinine (0.60-1.20) mg/dL Est GFR ( Amer) (> 60) Est GFR (Non-Af Amer) (> 60) BUN/Creatinine Ratio (6-26) Glucose (70-105) mg/dL Calculated Osmolality (280-300) Lactic Acid 1.3 (0.5-2.2) mmol/L Calcium (8.6-10.3) mg/dL Troponin I (< 0.04) ng/mL B-Natriuretic Peptide (Less than 100) pg/mL Specimen Rejected - Radiology Data Radiology results reviewed: Yes I reviewed the patient's radiology results. - EKG Data EKG results narrative: EKG dated 09/20/17 at 11:24 interpreted as sinus tachycardia with a rate of 105. Normal levels. Normal axis. Nonspecific ST-T changes. Compared to previous dictated note 05/20/2017 showing no acute ischemic changes in comparison.
[2017-09-20 11:58] LABS: Basophils % 0.5 %; Eosinophils # 0.2 K/mcL (0.0-0.6); Eosinophils % 2.3 %; Hematocrit 36.8 % (35.3-44.9); Hemoglobin 11.6 g/dL (11.5-15.4); Immature Granulocytes % 0.9 % (0-4); Lymphocytes # 2.5 K/mcL (0.6-4.6); Lymphocytes % 32.6 %; Mean Corpuscular HGB Conc 31.5 g/dL (31.6-35.5); Mean Corpuscular Hemoglobin 25.5 pg (28.0-33.3); Mean Corpuscular Volume 80.9 fL (83.0-100.0); Mean Platelet Volume 10.7 fL (9.4-12.4); Monocytes # 0.4 K/mcL (0.0-1.3); Monocytes % 4.9 %; Neutrophils # 4.6 K/mcL (1.6-8.9); Platelet Count 299 K/mcL (140-400); Red Blood Count 4.55 M/mcL (3.82-4.97); Red Cell Distribution Width 16.3 % (11.5-14.5); Segmented Neutrophils % 58.8 %
[2017-09-20] MEDS ORDERED: Acetaminophen 325 MG TABLET PO ONE ×2 (12:13→19:05)
[2017-09-20 12:15] LABS: BUN/Creatinine Ratio 18 (6-26); Blood Urea Nitrogen 10 mg/dL (6-20); Calcium 8.9 mg/dL (8.6-10.3); Carbon Dioxide 23 mEq/L (23-29); Chloride 106 mEq/L (98-107); Glucose 126 mg/dL (70-105); Osmolality,Calculated 287 (280-300); Potassium 3.8 mEq/L (3.5-5.1); Sodium 138 mEq/L (136-145); eGFR For African Americans > 60 (> 60); eGFR For Non-African Americans > 60 (> 60)
[2017-09-20] MEDS ORDERED: Metoclopramide 10 MG/2 ML VIAL IVP ONE (12:54)
[2017-09-20] MEDS ORDERED: Ketorolac 15 MG/ML VIAL IVP ONE (12:55)
--- NOTE | 2017-09-20 13:17 | Emergency Department Note ---
START Narrative - START START: I examined this patient and my medical decision-making was reviewed with the Resident Physician. I agree with the documented findings, disposition and treatment plan as described except to the extent set forth below. 57 year old thai with COPD and long standing smoker presnts to the ED with comlpaitns of NELLIE and productive cough. SHe has a histroy fo triple CABG years ago and has been dignosed with pnuemoina/bronchitis mulitple times in the past and states that this feels simliar. She is also experiencing a headache. Patient states that she has a productive cough and denies history of DVT/PE. cardiopulmonary workup is essentially negative although her D-dimer is elevate and we will do a CTA to rule out PE. Patient chad will be discharge home with ABX and steroid if the CTA is neg.
[2017-09-20] MEDS ORDERED: Aspirin 81 MG TAB.CHEW PO STA (17:35)
[2017-09-20] MEDS ORDERED: *HR* Heparin 5,000 UNIT/ML VIAL IVP ONE (17:36)
[2017-09-20] MEDS ORDERED: *HR* Heparin 5,000 UNIT/ML VIAL IVP PRN ×2 (17:36)
[2017-09-20] MEDS ORDERED: Heparin 25,000 UNIT/500 ML D5W 25,000 UNIT/500 ML BAG IVC SCH (17:45)
[2017-09-20 17:59] LABS: Prothrombin Time 11.1 Seconds (9.4-12.1)
[2017-09-20 18:02] LABS: Activated Partial Thrombo Time 29.9 Seconds (26.0-36.0)
--- NOTE | 2017-09-20 18:16 | Event Note ---
Date of Encounter: 09/20/17 Time of Encounter: 18:14 1. Acute pulmonary edema secondary to acute systolic CHF exacerbation due to medication noncompliance, patient does not know what she is taking currently and has stopped taking her meds 2 months ago Start Lasix IV, strict I's and O's and daily weight 2. Persistent chest pain, possible unstable angina Cardiology was consulted by the ER and requested a heparin drip to be started 3. Cardiomyopathy, patient has an ejection fraction of 25% 4. COPD, no exacerbation currently, continue nebulizers 5., Tobacco abuse, smoking cessation counseling, nicotine patch 6. Diabetes type 2, insulin sliding scale Omeprazole for GI prophylaxis and heparin drip for DVT prophylaxis. The patient will be admitted for observation, full code. Time spent on this admission 40 minutes. H&P will be completed by Goyo Weeks NP
[2017-09-20] MEDS ORDERED: Nitroglycerin 0.4 MG TAB.SUBL SL PRN (18:33)
[2017-09-20] MEDS ORDERED: Naloxone 0.4 MG/ML INJ IVP PRN (18:35)
[2017-09-20] MEDS ORDERED: Dextrose Gel 15 GM/37.5 ML TUBE PO PRN ×2 (18:35)
[2017-09-20] MEDS ORDERED: D5% in Water 1,000 ML IVC PRN (18:35)
[2017-09-20] MEDS ORDERED: *HR* Dextrose 50 % in Water (Syg) 50 ML SYRINGE IVP PRN (18:35)
--- NOTE | 2017-09-20 18:44 | Internal Med History&Physical ---
<Goyo Weeks J - Last Filed: 09/20/17 18:41> Date of Encounter: 09/20/17 Time of Encounter: 18:41 Assessment and Plan (1) Acute on chronic systolic CHF (congestive heart failure) Current visit: Yes Status: Acute Presents today with dyspnea; mild, acute pulmonary edema secondary to an acute on chronic exacerbation of systolic heart failure due to medication noncompliance. She reports she has not been taking her medications approximately 2 months as she cannot afford them. Echocardiogram completed 09/13/2017 showing EF of 25% with severe global and regional left ventricular systolic dysfunction, atypical septal wall motion and intermediate diastolic dysfunction. Mild pulmonary congestion per chest x-ray. Troponin is negative x2. She is reporting a weight gain over the last week Lasix IV strict I&O QD weight O2 support per nasal cannula goal to maintain SPO2 greater than 90% Continuous telemetry, continuous SpO2 monitoring CBCD, BMP Resume home medications Trend troponin (2) Acute electrocardiogram changes Current visit: Yes Status: Acute new t-wave inversions in lateral leads, aVL, V5. Given her presentation with 2 day history of dyspnea and chest pain cardiology was consulted and recommended placement patient on heparin drip (3) COPD (chronic obstructive pulmonary disease) Current visit: Yes Status: Chronic no exacerbation, duonebs scheduled Qualifiers: COPD type: unspecified COPD Qualified Code(s): J44.9 - Chronic obstructive pulmonary disease, unspecified (4) Type 2 diabetes mellitus Current visit: Yes Status: Acute LSSIC with AC/HS accucheck and diabetic/cardiac diet Qualifiers: Diabetes mellitus complication status: with unspecified complications Diabetes mellitus [facility] insulin use: with manager intermediate use Qualified Code(s) : E11.8 - Type 2 diabetes mellitus with unspecified complications; Z79.4 - [facility] (current) use of insulin (5) DVT prophylaxis Current visit: Yes Status: Acute Heparin gtt Internal Medicine - H&P: HPI Chief complaint: dyspnea, CP Admitted From: Home Plans for Post Hospital Care: Home History of present illness: Ms. Lorenzo is a 57 year old female with a PMH of COPD, CHF, CAD, HLD, HTN, PAD, renal disease CABG 3 and prior PA. She presents to [facility] today for 2-3 day history of dyspnea and abdominal nonexertional chest pain with radiation to the left neck and left shoulder accompanied with shortness of breath, diaphoresis and nausea. She reports the chest pain has subsided at this time. Patient reports she has not been taking her medications for the last 2-months as she has not been able to afford them. She has multiple risk factors for PA including CHF, CAD, prior CABG X3, HTN, HLD. She denies any fever, chills, vomiting, diarrhea, extremity swelling or pain. Workup in the emergency department revealed an elevated d-dimer of 971 and BNP 613 as well as check separation of mild pulmonary edema. Due to continued dyspnea she is being admitted for further workup and evaluation Past Med Surg Social Fam HX - Past Medical History Medical history: arthritis, CHF, COPD, coronary artery disease, diabetes, fibromyalgia, GERD, hyperlipidemia, hypertension, migraine, myocardial infarction, osteoporosis, peripheral artery disease, renal disease, syncope, venous stasis, other Psychiatric history: anxiety, bipolar, depression - Past Surgical History Surgical History: cholecystectomy, coronary bypass (CABG), orthopedic, other, other - Social History Smoking Status: Current every day smoker Smokeless Tobacco Status: No Alcohol use: none Drug use: none - Family History Mother Living Status: Hx Family Cardiac Disorders: Yes (cardiomyothy) Hx Family Respiratory Disorders: No Hx Family Cancer: Yes ("female") Hx Family GI Disorders: No Hx Family Endocrine Disorder: No Hx Family Neuromuscular Disorders: No Hx Family Neurologic Disorders: No Hx Family HEENT Disorders: No Hx Family Autoimmune Disorders: No Father Living Status: Still Living Hx Family Cardiac Disorders: Yes (4 heart stents) Hx Family Respiratory Disorders: No Hx Family Cancer: No Hx Family GI Disorders: No Hx Family Endocrine Disorder: Yes Hx Family Neuromuscular Disorders: No Hx Family Neurologic Disorders: No Hx Family HEENT Disorders: No Hx Family Autoimmune Disorders: No Internal Medicine - H&P: Meds Nitroglycerin 0.4 mg SL Q5M PRN 05/20/17 [History] Albuterol Sulfate [Albuterol Inhaler] 2 puff IH Q4H PRN #1 inhaler 05/21/17 [Rx] Carvedilol [Coreg] 6.25 mg PO BID #30 tablet 05/21/17 [Rx] Lisinopril [Zestril] 10 mg PO DAILY #30 tablet 05/21/17 [Rx] SitaGLIPtin [Januvia] 100 mg PO DAILY #30 tablet 05/21/17 [Rx] Albuterol Neb [Proventil Neb] 2.5 mg IH Q4HR #6 inhsol 09/20/17 [Rx] Cyclosporine [Restasis] 1 drop BOTH EYES BID 09/20/17 [History] DULoxetine [Cymbalta] 30 mg PO DAILY 09/20/17 [History] Insulin Glargine [Lantus] 15 unit SQ QAM 09/20/17 [History] Metformin HCl [Metformin HCl ER] 1,000 mg PO BID 09/20/17 [History] Rosuvastatin Calcium [Rosuvastatin Calcium] 40 mg PO HS 09/20/17 [History] 3 Allergy/AdvReac Type Severity Reaction Status Date / Time latex Allergy Hives Verified 05/20/17 07:52 fluoxetine [From Prozac] AdvReac Agitated Verified 05/20/17 07:52 All Systems PM: A 10-system review of systems was performed and is negative for pertinent findings except as documented above in the HPI. - Constitutional Constitutional: as per HPI - EENT Eyes: as per HPI - Cardiovascular Cardiovascular ROS IM: chest pain, dyspnea, dyspnea on exertion, no diaphoresis , no irregular heart rhythm, no lightheadedness, no palpitations, no paroxysmal nocturnal dyspnea, no syncope - Respiratory Respiratory: cough (chronic; non-productive), dyspnea, dyspnea on exertion, no hemoptysis, no wheezing, no pain on inspiration, no chest congestion, no excessive phlegm production, no pain with cough - Gastrointestinal Gastrointestinal: no abdominal pain, no diarrhea, no hematemesis, no hematochezia, no melena, no nausea, no vomiting - Genitourinary Genitourinary: no change in urinary stream, no dysuria, no flank pain, no hematuria - Musculoskeletal Musculoskeletal ROS IM: no numbness, no tingling - Integumentary Integumentary IM: no rash, no unusual bruising - Neurological Neurological ROS: no confusion, no convulsions, no focal weakness, no numbness, no tingling, no tremor(s) - Constitutional Vitals: Temp Pulse Resp BP Pulse Ox 98.1 F 101 20 130/77 97 09/20/17 11:23 09/20/17 17:26 09/20/17 17:26 09/20/17 16:47 09/20/17 16:47 General appearance: Present: cooperative, A&O X 3, no acute distress, answers questions appropriately - Head Head exam: Present: atraumatic, normocephalic - Eye Eye exam: Present: PERRL, conjuntiva pink, sclera anicteric Pupils: Present: PERRL - Neck Neck exam general surgery: Present: supple, trachea midline. Absent: lymphadenopathy - Respiratory Respiratory exam: Present: chest wall tenderness (to palpation), decreased breath sounds (diminished), rales (fine rales BL posterior bases), wheezes ( fine expiratory wheeze BL posterior lungs), tachypnea. Absent: accessory muscle use, respiratory distress, rhonchi - Cardiovascular Cardiovascular exam: Present: RRR, +S1, +S2. Absent: diastolic murmur, gallop, JVD, rubs, systolic murmur Additional comments: no extremity swelling noted - GI/Abdominal GI/Abdominal exam: Present: normal bowel sounds, soft, no peritoneal signs. Absent: distended, firm, guarding, tenderness Additional comments: round, non distended - Extremities Exam Extremities exam: Present: warm, radial pulses palpable and symmetrical. Absent : calf tenderness, cyanotic, pedal edema - Neurological Exam Neurological exam: Present: CN II-XII intact, oriented X3, no focal deficits. Absent: pronater drift, facial droop, speech deficit - Skin Skin exam: Present: dry, intact Internal Med - H&P Results - Labs CBC & Chem 7: 09/20/17 11:41 09/20/17 11:41 Labs: Short CBC 09/20/17 Range/Units 11:41 WBC 7.8 (4.3-11.1) K/mcL Hgb 11.6 (11.5-15.4) g/dL Hct 36.8 (35.3-44.9) % Plt Count 299 (140-400) K/mcL Neutrophils # 4.6 (1.6-8.9) K/mcL BMP 09/20/17 11:41 Sodium 138 Potassium 3.8 Chloride 106 Carbon Dioxide 23 BUN 10 Creatinine 0.56 L Glucose 126 H Calcium 8.9 Cardiac Enzymes 09/20/17 09/20/17 Range/Units 11:41 17:47 Troponin I < 0.03 < 0.03 (< 0.04) ng/mL - EKG Data -: EKG Interpreted by Myself EKG shows normal: sinus rhythm Rate: normal - EKG Data Prior EKG available for review: yes When compared to previous EKG: there are significant changes EKG comments: SR New T-wave inversion in the lateral leads AVL, V5. 09/20/17 18:46 - Impressions ITS Impressions Chest X-Ray 09/20/17 11:31 IMPRESSION: No significant interval change in the finding suggestive of mild pulmonary interstitial edema. Correlation with volume status is recommended. D/ / Phillip Bray MD / Phillip Bray MD Interpreting Provider: Phillip Bray MD Pulmonary Perfusion Imaging 09/20/17 14:56 IMPRESSION: Low Probability for Pulmonary Embolus. D/ / Han Ace MD / Han Ace MD Interpreting Provider: Han Ace MD <Sudhakar Edmond H - Last Filed: 09/20/17 19:45> Date of Encounter: 09/20/17 Internal Medicine - H&P: HPI History of present illness: Ms. Lorenzo is a 57 year old female All Systems PM: A 10-system review of systems was performed and is negative for pertinent findings except as documented above in the HPI. - Constitutional Vitals: Temp Pulse Resp BP Pulse Ox 98.1 F 101 20 130/77 97 09/20/17 11:23 09/20/17 17:26 09/20/17 17:26 09/20/17 16:47 09/20/17 16:47 Internal Med - H&P Results - Labs CBC & Chem 7: 09/20/17 11:41 09/20/17 11:41 - Attending Attestation 1. Acute pulmonary edema secondary to acute systolic CHF exacerbation due to medication noncompliance, patient does not know what she is taking currently and has stopped taking her meds 2 months ago Start Lasix IV, strict I's and O's and daily weight 2. Persistent chest pain, possible unstable angina Cardiology was consulted by the ER and requested a heparin drip to be started 3. Cardiomyopathy, patient has an ejection fraction of 25% 4. COPD, no exacerbation currently, continue nebulizers 5., Tobacco abuse, smoking cessation counseling, nicotine patch 6. Diabetes type 2, insulin sliding scale Omeprazole for GI prophylaxis and heparin drip for DVT prophylaxis. The patient will be admitted for observation, full code. Time spent on this admission 40 minutes. I have personally performed a face to face evaluation on this patient. I have reviewed and agree with the care plan. History and Exam by me shows:
[2017-09-20] MEDS: Ipratropium/Albuterol Neb 3 ML IH SCH (20:00)
[2017-09-20] MEDS: Insulin LISPRO 300 UNITS/3 ML VIAL SQ SCH (22:18)
[2017-09-21 01:43] LABS: Basophils % 0.2 %; Hematocrit 31.5 % (35.3-44.9); Hemoglobin 10.1 g/dL (11.5-15.4); Immature Granulocytes % 1.1 % (0-4); Lymphocytes # 0.6 K/mcL (0.6-4.6); Mean Corpuscular HGB Conc 32.1 g/dL (31.6-35.5); Mean Corpuscular Hemoglobin 25.6 pg (28.0-33.3); Mean Corpuscular Volume 79.9 fL (83.0-100.0); Mean Platelet Volume 10.5 fL (9.4-12.4); Monocytes # 0.1 K/mcL (0.0-1.3); Monocytes % 1.1 %; Neutrophils # 4.6 K/mcL (1.6-8.9); Platelet Count 254 K/mcL (140-400); Red Blood Count 3.94 M/mcL (3.82-4.97); Red Cell Distribution Width 15.8 % (11.5-14.5); Segmented Neutrophils % 85.6 %
[2017-09-21 02:02] LABS: BUN/Creatinine Ratio 21 (6-26); Blood Urea Nitrogen 16 mg/dL (6-20); Calcium 8.9 mg/dL (8.6-10.3); Carbon Dioxide 22 mEq/L (23-29); Chloride 102 mEq/L (98-107); Glucose 390 mg/dL (70-105); Osmolality,Calculated 297 (280-300); Potassium 4.1 mEq/L (3.5-5.1); Sodium 135 mEq/L (136-145); eGFR For African Americans > 60 (> 60); eGFR For Non-African Americans > 60 (> 60)
[2017-09-21] MEDS: Pregabalin 75 MG CAPSULE PO SCH ×3 (02:15→21:38)
[2017-09-21] MEDS: Ipratropium/Albuterol Neb 3 ML IH SCH ×7 (04:37→23:20)
[2017-09-21] MEDS: Furosemide 20 MG/2 ML VIAL IVP SCH ×3 (07:46→17:38)
[2017-09-21] MEDS: (Cyclosporine [Restasis] 1 DROP) OP SCH ×3 (07:46→21:26)
[2017-09-21] MEDS: Insulin LISPRO 300 UNITS/3 ML VIAL SQ SCH ×4 (08:51→21:52)
[2017-09-21] MEDS: Aspirin 81 MG TAB.CHEW PO SCH (08:51)
--- NOTE | 2017-09-21 09:06 | Electrocardiograph Report ---
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
[2017-09-21] MEDS: Insulin DETEMIR 100 UNIT/ML X5UNITS SQ SCH (10:05)
--- NOTE | 2017-09-21 11:23 | Cardiology Consult Note ---
<Brennan Dwyer - Last Filed: 09/21/17 11:06> Date of Encounter: 09/21/17 Time of Encounter: 11:06 Assessment and Plan (1) Abnormal EKG Current Visit: No Status: Acute SKG shows Sr with ST depression and t-wave inversion in the anteriolateral leads. EKG unchanged from EKG completed 09/05/17 in the cardiology office. Troponin negative x3. TTE shows continued low EF. Ok to stop heparin gtt. Recommend restarting home meds and social director consult for medication assistance. Consider stress test if she continues to have chest pain. (2) Chest pain Current Visit: No Status: Acute Typical chest pain symptoms. Patient without cardiac medications for two months. Current mild acute exacerbation of acute systolic CHF. EKG unchanged from previous. Troponin negative x3. VQ scan low prob for PE. Medication compliance discussed. Now pain free. If chest pain continues consider stress test. Qualifiers: Chest pain type: other chest pain Qualified Code(s): R07.89 - Other chest pain; R07.8 - Other chest pain (3) CHF (congestive heart failure) Current Visit: No Status: Chronic Acute on chronic systolic (LV and RV dysfunction) CHF in the setting of medication non-compliance and dietary indiscretion. Patient only eating canned vegetables. Restart home meds. IV diuresis. Symptoms improved. TTE -09/18/17, LVEF 25%. Severe global and regional LV systolic dysfunction. Atypical septal motion. Indeterminate diastolic function. There is no evidence for LV thrombus. Definity echo contrast was not used. Mild concentric left ventricular hypertrophy. Normal LV size. Normal right ventricular structure with probably low normal function. S/p mitral valve repair with a 28 mm Medtronic annuloplasty ring which appears well seated. There is mild central mitral regurgitation. No pulmonary hypertension. No improvement in EF in the setting of non-compliance. Consider ICD in out- patient setting. Strict I&O and daily weights. Agree with IV lasix (started today) continues to have abdominal bloating. Start oral lasix at discharge. Continue bb and aceI. CHF education reviewed. Qualifiers: Congestive heart failure type: combined Congestive heart failure chronicity : chronic Qualified Code(s): I50.42 - Chronic combined systolic (congestive) and diastolic (congestive) heart failure Discussion w patient/family: The assessment and plan as outlined above was discussed with the patient and/or family members who expressed understanding and agreement. All questions were answered. Thank you for involving us in the care of your patient. Please call with any questions. History of Present Illness Consult date: 09/21/17 Requesting physician: Sudhakar Edmond Consult reason: Abnormal EKG Chief complaint: SOB, chest pain History of present illness: Ms. Lorenzo is a 57 year old female who presented with the c/o left sided chest pain radiating to her neck and left arm and increasing SOB. SHe also c/o BLE edema and increased abdominal girth. She states she ran out of medications over 2 months ago and has not been able to afford refills. She has a past medical history of [place] s/p CABG and mitral valve annuloplasty 2016 at [facility], CHF, HTN, HLD, PVD, CKD, COPD, and bipolar. Unfortunately, she is noted to have poor cardiology f/u since her OHS and medical non-compliance in the past although she was seen by cardiology recently. TTE ordered at that time. Noted to have multiple hospital visits at [facility] and [facility]. Cardiac testing includes troponin negative x3 and EKG showing SR with ST depression and T wave inversion in the anteriolateral leads. BNP was 618 and CXR showed mild pulmonary edema. Cardiology consulted for abnormal EKG. Patient is a poor historian and does not remember what cardiac testing she had at OSH recently. Previosu cardiac testing: TTE 09/18/17LVEF 25%. Severe global and regional LV systolic dysfunction. Atypical septal motion. Indeterminate diastolic function. There is no evidence for LV thrombus. Definity echo contrast was not used. Mild concentric left ventricular hypertrophy. Normal LV size. Normal right ventricular structure with probably low normal function. S/p mitral valve repair with a 28 mm Medtronic annuloplasty ring which appears well seated. There is mild central mitral regurgitation. No pulmonary hypertension. TTE 09/2016- EF 25-30%. Severe global/ segmental dysf. Limited study. Previously 60% on TTE 2015. No echo seen in [place] reports. [facility] 09/2016- severe three vessel CAD including pLAD disease. Urgent high risk CABG recommended- transferred to [place]. Past Med Surg Social Fam HX - Past Medical History Medical history: arthritis, CHF, COPD, coronary artery disease, diabetes, fibromyalgia, GERD, hyperlipidemia, hypertension, migraine, myocardial infarction, osteoporosis, peripheral artery disease, renal disease, syncope, venous stasis, other Psychiatric history: anxiety, bipolar, depression - Past Surgical History Surgical History: cholecystectomy, coronary bypass (CABG), orthopedic, other, other (Mitral valve annuloplasty) - Social History Smoking Status: Current every day smoker Smokeless Tobacco Status: No Alcohol use: none Drug use: none - Family History Mother Living Status: Hx Family Cardiac Disorders: Yes (cardiomyothy) Hx Family Respiratory Disorders: No Hx Family Cancer: Yes ("female") Hx Family GI Disorders: No Hx Family Endocrine Disorder: No Hx Family Neuromuscular Disorders: No Hx Family Neurologic Disorders: No Hx Family HEENT Disorders: No Hx Family Autoimmune Disorders: No Father Living Status: Still Living Hx Family Cardiac Disorders: Yes (4 heart stents) Hx Family Respiratory Disorders: No Hx Family Cancer: No Hx Family GI Disorders: No Hx Family Endocrine Disorder: Yes Hx Family Neuromuscular Disorders: No Hx Family Neurologic Disorders: No Hx Family HEENT Disorders: No Hx Family Autoimmune Disorders: No Medications and Allergies Nitroglycerin 0.4 mg SL Q5M PRN 05/20/17 [History] Albuterol Sulfate [Albuterol Inhaler] 2 puff IH Q4H PRN #1 inhaler 05/21/17 [Rx] Carvedilol [Coreg] 6.25 mg PO BID #30 tablet 05/21/17 [Rx] Lisinopril [Zestril] 10 mg PO DAILY #30 tablet 05/21/17 [Rx] SitaGLIPtin [Januvia] 100 mg PO DAILY #30 tablet 05/21/17 [Rx] Albuterol Neb [Proventil Neb] 2.5 mg IH Q4HR #6 inhsol 09/20/17 [Rx] Cyclosporine [Restasis] 1 drop BOTH EYES BID 09/20/17 [History] DULoxetine [Cymbalta] 30 mg PO DAILY 09/20/17 [History] Insulin Glargine [Lantus] 15 unit SQ QAM 09/20/17 [History] Metformin HCl [Metformin HCl ER] 1,000 mg PO BID 09/20/17 [History] Rosuvastatin Calcium [Rosuvastatin Calcium] 40 mg PO HS 09/20/17 [History] 3 Allergy/AdvReac Type Severity Reaction Status Date / Time latex Allergy Hives Verified 05/20/17 07:52 fluoxetine [From Prozac] AdvReac Agitated Verified 05/20/17 07:52 All Systems Review: A 10-system review of systems was performed and is negative for pertinent findings except as documented above in the HPI. Physical Examination Vital Signs, Last 4 Hours Temp Pulse Resp BP Pulse Ox 09/21/17 10:20 98.2 F 102 15 117/65 96 09/21/17 08:05 16 94 09/21/17 07:24 98.1 F 113 16 137/71 94 General: Conversant, No Apparent Distress HEENT: Atraumatic, Normocephaly, Mucus Membranes Moist Neck: No JVD, Normal carotid pulses Cardiac: Reg Rate and Rhythm, Normal S1 and S2, No Murmur Lungs: Normal Breath Sounds, No Wheeze, Rales, Rhonchi Neuro: Alert and responsive, No focal deficits noted Abdomen: Soft, Non-Tender, Other (Abdomen soft and round) Skin: No rashes noted on visualized skin Musculoskeletal: No Chest Wall Tenderness Extremities: No Clubbing, No Cyanosis, No Edema, Normal Pulses Results 09/21/17 01:32 09/21/17 01:32 Lab Results 09/20/17 09/21/17 09/21/17 22:34 01:32 01:32 WBC 5.3 Hgb 10.1 L D Hct 31.5 L Plt Count 254 APTT Sodium 135 L Potassium 4.1 Chloride 102 Carbon Dioxide 22 L BUN 16 Creatinine 0.77 Glucose 390 H Calcium 8.9 Troponin I < 0.03 09/21/17 09/21/17 01:32 08:39 WBC Hgb Hct Plt Count APTT 35.7 46.3 H Sodium Potassium Chloride Carbon Dioxide BUN Creatinine Glucose Calcium Troponin I Chest X-Ray 09/20/17 11:31 IMPRESSION: No significant interval change in the finding suggestive of mild pulmonary interstitial edema. Correlation with volume status is recommended. D/ / Phillip Bray MD / Phillip Bray MD Interpreting Provider: Phillip Bray MD Pulmonary Perfusion Imaging 09/20/17 14:56 IMPRESSION: Low Probability for Pulmonary Embolus. D/ / Han Ace MD / Han Ace MD Interpreting Provider: Han Ace MD - Imaging and Cardiology Echo: report reviewed - EKG Interpretation EKG results cardiology: personally reviewed Consult Discharge Plan - Plan Referrals: Roxane Henson DO [Primary Care Provider] - <Daren Anderson - Last Filed: 09/22/17 22:24> Date of Encounter: 09/21/17 Time of Encounter: 16:00 - Attending Attestation I have personally performed a face to face evaluation on this patient. I have reviewed and agree with the care plan. History and Exam by me shows CC: Chest pain Pt presented to ER with complaint of left sided chest pain, pressure sensation, associated with mild nausea, lasted approx twenty minutes, resolved spontaneously. Pt has extensive hx CAD, underwent emergency evaluation , culminating in bypass surgery at [facility]. Pt has been non-compliant with medical tx. has been unable to obtain her medications for the last two months. She reports she would take her medications if she could procure them. She is pain free at present. PE: Reviewed above, agree, IMP: 1. Chest pain, has ruled out for acute myocardial necrosis by EKG and enzematic criteria, is now pain free back on optimal medical tx. Home Theatre [employer] contacted for possible help with home medications. 2. Severe triple vessel CAD, post CABG x 3 09/2016 3. Acute on chronic systolic heart failure, due to noncompliance with medical tx , sodium and fluid restrictions, severe LV systolic impairment, EF 25% at last evaluation, with fluid retention, will monitor back on medication. Pt is a candidate for AICD by MADITT 2 criteria, however needs to be compliant. : Assessment and Plan Discussion w patient/family: The assessment and plan as outlined above was discussed with the patient and/or family members who expressed understanding and agreement. All questions were answered. Thank you for involving us in the care of your patient. Please call with any questions. History of Present Illness History of present illness: Ms. Lorenzo is a 57 year old female All Systems Review: A 10-system review of systems was performed and is negative for pertinent findings except as documented above in the HPI. Physical Examination Vital Signs, Last 4 Hours Temp Pulse Resp BP Pulse Ox 09/22/17 19:45 16 98 09/22/17 19:23 98.3 F 102 15 115/83 95 Results 09/22/17 04:03 09/22/17 04:03 Lab Results 09/22/17 09/22/17 04:03 04:03 WBC 6.9 Hgb 10.0 L Hct 31.2 L Plt Count 245 Sodium 140 Potassium 4.3 Chloride 106 Carbon Dioxide 30 H BUN 22 H Creatinine 0.59 L Glucose 155 H Calcium 8.6
--- NOTE | 2017-09-21 17:39 | Internal Med Progress Note ---
Date of Encounter: 09/21/17 Time of Encounter: 17:36 - Assessment and plan (1) Abnormal EKG Current Visit: Yes Status: Acute Assessment and plan: Etiology consult and reviewed EKG which showed a sinus rhythm with ST depression and T-wave inversions in the anterolateral leads. On comparison to the EKG and a contact printer dry film's office from 09/05/17 is unchanged Recommended stopping heparin drip Troponins are negative 3 Echocardiogram revealed low EF Restart home meds Social service consult for medication assistance (2) Chest pain Current Visit: Yes Status: Acute Assessment and plan: Cardiology consult Typical chest pain symptoms in patient without cardiac medications for two months. Troponin negative x3. CTA with no evidence for acute pulmonary embolism, and thyroid calcified 12 mm posterior left lung base nodule. Pain free. If chest pain continues consider stress test. Qualifiers: Chest pain type: unspecified Qualified Code(s): R07.9 - Chest pain, unspecified (3) CHF (congestive heart failure) Current Visit: Yes Status: Chronic Assessment and plan: Acute on chronic systolic (LV and RV dysfunction) CHF in the setting of medication non-compliance and dietary indiscretion. Restart home meds. Continue IV Lasix Symptoms improved. Echo report from the cardiology office from 09/18/17, LVEF 25%. Severe global and regional LV systolic dysfunction. Atypical septal motion. Indeterminate diastolic function. There is no evidence for LV thrombus. Definity echo contrast was not used. Mild concentric left ventricular hypertrophy. Normal LV size. Normal right ventricular structure with probably low normal function. S/p mitral valve repair with a 28 mm Medtronic annuloplasty ring which appears well seated. There is mild central mitral regurgitation. No pulmonary hypertension. Qualifiers: Congestive heart failure type: combined Congestive heart failure chronicity : chronic Qualified Code(s): I50.42 - Chronic combined systolic (congestive) and diastolic (congestive) heart failure (4) Diabetes mellitus type 2 in obese Current Visit: Yes Status: Chronic Assessment and plan: Low-dose sliding scale insulin before meals and at bedtime follow Accu-Cheks Diabetic and cardiac diet Patient has not been compliant with her diet at home and questionable with her compliance with her medications She says she takes metformin twice a day and insulin daily (5) Hypertension Current Visit: Yes Status: Chronic Assessment and plan: Pressure is soft. Continue to monitor closely Qualifiers: Hypertension type: essential hypertension Qualified Code(s): I10 - Essential (primary) hypertension (6) DVT prophylaxis Current Visit: Yes Status: Acute Assessment and plan: Lovenox subcutaneously - Subjective Interval history: The patient is lying in the bed in no acute distress. She utilizes oxygen at home on a when necessary basis and is currently on 3 L satting 97%. She states she feels short of breath. She stopped taking her medications 2 months ago. She told me that she changed doctors, she told the nurse she could not afford the medications. Then she said she is still taking her metformin and insulin as ordered, she also states that she has [facility] that comes on a regular basis and her home nurse is trying to get her her meds at a cheaper tran. She also asked me if I could call the pharmacy to negotiate a lower tran for her NicoDerm patches. She denies fever, chills, chest pain, nausea, changes in bowel or bladder, recent illness or syncope/dizziness. - Constitutional Vitals: Temp Pulse Resp BP Pulse Ox 97.9 F 106 16 96/58 97 09/21/17 14:56 09/21/17 14:56 09/21/17 14:56 09/21/17 14:56 09/21/17 14:56 General appearance: Present: cooperative, A&O X 3, pleasant, no acute distress, obese, answers questions appropriately - Head Head exam: Present: atraumatic, normocephalic - Eye Eye exam: Present: conjuntiva pink, sclera anicteric - Neck Neck exam general surgery: Present: supple, trachea midline. Absent: lymphadenopathy - Respiratory Respiratory exam: Present: decreased breath sounds, CTAB. Absent: accessory muscle use, chest wall tenderness, rales, respiratory distress, rhonchi, wheezes - Cardiovascular Cardiovascular exam: Present: RRR, +S1, +S2. Absent: diastolic murmur, gallop, rubs, systolic murmur - GI/Abdominal GI/Abdominal exam: Present: normal bowel sounds, soft, no peritoneal signs. Absent: distended, tenderness - Extremities Exam Extremities exam: Present: warm, radial pulses palpable and symmetrical. Absent : calf tenderness, cyanotic, pedal edema, tenderness - Neurological Exam Neurological exam: Present: oriented X3, no focal deficits. Absent: pronater drift, facial droop, speech deficit - Skin Skin exam: Present: dry, intact, warm Internal Medicine: Result - Labs CBC & Chem 7: 09/21/17 01:32 09/21/17 01:32 Labs: Short CBC 09/21/17 Range/Units 01:32 WBC 5.3 (4.3-11.1) K/mcL Hgb 10.1 L D (11.5-15.4) g/dL Hct 31.5 L (35.3-44.9) % Plt Count 254 (140-400) K/mcL Neutrophils # 4.6 (1.6-8.9) K/mcL BMP 09/21/17 01:32 Sodium 135 L Potassium 4.1 Chloride 102 Carbon Dioxide 22 L BUN 16 Creatinine 0.77 Glucose 390 H Calcium 8.9 Cardiac Enzymes 09/20/17 Range/Units 22:34 Troponin I < 0.03 (< 0.04) ng/mL - ABG Interpretation ABG results: PT/INR, D-dimer PT 11.1 Seconds (9.4-12.1) 09/20/17 17:47 D-Dimer 971 ng/mLFEU (0-500) H 09/20/17 11:41 - Impressions Impressions Chest CTA 09/21/17 13:30 IMPRESSION: 1. No evidence for acute pulmonary embolism. 2. Densely calcified 12 mm posterior left lung base nodule. 3. 2 bandlike left lower lobe basal pleural-parenchymal densities representing subsegmental atelectasis and/or atelectasis. D/ / Daren Bowman MD / Daren Bowman MD Interpreting Provider: Daren Bowman MD Consult Discharge Plan - Plan Referrals: Roxane Henson DO [Primary Care Provider] -
[2017-09-22] MEDS: Ipratropium/Albuterol Neb 3 ML IH SCH ×6 (03:22→23:24)
[2017-09-22 04:24] LABS: Basophils % 0.6 %; Eosinophils # 0.1 K/mcL (0.0-0.6); Eosinophils % 1.9 %; Hematocrit 31.2 % (35.3-44.9); Lymphocytes # 3.2 K/mcL (0.6-4.6); Lymphocytes % 45.7 %; Mean Corpuscular HGB Conc 32.1 g/dL (31.6-35.5); Mean Corpuscular Hemoglobin 25.8 pg (28.0-33.3); Mean Corpuscular Volume 80.6 fL (83.0-100.0); Mean Platelet Volume 10.6 fL (9.4-12.4); Monocytes # 0.4 K/mcL (0.0-1.3); Monocytes % 5.6 %; Neutrophils # 3.1 K/mcL (1.6-8.9); Platelet Count 245 K/mcL (140-400); Red Blood Count 3.87 M/mcL (3.82-4.97); Red Cell Distribution Width 16.7 % (11.5-14.5); Segmented Neutrophils % 45.2 %
[2017-09-22 04:31] LABS: Hemoglobin A1C 6.6 %
[2017-09-22 04:41] LABS: BUN/Creatinine Ratio 37 (6-26); Blood Urea Nitrogen 22 mg/dL (6-20); Calcium 8.6 mg/dL (8.6-10.3); Carbon Dioxide 30 mEq/L (23-29); Chloride 106 mEq/L (98-107); Glucose 155 mg/dL (70-105); Osmolality,Calculated 296 (280-300); Potassium 4.3 mEq/L (3.5-5.1); Sodium 140 mEq/L (136-145); eGFR For African Americans > 60 (> 60); eGFR For Non-African Americans > 60 (> 60)
[2017-09-22] MEDS: *HR* Enoxaparin 40 MG/0.4 ML SYRINGE SQ SCH (06:26)
[2017-09-22] MEDS: Furosemide 20 MG/2 ML VIAL IVP SCH ×2 (08:08→16:29)
[2017-09-22] MEDS: (Cyclosporine [Restasis] 1 DROP) OP SCH ×2 (08:08→19:44)
[2017-09-22] MEDS: Insulin DETEMIR 100 UNIT/ML X5UNITS SQ SCH (08:08)
[2017-09-22] MEDS: Aspirin 81 MG TAB.CHEW PO SCH (08:08)
[2017-09-22] MEDS: Pregabalin 75 MG CAPSULE PO SCH ×2 (08:08→19:46)
[2017-09-22] MEDS: Insulin LISPRO 300 UNITS/3 ML VIAL SQ SCH ×4 (08:09→21:15)
--- NOTE | 2017-09-22 10:15 | Electrocardiograph Report ---
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
--- NOTE | 2017-09-22 10:28 | Internal Med Progress Note ---
Date of Encounter: 09/22/17 Time of Encounter: 10:25 - Assessment and plan (1) Abnormal EKG Current Visit: Yes Status: Acute Assessment and plan: Cardiology consulted and reviewed the EKG which showed a sinus rhythm with ST depression and T-wave inversions in the anterolateral leads. This was compared to the EKG at the geology technician's office from 09/05/17 and is unchanged Recommended stopping heparin drip Troponins are negative 3 Echocardiogram revealed low EF Restart home meds Social service consult for medication assistance Continue monitoring engineer (2) Chest pain Current Visit: Yes Status: Acute Assessment and plan: Cardiology consult Typical chest pain symptoms in patient without cardiac medications for two months. Troponin negative x3. CTA with no evidence for acute pulmonary embolism, and thyroid calcified 12 mm posterior left lung base nodule. Pain free. Chest pain free this am Qualifiers: Chest pain type: unspecified Qualified Code(s): R07.9 - Chest pain, unspecified (3) CHF (congestive heart failure) Current Visit: Yes Status: Chronic Assessment and plan: Lung sounds improved, now on room air. Acute on chronic systolic (LV and RV dysfunction) CHF in the setting of medication non-compliance and dietary indiscretion. Continue home meds. Continue IV Lasix Symptoms improved. Echo report from the cardiology office from 09/18/17, LVEF 25%. Severe global and regional LV systolic dysfunction. Atypical septal motion. Indeterminate diastolic function. There is no evidence for LV thrombus. Definity echo contrast was not used. Mild concentric left ventricular hypertrophy. Normal LV size. Normal right ventricular structure with probably low normal function. S/p mitral valve repair with a 28 mm Medtronic annuloplasty ring which appears well seated. There is mild central mitral regurgitation. No pulmonary hypertension. Qualifiers: Congestive heart failure type: combined Congestive heart failure chronicity : chronic Qualified Code(s): I50.42 - Chronic combined systolic (congestive) and diastolic (congestive) heart failure (4) Diabetes mellitus type 2 in obese Current Visit: Yes Status: Chronic Assessment and plan: Low-dose sliding scale insulin before meals and at bedtime follow Accu-Cheks Diabetic and cardiac diet Patient has not been compliant with her diet at home and questionable with her compliance with her medications She says she takes metformin twice a day and insulin daily Hemoglobin A1c 6.6 T glucose was better controlled this morning (5) Hypertension Current Visit: Yes Status: Chronic Assessment and plan: Pressure is normalized. Continue to monitor closely Qualifiers: Hypertension type: essential hypertension Qualified Code(s): I10 - Essential (primary) hypertension (6) DVT prophylaxis Current Visit: Yes Status: Acute Assessment and plan: Lovenox subcutaneously - Subjective Interval history: The patient is lying in the bed in no acute distress. She utilizes oxygen at home on a when necessary basis and is currently on room air satting 95%. She states she feels short of breath intermittently but it is better this morning. She denies fever, chills, chest pain, nausea, changes in bowel or bladder, recent illness or syncope/dizziness. She states her throat is sore and she has chronic postnasal drip. He also reported one episode of tightness overnight that was fleeting. - Constitutional Vitals: Temp Pulse Resp BP Pulse Ox 97.5 F L 95 17 101/68 95 09/22/17 06:44 09/22/17 06:44 09/22/17 07:33 09/22/17 06:44 09/22/17 07:33 General appearance: Present: cooperative, A&O X 3, pleasant, no acute distress, obese, answers questions appropriately - Head Head exam: Present: atraumatic, normocephalic - Eye Eye exam: Present: PERRL, conjuntiva pink, sclera anicteric Pupils: Present: PERRL - ENT ENT exam: Present: mucous membranes moist Additional comments: Throat is non-red - Neck Neck exam general surgery: Present: supple, trachea midline. Absent: lymphadenopathy - Respiratory Respiratory exam: Present: decreased breath sounds. Absent: accessory muscle use, rales, respiratory distress, rhonchi, wheezes - Cardiovascular Cardiovascular exam: Present: RRR, +S1, +S2. Absent: diastolic murmur, gallop, rubs, systolic murmur - GI/Abdominal GI/Abdominal exam: Present: normal bowel sounds, soft, no peritoneal signs. Absent: distended, tenderness Additional comments: Obese abdomen - Extremities Exam Extremities exam: Present: warm, radial pulses palpable and symmetrical. Absent : calf tenderness, cyanotic, pedal edema, tenderness - Neurological Exam Neurological exam: Present: oriented X3, no focal deficits. Absent: pronater drift, facial droop, speech deficit - Skin Skin exam: Present: dry, intact, warm Internal Medicine: Result - Labs CBC & Chem 7: 09/22/17 04:03 09/22/17 04:03 Labs: Short CBC 09/22/17 Range/Units 04:03 WBC 6.9 (4.3-11.1) K/mcL Hgb 10.0 L (11.5-15.4) g/dL Hct 31.2 L (35.3-44.9) % Plt Count 245 (140-400) K/mcL Neutrophils # 3.1 (1.6-8.9) K/mcL BMP 09/22/17 04:03 Sodium 140 Potassium 4.3 Chloride 106 Carbon Dioxide 30 H BUN 22 H Creatinine 0.59 L Glucose 155 H Calcium 8.6 - ABG Interpretation ABG results: PT/INR, D-dimer PT 11.1 Seconds (9.4-12.1) 09/20/17 17:47 D-Dimer 971 ng/mLFEU (0-500) H 09/20/17 11:41 - Impressions Impressions Chest CTA 09/21/17 13:30 IMPRESSION: 1. No evidence for acute pulmonary embolism. 2. Densely calcified 12 mm posterior left lung base nodule. 3. 2 bandlike left lower lobe basal pleural-parenchymal densities representing subsegmental atelectasis and/or atelectasis. D/ / Daren Bowman MD / Daren Bowman MD Interpreting Provider: Daren Bowman MD Consult Discharge Plan - Plan Referrals: Roxane Henson DO [Primary Care Provider] -
[2017-09-22] MEDS: Chloraseptic Spray 177 ML BOTTLE MM PRN ×2 (12:12→16:29)
--- NOTE | 2017-09-22 13:20 | Cardiology Progress Note ---
Date of Encounter: 09/22/17 Time of Encounter: 12:00 Assessment and Plan (1) Abnormal EKG Current Visit: Yes Status: Acute SKG shows Sr with ST depression and t-wave inversion in the anteriolateral leads. EKG unchanged from EKG completed 09/05/17 in the cardiology office. Troponin negative x3. TTE shows continued low EF. Ok to stop heparin gtt. Recommend restarting home meds and social work manager consult for medication assistance. Consider stress test if she continues to have chest pain. (2) Chest pain Current Visit: Yes Status: Acute Typical chest pain symptoms. Patient without cardiac medications for two months. Current mild acute exacerbation of acute systolic CHF. EKG unchanged from previous. Troponin negative x3. VQ scan low prob for PE. Medication compliance discussed. Now pain free. Denies further chest pain. Follow-up in the outpatient setting. Qualifiers: Chest pain type: unspecified Qualified Code(s): R07.9 - Chest pain, unspecified (3) CHF (congestive heart failure) Current Visit: Yes Status: Chronic Acute on chronic systolic (LV and RV dysfunction) CHF in the setting of medication non-compliance and dietary indiscretion. Patient only eating canned vegetables. Restart home meds. IV diuresis. Symptoms improved. TTE -09/18/17, LVEF 25%. Severe global and regional LV systolic dysfunction. Atypical septal motion. Indeterminate diastolic function. There is no evidence for LV thrombus. Definity echo contrast was not used. Mild concentric left ventricular hypertrophy. Normal LV size. Normal right ventricular structure with probably low normal function. S/p mitral valve repair with a 28 mm Medtronic annuloplasty ring which appears well seated. There is mild central mitral regurgitation. No pulmonary hypertension. No improvement in EF in the setting of non-compliance. Consider ICD in out- patient setting. Strict I&O and daily weights. Agree with IV lasix (started today) continues to have abdominal bloating. Start oral lasix at discharge. Continue bb and aceI. CHF education reviewed. No further recommendations as inpatient, counseled on importance of medication compliance. States has difficulty affording medications--social work consult placed. Qualifiers: Congestive heart failure type: combined Congestive heart failure chronicity : chronic Qualified Code(s): I50.42 - Chronic combined systolic (congestive) and diastolic (congestive) heart failure Discussion w patient/family: The assessment and plan as outlined above was discussed with the patient and/or family members who expressed understanding and agreement. All questions were answered. Thank you for involving us in the care of your patient. Please call with any questions. The patient was discussed and reviewed with Dr. Anderson; Cardiology will sign- off. Subjective Principal diagnosis: Chest pain Interval history: No recurrent chest pain or discomfort overnight. Laying flat upon exam, dyspnea improved. No other symptoms reported. Objective Vital Signs, Last 4 Hours Temp Pulse Resp BP Pulse Ox 09/22/17 11:53 97.8 F 96 17 105/73 98 09/22/17 11:22 17 95 General: Conversant, No Apparent Distress HEENT: Atraumatic, Normocephaly Cardiac: Reg Rate and Rhythm, Normal S1 and S2 Lungs: Normal Breath Sounds Neuro: Alert and responsive Abdomen: Soft Skin: No rashes noted on visualized skin Musculoskeletal: No Chest Wall Tenderness Extremities: No Edema, Normal Pulses Results 09/22/17 04:03 09/22/17 04:03 Lab Results 09/21/17 09/22/17 09/22/17 16:11 04:03 04:03 WBC 6.9 Hgb 10.0 L Hct 31.2 L Plt Count 245 APTT 53.4 H Sodium 140 Potassium 4.3 Chloride 106 Carbon Dioxide 30 H BUN 22 H Creatinine 0.59 L Glucose 155 H Calcium 8.6 Active Medications Albuterol Sulfate (Albuterol Inhaler) 2 puff IH Q4H PRN PRN Reason: Shortness Of Breath Stop: 03/22/18 18:34 Albuterol/Ipratropium (Duoneb) 3 ml IH [id number] DAVID Stop: 03/22/18 20:01 Last Admin: 09/22/17 11:21 Dose: 3 ml Aspirin (Aspirin) 81 mg PO DAILY DAVID Stop: 03/23/18 09:01 Last Admin: 09/22/17 08:08 Dose: 81 mg Carvedilol (Coreg) 6.25 mg PO BID DAVID PRN Reason: Protocol Stop: 03/22/18 21:01 Last Admin: 09/22/17 08:08 Dose: 6.25 mg Dextrose/Water (Dextrose 50% (Syg)) 25 ml IVP AD PRN PRN Reason: Hypoglycemia Stop: 03/22/18 18:36 Duloxetine HCl (Cymbalta) 30 mg PO DAILY [facility] Stop: 03/23/18 09:01 Last Admin: 09/22/17 08:08 Dose: 30 mg Enoxaparin Sodium (Lovenox) 40 mg SQ 0600 [facility] PRN Reason: Protocol Stop: 03/24/18 06:01 Last Admin: 09/22/17 06:26 Dose: 40 mg Furosemide (Lasix) 20 mg IVP BIDDIURETIC [facility] Stop: 03/22/18 18:31 Last Admin: 09/22/17 08:08 Dose: 20 mg Glucagon (Glucagen) 1 mg IM ONCE PRN PRN Reason: Hypoglycemia Stop: 03/22/18 18:36 Glucose (Gluctose) 15 gm PO ONCE PRN PRN Reason: Hypoglycemia Stop: 03/22/18 18:36 Glucose (Gluctose) 30 gm PO ONCE PRN PRN Reason: Hypoglycemia Stop: 03/22/18 18:36 Dextrose (Dextrose 5%) 1,000 mls @ 100 mls/hr IVC .Q10H PRN PRN Reason: HYPOGLYCEMIA Stop: 03/22/18 18:36 Insulin Detemir (Levemir) 15 unit SQ QAM [facility] Stop: 03/23/18 09:01 Last Admin: 09/22/17 08:08 Dose: 15 unit Insulin Human Lispro (Humalog) 0 units SQ TIDAC [facility] PRN Reason: Protocol Stop: 03/23/18 07:31 Last Admin: 09/22/17 12:04 Dose: Not Given Insulin Human Lispro (Humalog) 0 units SQ HS [facility] PRN Reason: Protocol Stop: 03/22/18 21:01 Last Admin: 09/21/17 21:52 Dose: Not Given Lisinopril (Zestril) 10 mg PO DAILY [facility] PRN Reason: Protocol Stop: 03/23/18 09:01 Last Admin: 09/22/17 08:08 Dose: 10 mg Multi-Ingredient Mucositis [place] (Chloraseptic) 2 spray MM QID PRN PRN Reason: Sore Throat Stop: 03/24/18 06:46 Last Admin: 09/22/17 12:12 Dose: 2 spray Naloxone HCl (Narcan) 0.4 mg IVP Q2MIN PRN PRN Reason: Opioid Reversal Stop: 03/22/18 18:36 Nitroglycerin (Nitroglycerin) 0.4 mg SL Q5M PRN PRN Reason: Chest Pain Stop: 03/22/18 18:34 Pharmacy Profile Note (Patient Taking Own Medication) 0 each OP BID [facility] Stop: 03/22/18 21:01 Last Admin: 09/22/17 08:08 Dose: Not Given Pregabalin (Lyrica) 150 mg PO BID [facility] Stop: 03/23/18 01:46 Last Admin: 09/22/17 08:08 Dose: 150 mg Quetiapine Fumarate (Seroquel) 100 mg PO HS [facility] PRN Reason: Protocol Stop: 03/23/18 02:16 Last Admin: 09/21/17 21:38 Dose: 100 mg Rosuvastatin Calcium (Crestor) 40 mg PO [facility] Stop: 03/22/18 21:01 Last Admin: 09/21/17 21:38 Dose: 40 mg - Imaging and Cardiology Echo: report reviewed - EKG Interpretation EKG results cardiology: personally reviewed Consult Discharge Plan - Plan Referrals: Roxane Henson DO [Primary Care Provider] -
[2017-09-22] MEDS ORDERED: ALPRAZolam 0.5 MG TABLET PO ONE (18:56)
[2017-09-23] MEDS: Ipratropium/Albuterol Neb 3 ML IH SCH ×6 (03:41→23:44)
[2017-09-23] MEDS: *HR* Enoxaparin 40 MG/0.4 ML SYRINGE SQ SCH (06:06)
[2017-09-23] MEDS: Furosemide 20 MG/2 ML VIAL IVP SCH ×2 (08:19→16:34)
[2017-09-23] MEDS: Insulin DETEMIR 100 UNIT/ML X5UNITS SQ SCH (08:19)
[2017-09-23] MEDS: Pregabalin 75 MG CAPSULE PO SCH ×2 (08:19→21:12)
[2017-09-23] MEDS: Aspirin 81 MG TAB.CHEW PO SCH (08:19)
[2017-09-23] MEDS: Insulin LISPRO 300 UNITS/3 ML VIAL SQ SCH ×4 (08:20→21:20)
[2017-09-23] MEDS: (Cyclosporine [Restasis] 1 DROP) OP SCH ×2 (08:31→21:14)
[2017-09-23] MEDS: Chloraseptic Spray 177 ML BOTTLE MM PRN ×2 (11:56→16:34)
[2017-09-23] MEDS: ALPRAZolam 0.5 MG TABLET PO PRN ×2 (13:09→21:12)
--- NOTE | 2017-09-23 17:21 | Internal Med Progress Note ---
Date of Encounter: 09/23/17 Time of Encounter: 17:19 - Assessment and plan (1) Abnormal EKG Current Visit: Yes Status: Acute Assessment and plan: Cardiology consulted and reviewed the EKG which showed a sinus rhythm with ST depression and T-wave inversions in the anterolateral leads. This was compared to the EKG at the pharmacy manager's office from 09/05/17 and is unchanged Recommended stopping heparin drip Troponins negative 3 Echocardiogram revealed low EF Continue home meds Social service consult for medication assistance Continue cloth spreader (2) Chest pain Current Visit: Yes Status: Acute Assessment and plan: Cardiology consult Typical chest pain symptoms in patient without cardiac medications for two months. Troponin negative x3. CTA with no evidence for acute pulmonary embolism, and thyroid calcified 12 mm posterior left lung base nodule. Remains Pain free. Chest pain free this am Qualifiers: Chest pain type: unspecified Qualified Code(s): R07.9 - Chest pain, unspecified (3) CHF (congestive heart failure) Current Visit: Yes Status: Chronic Assessment and plan: Lung sounds improved, remains on room air. Acute on chronic systolic (LV and RV dysfunction) CHF in the setting of medication non-compliance and dietary indiscretion. Continue home meds. Continue IV Lasix Symptoms improved. Echo report from the cardiology office from 09/18/17, LVEF 25%. Severe global and regional LV systolic dysfunction. Atypical septal motion. Indeterminate diastolic function. There is no evidence for LV thrombus. Definity echo contrast was not used. Mild concentric left ventricular hypertrophy. Normal LV size. Normal right ventricular structure with probably low normal function. S/p mitral valve repair with a 28 mm Medtronic annuloplasty ring which appears well seated. There is mild central mitral regurgitation. No pulmonary hypertension. Qualifiers: Congestive heart failure type: combined Congestive heart failure chronicity : chronic Qualified Code(s): I50.42 - Chronic combined systolic (congestive) and diastolic (congestive) heart failure (4) Diabetes mellitus type 2 in obese Current Visit: Yes Status: Chronic Assessment and plan: Low-dose sliding scale insulin before meals and at bedtime follow Accu-Cheks Diabetic and cardiac diet Patient has not been compliant with her diet at home and questionable with her compliance with her medications She says she takes metformin twice a day and insulin daily Hemoglobin A1c 6.6 glucose with better control (5) Hypertension Current Visit: Yes Status: Chronic Qualifiers: Hypertension type: essential hypertension Qualified Code(s): I10 - Essential (primary) hypertension (6) DVT prophylaxis Current Visit: Yes Status: Acute - Subjective Interval history: The patient is lying in the bed in no acute distress. She utilizes oxygen at home on a when necessary basis and is currently on room air satting 95%. She states she is better this morning. She denies fever, chills, chest pain, nausea , changes in bowel or bladder, recent illness or syncope/dizziness. I encouraged her to walk in the [place] - Constitutional Vitals: Temp Pulse Resp BP Pulse Ox 97.7 F 106 16 157/69 98 09/23/17 15:45 09/23/17 15:45 09/23/17 16:35 09/23/17 15:45 09/23/17 16:35 General appearance: Present: cooperative, A&O X 3, pleasant, no acute distress, obese, answers questions appropriately - Head Head exam: Present: atraumatic, normocephalic - Eye Eye exam: Present: conjuntiva pink, sclera anicteric - Neck Neck exam general surgery: Present: supple, trachea midline. Absent: lymphadenopathy - Respiratory Respiratory exam: Present: CTAB. Absent: accessory muscle use, rales, rhonchi, wheezes - Cardiovascular Cardiovascular exam: Present: RRR, +S1, +S2. Absent: diastolic murmur, gallop, rubs, systolic murmur - GI/Abdominal GI/Abdominal exam: Present: normal bowel sounds, soft, no peritoneal signs. Absent: distended, tenderness - Extremities Exam Extremities exam: Present: warm, radial pulses palpable and symmetrical. Absent : calf tenderness, cyanotic, pedal edema - Neurological Exam Neurological exam: Present: CN II-XII intact, oriented X3, no focal deficits. Absent: pronater drift, facial droop, speech deficit - Skin Skin exam: Present: dry, intact, warm Internal Medicine: Result - Labs CBC & Chem 7: 09/22/17 04:03 09/22/17 04:03 - ABG Interpretation ABG results: PT/INR, D-dimer PT 11.1 Seconds (9.4-12.1) 09/20/17 17:47 D-Dimer 971 ng/mLFEU (0-500) H 09/20/17 11:41 Consult Discharge Plan - Plan Referrals: Henson,Roxane Vianey, DO [Primary Care Provider] -
[2017-09-24] MEDS: Ipratropium/Albuterol Neb 3 ML IH SCH ×3 (04:04→11:36)
[2017-09-24 04:35] LABS: Basophils % 0.7 %; Eosinophils # 0.2 K/mcL (0.0-0.6); Eosinophils % 3.2 %; Hematocrit 34.6 % (35.3-44.9); Hemoglobin 10.7 g/dL (11.5-15.4); Immature Granulocytes % 1.8 % (0-4); Lymphocytes # 2.4 K/mcL (0.6-4.6); Lymphocytes % 39.7 %; Mean Corpuscular HGB Conc 30.9 g/dL (31.6-35.5); Mean Corpuscular Volume 80.8 fL (83.0-100.0); Mean Platelet Volume 10.9 fL (9.4-12.4); Monocytes # 0.4 K/mcL (0.0-1.3); Monocytes % 6.3 %; Neutrophils # 2.9 K/mcL (1.6-8.9); Nucleated Red Blood Cells 0.7 /100 WBC (0); Platelet Count 275 K/mcL (140-400); Red Blood Count 4.28 M/mcL (3.82-4.97); Red Cell Distribution Width 15.8 % (11.5-14.5); Segmented Neutrophils % 48.3 %
[2017-09-24] MEDS: *HR* Enoxaparin 40 MG/0.4 ML SYRINGE SQ SCH (05:52)
[2017-09-24] MEDS: ALPRAZolam 0.5 MG TABLET PO PRN (05:55)
[2017-09-24] MEDS: Furosemide 20 MG/2 ML VIAL IVP SCH (08:23)
[2017-09-24] MEDS: Insulin LISPRO 300 UNITS/3 ML VIAL SQ SCH (08:23)
[2017-09-24] MEDS: (Cyclosporine [Restasis] 1 DROP) OP SCH (08:24)
[2017-09-24] MEDS: Aspirin 81 MG TAB.CHEW PO SCH (08:24)
[2017-09-24] MEDS: Pregabalin 75 MG CAPSULE PO SCH (08:24)
[2017-09-24 09:30] LABS: BUN/Creatinine Ratio 45 (6-26); Blood Urea Nitrogen 28 mg/dL (6-20); Calcium 8.7 mg/dL (8.6-10.3); Carbon Dioxide 28 mEq/L (23-29); Chloride 98 mEq/L (98-107); Glucose 252 mg/dL (70-105); Osmolality,Calculated 294 (280-300); Sodium 135 mEq/L (136-145); eGFR For African Americans > 60 (> 60); eGFR For Non-African Americans > 60 (> 60)
[2017-09-24] MEDS: Insulin DETEMIR 100 UNIT/ML X5UNITS SQ SCH (10:02)
--- NOTE | 2017-09-24 10:18 | Discharge Summary ---
Date of Encounter: 09/24/17 Time of Encounter: 10:14 - Discharge Diagnosis (1) Abnormal EKG Priority: Primary Status: Acute Comments: Cardiology consulted and reviewed the EKG which showed a sinus rhythm with ST depression and T-wave inversions in the anterolateral leads. This was compared to the EKG at the customer service voice's office from 09/05/17 and is unchanged Troponins negative 3 Echocardiogram revealed low EF Continue home meds Social service consult for medication assistance (2) Chest pain Priority: Primary Status: Acute Comments: Cardiology consult and f/u as outpatient Typical chest pain symptoms in patient without cardiac medications for two months. Troponin negative x3. CTA with no evidence for acute pulmonary embolism, and densely calcified 12 mm posterior left lung base nodule. Remains Pain free. Chest pain free during stay Qualifiers: Chest pain type: unspecified Qualified Code(s): R07.9 - Chest pain, unspecified (3) CHF (congestive heart failure) Priority: Primary Status: Chronic Comments: Lung sounds clear, remains on room air. Acute on chronic systolic (LV and RV dysfunction) CHF in the setting of medication non-compliance and dietary indiscretion. Continue home meds. resume oral lasix on discharge Symptoms improved. Echo report from the cardiology office from 09/18/17, LVEF 25%. Severe global and regional LV systolic dysfunction. Atypical septal motion. Indeterminate diastolic function. There is no evidence for LV thrombus. Definity echo contrast was not used. Mild concentric left ventricular hypertrophy. Normal LV size. Normal right ventricular structure with probably low normal function. S/p mitral valve repair with a 28 mm Medtronic annuloplasty ring which appears well seated. There is mild central mitral regurgitation. No pulmonary hypertension. Qualifiers: Congestive heart failure type: combined Congestive heart failure chronicity : chronic Qualified Code(s): I50.42 - Chronic combined systolic (congestive) and diastolic (congestive) heart failure (4) Diabetes mellitus type 2 in obese Priority: Secondary Status: Chronic Comments: Resume home medications on discharge Diabetic and cardiac diet - patient is noncompliant with her diet here Patient has not been compliant with her diet at home and questionable with her compliance with her medications She says she takes metformin twice a day and insulin daily Hemoglobin A1c 6.6 f/u with PCP within 2 weeks (5) Hypertension Priority: Secondary Status: Chronic Comments: Pressure has been stable Resume home medications Qualifiers: Hypertension type: essential hypertension Qualified Code(s): I10 - Essential (primary) hypertension - Discharge Medications Prescriptions: Furosemide [Lasix] 20 mg PO BID #60 tablet Home Medications: Nitroglycerin 0.4 mg SL Q5M PRN 05/20/17 [History] Albuterol Sulfate [Albuterol Inhaler] 2 puff IH Q4H PRN #1 inhaler 05/21/17 [Rx] Carvedilol [Coreg] 6.25 mg PO BID #30 tablet 05/21/17 [Rx] Lisinopril [Zestril] 10 mg PO DAILY #30 tablet 05/21/17 [Rx] SitaGLIPtin [Januvia] 100 mg PO DAILY #30 tablet 05/21/17 [Rx] Cyclosporine [Restasis] 1 drop BOTH EYES BID 09/20/17 [History] DULoxetine [Cymbalta] 30 mg PO DAILY 09/20/17 [History] Insulin Glargine [Lantus] 15 unit SQ QAM 09/20/17 [History] Metformin HCl [Metformin HCl ER] 1,000 mg PO BID 09/20/17 [History] Rosuvastatin Calcium 40 mg PO HS 09/20/17 [History] Aspirin 81 mg PO DAILY tab.chew 09/24/17 [Rx] Furosemide [Lasix] 20 mg PO BID #60 tablet 09/24/17 [Rx] Allergies/Adverse Reactions: 3 Allergy/AdvReac Type Severity Reaction Status Date / Time latex Allergy Hives Verified 05/20/17 07:52 fluoxetine [From Prozac] AdvReac Agitated Verified 05/20/17 07:52 Date of admission: 09/23/17 10:45 Primary care physician: Roxane Henson DO Discharging clinician: Arline Meyers Anticipated date of discharge: 09/24/17 - Patient Status Disposition: Home, Self-Care Condition: Good Functional capacity at discharge: independent ambulation Overall status at discharge: patient is progressing back to baseline - Discharge Instructions Follow Up With: Roxane Henson DO [Primary Care Provider] - - Diet and Activity Activity: resume usual activities as tolerated Diet: diabetic diet Interval History: Patient has been up ambulating the halls as directed at least 3 times a day. I have noticed some noncompliance with food on her trays. She denies any chest pain or shortness of breath. She is ready to go home. We did ascertain that there are medications at her pharmacy. 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 She is to follow up with cardiology and her primary care physician as scheduled. She states she has a home health nurse that helps her manage her money and her medications and activities of daily living Hospital course: Please see assessment and plan - Time Spent with Patient Total time spent providing and/or coordinating discharge services: Less than 30 minutes - Constitutional Vitals: Temp Pulse Resp BP Pulse Ox 97.6 F 97 16 95/68 96 09/24/17 07:24 09/24/17 07:24 09/24/17 07:24 09/24/17 07:24 09/24/17 07:24 General appearance: Present: cooperative, A&O X 3, pleasant, no acute distress, obese, answers questions appropriately - Head Head exam: Present: atraumatic, normocephalic - Eye Eye exam: Present: PERRL, conjuntiva pink, sclera anicteric Pupils: Present: PERRL - Neck Neck exam general surgery: Present: supple, trachea midline. Absent: lymphadenopathy - Respiratory Respiratory exam: Present: CTAB. Absent: accessory muscle use, chest wall tenderness, rales, respiratory distress, rhonchi, wheezes - Cardiovascular Cardiovascular exam: Present: RRR, +S1, +S2. Absent: diastolic murmur, gallop, rubs, systolic murmur - GI/Abdominal GI/Abdominal exam: Present: normal bowel sounds, soft, no peritoneal signs. Absent: distended, tenderness - Extremities Exam Extremities exam: Present: warm, radial pulses palpable and symmetrical. Absent : calf tenderness, cyanotic, pedal edema - Neurological Exam Neurological exam: Present: oriented X3, no focal deficits. Absent: pronater drift, facial droop, speech deficit - Skin Skin exam: Present: dry, intact, warm
[2017-09-24 11:41] VITALS: BP 115/82
== END 2017-09-24 13:18 | disposition home or self-care (01) | DRG 291 ==
LOC: 3BNU 11:22 → EMEROO 11:22 → 3BNU 20:50
PROVIDERS: ADMIT Internal Medicine; ATTEND Registered Nurse

== ENCOUNTER 2017-09-26 05:14 | Observation (INO) ==
[2017-09-26] MEDS ORDERED: Nitroglycerin 0.4 MG TAB.SUBL SL PRN ×2 (05:31→08:34)
[2017-09-26] MEDS ORDERED: Aspirin 81 MG TAB.CHEW PO ONE (05:31)
--- NOTE | 2017-09-26 05:34 | Emergency Department Note ---
Disposition Clinical Impression: Chest pain Qualifiers: Chest pain type: unspecified Qualified Code(s): R07.9 - Chest pain, unspecified Disposition: Admitted As Inpatient Condition: Good Referrals: Roxane Henson DO [Primary Care Provider] - Forms: ED Satisfaction Letter Chest Pain HPI - General Chief Complaint: ED Chest Pain Stated Complaint: SOB/Chest Pain Time Seen by Provider: 09/26/17 05:19 Source: patient, EMS Mode of arrival: EMS Limitations: no limitations Vital Signs Reviewed: Yes Nursing Notes Reviewed: Yes - History of Present Illness HPI Narrative: 57-year-old female history of congestive heart failure with poor medication compliance, hypertension, [place] status post CABG, mitral valve annuloplasty in 2017 , hyperlipidemia who presents to the ER via EMS with a chief complaint of chest pain. Patient states the pain began yesterday evening at rest. Describes it as sharp pain in the center of her chest that goes into both of her shoulders and back. Reports the symptoms are very similar to her previous symptoms. She reports it happens intermittently. She states she has been nauseated during these episodes and felt short of breath. She states she has been compliant with her medications but does not know the dosages or what she takes. States that her health nurse helps her with that. She was just discharged from the hospital yesterday reports initially that her vomiting became short of breath and was having chest pain again. No other complaints. Pt complaint: chest pain Onset (ago): hour(s) Duration: intermittent Onset: during rest Pain Location: substernal Severity: moderate Severity scale (1-10): 8 Quality: sharp Pain Radiation: other (Shoulders and back) Improves with: nothing Worsens with: nothing Associated symptoms: Reports: nausea, dyspnea. Denies: vomiting, diaphoresis Treatments prior to arrival chest pain: none - Related Data On Oral Contraceptives: No Home Medications Medication Instructions Recorded Confirmed Nitroglycerin 0.4 mg SL Q5M PRN 05/20/17 09/20/17 Cyclosporine [Restasis] 1 drop BOTH EYES BID 09/20/17 09/20/17 DULoxetine [Cymbalta] 30 mg PO DAILY 09/20/17 09/20/17 Insulin Glargine [Lantus] 15 unit SQ QAM 09/20/17 09/20/17 Metformin HCl [Metformin HCl ER] 1,000 mg PO BID 09/20/17 09/20/17 Rosuvastatin Calcium 40 mg PO HS 09/20/17 09/20/17 Previous Rx's Medication Instructions Recorded Albuterol Sulfate [Albuterol 2 puff IH Q4H PRN #1 inhaler 05/21/17 Inhaler] Carvedilol [Coreg] 6.25 mg PO BID #30 tablet 05/21/17 Lisinopril [Zestril] 10 mg PO DAILY #30 tablet 05/21/17 SitaGLIPtin [Januvia] 100 mg PO DAILY #30 tablet 05/21/17 Aspirin 81 mg PO DAILY tab.chew 09/24/17 Furosemide [Lasix] 20 mg PO BID #60 tablet 09/24/17 Allergies Allergy/AdvReac Type Severity Reaction Status Date / Time latex Allergy Hives Verified 09/26/17 05:16 fluoxetine [From Prozac] AdvReac Agitated Verified 09/26/17 05:16 All systems ED: reviewed and negative except as stated. Constitutional: Denies: fever Cardiovascular: Reports: chest pain Respiratory: Reports: cough, dyspnea, sputum production Gastrointestinal: Reports: nausea. Denies: abdominal pain, vomiting, diarrhea Chest Pain PMH - Past Medical History Medical history: Reports: arthritis, CHF, COPD, coronary artery disease, diabetes, fibromyalgia, GERD, hyperlipidemia, hypertension, migraine, myocardial infarction, osteoporosis, peripheral artery disease, renal disease, syncope, venous stasis, other Surgical history: Reports: cholecystectomy, coronary bypass (CABG), orthopedic, other, other (Mitral valve annuloplasty) Psychiatric history: Reports: anxiety, bipolar, depression OCC THER history: Reports: non-contributory - Social History Smoking Status: Current some day smoker Alcohol use: Reports: none Drug use: Reports: none Physical Exam - General Limitations: no limitations General appearance: alert, in no apparent distress - Head Head exam: atraumatic, normocephalic - Eye Eye exam: Present: normal appearance - ENT ENT exam: normal exam - Neck Neck exam: Present: normal inspection, full ROM - Chest Chest inspection: Present: normal inspection, symmetric chest wall rise - Respiratory Respiratory exam: Present: normal lung sounds bilaterally - Cardiovascular Cardiovascular exam: Present: regular rate, normal rhythm, normal heart sounds - Abdominal Exam Abdominal exam: Present: soft, Non-Tender. Absent: tenderness - Extremities Exam Extremities exam: Present: normal inspection, full ROM - Expanded Upper Extremity Exam Shoulder exam: Present: normal inspection, full ROM Arm exam: Present: normal inspection, full ROM Elbow exam: Present: normal inspection, full ROM Forearm/Wrist exam: Present: normal inspection, full ROM Hand exam: Present: normal inspection, full ROM - Expanded Lower Extremity Exam Hip/Pelvis exam: Present: normal inspection, full ROM Upper leg exam: Present: normal inspection, full ROM Knee exam: Present: normal inspection, full ROM Lower leg exam: Present: normal inspection, full ROM Ankle exam: Present: normal inspection, full ROM Foot/toe exam: Present: normal inspection, full ROM - Psychiatric Psychiatric exam: Present: normal affect - Skin Skin exam: Present: warm, dry Course Course Narrative: Patient seen and examined. Vital signs reviewed. I reviewed her previous hospitalization which showed an echo performed on 09/18 which showed a left ventricular ejection fraction of 25% with severe left ventricular dysfunction. We will get an EKG, chest x-ray as well as labs including troponin. Patient given aspirin and nitroglycerin. - Reevaluation(s) Reevaluation #1: Patient was noted to be hypotensive after 1 sublingual nitroglycerin. We will hold on further administration at this time. Patient given a dose of fentanyl with improvement of her chest pain. Vital Signs O2 Sat by Pulse Oximetry 95 09/26/17 05:15 Temperature 97.8 F 09/26/17 05:17 Pulse Rate 96 09/26/17 06:48 Respiratory Rate 16 09/26/17 06:48 Blood Pressure 94/69 09/26/17 06:48 O2 Sat by Pulse Oximetry 97 09/26/17 06:48 Oxygen Delivery Oxygen Delivery Nasal Cannula Chest Pain - [facility] Narrative Medical decision making narrative: 57-year-old female with numerous cardiac comorbidities who presents to the ER due to chest pain. She was recently admitted and underwent a workup and evaluation by cardiology. She reports her pain returned yesterday evening. She is well-appearing here. EKG with T-wave inversions that are stable. Chest x-ray with stable findings. Labs reviewed with a normal first troponin as well as marginally elevated BNP. She does not appear volume overloaded on exam. Given her numerous comorbidities we will admit to the hospitalist service for chest pain evaluation with potential cardiology consultation. - Lab Data Lab results reviewed: Yes I reviewed the patient's lab results. Result diagrams: 09/26/17 05:45 09/26/17 05:45 Lab Results 09/26/17 09/26/17 09/26/17 Range/Units 05:45 05:45 05:45 WBC 12.9 H D (4.3-11.1) K/mcL RBC 4.94 (3.82-4.97) M/mcL Hgb 12.6 D (11.5-15.4) g/dL Hct 39.5 (35.3-44.9) % MCV 80.0 L (83.0-100.0) fL MCH 25.5 L (28.0-33.3) pg MCHC 31.9 (31.6-35.5) g/dL RDW 15.6 H (11.5-14.5) % Plt Count 342 (140-400) K/mcL MPV 10.5 (9.4-12.4) fL Immature Gran % 1.8 (0-4) % Seg Neutrophils % 60.4 % Lymphocytes % 27.8 % Monocytes % 7.1 % Eosinophils % 2.2 % Basophils % 0.7 % Neutrophils # 7.8 (1.6-8.9) K/mcL Lymphocytes # 3.6 (0.6-4.6) K/mcL Monocytes # 0.9 (0.0-1.3) K/mcL Eosinophils # 0.3 (0.0-0.6) K/mcL Basophils # 0.1 (0.0-0.2) K/mcL PT 11.0 (9.4-12.1) Seconds INR 1.0 APTT 29.1 (26.0-36.0) Seconds Sodium (136-145) mEq/L Potassium (3.5-5.1) mEq/L Chloride (98-107) mEq/L Carbon Dioxide (23-29) mEq/L BUN (6-20) mg/dL Creatinine (0.60-1.20) mg/dL Est GFR ( Amer) (> 60) Est GFR (Non-Af Amer) (> 60) BUN/Creatinine Ratio (6-26) Glucose (70-105) mg/dL Calculated Osmolality (280-300) Calcium (8.6-10.3) mg/dL Troponin I (< 0.04) ng/mL B-Natriuretic Peptide 187 H (Less than 100) pg/mL 09/26/17 09/26/17 Range/Units 05:45 05:45 WBC (4.3-11.1) K/mcL RBC (3.82-4.97) M/mcL Hgb (11.5-15.4) g/dL Hct (35.3-44.9) % MCV (83.0-100.0) fL MCH (28.0-33.3) pg MCHC (31.6-35.5) g/dL RDW (11.5-14.5) % Plt Count (140-400) K/mcL MPV (9.4-12.4) fL Immature Gran % (0-4) % Seg Neutrophils % % Lymphocytes % % Monocytes % % Eosinophils % % Basophils % % Neutrophils # (1.6-8.9) K/mcL Lymphocytes # (0.6-4.6) K/mcL Monocytes # (0.0-1.3) K/mcL Eosinophils # (0.0-0.6) K/mcL Basophils # (0.0-0.2) K/mcL PT (9.4-12.1) Seconds INR APTT (26.0-36.0) Seconds Sodium 136 (136-145) mEq/L Potassium 4.0 (3.5-5.1) mEq/L Chloride 99 (98-107) mEq/L Carbon Dioxide 29 (23-29) mEq/L BUN 24 H (6-20) mg/dL Creatinine 0.82 (0.60-1.20) mg/dL Est GFR ( Amer) > 60 (> 60) Est GFR (Non-Af Amer) > 60 (> 60) BUN/Creatinine Ratio 29 H (6-26) Glucose 151 H (70-105) mg/dL Calculated Osmolality 289 (280-300) Calcium 9.2 (8.6-10.3) mg/dL Troponin I < 0.03 (< 0.04) ng/mL B-Natriuretic Peptide (Less than 100) pg/mL - Radiology Data Radiology results reviewed: Yes I reviewed the patient's radiology results. Chest X-Ray 09/26/17 05:21 IMPRESSION: Stable appearance of the chest without acute cardiopulmonary process identified. D/ / Kiel Springer MD / Kiel Springer MD Interpreting Provider: Kiel Springer MD - EKG Data EKG attestation: Yes I reviewed and interpreted this EKG. EKG results narrative: EKG demonstrates sinus rhythm with rate of 94 bpm. Normal axis. Normal intervals. Normal R-wave progression. No ST elevations or depressions. There are T-wave inversions in leads V4V6 which are unchanged from her previous EKG. no significant changes from previous EKG dated 09/20/17. Heart Score - Score History: Slightly Suspicious EKG: Non Specific repolarisation Disturbance Age: 45-65 Risk Factors: Equal/Greater than 3 risk factor or history of atherosclerotic disease Troponin: Less than normal limit HEART Score Total: 4 S.B.A.R. - S.B.A.R. Situation: Demographics, MOA Background: Presenting Complaint, Relevant PMH, Meds, & Allergies Assessment: Course and respsone to treatment, Patient/Family Expectation, Pertinant Lab Results Recommendation: Barrier(s) to disposition, Recommendation based on pending studies, treatments, or consults S.B.A.R. Report Given to: Dr. Parnell S.B.A.RSmiley Repor Time: 06:52 Attestation Statement - Attestation Attestation: I, Bayron Carroll MD, personally evaluated this patient and discussed their management with the resident physician. I reviewed the resident's note and agree with the documented findings, medical decision making, and plan of care. 57-year-old female with history of COPD and CHF presents to the emergency department with a complaint of sharp mid anterior chest pains radiating through to the back and also shortness of breath. Patient was just discharged from the hospital less than 24 hours ago. No fever. No increased cough. On examination patient is a well-developed well-nourished female in no acute distress. She is alert and oriented 3. There is no cyanosis or diaphoresis. Chest is nontender to palpation. Breath sounds are decreased but equal bilaterally with a few scattered inspiratory and expiratory wheezes. No rales noted. Heart regular rate and rhythm. Abdomen is soft and nontender with normal bowel sounds. No pedal edema. Labs reviewed. Troponin negative. BNP 187. Chest x-ray negative. EKG shows a normal sinus rhythm with no acute changes. There are lateral T-wave inversions which are unchanged from prior EKG. The hospitalist, Dr. Parnell, was consulted and accepted admission of the patient.
[2017-09-26 05:49] LABS: Basophils # 0.1 K/mcL (0.0-0.2); Basophils % 0.7 %; Eosinophils # 0.3 K/mcL (0.0-0.6); Eosinophils % 2.2 %; Hematocrit 39.5 % (35.3-44.9); Immature Granulocytes % 1.8 % (0-4); Lymphocytes # 3.6 K/mcL (0.6-4.6); Lymphocytes % 27.8 %; Mean Corpuscular HGB Conc 31.9 g/dL (31.6-35.5); Mean Corpuscular Hemoglobin 25.5 pg (28.0-33.3); Mean Platelet Volume 10.5 fL (9.4-12.4); Monocytes # 0.9 K/mcL (0.0-1.3); Monocytes % 7.1 %; Neutrophils # 7.8 K/mcL (1.6-8.9); Platelet Count 342 K/mcL (140-400); Red Blood Count 4.94 M/mcL (3.82-4.97); Red Cell Distribution Width 15.6 % (11.5-14.5); Segmented Neutrophils % 60.4 %
[2017-09-26 05:54] LABS: Hemoglobin 12.6 g/dL (11.5-15.4)
[2017-09-26 05:58] LABS: Activated Partial Thrombo Time 29.1 Seconds (26.0-36.0)
[2017-09-26] MEDS ORDERED: *HR* FentaNYL (PF) 100 MCG/2 ML VIAL IVP ONE (06:01)
[2017-09-26 06:07] LABS: BUN/Creatinine Ratio 29 (6-26); Blood Urea Nitrogen 24 mg/dL (6-20); Calcium 9.2 mg/dL (8.6-10.3); Carbon Dioxide 29 mEq/L (23-29); Chloride 99 mEq/L (98-107); Glucose 151 mg/dL (70-105); Osmolality,Calculated 289 (280-300); Sodium 136 mEq/L (136-145); eGFR For African Americans > 60 (> 60); eGFR For Non-African Americans > 60 (> 60)
--- NOTE | 2017-09-26 08:26 | Internal Med History&Physical ---
Date of Encounter: 09/26/17 Time of Encounter: 08:24 Assessment and Plan (1) Chest pain Current visit: Yes Status: Acute Chest pain appears to be noncardiac is pleuritic and point of maximum tenderness however consult cardiology again since they saw her in consultation Qualifiers: Chest pain type: intercostal pain Qualified Code(s): R07.82 - Intercostal pain (2) Abnormal EKG Current visit: No Status: Acute (3) Systolic heart failure Current visit: No Status: Acute Will continue current medication Qualifiers: Heart failure chronicity: acute on chronic Qualified Code(s): I50.23 - Acute on chronic systolic (congestive) heart failure (4) Type 2 diabetes mellitus Current visit: No Status: Chronic We will continue home medication and sliding scale Qualifiers: Diabetes mellitus complication status: with unspecified complications Diabetes mellitus roasterman insulin use: with retirement use Qualified Code(s) : E11.8 - Type 2 diabetes mellitus with unspecified complications; Z79.4 - FDC (current) use of insulin (5) CAD (coronary artery disease) Current visit: No Status: Chronic CABG with now atypical chest pain Qualifiers: Coronary Disease-Associated Artery/Lesion type: bypass graft [place] vs. transplanted heart: [place] heart Associated angina: without angina Qualified Code(s): I25.10 - Atherosclerotic heart disease of [place] coronary artery without angina pectoris (6) Hypertension Current visit: No Status: Chronic Chronic and well controlled Qualifiers: Hypertension type: essential hypertension Qualified Code(s): I10 - Essential (primary) hypertension Internal Medicine - H&P: HPI Chief complaint: chest pain Admitted From: Emergency Dept Plans for Post Hospital Care: Home History of present illness: Ms. 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 Patient was does just discharged yesterday morning following admission for chest pain and congenital heart failure she was seen by cardiology patient returns in emergency room due to chest pain going to both shoulder chest pain described mostly sharp pain , pleuritic localised and maximum tenderness a particular spot of more tenderness on exam had some nausea. Troponin is negative Past Med Surg Social Fam HX - Past Medical History Medical history: arthritis, CHF, COPD, coronary artery disease, diabetes, fibromyalgia, GERD, hyperlipidemia, hypertension, migraine, myocardial infarction, osteoporosis, peripheral artery disease, renal disease, syncope, venous stasis, other Psychiatric history: anxiety, bipolar, depression - Past Surgical History Surgical History: cholecystectomy, coronary bypass (CABG), orthopedic, other, other (Mitral valve annuloplasty) - Social History Smoking Status: Current some day smoker Smokeless Tobacco Status: No Alcohol use: none Drug use: none - Family History Mother Living Status: Hx Family Cardiac Disorders: Yes (cardiomyothy) Hx Family Respiratory Disorders: No Hx Family Cancer: Yes ("female") Hx Family GI Disorders: No Hx Family Endocrine Disorder: No Hx Family Neuromuscular Disorders: No Hx Family Neurologic Disorders: No Hx Family HEENT Disorders: No Hx Family Autoimmune Disorders: No Father Living Status: Still Living Hx Family Cardiac Disorders: Yes (4 heart stents) Hx Family Respiratory Disorders: No Hx Family Cancer: No Hx Family GI Disorders: No Hx Family Endocrine Disorder: Yes Hx Family Neuromuscular Disorders: No Hx Family Neurologic Disorders: No Hx Family HEENT Disorders: No Hx Family Autoimmune Disorders: No Internal Medicine - H&P: Meds Nitroglycerin 0.4 mg SL Q5M PRN 05/20/17 [History] Albuterol Sulfate [Albuterol Inhaler] 2 puff IH Q4H PRN #1 inhaler 05/21/17 [Rx] Carvedilol [Coreg] 6.25 mg PO BID #30 tablet 05/21/17 [Rx] Lisinopril [Zestril] 10 mg PO DAILY #30 tablet 05/21/17 [Rx] SitaGLIPtin [Januvia] 100 mg PO DAILY #30 tablet 05/21/17 [Rx] Cyclosporine [Restasis] 1 drop BOTH EYES BID 09/20/17 [History] DULoxetine [Cymbalta] 30 mg PO DAILY 09/20/17 [History] Insulin Glargine [Lantus] 15 unit SQ QAM 09/20/17 [History] Metformin HCl [Metformin HCl ER] 1,000 mg PO BID 09/20/17 [History] Rosuvastatin Calcium 40 mg PO HS 09/20/17 [History] Aspirin 81 mg PO DAILY tab.chew 09/24/17 [Rx] Furosemide [Lasix] 20 mg PO BID #60 tablet 09/24/17 [Rx] 3 Allergy/AdvReac Type Severity Reaction Status Date / Time latex Allergy Hives Verified 09/26/17 05:16 fluoxetine [From Prozac] AdvReac Agitated Verified 09/26/17 05:16 All Systems PM: A 10-system review of systems was performed and is negative for pertinent findings except as documented above in the HPI. - Constitutional Constitutional: no chills, no fever(s), no night sweats - EENT Eyes: no change in vision, no discharge, no pain, no photophobia Ears: no ear discharge, no ear pain, no tinnitus Nose, mouth and throat: no dysphagia, no nasal discharge, no neck pain, no sore throat - Cardiovascular Cardiovascular ROS IM: chest pain - Respiratory Respiratory: dyspnea, dyspnea on exertion - Gastrointestinal Gastrointestinal: no abdominal pain, no diarrhea, no hematemesis, no hematochezia, no melena, no nausea, no vomiting - Constitutional Vitals: Temp Pulse Resp BP Pulse Ox 98.0 F 99 17 86/62 96 09/26/17 08:17 09/26/17 08:17 09/26/17 08:17 09/26/17 08:17 09/26/17 08:17 - Eye Eye exam: Present: PERRL, conjuntiva pink, sclera anicteric Pupils: Present: PERRL - Neck Neck exam general surgery: Present: supple, trachea midline. Absent: lymphadenopathy - Respiratory Respiratory exam: Present: CTAB. Absent: accessory muscle use, rales, rhonchi, wheezes - Cardiovascular Cardiovascular exam: Present: RRR, systolic murmur - GI/Abdominal GI/Abdominal exam: Present: normal bowel sounds, soft, no peritoneal signs. Absent: distended, tenderness Internal Med - H&P Results - Labs CBC & Chem 7: 09/26/17 05:45 09/26/17 05:45
[2017-09-26] MEDS ORDERED: Naloxone 0.4 MG/ML INJ IVP PRN (08:31)
--- NOTE | 2017-09-26 08:32 | Cardiology Consult Note ---
Date of Encounter: 09/27/17 Time of Encounter: 08:30 Assessment and Plan (1) Atypical chest pain Status: Acute Patient with reproducible chest pain, located over her prior sternotomy. Likely musculoskeletal in nature. No elevation in troponins. EKG sinus rhythm, rate 94 bpm. Non-concerning for ischemia. Echocardiogram on 09/18/2017 demonstrating LVEF of 25% with severe global and regional left ventricular systolic dysfunction. Atypical septal motion. Indeterminate diastolic function. Mild concentric left ventricular hypertrophy with normal LV size. Patient is status post mitral valve repair with 28 mm Medtronic annuloplasty ring which appears well seated. Mild central mitral regurgitation with no pulmonary hypertension. -Patient reports non-compliance with medications. Encourage compliance with medications. -Medical records requested from [facility] regarding CABG in October 2016. -Will dicuss echo with Dr. Dietrich. Recommend treating patient's chest wall pain and likely FU in office in 3-4 weeks. Discussion w patient/family: The assessment and plan as outlined above was discussed with the patient and/or family members who expressed understanding and agreement. All questions were answered. Thank you for involving us in the care of your patient. Please call with any questions. History of Present Illness Consult date: 09/26/17 Requesting physician: Awilda Salazar Consult reason: Chest pain Chief complaint: Chest pain/SOB History of present illness: Ms. Lorenzo is a 57 year old female with PMHx CHF, COPD, CAD, diabetes, fibromyalgia, bipolar 1, GERD, hyperlipidemia, hypertension, migraines, PAD, renal disease, syncope, myocardial infarction, and cardiomyopathy with severely reduced ejection fraction. Patient presented to [facility] emergency department on 09/26/2017 with complaints of a 2 week history of sharp 8 out of 10 retrosternal chest pain with radiation to the middle of her back between her shoulder blades. She reports that the pain feels worse when bending forward and while coughing. She states the pain has been gradual and intermittent worsening over the past 2 weeks. She states she sustained 2 falls during that time while retrieving mail from her mailbox. She states she did not have any dizziness or lightheadedness prior to her falls. She remembers falling to ground and is unclear if she lost consciousness. She states her chest pain which is tender to palpation started around the same time. Patient reports having a myocardial infarction with triple vessel CABG in October 2016 at [facility]. She states this chest pain does not feel similar to the chest pain she experienced prior to her open heart surgery. She does also report associated shortness of breath during her episodes of chest pain. She reports turning her nasal cannula from 2 L to 4 L for relief. She also reported nausea associated dark, acidic, and mucousy emesis over the past 2 weeks. She states her nausea and chest pain combined remind her of very severe heartburn. She reports minimal compliance with her medications. She does report a recent echocardiogram performed as an outpatient last week. Patient follows with Dr. Anderson. Past Med Surg Social Fam HX - Past Medical History Attestation: Yes The following information was validated with the patient. Source: patient, old records reviewed, nursing notes reviewed Medical history: arthritis, CHF, COPD, coronary artery disease, diabetes, fibromyalgia, GERD, hyperlipidemia, hypertension, migraine, myocardial infarction, osteoporosis, peripheral artery disease, renal disease, syncope, venous stasis, other Psychiatric history: anxiety, bipolar, depression - Past Surgical History Surgical History: cholecystectomy, coronary bypass (CABG), orthopedic, other, other (Mitral valve annuloplasty) - Social History Smoking Status: Current some day smoker Smokeless Tobacco Status: No Alcohol use: none Drug use: none - Family History Mother Living Status: Hx Family Cardiac Disorders: Yes (cardiomyothy) Hx Family Respiratory Disorders: No Hx Family Cancer: Yes ("female") Hx Family GI Disorders: No Hx Family Endocrine Disorder: No Hx Family Neuromuscular Disorders: No Hx Family Neurologic Disorders: No Hx Family HEENT Disorders: No Hx Family Autoimmune Disorders: No Father Living Status: Still Living Hx Family Cardiac Disorders: Yes (4 heart stents) Hx Family Respiratory Disorders: No Hx Family Cancer: No Hx Family GI Disorders: No Hx Family Endocrine Disorder: Yes Hx Family Neuromuscular Disorders: No Hx Family Neurologic Disorders: No Hx Family HEENT Disorders: No Hx Family Autoimmune Disorders: No Medications and Allergies Nitroglycerin 0.4 mg SL Q5M PRN 05/20/17 [History] Albuterol Sulfate [Albuterol Inhaler] 2 puff IH Q4H PRN #1 inhaler 05/21/17 [Rx] Lisinopril [Zestril] 10 mg PO DAILY #30 tablet 05/21/17 [Rx] Cyclosporine [Restasis] 1 drop BOTH EYES BID 09/20/17 [History] Insulin Glargine [Lantus] 15 unit SQ QAM 09/20/17 [History] Aspirin 81 mg PO DAILY #30 tab.chew 09/27/17 [Rx] Carvedilol [Coreg] 6.25 mg PO BID #30 tablet 09/27/17 [Rx] Carvedilol [Coreg] 6.25 mg PO BIDWM 1 Days #2 tablet 09/27/17 [Rx] DULoxetine [Cymbalta] 30 mg PO DAILY #30 capsule.dr 09/27/17 [Rx] Furosemide [Lasix] 20 mg PO BID #2 tablet 09/27/17 [Rx] Furosemide [Lasix] 20 mg PO BID #60 tablet 09/27/17 [Rx] Lidocaine [Lidoderm] 1 each TP DAILY #7 adh..patch 09/27/17 [Rx] Lisinopril 2.5 mg PO DAILY #1 tablet 09/27/17 [Rx] Lisinopril [Zestril] 2.5 mg PO DAILY #30 tablet 09/27/17 [Rx] Magnesium 400 mg PO ONCE 1 Days #1 tablet 09/27/17 [Rx] Magnesium Oxide [Mag-Ox] 400 mg PO BID #1 tablet 09/27/17 [Rx] Metformin HCl [Metformin HCl ER] 1,000 mg PO BID #60 [id number] 09/27/17 [Rx] Nitroglycerin 0.4 mg SL Q5MIN PRN #30 tab.subl 09/27/17 [Rx] Rosuvastatin Calcium 40 mg PO HS #30 tablet 09/27/17 [Rx] SitaGLIPtin [Januvia] 100 mg PO DAILY #30 tablet 09/27/17 [Rx] Spironolactone [Aldactone] 12.5 mg PO DAILY #30 tablet 09/27/17 [Rx] Spironolactone [Aldactone] 12.5 mg PO DAILY 1 Days #1 tablet 09/27/17 [Rx] 3 Allergy/AdvReac Type Severity Reaction Status Date / Time latex Allergy Hives Verified 09/26/17 05:16 fluoxetine [From Prozac] AdvReac Agitated Verified 09/26/17 05:16 All Systems Review: A 10-system review of systems was performed and is negative for pertinent findings except as documented above in the HPI. - Constitutional Constitutional: fatigue, frequent falls, no fever(s), no headache(s) - EENT Eyes: no blurred vision, no loss of vision Nose, mouth and throat: no sinus pain, no sore throat - Cardiovascular Cardiovascular: chest pain at rest, dyspnea on exertion, leg edema (intermittent ), no claudication, no diaphoresis, no irregular heart rhythm, no radiating jaw , neck or arm pain, no lightheadedness, no rapid heart rate, no slow heart rate - Respiratory Respiratory: cough, dyspnea - Gastrointestinal Gastrointestinal: nausea, no abdominal pain, no constipation, no diarrhea, no hematemesis, no hematochezia, no melena - Genitourinary Genitourinary: no dysuria, no hematuria - Musculoskeletal Musculoskeletal: no abnormal gait - Neurological Neurological: no abnormal speech, no dizziness, no memory loss Physical Examination Vital Signs, Last 4 Hours Temp Pulse Resp BP Pulse Ox 09/26/17 08:17 98.0 F 99 17 86/62 96 General: Conversant, No Apparent Distress HEENT: Atraumatic, Normocephaly, Mucus Membranes Moist Cardiac: Reg Rate and Rhythm, Normal S1 and S2, No Murmur Lungs: Other (mildly rhonchorous breath sounds bilaterally, no crackles. Mild wheezes) Neuro: Alert and responsive, No focal deficits noted Abdomen: Soft, Non-Tender Skin: No rashes noted on visualized skin Musculoskeletal: Other (Reproducible chest wall tenderness along the left lower sternal border. ) Extremities: No Clubbing, No Cyanosis, No Edema Results 09/26/17 05:45 09/27/17 04:28 Consult Discharge Plan - Plan Instructions: Chest Pain (DC) Referrals: Roxane Henson DO [Primary Care Provider] - Prescriptions: Nitroglycerin 0.4 mg SL Q5MIN PRN #30 tab.subl PRN Reason: Chest Pain Aspirin 81 mg PO DAILY #30 tab.chew Carvedilol [Coreg] 6.25 mg PO BID #30 tablet Carvedilol [Coreg] 6.25 mg PO BIDWM 1 Days #2 tablet DULoxetine [Cymbalta] 30 mg PO DAILY #30 capsule.dr Furosemide [Lasix] 20 mg PO BID #60 tablet Furosemide [Lasix] 20 mg PO BID #2 tablet Lidocaine [Lidoderm] 1 each TP DAILY #7 adh..patch Lisinopril 2.5 mg PO DAILY #1 tablet Lisinopril [Zestril] 2.5 mg PO DAILY #30 tablet Magnesium 400 mg PO ONCE 1 Days #1 tablet Magnesium Oxide [Mag-Ox] 400 mg PO BID #1 tablet Metformin HCl [Metformin HCl ER] 1,000 mg PO BID #60 [id number] Rosuvastatin Calcium 40 mg PO HS #30 tablet SitaGLIPtin [Januvia] 100 mg PO DAILY #30 tablet Spironolactone [Aldactone] 12.5 mg PO DAILY #30 tablet Spironolactone [Aldactone] 12.5 mg PO DAILY 1 Days #1 tablet
[2017-09-26] MEDS ORDERED: *HR* SitaGLIPtin 100 MG TABLET PO SCH (09:00)
[2017-09-26] MEDS ORDERED: *HR* Metformin 500 MG TABLET PO SCH (09:00)
[2017-09-26] MEDS ORDERED: NON-FORMULARY MEDICATION 1 EACH EACH (Insulin Glargine [Lantus] 15 UNIT) SQ SCH (09:00)
[2017-09-26] MEDS ORDERED: Furosemide 20 MG TABLET PO SCH (09:00)
[2017-09-26] MEDS: Aspirin 81 MG TAB.CHEW PO SCH (09:48)
[2017-09-26] MEDS: Insulin DETEMIR 100 UNIT/ML X5UNITS SQ SCH (09:48)
[2017-09-26] MEDS ORDERED: *HR* Dextrose 50 % in Water (Syg) 50 ML SYRINGE IVP PRN (11:06)
[2017-09-26] MEDS ORDERED: Dextrose Gel 15 GM/37.5 ML TUBE PO PRN ×2 (11:06)
[2017-09-26] MEDS ORDERED: D5% in Water 1,000 ML IVC PRN (11:06)
--- NOTE | 2017-09-26 11:58 | Event Note ---
Date of Encounter: 09/26/17 Time of Encounter: 11:50 Patient independently seen and examined. Case discussed with resident physician. Please consider this might attestation to Margarita Mills's consultation. Agree with findings, impressions, and plan as outlined in the consultation with the following changes: 57-year-old female with a history of medical noncompliance who presented to the ER with complaints of chest discomfort. She has a significant history of CAD, prior ME, prior CABG/mitral valve annuloplasty (2017), and an ischemic cardiomyopathy. Per reports, patient has not been taking her medications. She states that she was recently discharged from evaluation with enough medication until she sees her physicians. Return to the hospital with chest discomfort. Describes as sternal, no radiation, nausea, vomiting. Chest discomfort was easily reproduced with minimal palpation. Hemodynamically, patient appears stable. TTE 09/18/2017: LVEF 25%. Severe global, regional LV systolic dysfunction. Mild concentric LVH. Normal RV size and low-normal function. Mitral valve repair noted, mild central MR. No pulmonary hypertension. [facility] 10/23/2016: EF 20%. Left main normal. LAD proximal 80% stenosis, mid 80-90% stenosis. Circumflex ostial/proximal 70% stenosis. RCA ostial/proximal 85% stenosis, mid 60-70% stenosis. Impressions: 1. Atypical chest pain. Easily reproducible, tender to touch. 2. Known CAD, revascularization 2016. 3. History of mitral valve repair. 4. Ischemic cardiomyopathy. 5. Medical noncompliance. Recommendations: 1. No further inpatient cardiac testing appears to be necessary at this time. 2. Even severe, myopathy, recommend continue aspirin, statin, lisinopril, and Coreg therapy. Continue Lasix at current dose. 3. Consider addition of Aldactone as outpatient. 4. Despite revascularization last year, recent LVEF remains severely reduced. Consider evaluation for primary prevention ICD as outpatient. 5. CHF education provided. 6. Importance of compliance discussed at great length. No further inpatient cardiology testing appears to be necessary. We will sign off. Please call with any questions or concerns. Thanks, Yemi Dietrich DO, FACC
[2017-09-26] MEDS: Insulin LISPRO 300 UNITS/3 ML VIAL SQ SCH ×2 (12:21→16:45)
[2017-09-26] MEDS: traMADol 50 MG TABLET PO PRN ×2 (15:00→21:49)
[2017-09-26] MEDS: Furosemide 20 MG TABLET PO SCH (16:46)
[2017-09-26] MEDS: *HR* HYDROcodone/Acet 10/325 mg TABLET PO PRN (18:05)
[2017-09-26] MEDS ORDERED: Insulin LISPRO 300 UNITS/3 ML VIAL SQ SCH (21:00)
[2017-09-27 05:27] LABS: BUN/Creatinine Ratio 40 (6-26); Blood Urea Nitrogen 27 mg/dL (6-20); Calcium 9.2 mg/dL (8.6-10.3); Carbon Dioxide 29 mEq/L (23-29); Chloride 99 mEq/L (98-107); Glucose 182 mg/dL (70-105); Magnesium 1.5 mg/dL (1.6-2.6); Osmolality,Calculated 294 (280-300); Potassium 3.8 mEq/L (3.5-5.1); Sodium 137 mEq/L (136-145); eGFR For African Americans > 60 (> 60); eGFR For Non-African Americans > 60 (> 60)
[2017-09-27] MEDS: *HR* HYDROcodone/Acet 10/325 mg TABLET PO PRN (06:32)
[2017-09-27] MEDS ORDERED: *HR* HYDROcodone/Acet 10/325 mg TABLET PO PRN (08:47)
[2017-09-27] MEDS: Insulin LISPRO 300 UNITS/3 ML VIAL SQ SCH ×2 (10:00→12:17)
[2017-09-27] MEDS: Aspirin 81 MG TAB.CHEW PO SCH (10:04)
[2017-09-27] MEDS: Furosemide 20 MG TABLET PO SCH (10:04)
[2017-09-27] MEDS: traMADol 50 MG TABLET PO PRN (10:08)
--- NOTE | 2017-09-27 11:15 | Discharge Summary ---
Date of Encounter: 09/27/17 Time of Encounter: 11:12 - Discharge Diagnosis (1) Atypical chest pain Priority: Primary Status: Acute Comments: Patient has been experiencing midsternal chest pain reproducible with palpation and movement aggravates pain. Troponins are negative EKG without any ST-T wave abnormalities. Echo was obtained and reviewed per cardiology cardiology suspects more likely musculoskeletal and not cardiac Cardiology recommended to continue with aspirin and statin lisinopril and Coreg and Lasix at current dose. Suggest and initiating Aldactone as outpatient setting. We will could not continue with the above however we will decrease the lisinopril down to 2.5 due to hypertension overnight and initiate Aldactone at 12.5. We will have patient follow-up with cardiology as outpatient and return with any new onset chest pain (2) CAD (coronary artery disease) Priority: Primary Status: Chronic Comments: Patient has been experiencing midsternal chest pain reproducible with palpation and movement aggravates pain. Troponins are negative EKG without any ST-T wave abnormalities. Echo was obtained and reviewed per cardiology cardiology suspects more likely musculoskeletal and not cardiac Cardiology recommended to continue with aspirin and statin lisinopril and Coreg and Lasix at current dose. Suggest and initiating Aldactone as outpatient setting. We will could not continue with the above however we will decrease the lisinopril down to 2.5 due to hypertension overnight and initiate Aldactone at 12.5. We will have patient follow-up with cardiology as outpatient and return with any new onset chest pain Qualifiers: Coronary Disease-Associated Artery/Lesion type: bypass graft [place] vs. transplanted heart: [place] heart Associated angina: without angina Qualified Code(s): I25.810 - Atherosclerosis of coronary artery bypass graft(s) without angina pectoris (3) CHF (congestive heart failure) Priority: Primary Status: Chronic Comments: Patient has been noncompliant with her medications due to inability to afford her prescriptions. I did discuss this with her and the importance of taking medications. She said she will be able to buy them tomorrow. I did consult social sciences instructor who will help patient obtained prescriptions before discharge. Cardiology has suggested to continue with Lasix as prescribed and suggests adding Aldactone which we will initiate 12.5. Educated patient on fluid restriction and low-salt diet and the importance of taking medications. She is to follow-up with cardiology as an outpatient Qualifiers: Congestive heart failure type: combined Congestive heart failure chronicity : chronic Qualified Code(s): I50.42 - Chronic combined systolic (congestive) and diastolic (congestive) heart failure (4) Diabetes Priority: Secondary Status: Chronic Comments: Patient will resume her home medications Qualifiers: Diabetes mellitus type: type 2 Diabetes mellitus complication status: with neurologic complications Diabetes mellitus complication detail: with polyneuropathy Diabetes mellitus terminal superintendent insulin use: with residential use Qualified Code(s): E11.42 - Type 2 diabetes mellitus with diabetic polyneuropathy; Z79.4 - terminal carman (current) use of insulin - Discharge Medications Prescriptions: Nitroglycerin 0.4 mg SL Q5MIN PRN #30 tab.subl PRN Reason: Chest Pain Aspirin 81 mg PO DAILY #30 tab.chew Carvedilol [Coreg] 6.25 mg PO BID #30 tablet DULoxetine [Cymbalta] 30 mg PO DAILY #30 capsule. Furosemide [Lasix] 20 mg PO BID #60 tablet Lisinopril [Zestril] 2.5 mg PO DAILY #30 tablet Magnesium Oxide [Mag-Ox] 400 mg PO BID #1 tablet Metformin HCl [Metformin HCl ER] 1,000 mg PO BID #60 [id number] Rosuvastatin Calcium 40 mg PO HS #30 tablet SitaGLIPtin [Januvia] 100 mg PO DAILY #30 tablet Spironolactone [Aldactone] 12.5 mg PO DAILY #30 tablet Home Medications: Nitroglycerin 0.4 mg SL Q5M PRN 05/20/17 [History] Albuterol Sulfate [Albuterol Inhaler] 2 puff IH Q4H PRN #1 inhaler 05/21/17 [Rx] Lisinopril [Zestril] 10 mg PO DAILY #30 tablet 05/21/17 [Rx] Cyclosporine [Restasis] 1 drop BOTH EYES BID 09/20/17 [History] Insulin Glargine [Lantus] 15 unit SQ QAM 09/20/17 [History] Aspirin 81 mg PO DAILY #30 tab.chew 09/27/17 [Rx] Carvedilol [Coreg] 6.25 mg PO BID #30 tablet 09/27/17 [Rx] DULoxetine [Cymbalta] 30 mg PO DAILY #30 capsule. 09/27/17 [Rx] Furosemide [Lasix] 20 mg PO BID #60 tablet 09/27/17 [Rx] Lisinopril [Zestril] 2.5 mg PO DAILY #30 tablet 09/27/17 [Rx] Magnesium Oxide [Mag-Ox] 400 mg PO BID #1 tablet 09/27/17 [Rx] Metformin HCl [Metformin HCl ER] 1,000 mg PO BID #60 [id number] 09/27/17 [Rx] Nitroglycerin 0.4 mg SL Q5MIN PRN #30 tab.subl 09/27/17 [Rx] Rosuvastatin Calcium 40 mg PO HS #30 tablet 09/27/17 [Rx] SitaGLIPtin [Januvia] 100 mg PO DAILY #30 tablet 09/27/17 [Rx] Spironolactone [Aldactone] 12.5 mg PO DAILY #30 tablet 09/27/17 [Rx] Allergies/Adverse Reactions: 3 Allergy/AdvReac Type Severity Reaction Status Date / Time latex Allergy Hives Verified 09/26/17 05:16 fluoxetine [From Prozac] AdvReac Agitated Verified 09/26/17 05:16 Date of admission: 09/26/17 06:54 Primary care physician: Roxane Henson DO Consults: 09/26/17 08:33 Consult to Physician [CONS] Routine Consulting Provider: Yemi Dietrich Reason for Consult: chest pain Time Notified: 08:33 Call Completed: No 09/27/17 11:07 Consult to Stabilizer Operator [CONS] Routine Reason for SW Consult: discharge- having difficulty obtaining medication Discharging clinician: Marleny Zaragoza Anticipated date of discharge: 09/27/17 - Patient Status Disposition: Home, Self-Care Condition: Good Overall status at discharge: patient is progressing back to baseline - Discharge Instructions Instructions: Chest Pain (DC) Follow Up With: Roxane Henson DO [Primary Care Provider] - - Diet and Activity Activity: resume usual activities as tolerated Diet: low salt diet Hospital course: Ms. Lorenzo is a 57 year old female with history of CHF COPD CAD and diabetes by her biologic bipolar GERD hyperlipidemia hypertension migraines PAD renal disease syncope cardiomyopathy with severely reduced ejection fraction. Patient was has been experiencing 8 out of 10 retrosternal chest pain for the past 2 weeks. She does have a significant cardiac history with [place] with a triple vessel CABG in October 2016 at [facility]. Echocardiogram on 09/18/2017 demonstrated LVEF of 25% with severe global and regional left ventricular systolic dysfunction. Atypical septal motion. Indeterminate diastolic function. Mild concentric left ventricular hypertrophy with normal LV size. Patient is status post mitral valve repair with 28 mm Medtronic annuloplasty ring which appears well-seated. Mild central mitral regurgitation with no pulmonary hypertension. He was recently discharged from this facility couple days ago for CHF exacerbation. She has been noncompliant with her medications at home unable to afford her medications. She presented back with midsternal chest pain. Troponins were all negative and echo was reviewed by cardiology. Cardiology does not feel that this is cardiac in nature more likely musculoskeletal. Patient is to be given CHF education and to follow-up with cardiology in a few weeks. This morning patient continues complaining of midsternal chest pain which is reproducible upon palpation. Patient was requesting Percocet for pain. Offered patient Tylenol and lidocaine patches which she agreed. Presently she is hemodynamically stable at this time. Time spent discussing smoking cessation with patient: 3 to 10 minutes - Time Spent with Patient Total time spent providing and/or coordinating discharge services: Less than 30 minutes - Constitutional Vitals: Temp Pulse Resp BP Pulse Ox 98.2 F 96 16 113/78 94 09/27/17 06:51 09/27/17 06:51 09/27/17 06:51 09/27/17 06:51 09/27/17 06:51 General appearance: Present: A&O X 3 - Head Head exam: Present: atraumatic, normocephalic - Eye Eye exam: Present: PERRL, conjuntiva pink, sclera anicteric Pupils: Present: PERRL - Neck Neck exam general surgery: Present: supple, trachea midline. Absent: lymphadenopathy - Respiratory Respiratory exam: Present: CTAB. Absent: accessory muscle use, rales, rhonchi, wheezes - Cardiovascular Cardiovascular exam: Present: RRR, +S1, +S2. Absent: diastolic murmur, gallop, rubs, systolic murmur - GI/Abdominal GI/Abdominal exam: Present: normal bowel sounds, soft, no peritoneal signs. Absent: distended, tenderness - Extremities Exam Extremities exam: Present: warm, radial pulses palpable and symmetrical. Absent : calf tenderness, cyanotic, pedal edema - Neurological Exam Neurological exam: Present: CN II-XII intact, oriented X3, no focal deficits. Absent: pronater drift, facial droop, speech deficit - Skin Skin exam: Present: dry, intact
[2017-09-27 11:52] VITALS: BP 121/84
[2017-09-27] MEDS ORDERED: Magnesium Oxide 400 MG TABLET PO SCH (12:00)
[2017-09-27] MEDS: Insulin DETEMIR 100 UNIT/ML X5UNITS SQ SCH (12:17)
--- NOTE | 2017-09-27 17:06 | Electrocardiograph Report ---
[address] [place] [address] Test Date: 2017-09-26 Pat Name: Bebe Lorenzo Department: 104 Room: 2A47 Gender: F Cash Specialist: DERICK : [id number] Requested By: Deshawn Viveros Order Number: [id number] Reading MD: Yasmany Bocanegra Measurements Intervals [place] Rate: 94 P: 65 FL: 177 QRS: 45 QRSD: 102 T: 121 QT: 361 QTc: 412 Interpretive Statements SINUS RHYTHM POSSIBLE LEFT ATRIAL ENLARGEMENT ST DEVIATION AND MODERATE T-WAVE ABNORMALITY, CONSIDER LATERAL ISCHEMIA Electronically Signed On 09-27-2017 17:04:23 EST by Yasmany Bocanegra
== END 2017-09-27 14:35 | disposition home or self-care (01) ==
LOC: EMEROO 05:14 → 2ANU 05:14
PROVIDERS: ADMIT Pediatrics; ATTEND Internal Medicine

== ENCOUNTER 2017-11-03 22:50 | Inpatient (IN) ==
[2017-11-03] MEDS ORDERED: Haloperidol Lactate 5 MG/ML VIAL IM ONE (23:22)
[2017-11-04] MEDS ORDERED: Metoclopramide 10 MG/2 ML VIAL IVP ONE (00:13)
[2017-11-04] MEDS ORDERED: 0.9 % Sodium Chloride 1,000 ML ONE (00:23)
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
[2017-11-04 01:08] LABS: Basophils % 0.4 %; Eosinophils # 0.1 K/mcL (0.0-0.6); Eosinophils % 1.4 %; Hematocrit 36.2 % (35.3-44.9); Hemoglobin 12.1 g/dL (11.5-15.4); Immature Granulocytes % 1.4 % (0-4); Mean Corpuscular HGB Conc 33.4 g/dL (31.6-35.5); Mean Corpuscular Volume 77.7 fL (83.0-100.0); Mean Platelet Volume 11.4 fL (9.4-12.4); Monocytes # 0.7 K/mcL (0.0-1.3); Monocytes % 6.9 %; Neutrophils # 6.1 K/mcL (1.6-8.9); Platelet Count 318 K/mcL (140-400); Red Blood Count 4.66 M/mcL (3.82-4.97); Red Cell Distribution Width 13.7 % (11.5-14.5); Segmented Neutrophils % 59.9 %
[2017-11-04 01:16] LABS: Bilirubin,Urine Negative (Negative); Clarity,Urine Clear (Clear); Color,Urine Yellow (Yellow); Glucose,Urine (UA) Normal (Normal)
[2017-11-04 01:17] LABS: Blood,Urine Negative (Negative); Ketones,Urine Negative (Negative); Leukocyte Esterase,Urine Negative (Negative); Nitrite,Urine Negative (Negative); Protein,Urine Negative (Neg-Trace); Specific Gravity,Urine 1.017 (1.010-1.025); Urobilinogen,Urine Normal (Normal)
[2017-11-04 04:28] LABS: Alanine Aminotransferase 12 Units/L (7-52); Albumin 3.6 g/dL (3.5-5.7); Albumin/Globulin Ratio 1.6 (1.1-2.2); Alkaline Phosphatase 102 Units/L (34-104); Aspartate Amino Transferase 14 Units/L (13-39); BUN/Creatinine Ratio 21 (6-26); Bilirubin,Total 0.3 mg/dL (0.3-1.0); Blood Urea Nitrogen 16 mg/dL (6-20); Calcium 8.3 mg/dL (8.6-10.3); Carbon Dioxide 25 mEq/L (23-29); Chloride 103 mEq/L (98-107); Globulin 2.3 g/dL (2.4-3.5); Glucose 191 mg/dL (70-105); Osmolality,Calculated 294 (280-300); Potassium 2.9 mEq/L (3.5-5.1); Sodium 139 mEq/L (136-145); Total Protein 5.9 g/dL (6.4-8.9); eGFR For African Americans > 60 (> 60); eGFR For Non-African Americans > 60 (> 60)
[2017-11-04] MEDS ORDERED: D5% in Water 1,000 ML IVC PRN (04:53)
[2017-11-04] MEDS ORDERED: *HR* Dextrose 50 % in Water (Syg) 50 ML SYRINGE IVP PRN (04:53)
[2017-11-04] MEDS ORDERED: Naloxone 0.4 MG/ML INJ IVP PRN (04:53)
[2017-11-04] MEDS ORDERED: Dextrose Gel 15 GM/37.5 ML TUBE PO PRN ×2 (04:53)
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
[2017-11-04] MEDS: *HR* Heparin 5,000 UNIT/ML VIAL SQ SCH ×2 (05:54→18:40)
[2017-11-04] MEDS: Acetaminophen/Butalbital/CaffeineTABLET PO PRN (05:54)
[2017-11-04] MEDS: 0.9 % Sodium Chloride w KCl 20 MEQ/1,000 ML MLS IVC SCH ×2 (05:56→20:48)
[2017-11-04] MEDS: Aspirin 81 MG TAB.CHEW PO SCH (09:22)
[2017-11-04] MEDS: Insulin LISPRO 300 UNITS/3 ML VIAL SQ SCH ×3 (09:22→17:27)
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
[2017-11-04] MEDS ORDERED: Perflutren Lipid Microsphere 1.3 ML in 0.9 % Sodium Chloride 8.7 ML IVP ONE (10:39)
[2017-11-04 11:01] LABS: Estimated Average Glucose 183 mg/dl
[2017-11-04 14:05] LABS: Alanine Aminotransferase 13 Units/L (7-52); Albumin 3.4 g/dL (3.5-5.7); Albumin/Globulin Ratio 1.5 (1.1-2.2); Alkaline Phosphatase 99 Units/L (34-104); Aspartate Amino Transferase 17 Units/L (13-39); BUN/Creatinine Ratio 22 (6-26); Bilirubin,Total 0.2 mg/dL (0.3-1.0); Blood Urea Nitrogen 16 mg/dL (6-20); Calcium 8.1 mg/dL (8.6-10.3); Carbon Dioxide 28 mEq/L (23-29); Chloride 105 mEq/L (98-107); Globulin 2.2 g/dL (2.4-3.5); Glucose 139 mg/dL (70-105); Osmolality,Calculated 291 (280-300); Potassium 3.6 mEq/L (3.5-5.1); Sodium 139 mEq/L (136-145); Total Protein 5.6 g/dL (6.4-8.9); eGFR For African Americans > 60 (> 60); eGFR For Non-African Americans > 60 (> 60)
[2017-11-04] MEDS ORDERED: Famotidine 20 MG TABLET PO PRN (16:44)
[2017-11-04] MEDS: Pregabalin 75 MG CAPSULE PO SCH (20:45)
[2017-11-04] MEDS ORDERED: Ipratropium/Albuterol Neb 3 ML IH PRN (22:00)
[2017-11-05 01:56] LABS: Activated Partial Thrombo Time 29.8 Seconds (26.0-36.0)
[2017-11-05 02:00] LABS: Basophils % 0.4 %; Eosinophils # 0.1 K/mcL (0.0-0.6); Hematocrit 30.1 % (35.3-44.9); Hemoglobin 10.1 g/dL (11.5-15.4); Immature Granulocytes % 1.8 % (0-4); Lymphocytes # 2.4 K/mcL (0.6-4.6); Lymphocytes % 48.8 %; Mean Corpuscular HGB Conc 33.6 g/dL (31.6-35.5); Mean Corpuscular Hemoglobin 26.4 pg (28.0-33.3); Mean Corpuscular Volume 78.6 fL (83.0-100.0); Mean Platelet Volume 10.8 fL (9.4-12.4); Monocytes # 0.3 K/mcL (0.0-1.3); Monocytes % 6.7 %; Platelet Count 227 K/mcL (140-400); Red Blood Count 3.83 M/mcL (3.82-4.97); Red Cell Distribution Width 13.5 % (11.5-14.5); Segmented Neutrophils % 40.3 %
[2017-11-05 02:12] LABS: Cholesterol 219 mg/dL (< 200); HDL Cholesterol 22 mg/dL (40-59); Magnesium 1.2 mg/dL (1.6-2.6); Triglycerides 839 mg/dL (< 150)
[2017-11-05] MEDS: *HR* Heparin 5,000 UNIT/ML VIAL SQ SCH ×2 (06:11→17:15)
[2017-11-05 07:16] LABS: BUN/Creatinine Ratio 18 (6-26); Blood Urea Nitrogen 12 mg/dL (6-20); Calcium 8.5 mg/dL (8.6-10.3); Carbon Dioxide 24 mEq/L (23-29); Chloride 108 mEq/L (98-107); Glucose 230 mg/dL (70-105); Osmolality,Calculated 299 (280-300); Potassium 4.1 mEq/L (3.5-5.1); Sodium 141 mEq/L (136-145); eGFR For African Americans > 60 (> 60); eGFR For Non-African Americans > 60 (> 60)
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
[2017-11-05] MEDS: Pregabalin 75 MG CAPSULE PO SCH ×2 (09:02→20:25)
[2017-11-05] MEDS: (Omega-3/Dha/Epa/Fish Oil [Fish Oil 1,000 Mg Softgel] PO SCH (09:03)
[2017-11-05] MEDS: Aspirin 81 MG TAB.CHEW PO SCH (09:03)
[2017-11-05] MEDS: *HR* SitaGLIPtin 100 MG TABLET PO SCH (09:03)
[2017-11-05] MEDS: Acetaminophen/Butalbital/CaffeineTABLET PO PRN ×2 (09:06→15:15)
[2017-11-05] MEDS: Insulin LISPRO 300 UNITS/3 ML VIAL SQ SCH ×3 (09:09→17:14)
[2017-11-05] MEDS: Acetaminophen 325 MG TABLET PO PRN (13:05)
[2017-11-05] MEDS: Ketorolac 15 MG/ML VIAL IVP PRN ×2 (15:55→20:59)
[2017-11-05] MEDS: *HR* Promethazine 25 MG/ML VIAL IVP PRN (15:55)
--- NOTE | 2017-11-05 17:09 | Vascular/Endovasc Consult Note ---
Date of Encounter: 11/05/17 Time of Encounter: 17:06 Assessment and Plan (1) Bilateral carotid artery stenosis Current Visit: Yes Status: Acute Patient has carotid artery stenosis greater on the right side than on the left. By duplex criteria she falls in the 60-79% stenotic range. The degree of stenosis does not suggest an etiology for her present headache. The stroke is identified in the she region and the duplex scan does not correlate with that anatomic finding as well. I suggested that the patient follow-up with me as an outpatient in one year with a repeat carotid artery duplex scan. I explained to the patient that the degree of stenosis does not require further investigation with angiography or any consideration for surgery at this time. I reviewed with her the possibility of stroke or strokelike symptoms that may occur and that she would need to be observant for them. I do not view the present headache as a TIA or pseudo-stroke manifestation. (2) Headache Current Visit: Yes Status: Acute Patient has history of headache with exacerbation over the past few days. Qualifiers: Headache type: unspecified Headache chronicity pattern: unspecified pattern Intractability: not intractable Qualified Code(s): R51 - Headache (3) CVA (cerebral vascular accident) Current Visit: Yes Status: Chronic Patient has an area of infarct on the MRI of the brain in the she region. This appears to be chronic. Qualifiers: CVA mechanism: unspecified Qualified Code(s): I63.9 - Cerebral infarction, unspecified - History of Present Illness Consult date: 11/05/17 Requesting physician: Steve Houser Consult reason: Abnormal carotid duplex scan Chief complaint: Headache History of present illness: Ms. Lorenzo is a 57 year old female Who was admitted via the emergency room a few days ago because of severe headache. The headache began at the back of her neck and carried up over the occiput and onto the vertex of the head and then descended over the 4 head and into the eyes. The patient has a history of chronic migraines. The patient had only partial response to medical treatment in the emergency room and she was admitted for further evaluation. As part of her evaluation she had a CT scan of the head and MRI of the head and a carotid artery duplex scan. The CT scan indicated ischemic changes in the small vessels of the brain. An MRI demonstrated a stroke in the she. The carotid artery duplex scan shows a 6079 % stenosis bilaterally. The velocities were 176 cm/s at the right internal 4 peak systolic velocity with an end-diastolic velocity of 65 cm/s. On the left side values her lower with the peak systolic velocity of 149 cm/s and the end- diastolic velocity of 40 cm/s. The patient denies having had a previous stroke. She denies having had previous carotid duplex scans. The patient has known coronary artery disease. A year ago October she underwent open heart bypass grafting at [facility] area the patient sees Dr. Yury Anderson here at [place] for her cardiology needs. On my visit with her this afternoon the patient's still has a headache that she describes as an 8 or 9/10. Past Med Surg Social Fam HX - Past Medical History Medical history: arthritis, CHF, COPD, coronary artery disease, diabetes, fibromyalgia, GERD, hyperlipidemia, hypertension, migraine, myocardial infarction, osteoporosis, peripheral artery disease, renal disease, syncope, venous stasis, other Psychiatric history: anxiety, bipolar, depression - Past Surgical History Surgical History: cholecystectomy, coronary bypass (CABG), orthopedic, other, other - Social History Smoking Status: Current some day smoker Packs per day: 1/3 Smokeless Tobacco Status: No Alcohol use: none Drug use: none - Family History Mother Living Status: Hx Family Cardiac Disorders: Yes (cardiomyothy) Hx Family Respiratory Disorders: No Hx Family Cancer: Yes ("female") Hx Family GI Disorders: No Hx Family Endocrine Disorder: No Hx Family Neuromuscular Disorders: No Hx Family Neurologic Disorders: No Hx Family HEENT Disorders: No Hx Family Autoimmune Disorders: No Father Name: mario Lorenzo Age: 78 Living Status: Still Living Hx Family Cardiac Disorders: Yes (4 heart stents) Hx Family Respiratory Disorders: No Hx Family Cancer: No Hx Family GI Disorders: No Hx Family Endocrine Disorder: Yes Hx Family Neuromuscular Disorders: No Hx Family Neurologic Disorders: No Hx Family HEENT Disorders: No Hx Family Autoimmune Disorders: No Medications and Allergies Albuterol Sulfate [Albuterol Inhaler] 2 puff IH Q4H PRN #1 inhaler 05/21/17 [Rx] Lisinopril [Zestril] 10 mg PO DAILY #30 tablet 05/21/17 [Rx] Cyclosporine [Restasis] 1 drop BOTH EYES BID 09/20/17 [History] Insulin Glargine [Lantus] 15 unit SQ QAM 09/20/17 [History] Carvedilol [Coreg] 6.25 mg PO BIDWM 1 Days #2 tablet 09/27/17 [Rx] DULoxetine [Cymbalta] 30 mg PO DAILY #30 capsule. 09/27/17 [Rx] Furosemide [Lasix] 20 mg PO BID #2 tablet 09/27/17 [Rx] Lidocaine [Lidoderm] 1 each TP DAILY #7 adh..patch 09/27/17 [Rx] Magnesium Oxide [Mag-Ox] 400 mg PO BID #1 tablet 09/27/17 [Rx] Metformin HCl [Metformin HCl ER] 1,000 mg PO BID #60 [id number] 09/27/17 [Rx] Nitroglycerin 0.4 mg SL Q5MIN PRN #30 tab.subl 09/27/17 [Rx] Rosuvastatin Calcium 40 mg PO HS #30 tablet 09/27/17 [Rx] SitaGLIPtin [Januvia] 100 mg PO DAILY #30 tablet 09/27/17 [Rx] Spironolactone [Aldactone] 12.5 mg PO DAILY #30 tablet 09/27/17 [Rx] Buspirone HCl [Buspar] 7.5 mg PO BID 11/04/17 [History] Famotidine [Pepcid] 20 mg PO DAILY PRN 11/04/17 [History] Ipratropium/Albuterol Neb [Duoneb] 3 ml IH Q6HR PRN 11/04/17 [History] Meloxicam [Meloxicam] 7.5 mg PO DAILY 11/04/17 [History] [place]-3/Dha/Epa/Fish Oil [Fish Oil 1,000 mg Softgel] 1,000 mg PO DAILY 11/04/17 [History] Pregabalin [Lyrica] 150 mg PO BID 11/04/17 [History] Quetiapine Fumarate [Seroquel Xr] 50 mg PO HS 11/04/17 [History] SUMAtriptan Succinate [Imitrex] 100 mg PO DAILY PRN 11/04/17 [History] hydrOXYzine pamoate [HydrOXYzine Pamoate] 50 mg PO TID PRN 11/04/17 [History] 3 Allergy/AdvReac Type Severity Reaction Status Date / Time latex Allergy Hives Verified 11/04/17 12:47 fluoxetine [From Prozac] AdvReac Agitated Verified 11/04/17 12:47 All Systems Review: The remainder of the systems were reviewed and are negative Exam Vital Signs, Last 4 Hours Temp Pulse Resp BP Pulse Ox 11/05/17 15:46 98.4 F 107 16 133/76 93 General: Present: Conversant, No Apparent Distress, Well developed, Well nourished, Other (Short stature) HEENT: Present: Atraumatic, Normocephaly, Trachea midline, Pupils equal Neck: Absent: JVD, Lymphadenopathy, Left Carotid bruit, Right Carotid bruit, Midline deformity, Tracheal deviation Cardiac: Present: Reg Rate and Rhythm, Normal S1 and S2, No Murmur Lungs: Present: Normal Breath Sounds, No Wheeze, Rales, Rhonchi Neuro: Present: Alert and responsive, No focal deficits noted, Cranial nerves grossly intact, Motor nerves grossly intact, Sensory nerves grossly intact Abdomen: Present: Soft, Non-tender Vascular: Present: Normal capillary refill, Pulse, normal (Patient has normal upper extremity pulses.) Skin: Present: No rashes noted on visualized skin Consult Discharge Plan - Plan Referrals: Oscar Cerrato MD [Primary Care Provider] -
[2017-11-05] MEDS: *HR* HYDROcodone/Acet 5/325 mg TABLET PO PRN ×2 (17:15→23:21)
[2017-11-06] MEDS: *HR* HYDROcodone/Acet 5/325 mg TABLET PO PRN ×2 (05:37→11:30)
[2017-11-06] MEDS: *HR* Heparin 5,000 UNIT/ML VIAL SQ SCH ×2 (05:37→17:09)
[2017-11-06 06:11] LABS: Basophils % 0.7 %; Eosinophils # 0.1 K/mcL (0.0-0.6); Eosinophils % 3.2 %; Hematocrit 28.7 % (35.3-44.9); Hemoglobin 9.3 g/dL (11.5-15.4); Immature Granulocytes % 5.4 % (0-4); Lymphocytes # 1.8 K/mcL (0.6-4.6); Lymphocytes % 45.5 %; Mean Corpuscular HGB Conc 32.4 g/dL (31.6-35.5); Mean Corpuscular Hemoglobin 25.8 pg (28.0-33.3); Mean Corpuscular Volume 79.5 fL (83.0-100.0); Mean Platelet Volume 10.9 fL (9.4-12.4); Monocytes # 0.3 K/mcL (0.0-1.3); Monocytes % 8.2 %; Neutrophils # 1.5 K/mcL (1.6-8.9); Nucleated Red Blood Cells 0.5 /100 WBC (0); Platelet Count 213 K/mcL (140-400); Red Blood Count 3.61 M/mcL (3.82-4.97); Red Cell Distribution Width 13.4 % (11.5-14.5)
[2017-11-06 06:38] LABS: Platelet Estimate Normal (Normal)
[2017-11-06] MEDS: *HR* SitaGLIPtin 100 MG TABLET PO SCH (08:11)
[2017-11-06] MEDS: Pregabalin 75 MG CAPSULE PO SCH ×2 (08:11→20:05)
[2017-11-06] MEDS: Aspirin 81 MG TAB.CHEW PO SCH (08:13)
[2017-11-06] MEDS: Acetaminophen/Butalbital/CaffeineTABLET PO PRN (08:13)
[2017-11-06] MEDS: Insulin LISPRO 300 UNITS/3 ML VIAL SQ SCH ×3 (08:14→17:12)
[2017-11-06] MEDS: (Omega-3/Dha/Epa/Fish Oil [Fish Oil 1,000 Mg Softgel] PO SCH (08:14)
[2017-11-06] MEDS: Nicotine 14 MG PATCH.TD24 TD SCH (08:14)
[2017-11-06] MEDS ORDERED: SUMAtriptan succinate 50 MG TABLET PO ONE (14:00)
[2017-11-06] MEDS: Ketorolac 15 MG/ML VIAL IVP PRN (15:04)
[2017-11-06] MEDS: *HR* Promethazine 25 MG/ML VIAL IVP PRN (17:09)
[2017-11-06] MEDS: hydrOXYzine pamoate 25 MG CAPSULE PO PRN (20:05)
[2017-11-06] MEDS: Acetaminophen 325 MG TABLET PO PRN (20:05)
[2017-11-06] MEDS ORDERED: Melatonin 3 MG TABLET PO PRN (21:42)
[2017-11-06] MEDS ORDERED: Ketorolac 15 MG/ML VIAL IVP STA (21:51)
[2017-11-06] MEDS ORDERED: *HR* LORazepam 2 MG/ML VIAL IVP STA (21:51)
[2017-11-06] MEDS ORDERED: SUMAtriptan succinate 50 MG TABLET PO STA (21:51)
[2017-11-06] MEDS ORDERED: Ondansetron 4 MG/2 ML VIAL IVP STA (22:00)
--- NOTE | 2017-11-06 22:03 | Internal Med Progress Note ---
Date of Encounter: 11/06/17 Time of Encounter: 22:01 - Assessment and plan (1) Headache Current Visit: Yes Status: Acute Assessment and plan: Somewhat improved, but still severe per patient. Will restart home sumatriptan. Will discontinue norco for risk of rebound. Will continue toradol. Will add benadryl PRN. Continue fioricet and Tylenol. Continue phenergan for nausea/vomiting. This is a chronic issue. Plan for discharge home tomorrow if little better controlled. Qualifiers: Headache type: unspecified Headache chronicity pattern: unspecified pattern Intractability: not intractable Qualified Code(s): R51 - Headache (2) Anxiety Current Visit: Yes Status: Chronic Assessment and plan: Worsening during hospitalization. Continue home vistaril, buspar, and seroquel. Will give one-time dose of ativan 0.5 mg QHS so she can get some rest , as this may help with LOPEZ; will avoid benzodiazepines going forward for anxiety. (3) Bilateral carotid artery stenosis Current Visit: Yes Status: Chronic Assessment and plan: Vascular surgery consulted; appreciate input. No intervention indicated at this time. Follow up with vascular surgery as outpatient in 1 year. (4) CVA (cerebral vascular accident) Current Visit: Yes Status: Chronic Assessment and plan: No focal deficits and no complaints/concerns of stroke. MRI with prior infarct in she. Continue ASA and Lopid. Counselled on smoking cessation. Continue risk reduction strategy. Qualifiers: CVA mechanism: unspecified Qualified Code(s): I63.9 - Cerebral infarction, unspecified (5) Hyperlipemia Current Visit: Yes Status: Chronic Assessment and plan: Continue lopid as per above. Qualifiers: Hyperlipidemia type: mixed hyperlipidemia Qualified Code(s): E78.2 - Mixed hyperlipidemia (6) Nicotine dependence with nicotine-induced disorder Current Visit: Yes Status: Chronic Assessment and plan: Counselled on smoking cessation. Continue nicotine transdermal. Qualifiers: Nicotine product type: cigarettes Qualified Code(s): F17.219 - Nicotine dependence, cigarettes, with unspecified nicotine-induced disorders - Time Spent With Patient less than 15 minutes - Subjective Interval history: Patient had no acute events overnight. She states that LOPEZ is 8/10 now, improved from 10/10 earlier, but still "horrible." She states that her anxiety is "really bad," and she "can't stop crying." She states that she takes many things for anxiety, but wants something more. She has some nausea, but no vomiting. She denies any focal neurological deficits. She has no other complaints. - Constitutional Vitals: Temp Pulse Resp BP Pulse Ox 98.5 F 61 15 108/63 97 11/06/17 21:43 11/06/17 21:43 11/06/17 21:43 11/06/17 21:43 11/06/17 21:43 General appearance: Present: cooperative, mild distress, A&O X 3, answers questions appropriately - Eye Eye exam: Present: EOMI, PERRL. Absent: nystagmus, scleral icterus - Respiratory Respiratory exam: Present: CTAB. Absent: accessory muscle use, rales, rhonchi, wheezes Additional comments: Normal WOB - Cardiovascular Cardiovascular exam: Present: RRR, +S1, +S2. Absent: diastolic murmur, gallop, rubs, systolic murmur Additional comments: No BLE edema - GI/Abdominal GI/Abdominal exam: Present: normal bowel sounds, soft. Absent: distended, hepatomegaly, mass, splenomegaly, tenderness - Psychiatric Psychiatric exam: Present: anxious. Absent: depressed, suicidal ideation - Skin Skin exam: Present: dry, intact, warm. Absent: cyanosis, rash Internal Medicine: Result - Labs CBC & Chem 7: 11/06/17 05:39 11/05/17 06:24 Labs: Short CBC 11/06/17 Range/Units 05:39 WBC 4.0 L (4.3-11.1) K/mcL Hgb 9.3 L (11.5-15.4) g/dL Hct 28.7 L (35.3-44.9) % Plt Count 213 (140-400) K/mcL Neutrophils # 1.5 L (1.6-8.9) K/mcL - ABG Interpretation ABG results: PT/INR, D-dimer PT 11.0 Seconds (9.4-12.1) 11/05/17 01:35 - VTE Reasons for not Prescribing Prophylaxis: Medical contraindication Documentation of Mechanical Device: Intermittent pneumatic compression device Contraindication No Overlap Therapy: Medical contraindication Consult Discharge Plan - Plan Referrals: Oscar Cerrato MD [Primary Care Provider] -
[2017-11-07] MEDS: *HR* Heparin 5,000 UNIT/ML VIAL SQ SCH (06:05)
[2017-11-07 07:39] VITALS: BP 162/86
[2017-11-07] MEDS: *HR* SitaGLIPtin 100 MG TABLET PO SCH (07:50)
[2017-11-07] MEDS: Aspirin 81 MG TAB.CHEW PO SCH (07:50)
[2017-11-07] MEDS: Acetaminophen/Butalbital/CaffeineTABLET PO PRN ×2 (07:51→13:52)
[2017-11-07] MEDS: Insulin LISPRO 300 UNITS/3 ML VIAL SQ SCH ×2 (07:51→12:12)
[2017-11-07] MEDS: Pregabalin 75 MG CAPSULE PO SCH (07:51)
[2017-11-07] MEDS: Ketorolac 15 MG/ML VIAL IVP PRN (09:53)
[2017-11-07] MEDS: Nicotine 14 MG PATCH.TD24 TD SCH (09:58)
[2017-11-07] MEDS: (Omega-3/Dha/Epa/Fish Oil [Fish Oil 1,000 Mg Softgel] PO SCH (09:58)
[2017-11-07] MEDS: hydrOXYzine pamoate 25 MG CAPSULE PO PRN (11:23)
[2017-11-07] MEDS: Acetaminophen 325 MG TABLET PO PRN (11:55)
--- NOTE | 2017-11-07 12:20 | Electrocardiograph Report ---
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
--- NOTE | 2017-11-07 13:55 | Discharge Summary ---
- NOTES TO OUTPATIENT PROVIDER Notes to Outpatient Provider: Follow up with PCP in 2-3 days after discharge. Make referral and appointment to outpatient neurologist for recurrent migraine headaches. Follow up with vascular surgery in 1 year. Date of Encounter: 11/07/17 Time of Encounter: 13:53 - Discharge Diagnosis (1) Headache Priority: Primary Status: Acute Qualifiers: Headache type: unspecified Headache chronicity pattern: unspecified pattern Intractability: not intractable Qualified Code(s): R51 - Headache (2) Anxiety Priority: Secondary Status: Chronic (3) Bilateral carotid artery stenosis Priority: Secondary Status: Chronic (4) CVA (cerebral vascular accident) Priority: Secondary Status: Chronic Qualifiers: CVA mechanism: unspecified Qualified Code(s): I63.9 - Cerebral infarction, unspecified (5) Hyperlipemia Priority: Secondary Status: Chronic Qualifiers: Hyperlipidemia type: mixed hyperlipidemia Qualified Code(s): E78.2 - Mixed hyperlipidemia (6) Nicotine dependence with nicotine-induced disorder Priority: Secondary Status: Chronic Qualifiers: Nicotine product type: cigarettes Qualified Code(s): F17.219 - Nicotine dependence, cigarettes, with unspecified nicotine-induced disorders Hospital course: Ms. Lorenzo is a 57 year old female admitted for headache. She was admitted to general medical floor. She has history of migraine headaches controlled by sumatriptan as outpatient. Triptan was held until stroke ruled out. Tylenol and fioricet initially used for migraine headache pain. She was placed on aspirin and statin. MRI brain, ECHO, and carotid dopplers were obtained. ECHO showed LVEF 30-35% with severe global and LV systolic dysfunction. Carotid dopplers showed stenosis greater on right than left - 60-79% range. MRI brain showed old she infarct. Vascular surgery was consulted and recommended that patient follow up as outpatient in one year with repeat carotid artery doppler. Headache improved over hospitalization with addition of toradol and benadryl. Home sumatriptan was resumed and helped with headache. She is still having headache on day of discharge but it is improved. She will follow up with PCP in 2-3 days after discharge. We will make referral and appointment with outpatient neurology for migraine management. Patient has met maximum benefit of this hospitalization and will be discharged home in stable condition with home health. Discharge discussed with: patient, nurse, case management, other (Pharmacist) - Time Spent with Patient Total time spent providing and/or coordinating discharge services: Greater than 30 minutes - Discharge Medications Prescriptions: hydrOXYzine pamoate [HydrOXYzine Pamoate] 50 mg PO TID PRN 10 Days #30 capsule PRN Reason: Anxiety SUMAtriptan Succinate [Imitrex] 100 mg PO DAILY PRN 10 Days #10 tablet PRN Reason: Migraine Headache Home Medications: Albuterol Sulfate [Albuterol Inhaler] 2 puff IH Q4H PRN #1 inhaler 05/21/17 [Rx] Lisinopril [Zestril] 10 mg PO DAILY #30 tablet 05/21/17 [Rx] Cyclosporine [Restasis] 1 drop BOTH EYES BID 09/20/17 [History] Insulin Glargine [Lantus] 15 unit SQ QAM 09/20/17 [History] Carvedilol [Coreg] 6.25 mg PO BIDWM 1 Days #2 tablet 09/27/17 [Rx] DULoxetine [Cymbalta] 30 mg PO DAILY #30 capsule. 09/27/17 [Rx] Furosemide [Lasix] 20 mg PO BID #2 tablet 09/27/17 [Rx] Lidocaine [Lidoderm] 1 each TP DAILY #7 adh..patch 09/27/17 [Rx] Magnesium Oxide [Mag-Ox] 400 mg PO BID #1 tablet 09/27/17 [Rx] Metformin HCl [Metformin HCl ER] 1,000 mg PO BID #60 [id number] 09/27/17 [Rx] Nitroglycerin 0.4 mg SL Q5MIN PRN #30 tab.subl 09/27/17 [Rx] Rosuvastatin Calcium 40 mg PO HS #30 tablet 09/27/17 [Rx] SitaGLIPtin [Januvia] 100 mg PO DAILY #30 tablet 09/27/17 [Rx] Spironolactone [Aldactone] 12.5 mg PO DAILY #30 tablet 09/27/17 [Rx] Buspirone HCl [Buspar] 7.5 mg PO BID 11/04/17 [History] Famotidine [Pepcid] 20 mg PO DAILY PRN 11/04/17 [History] Ipratropium/Albuterol Neb [Duoneb] 3 ml IH Q6HR PRN 11/04/17 [History] Meloxicam 7.5 mg PO DAILY 11/04/17 [History] [place]-3/Dha/Epa/Fish Oil [Fish Oil 1,000 mg Softgel] 1,000 mg PO DAILY 11/04/17 [History] Pregabalin [Lyrica] 150 mg PO BID 11/04/17 [History] Quetiapine Fumarate [Seroquel Xr] 50 mg PO HS 11/04/17 [History] SUMAtriptan Succinate [Imitrex] 100 mg PO DAILY PRN 10 Days #10 tablet 11/07/17 [Rx] hydrOXYzine pamoate [HydrOXYzine Pamoate] 50 mg PO TID PRN 10 Days #30 capsule 11/07/17 [Rx] Allergies/Adverse Reactions: 3 Allergy/AdvReac Type Severity Reaction Status Date / Time latex Allergy Hives Verified 11/04/17 12:47 fluoxetine [From Prozac] AdvReac Agitated Verified 11/04/17 12:47 Date of admission: 11/04/17 03:04 Primary care physician: Oscar Cerrato Consults: 11/05/17 14:36 Consult to Vascular Surgery [CONS] Routine Consulting Provider: Vascular Surgery [place] Reason for Consult: Bilatral ICA stenosis Time Notified: 14:00 Call Completed: No Discharging clinician: Michael Lima Anticipated date of discharge: 11/07/17 - Constitutional Vitals: Temp Pulse Resp BP Pulse Ox 98 F 93 16 162/86 98 11/07/17 07:33 11/07/17 07:33 11/07/17 07:33 11/07/17 07:33 11/07/17 07:33 General appearance: Present: cooperative, mild distress, A&O X 3, answers questions appropriately - Eye Eye exam: Present: EOMI, PERRL. Absent: nystagmus, scleral icterus - Respiratory Respiratory exam: Present: CTAB. Absent: accessory muscle use, rales, rhonchi, wheezes Additional comments: Normal WOB - Cardiovascular Cardiovascular exam: Present: RRR, +S1, +S2. Absent: diastolic murmur, gallop, rubs, systolic murmur Additional comments: No BLE edema - GI/Abdominal GI/Abdominal exam: Present: normal bowel sounds, soft. Absent: distended, hepatomegaly, mass, splenomegaly, tenderness - Neurological Exam Neurological exam: Present: CN II-XII intact, oriented X3, no focal deficits, strengths equal and symetr throughout. Absent: facial droop, speech deficit - Psychiatric Psychiatric exam: Present: normal affect, normal mood. Absent: anxious, depressed, suicidal ideation - Skin Skin exam: Present: dry, intact, warm. Absent: cyanosis, rash - Patient Status Disposition: Home Health Service Condition: Good Overall status at discharge: patient is progressing back to baseline - Discharge Instructions Follow Up With: Oscar Cerrato MD [Primary Care Provider] - 11/13/17 3:30 pm Ariel Goldstein MD [Partnered Physician] - 11/09/17 11:00 am () Additional Instructions: Follow up with PCP in 2-3 days after discharge. Make referral and appointment to outpatient neurologist for recurrent migraine headaches. Follow up with vascular surgery in 1 year. - Diet and Activity Activity: resume usual activities as tolerated Diet: advance to your usual diet - VTE Reasons for not Prescribing Prophylaxis: Medical contraindication Documentation of Mechanical Device: Intermittent pneumatic compression device Contraindication No Overlap Therapy: Medical contraindication
--- NOTE | 2017-11-07 14:30 | Physician Discharge Referral ---
Home Health/Hosp Referral Info Transfer to: Home Health Provider in Charge Post Discharge: PCP - Diagnosis (1) Headache Priority: Primary Status: Acute (2) Anxiety Priority: Secondary Status: Chronic (3) Bilateral carotid artery stenosis Priority: Secondary Status: Chronic (4) CVA (cerebral vascular accident) Priority: Secondary Status: Chronic (5) Hyperlipemia Priority: Secondary Status: Chronic (6) Nicotine dependence with nicotine-induced disorder Priority: Secondary Status: Chronic - Respiratory Orders Smoking Cessation: Smoking cessation has been advised. For more information, call the [place] Tobacco Quit Line at 6-220-COGZ-NOW. - Diet/Nutrition Diet/Nutrition Orders: Cardiac - Activity Activity Orders: Up ad analy - Services Needed Following services are medically necessary services: Nursing, Home Health Aide - Transfer Medications Prescriptions: hydrOXYzine pamoate [HydrOXYzine Pamoate] 50 mg PO TID PRN 10 Days #30 capsule PRN Reason: Anxiety SUMAtriptan Succinate [Imitrex] 100 mg PO DAILY PRN 10 Days #10 tablet PRN Reason: Migraine Headache Home Medications: Albuterol Sulfate [Albuterol Inhaler] 2 puff IH Q4H PRN #1 inhaler 05/21/17 [Rx] Lisinopril [Zestril] 10 mg PO DAILY #30 tablet 05/21/17 [Rx] Cyclosporine [Restasis] 1 drop BOTH EYES BID 09/20/17 [History] Insulin Glargine [Lantus] 15 unit SQ QAM 09/20/17 [History] Carvedilol [Coreg] 6.25 mg PO BIDWM 1 Days #2 tablet 09/27/17 [Rx] DULoxetine [Cymbalta] 30 mg PO DAILY #30 capsule.dr 09/27/17 [Rx] Furosemide [Lasix] 20 mg PO BID #2 tablet 09/27/17 [Rx] Lidocaine [Lidoderm] 1 each TP DAILY #7 adh..patch 09/27/17 [Rx] Magnesium Oxide [Mag-Ox] 400 mg PO BID #1 tablet 09/27/17 [Rx] Metformin HCl [Metformin HCl ER] 1,000 mg PO BID #60 [id number] 09/27/17 [Rx] Nitroglycerin 0.4 mg SL Q5MIN PRN #30 tab.subl 09/27/17 [Rx] Rosuvastatin Calcium 40 mg PO HS #30 tablet 09/27/17 [Rx] SitaGLIPtin [Januvia] 100 mg PO DAILY #30 tablet 09/27/17 [Rx] Spironolactone [Aldactone] 12.5 mg PO DAILY #30 tablet 09/27/17 [Rx] Buspirone HCl [Buspar] 7.5 mg PO BID 11/04/17 [History] Famotidine [Pepcid] 20 mg PO DAILY PRN 11/04/17 [History] Ipratropium/Albuterol Neb [Duoneb] 3 ml IH Q6HR PRN 11/04/17 [History] Meloxicam 7.5 mg PO DAILY 11/04/17 [History] [place]-3/Dha/Epa/Fish Oil [Fish Oil 1,000 mg Softgel] 1,000 mg PO DAILY 11/04/17 [History] Pregabalin [Lyrica] 150 mg PO BID 11/04/17 [History] Quetiapine Fumarate [Seroquel Xr] 50 mg PO HS 11/04/17 [History] SUMAtriptan Succinate [Imitrex] 100 mg PO DAILY PRN 10 Days #10 tablet 11/07/17 [Rx] hydrOXYzine pamoate [HydrOXYzine Pamoate] 50 mg PO TID PRN 10 Days #30 capsule 11/07/17 [Rx] Allergies/Adverse Reactions: 3 Allergy/AdvReac Type Severity Reaction Status Date / Time latex Allergy Hives Verified 11/04/17 12:47 fluoxetine [From Prozac] AdvReac Agitated Verified 11/04/17 12:47 Certification: Further, I certify that my clinical findings support that this patient is homebound (i.e. absences from home require considerable and taxing effort and are for medical reasons or tenriism services or infrequently or short duration when for other reasons) because: history of CVA, COPD, migraines, anxiety. Homebound Reason: Leaving home requires considerable and taxing effort due to condition, Severity of cardiac or pulmonary status limits activity tolerance Attestation: My signature below is to certify that this patient is under my care and that I, or nurse practitioner, or a physician's transportation assistant working with me, has a face-to -face encounter with this patient.
== END 2017-11-07 14:35 | disposition home or self-care (01) | DRG 103 ==
LOC: EMEROO 22:50 → 2NENU 22:50
PROVIDERS: ADMIT Pediatrics; ATTEND Internal Medicine

== ENCOUNTER 2018-09-27 05:07 | Inpatient (IN) ==
[2018-09-27] MEDS ORDERED: methylPREDNISolone 125 MG/2 ML VIAL IVP ONE (05:14)
[2018-09-27] MEDS ORDERED: Ipratropium/Albuterol Neb 3 ML IH ONE (05:14)
--- NOTE | 2018-09-27 05:18 | Emergency Department Note ---
Disposition Clinical Impression: Acute on chronic systolic CHF (congestive heart failure), COPD exacerbation Disposition: Admitted As Inpatient Condition: Fair Time of Disposition: 06:32 SOB HPI - General Chief Complaint: ED Shortness of Breath/Dyspnea Stated Complaint: Erica Time Seen by Provider: 09/27/18 05:12 Source: patient, EMS Mode of arrival: EMS Limitations: no limitations Nursing Notes Reviewed: Yes Vital Signs Reviewed: Yes - History of Present Illness Patient is a 50-year-old female with past medical history of COPD and diabetes who ran out of her home nebulizer fluid 3 days ago and has been feeling short of breath for 3 days. Patient is initially endorsing some chills, shortness of breath, dry cough, nausea, numbness in her right arm for the last week. Patient denies chest pain, abdominal pain, diarrhea constipation, falls, or any hitting of her head or loss consciousness. Patient states that she has been trying to cut back on smoking and is 1 pack every 3 days but denies drinking or drugs. Patient received one breathing treatment in route to the hospital and stated th at this made her feel much better. - Related Data Home Medications Medication Instructions Recorded Confirmed Cyclosporine [Restasis] 1 drop BOTH EYES BID 09/20/17 09/26/17 Insulin Glargine [Lantus] 15 unit SQ QAM 09/20/17 09/26/17 Buspirone HCl [Buspar] 7.5 mg PO BID 11/04/17 11/04/17 Famotidine [Pepcid] 20 mg PO DAILY PRN 11/04/17 11/04/17 Ipratropium/Albuterol Neb [Duoneb] 3 ml IH Q6HR PRN 11/04/17 11/04/17 Meloxicam 7.5 mg PO DAILY 11/04/17 11/04/17 [place]-3/Dha/Epa/Fish Oil [Fish Oil 1,000 mg PO DAILY 11/04/17 11/04/17 1,000 mg Softgel] Pregabalin [Lyrica] 150 mg PO BID 11/04/17 11/04/17 Quetiapine Fumarate [Seroquel Xr] 50 mg PO HS 11/04/17 11/04/17 Previous Rx's Medication Instructions Recorded Albuterol Sulfate [Albuterol 2 puff IH Q4H PRN #1 inhaler 05/21/17 Inhaler] Lisinopril [Zestril] 10 mg PO DAILY #30 tablet 05/21/17 Carvedilol [Coreg] 6.25 mg PO BIDWM 1 Days #2 tablet 09/27/17 DULoxetine [Cymbalta] 30 mg PO DAILY #30 capsule. 09/27/17 Furosemide [Lasix] 20 mg PO BID #2 tablet 09/27/17 Lidocaine [Lidoderm] 1 each TP DAILY #7 adh..patch 09/27/17 Magnesium Oxide [Mag-Ox] 400 mg PO BID #1 tablet 09/27/17 Metformin HCl [Metformin ER 1,000 mg PO BID #60 [id number] 09/27/17 Gastric] Nitroglycerin 0.4 mg SL Q5MIN PRN #30 tab.subl 09/27/17 Rosuvastatin Calcium 40 mg PO HS #30 tablet 09/27/17 SitaGLIPtin [Januvia] 100 mg PO DAILY #30 tablet 09/27/17 Spironolactone [Aldactone] 12.5 mg PO DAILY #30 tablet 09/27/17 SUMAtriptan Succinate [Imitrex] 100 mg PO DAILY PRN 10 Days #10 11/07/17 tablet hydrOXYzine pamoate [HydrOXYzine 50 mg PO TID PRN 10 Days #30 11/07/17 Pamoate] capsule Allergies Allergy/AdvReac Type Severity Reaction Status Date / Time latex Allergy Hives Verified 11/04/17 12:47 fluoxetine [From Prozac] AdvReac Agitated Verified 11/04/17 12:47 Constitutional: Reports: chills. Denies: fever Cardiovascular: Reports: dyspnea on exertion. Denies: chest pain Respiratory: Reports: cough (dry), dyspnea Gastrointestinal: Reports: nausea. Denies: abdominal pain, vomiting, diarrhea, constipation Past Medical History - Past Medical History Medical history: Reports: arthritis, CHF, COPD, coronary artery disease, diabetes, fibromyalgia, GERD, hyperlipidemia, hypertension, migraine, myocardial infarction, osteoporosis, peripheral artery disease, renal disease, syncope, venous stasis, other Surgical history: Reports: cholecystectomy, coronary bypass (CABG), orthopedic, other, other Psychiatric history: Reports: anxiety, bipolar, depression [employer] history: Reports: non-contributory - Social History Smoking Status: Current some day smoker Smokeless Tobacco Status: No Alcohol use: Reports: none Drug use: Reports: none Physical Exam - General Limitations: no limitations General appearance: alert, in no apparent distress - Head Head exam: atraumatic, normocephalic - Eye Eye exam: Present: normal appearance, PERRL, EOMI - ENT ENT exam: normal exam, normal oropharynx - Neck Neck exam: Present: normal inspection, full ROM - Chest Chest inspection: Present: normal inspection, symmetric chest wall rise - Respiratory Respiratory exam: Present: normal lung sounds bilaterally, prolonged expiratory phase. Absent: respiratory distress, wheezes - Cardiovascular Cardiovascular exam: Present: normal rhythm, tachycardia - Expanded Cardiovascular Exam Peripheral pulses: 1+: posterior tibialis (R), posterior tibialis (L), 2+: ra dial (R), radial (L) - Abdominal Exam Abdominal exam: Present: soft, Non-Tender. Absent: tenderness, distention, guarding - Extremities Exam Extremities exam: Present: normal inspection, full ROM - Back Exam Back exam: Present: normal inspection, full ROM - Neurological Exam Neurological exam: Present: alert - Psychiatric Psychiatric exam: Present: normal affect, normal mood - Skin Skin exam: Present: warm, dry, intact Course Course Narrative: Pt has been out of nebulizer fluid for the last 3-4 days and has had increasing shortness of breath over that time. Pt began to feel better after one breathing treatment with EMS. Will administer 2 more, give steroids, check basic screening labs including CBC, BMP, BNP, troponin, get EKG and CXR. Disposition pending workup. - Reevaluation(s) Reevaluation #1: Pt still tachypneic after 3 breathing treatments with decreased lung sounds in lower [place]. CXR shows pulmonary edema. Will admit to hospitalist for further treatment. Time: 06:10 Vital Signs Temperature 97.7 F 09/27/18 05:10 Pulse Rate 106 09/27/18 05:10 Respiratory Rate 18 09/27/18 05:10 Blood Pressure 142/111 09/27/18 05:10 O2 Sat by Pulse Oximetry 97 09/27/18 05:10 Temperature 97.7 F 09/27/18 05:10 Pulse Rate 106 09/27/18 05:10 Respiratory Rate 16 09/27/18 05:24 Blood Pressure 142/111 09/27/18 05:10 O2 Sat by Pulse Oximetry 98 09/27/18 05:24 Oxygen Delivery Oxygen Delivery Room Air Shortness of Breath/Dyspnea - [facility] Narrative Medical decision making narrative: Pt has not had any of her medications since she moved back from [place] several months ago. She knows it was before , not sure if it was before . She has been out of nebulizer fluid for 3-4 days and has been living with smokers and has herself been smoking. She states that over the last several days she has been increasingly short of breath. Her CXR findings are consistent with increased pulmonary edema. Admitting for CHF exacerbation. Additionally, pt has a mechanical valve on CXR and has not been taking any anti- coagulation. Spoke with Dr. Mckeon, hospitalist, who accepts the patient for a dmission. Pt verbalizes understanding of the plan. Pt was given an opportunity to ask questions and all of her concerns were addressed. Pt remained stable while in the department. - Medical Records Medical records reviewed: Yes I reviewed the patient's medical records. - Lab Data Lab results reviewed: Yes I reviewed the patient's lab results. Result diagrams: 09/27/18 05:21 09/27/18 05:21 Lab Results 09/27/18 09/27/18 09/27/18 Range/Units 05:21 05:21 05:21 WBC 6.8 (4.3-11.1) K/mcL RBC 4.53 (3.82-4.97) M/mcL Hgb 12.2 (11.5-15.4) g/dL Hct 38.7 (35.3-44.9) % MCV 85.4 (83.0-100.0) fL MCH 26.9 L (28.0-33.3) pg MCHC 31.5 L (31.6-35.5) g/dL RDW 14.5 (11.5-14.5) % Plt Count 232 (140-400) K/mcL MPV 11.0 (9.4-12.4) fL Immature Gran % 1.3 (0-4) % Seg Neutrophils % 45.0 % Lymphocytes % 45.6 % Monocytes % 5.8 % Eosinophils % 1.6 % Basophils % 0.7 % Neutrophils # 3.1 (1.6-8.9) K/mcL Lymphocytes # 3.1 (0.6-4.6) K/mcL Monocytes # 0.4 (0.0-1.3) K/mcL Eosinophils # 0.1 (0.0-0.6) K/mcL Basophils # 0.1 (0.0-0.2) K/mcL Sodium 136 (136-145) mEq/L Potassium 3.9 (3.5-5.1) mEq/L Chloride 101 (98-107) mEq/L Carbon Dioxide 25 (23-29) mEq/L BUN 18 (6-20) mg/dL Creatinine 0.76 (0.60-1.20) mg/dL Est GFR ( Amer) > 60 (> 60) Est GFR (Non-Af Amer) > 60 (> 60) BUN/Creatinine Ratio 24 (6-26) Glucose 331 H (70-105) mg/dL Calculated Osmolality 297 (280-300) Calcium 8.9 (8.6-10.3) mg/dL Troponin I < 0.03 (< 0.04) ng/mL B-Natriuretic Peptide 701 H (Less than 100) pg/mL - Radiology Data Radiology results reviewed: Yes I reviewed the patient's radiology results. Chest X-Ray 09/27/18 05:14 IMPRESSION: Pulmonary edema. D/ / Ismael Hercules MD / Ismael Hercules MD Interpreting Provider: Ismael Hercules MD - EKG Data EKG attestation: Yes I reviewed and interpreted this EKG. EKG results narrative: HR 105, rhythm sinus tachycardia, axis right at 101. MI 164, QRS 101, QTc 443. ST depression present in V4-V5-V6 consistent with ischemia. Notched p waves present in II, III, avF consistent with atrial enlargement. Flattened T waves present diffusely. 1 PVC present on EKG. This EKG significantly different than comparison from 11/06/2017.
[2018-09-27 05:36] LABS: Basophils # 0.1 K/mcL (0.0-0.2); Basophils % 0.7 %; Eosinophils # 0.1 K/mcL (0.0-0.6); Eosinophils % 1.6 %; Hematocrit 38.7 % (35.3-44.9); Hemoglobin 12.2 g/dL (11.5-15.4); Immature Granulocytes % 1.3 % (0-4); Lymphocytes # 3.1 K/mcL (0.6-4.6); Lymphocytes % 45.6 %; Mean Corpuscular HGB Conc 31.5 g/dL (31.6-35.5); Mean Corpuscular Hemoglobin 26.9 pg (28.0-33.3); Mean Corpuscular Volume 85.4 fL (83.0-100.0); Monocytes # 0.4 K/mcL (0.0-1.3); Monocytes % 5.8 %; Neutrophils # 3.1 K/mcL (1.6-8.9); Platelet Count 232 K/mcL (140-400); Red Blood Count 4.53 M/mcL (3.82-4.97); Red Cell Distribution Width 14.5 % (11.5-14.5)
[2018-09-27 05:58] LABS: Troponin I < 0.03 ng/mL (< 0.04)
[2018-09-27 06:00] LABS: BUN/Creatinine Ratio 24 (6-26); Blood Urea Nitrogen 18 mg/dL (6-20); Calcium 8.9 mg/dL (8.6-10.3); Carbon Dioxide 25 mEq/L (23-29); Chloride 101 mEq/L (98-107); Glucose 331 mg/dL (70-105); Osmolality,Calculated 297 (280-300); Potassium 3.9 mEq/L (3.5-5.1); Sodium 136 mEq/L (136-145); eGFR For Non-African Americans > 60 (> 60)
[2018-09-27] MEDS ORDERED: Furosemide 40 MG/4 ML VIAL IVP ONE (06:06)
--- NOTE | 2018-09-27 06:26 | Emergency Department Note ---
Disposition Clinical Impression: Acute on chronic systolic CHF (congestive heart failure), COPD exacerbation Disposition: Admitted As Inpatient Condition: Fair General Adult HPI - General Chief complaint: ED Shortness of Breath/Dyspnea Stated complaint: Erica Time Seen by Provider: 09/27/18 05:12 Source: patient, EMS Mode of arrival: EMS Limitations: no limitations Nursing Notes Reviewed: Yes Vital Signs Reviewed: Yes - History of Present Illness Pain Scale: 0 - Related Data Home Medications Medication Instructions Recorded Confirmed Cyclosporine [Restasis] 1 drop BOTH EYES BID 09/20/17 09/26/17 Insulin Glargine [Lantus] 15 unit SQ QAM 09/20/17 09/26/17 Buspirone HCl [Buspar] 7.5 mg PO BID 11/04/17 11/04/17 Famotidine [Pepcid] 20 mg PO DAILY PRN 11/04/17 11/04/17 Ipratropium/Albuterol Neb [Duoneb] 3 ml IH Q6HR PRN 11/04/17 11/04/17 Meloxicam 7.5 mg PO DAILY 11/04/17 11/04/17 [place]-3/Dha/Epa/Fish Oil [Fish Oil 1,000 mg PO DAILY 11/04/17 11/04/17 1,000 mg Softgel] Pregabalin [Lyrica] 150 mg PO BID 11/04/17 11/04/17 Quetiapine Fumarate [Seroquel Xr] 50 mg PO HS 11/04/17 11/04/17 Previous Rx's Medication Instructions Recorded Albuterol Sulfate [Albuterol 2 puff IH Q4H PRN #1 inhaler 05/21/17 Inhaler] Lisinopril [Zestril] 10 mg PO DAILY #30 tablet 05/21/17 Carvedilol [Coreg] 6.25 mg PO BIDWM 1 Days #2 tablet 09/27/17 DULoxetine [Cymbalta] 30 mg PO DAILY #30 capsule. 09/27/17 Furosemide [Lasix] 20 mg PO BID #2 tablet 09/27/17 Lidocaine [Lidoderm] 1 each TP DAILY #7 adh..patch 09/27/17 Magnesium Oxide [Mag-Ox] 400 mg PO BID #1 tablet 09/27/17 Metformin HCl [Metformin ER 1,000 mg PO BID #60 [id number] 09/27/17 Gastric] Nitroglycerin 0.4 mg SL Q5MIN PRN #30 tab.subl 09/27/17 Rosuvastatin Calcium 40 mg PO HS #30 tablet 09/27/17 SitaGLIPtin [Januvia] 100 mg PO DAILY #30 tablet 09/27/17 Spironolactone [Aldactone] 12.5 mg PO DAILY #30 tablet 09/27/17 SUMAtriptan Succinate [Imitrex] 100 mg PO DAILY PRN 10 Days #10 11/07/17 tablet hydrOXYzine pamoate [HydrOXYzine 50 mg PO TID PRN 10 Days #30 11/07/17 Pamoate] capsule Allergies Allergy/AdvReac Type Severity Reaction Status Date / Time latex Allergy Hives Verified 11/04/17 12:47 fluoxetine [From Prozac] AdvReac Agitated Verified 11/04/17 12:47 Constitutional: Reports: chills. Denies: fever Cardiovascular: Reports: dyspnea on exertion. Denies: chest pain Respiratory: Reports: cough (dry), dyspnea Gastrointestinal: Reports: nausea. Denies: abdominal pain, vomiting, diarrhea, constipation Past Medical History - Past Medical History Medical history: Reports: arthritis, CHF, COPD, coronary artery disease, diabetes, fibromyalgia, GERD, hyperlipidemia, hypertension, migraine, myocardial infarction, osteoporosis, peripheral artery disease, renal disease, syncope, venous stasis, other Surgical history: Reports: cholecystectomy, coronary bypass (CABG), orthopedic, other, other Psychiatric history: Reports: anxiety, bipolar, depression [employer] history: Reports: non-contributory - Social History Smoking Status: Current some day smoker Smokeless Tobacco Status: No Alcohol use: Reports: none Drug use: Reports: none Physical Exam - General Limitations: no limitations General appearance: alert, in no apparent distress Course Vital Signs Temperature 97.7 F 09/27/18 05:10 Pulse Rate 106 09/27/18 05:10 Respiratory Rate 18 09/27/18 05:10 Blood Pressure 142/111 09/27/18 05:10 O2 Sat by Pulse Oximetry 97 09/27/18 05:10 Temperature 97.7 F 09/27/18 05:10 Pulse Rate 106 09/27/18 05:10 Respiratory Rate 20 09/27/18 06:50 Blood Pressure 138/100 09/27/18 06:50 O2 Sat by Pulse Oximetry 98 09/27/18 05:24 Oxygen Delivery Oxygen Delivery Room Air Medical Decision Making - Medical Records Medical records reviewed: Yes I reviewed the patient's medical records. - Lab Data Lab results reviewed: Yes I reviewed the patient's lab results. Result diagrams: 09/27/18 05:21 09/27/18 05:21 Lab Results 09/27/18 09/27/18 09/27/18 Range/Units 05:21 05:21 05:21 WBC 6.8 (4.3-11.1) K/mcL RBC 4.53 (3.82-4.97) M/mcL Hgb 12.2 (11.5-15.4) g/dL Hct 38.7 (35.3-44.9) % MCV 85.4 (83.0-100.0) fL MCH 26.9 L (28.0-33.3) pg MCHC 31.5 L (31.6-35.5) g/dL RDW 14.5 (11.5-14.5) % Plt Count 232 (140-400) K/mcL MPV 11.0 (9.4-12.4) fL Immature Gran % 1.3 (0-4) % Seg Neutrophils % 45.0 % Lymphocytes % 45.6 % Monocytes % 5.8 % Eosinophils % 1.6 % Basophils % 0.7 % Neutrophils # 3.1 (1.6-8.9) K/mcL Lymphocytes # 3.1 (0.6-4.6) K/mcL Monocytes # 0.4 (0.0-1.3) K/mcL Eosinophils # 0.1 (0.0-0.6) K/mcL Basophils # 0.1 (0.0-0.2) K/mcL Sodium 136 (136-145) mEq/L Potassium 3.9 (3.5-5.1) mEq/L Chloride 101 (98-107) mEq/L Carbon Dioxide 25 (23-29) mEq/L BUN 18 (6-20) mg/dL Creatinine 0.76 (0.60-1.20) mg/dL Est GFR ( Amer) > 60 (> 60) Est GFR (Non-Af Amer) > 60 (> 60) BUN/Creatinine Ratio 24 (6-26) Glucose 331 H (70-105) mg/dL Calculated Osmolality 297 (280-300) Calcium 8.9 (8.6-10.3) mg/dL Troponin I < 0.03 (< 0.04) ng/mL B-Natriuretic Peptide 701 H (Less than 100) pg/mL - Radiology Data Radiology results reviewed: Yes I reviewed the patient's radiology results. Chest X-Ray 09/27/18 05:14 IMPRESSION: Pulmonary edema. D/ / Ismael Hercules MD / Ismael Hercules MD Interpreting Provider: Ismael Hercules MD - EKG Data EKG #1 EKG attestation: Yes I reviewed and interpreted this EKG. EKG results narrative: EKG shows sinus tachycardia with ventricular rate of 105. Multiple PVCs. Right atrial enlargement. Right axis deviation. Diffuse T-wave flattening. T-wave inversions in V4 through [address] segment depression in V4 through 6. Critical Care Time Critical Care Time: Yes Total Critical Care Time: 35 Attestation: Critical care performed: Time is exclusive of separately billable procedures. Time includes: direct patient care, patient reassessment, coordination of patient care, interpretation of data (laboratory data, radiology data, and respiratory data), review of patient's medical records, medical consultation and documentation of patient care. Procedures included in critical care time: Procedures excluded from critical care time: Attestation Statement - Attestation Attestation: I, Bayron Carroll MD, personally evaluated this patient and discussed their management with the resident physician. I reviewed the resident's note and agree with the documented findings, medical decision making, and plan of care. 58-year-old female with history of COPD and CHF as well as diabetes and multiple other medical problems presents to the emergency department with a complaint of increasing shortness of breath over the past 3 days prior to arrival. Patient states she ran out of her nebulizer solutions about 3 days ago. She has had some increased cough with occasional white sputum production. No fever. No significant chest pain. Patient also states she has not been taking her insulin for the past several months. She apparently also has not been taking any of her other medications recently. She states she just recently moved back to this area from [place] and does not have any of her meds with her. She did have an oxygen concentrator in the past but does not have one at present. Patient also continues to smoke. On examination patient is a well-developed well-nourished female in mild respiratory distress. She is alert and oriented 3. There is no cyanosis or diaphoresis. At time of my exam patient is tachypneic with respiratory rate of 28-30. She is tachycardic with a heart rate of 110. Oxygen saturation is 97% on room air. Patient has decreased breath sounds bilaterally with some coarse bilateral rhonchi. Heart tachycardic and regular. Occasional ectopy. Abdomen soft and nontender with normal bowel sounds. No pedal edema. EKG shows sinus tachycardia with multiple PVCs. Some diffuse T-wave flattening. T-wave inversions and mild ST segment depression in V4 through V6. Chest x-ray shows pulmonary edema. Labs reviewed. BNP 701. Patient received DuoNeb treatments and Solu-Medrol. She also received Lasix 40 mg IV. The hospitalist, Dr. Mckeon, was consulted and accepted admission of the patient.
[2018-09-27] MEDS ORDERED: Naloxone 0.4 MG/ML INJ IVP PRN (07:18)
[2018-09-27] MEDS ORDERED: hydrOXYzine pamoate 25 MG CAPSULE PO PRN (07:20)
[2018-09-27] MEDS ORDERED: *HR* Dextrose 50 % in Water (Syg) 50 ML SYRINGE IVP PRN ×2 (07:23→12:33)
[2018-09-27] MEDS ORDERED: Dextrose Gel 15 GM/37.5 ML TUBE PO PRN ×2 (07:23)
[2018-09-27] MEDS ORDERED: D5% in Water 1,000 ML IVC PRN (07:23)
--- NOTE | 2018-09-27 07:31 | Internal Med History&Physical ---
Date of Encounter: 09/27/18 Time of Encounter: 07:45 Internal Medicine - H&P: HPI Chief complaint: shortness of breath, coughing and wheezing of a couple of days duration History of present illness: Ms. Lorenzo is a 58 year old female with a pmh of chronic systolic CHF, COPD on oxygen as needed presenting with complaints of worsening shortness of breath, wheezing and dry cough of a week's duration. Patient says she has been taking multiple medications for a long time and just got tired of being on meds and stopped taking them and hasn't taken them in months. She also began to smoke again. She has been experiencing shortness of breath for a while, but it has gotten severe in the last couple of days. She denies any nausea, vomiting or diarrhea but admits to occasional chills. Cough is non productive. she denies any chest pain In the ER, she was given one dose of nebs and steroids and she is being admitted for further management Past Med Surg Social Fam HX - Past Medical History Medical history: arthritis, CHF, COPD, coronary artery disease, diabetes, fibromyalgia, GERD, hyperlipidemia, hypertension, migraine, myocardial infarction, osteoporosis, peripheral artery disease, renal disease, syncope, venous stasis, other Additional medical history: history of falls states doctor her there was something growing in her right knee that is the cause of her falls. Psychiatric history: anxiety, bipolar, depression - Past Surgical History Surgical History: cholecystectomy, coronary bypass (CABG), orthopedic, other, other Additional surgical history: rt knee surgery s/p fall, growth removed from back of her neck, Triple Bypass on 10/27/2016. - Social History Smoking Status: Current some day smoker Smokeless Tobacco Status: No Alcohol use: none Drug use: none - Family History Mother Living Status: Hx Family Cardiac Disorders: Yes (cardiomyothy) Hx Family Respiratory Disorders: No Hx Family Cancer: Yes ("female") Hx Family GI Disorders: No Hx Family Endocrine Disorder: No Hx Family Neuromuscular Disorders: No Hx Family Neurologic Disorders: No Hx Family HEENT Disorders: No Hx Family Autoimmune Disorders: No Father Living Status: Still Living Hx Family Cardiac Disorders: Yes (4 heart stents) Hx Family Respiratory Disorders: No Hx Family Cancer: No Hx Family GI Disorders: No Hx Family Endocrine Disorder: Yes Hx Family Neuromuscular Disorders: No Hx Family Neurologic Disorders: No Hx Family HEENT Disorders: No Hx Family Autoimmune Disorders: No Internal Medicine - H&P: Meds Albuterol Sulfate [Albuterol Inhaler] 2 puff IH Q4H PRN #1 inhaler 05/21/17 [Rx] Lisinopril [Zestril] 10 mg PO DAILY #30 tablet 05/21/17 [Rx] Cyclosporine [Restasis] 1 drop BOTH EYES BID 09/20/17 [History] Insulin Glargine [Lantus] 15 unit SQ QAM 09/20/17 [History] Carvedilol [Coreg] 6.25 mg PO BIDWM 1 Days #2 tablet 09/27/17 [Rx] DULoxetine [Cymbalta] 30 mg PO DAILY #30 capsule.dr 09/27/17 [Rx] Furosemide [Lasix] 20 mg PO BID #2 tablet 09/27/17 [Rx] Lidocaine [Lidoderm] 1 each TP DAILY #7 adh..patch 09/27/17 [Rx] Magnesium Oxide [Mag-Ox] 400 mg PO BID #1 tablet 09/27/17 [Rx] Metformin HCl [Metformin ER Gastric] 1,000 mg PO BID #60 [id number] 09/27/17 [Rx] Nitroglycerin 0.4 mg SL Q5MIN PRN #30 tab.subl 09/27/17 [Rx] Rosuvastatin Calcium 40 mg PO HS #30 tablet 09/27/17 [Rx] SitaGLIPtin [Januvia] 100 mg PO DAILY #30 tablet 09/27/17 [Rx] Spironolactone [Aldactone] 12.5 mg PO DAILY #30 tablet 09/27/17 [Rx] Buspirone HCl [Buspar] 7.5 mg PO BID 11/04/17 [History] Famotidine [Pepcid] 20 mg PO DAILY PRN 11/04/17 [History] Ipratropium/Albuterol Neb [Duoneb] 3 ml IH Q6HR PRN 11/04/17 [History] Meloxicam 7.5 mg PO DAILY 11/04/17 [History] Pep-3/Dha/Epa/Fish Oil [Fish Oil 1,000 mg Softgel] 1,000 mg PO DAILY 11/04/17 [History] Pregabalin [Lyrica] 150 mg PO BID 11/04/17 [History] Quetiapine Fumarate [Seroquel Xr] 50 mg PO HS 11/04/17 [History] SUMAtriptan Succinate [Imitrex] 100 mg PO DAILY PRN 10 Days #10 tablet 11/07/17 [Rx] hydrOXYzine pamoate [HydrOXYzine Pamoate] 50 mg PO TID PRN 10 Days #30 capsule 11/07/17 [Rx] Allergy/AdvReac Type Severity Reaction Status Date / Time latex Allergy Hives Verified 11/04/17 12:47 fluoxetine [From Prozac] AdvReac Agitated Verified 11/04/17 12:47 All Systems PM: A 10-system review of systems was performed and is negative for pertinent findings except as documented above in the HPI. - Constitutional Constitutional: no chills, no fever(s), no night sweats - EENT Eyes: no change in vision, no discharge, no pain, no photophobia Ears: no ear discharge, no ear pain, no tinnitus Nose, mouth and throat: no dysphagia, no nasal discharge, no neck pain, no sore throat - Cardiovascular Cardiovascular ROS IM: dyspnea on exertion, no chest pain, no diaphoresis, no dyspnea, no lightheadedness, no palpitations, no syncope - Respiratory Respiratory: cough, dyspnea, wheezing, no excessive phlegm production - Gastrointestinal Gastrointestinal: no abdominal pain, no diarrhea, no hematemesis, no hematochezia, no melena, no nausea, no vomiting - Genitourinary Genitourinary: no change in urinary stream, no dysuria, no flank pain, no hematuria - Musculoskeletal Musculoskeletal ROS IM: no numbness, no tingling - Integumentary Integumentary IM: no rash, no unusual bruising - Neurological Neurological ROS: no confusion, no convulsions, no focal weakness, no numbness, no tingling, no tremor(s) - Hematologic/Lymphatic Hematologic/Lymphatic: no easy bruising - Constitutional Vitals: Temp Pulse Resp BP Pulse Ox 97.7 F 106 20 138/100 98 09/27/18 05:10 09/27/18 05:10 09/27/18 06:50 09/27/18 06:50 09/27/18 05:24 Exam: Pt has moderate respiratory distress - Head Head exam: Present: atraumatic, normocephalic - Eye Eye exam: Present: PERRL, conjuntiva pink, sclera anicteric Pupils: Present: PERRL - Neck Neck exam general surgery: Present: supple, trachea midline. Absent: lymphadenopathy - Respiratory Respiratory exam: Present: decreased breath sounds, wheezes, tachypnea. Absent: accessory muscle use, rales, rhonchi - Cardiovascular Cardiovascular exam: Present: RRR, +S1, +S2. Absent: diastolic murmur, gallop, rubs, systolic murmur - GI/Abdominal GI/Abdominal exam: Present: normal bowel sounds, soft, no peritoneal signs. Absent: distended, tenderness - Extremities Exam Extremities exam: Present: warm, radial pulses palpable and symmetrical. Absent: calf tenderness, cyanotic, pedal edema - Neurological Exam Neurological exam: Present: CN II-XII intact, oriented X3, no focal deficits. Absent: pronater drift, facial droop, speech deficit - Skin Skin exam: Present: dry, intact Internal Med - H&P Results - Labs CBC & Chem 7: 09/27/18 05:21 09/27/18 05:21 Labs: Short CBC 09/27/18 Range/Units 05:21 WBC 6.8 (4.3-11.1) K/mcL Hgb 12.2 (11.5-15.4) g/dL Hct 38.7 (35.3-44.9) % Plt Count 232 (140-400) K/mcL Neutrophils # 3.1 (1.6-8.9) K/mcL BMP 09/27/18 05:21 Sodium 136 Potassium 3.9 Chloride 101 Carbon Dioxide 25 BUN 18 Creatinine 0.76 Glucose 331 H Calcium 8.9 Cardiac Enzymes 09/27/18 Range/Units 05:21 Troponin I < 0.03 (< 0.04) ng/mL - Impressions ITS Impressions Chest X-Ray 09/27/18 05:14 IMPRESSION: Pulmonary edema. D/ / Ismael Hercules MD / Ismael Hercules MD Interpreting Provider: Ismael Hercules MD - Assessment and plan (1) Acute on chronic systolic CHF (congestive heart failure) Current Visit: Yes Status: Acute Assessment and plan: Pt comes in with shortness of breath and wheezing with pulmonary edema on chest xray likely secondary to acute worsening of chronic systolic CHF aand acute COPD exacerbation Will start on nebs, steroids antibiotics and diuresis with lasix BID (2) COPD exacerbation Current Visit: Yes Status: Acute Assessment and plan: Started on nebs, steroids and antibiotics (3) Diabetes Current Visit: Yes Status: Acute Assessment and plan: Continue insulin, monitor fingersticks Qualifiers: Diabetes mellitus type: type 2 Qualified Code(s): E11.9 - Type 2 diabetes mellitus without complications (4) Hyperlipemia Current Visit: Yes Status: Acute Assessment and plan: Continue home meds Qualifiers: Hyperlipidemia type: mixed hyperlipidemia Qualified Code(s): E78.2 - Mixed hyperlipidemia (5) Hypertension Current Visit: Yes Status: Acute Assessment and plan: Continue coreg and PRN hydralazine Qualifiers: Hypertension type: essential hypertension Qualified Code(s): I10 - Essential (primary) hypertension (6) DVT prophylaxis Current Visit: Yes Status: Acute Assessment and plan: Heparin sc - Time Spent With Patient Total time spent is greater than 50% in coordination of care (as documented) at patient's floor/unit and/or counseling patient:
[2018-09-27] MEDS: Ipratropium/Albuterol Neb 3 ML IH SCH ×4 (07:38→20:36)
[2018-09-27] MEDS ORDERED: Furosemide 40 MG/4 ML VIAL IVP SCH (08:00)
[2018-09-27] MEDS ORDERED: NON-FORMULARY MEDICATION 1 EACH EACH (Insulin Glargine [Lantus] 15 UNIT) SQ SCH (09:00)
[2018-09-27] MEDS: Insulin LISPRO 300 UNITS/3 ML VIAL SQ SCH ×3 (09:38→17:25)
[2018-09-27] MEDS: Insulin DETEMIR 100 UNIT/ML X5UNITS SQ SCH (09:39)
[2018-09-27] MEDS: Spironolactone 25 MG TABLET PO SCH (09:39)
[2018-09-27] MEDS: methylPREDNISolone 125 MG/2 ML VIAL IVP SCH ×2 (09:39→17:26)
[2018-09-27] MEDS: Pregabalin 75 MG CAPSULE PO SCH ×2 (09:40→21:49)
[2018-09-27] MEDS: Levofloxacin 750 MG/150 ML 750 MG/150 ML BAG IVPB SCH (10:15)
[2018-09-27] MEDS: Furosemide 20 MG/2 ML VIAL IVP SCH ×2 (10:15→17:26)
[2018-09-27] MEDS: traMADol 50 MG TABLET PO PRN ×2 (10:16→18:28)
[2018-09-27] MEDS ORDERED: Insulin LISPRO 300 UNITS/3 ML VIAL SQ ONE (11:07)
[2018-09-27] MEDS: Budesonide/Formoterol 160/4.5 1 PUFF INH IH SCH ×2 (11:32→20:37)
[2018-09-27] MEDS ORDERED: Insulin Human Regular 100 UNIT in 0.9 % Sodium Chloride 100 ML IVC SCH (12:45)
[2018-09-27] MEDS ORDERED: MethylPREDNISolone 40 MG/ML VIAL IVP SCH (13:00)
[2018-09-27 13:07] LABS: Blood Urea Nitrogen 20 mg/dL (6-20); Calcium 9.4 mg/dL (8.6-10.3); Carbon Dioxide 23 mEq/L (23-29); Chloride 91 mEq/L (98-107); Glucose 517 mg/dL (70-105); Osmolality,Calculated 298 (280-300); Potassium 3.8 mEq/L (3.5-5.1); Sodium 131 mEq/L (136-145)
[2018-09-27] MEDS: Acetaminophen 325 MG TABLET PO PRN ×2 (13:31→20:54)
[2018-09-27 14:57] LABS: BUN/Creatinine Ratio 20 (6-26); eGFR For Non-African Americans 58 (> 60)
[2018-09-27] MEDS ORDERED: Perflutren Lipid Microsphere 1.3 ML in 0.9 % Sodium Chloride 8.7 ML IVP ONE (16:36)
[2018-09-27] MEDS: *HR* Heparin 5,000 UNIT/ML VIAL SQ SCH (17:26)
[2018-09-28] MEDS ORDERED: 0.9 % Sodium Chloride 500 ML IVC ONE (00:20)
[2018-09-28] MEDS: Ipratropium/Albuterol Neb 3 ML IH SCH ×7 (00:25→23:42)
[2018-09-28] MEDS: methylPREDNISolone 125 MG/2 ML VIAL IVP SCH ×4 (00:37→23:55)
[2018-09-28] MEDS: Insulin LISPRO 300 UNITS/3 ML VIAL SQ SCH ×5 (01:16→20:47)
[2018-09-28 04:59] LABS: Basophils % 0.1 %; Hematocrit 36.7 % (35.3-44.9); Hemoglobin 11.8 g/dL (11.5-15.4); Immature Granulocytes % 0.7 % (0-4); Lymphocytes # 0.9 K/mcL (0.6-4.6); Lymphocytes % 9.3 %; Mean Corpuscular HGB Conc 32.2 g/dL (31.6-35.5); Mean Corpuscular Hemoglobin 26.9 pg (28.0-33.3); Mean Corpuscular Volume 83.6 fL (83.0-100.0); Mean Platelet Volume 11.4 fL (9.4-12.4); Monocytes # 0.1 K/mcL (0.0-1.3); Monocytes % 1.4 %; Neutrophils # 8.3 K/mcL (1.6-8.9); Nucleated Red Blood Cells 0.2 /100 WBC (0); Platelet Count 253 K/mcL (140-400); Red Blood Count 4.39 M/mcL (3.82-4.97); Red Cell Distribution Width 14.1 % (11.5-14.5); Segmented Neutrophils % 88.5 %
[2018-09-28 05:16] LABS: BUN/Creatinine Ratio 33 (6-26); Blood Urea Nitrogen 35 mg/dL (6-20); Calcium 8.9 mg/dL (8.6-10.3); Carbon Dioxide 26 mEq/L (23-29); Chloride 95 mEq/L (98-107); Glucose 407 mg/dL (70-105); Magnesium 1.5 mg/dL (1.6-2.6); Osmolality,Calculated 297 (280-300); Phosphorous 5.7 mg/dL (2.7-4.5); Potassium 3.8 mEq/L (3.5-5.1); Sodium 131 mEq/L (136-145); eGFR For Non-African Americans 53 (> 60)
[2018-09-28] MEDS: *HR* Heparin 5,000 UNIT/ML VIAL SQ SCH ×2 (05:32→17:09)
[2018-09-28] MEDS: Chloraseptic Spray 177 ML BOTTLE MM PRN ×3 (06:28→17:10)
[2018-09-28] MEDS: traMADol 50 MG TABLET PO PRN ×2 (06:33→13:10)
[2018-09-28] MEDS: Budesonide/Formoterol 160/4.5 1 PUFF INH IH SCH ×2 (07:54→19:39)
--- NOTE | 2018-09-28 08:23 | Internal Med Progress Note ---
Hospitalist Progress Note - Encounter Date of Encounter: 09/28/18 Time of Encounter: 10:32 - Subjective Interval History: Patient still short of breath, denies chest pain, n/v, diaphoresis. - Exam Vitals: Temp Pulse Resp BP Pulse Ox 97.9 F 87 16 94/57 96 09/28/18 02:43 09/28/18 02:43 09/28/18 04:33 09/28/18 02:43 09/28/18 04:33 Exam: Gen: mild resp distress, AAO x3, cooperative with exam CVS: RRR lungs: diffuse wheezing with poor air entry. fine rales at bases bilaterally Abd: soft, nt/nd Ext: no edema. no cyanosis. - Assessment and Plan (1) Acute on chronic systolic CHF (congestive heart failure) Current Visit: Yes Status: Acute Assessment and Plan: Pt comes in with shortness of breath and wheezing with pulmonary edema on chest xray likely secondary to acute worsening of chronic systolic CHF Last EF 30-35% On Lasix 20 mg IV BID, but will hold right now because of hypotension. Hold lisinopril. Continue coreg. (2) COPD exacerbation Current Visit: Yes Status: Acute Assessment and Plan: Started on nebs, steroids and antibiotics (3) Hyperlipemia Current Visit: Yes Status: Acute Assessment and Plan: Continue home meds (4) Hypertension Current Visit: Yes Status: Acute Assessment and Plan: Continue coreg and PRN hydralazine (5) Diabetes Current Visit: Yes Status: Acute (6) DVT prophylaxis Current Visit: Yes Status: Acute Assessment and Plan: Heparin sc - Time Spent with Patient Total time spent is greater than 50% in coordination of care (as documented) at patient's floor/unit and/or counseling patient: Internal Medicine: Result - Labs CBC & Chem 7: 09/29/18 09:31 09/29/18 09:31 Labs: Short CBC 09/28/18 Range/Units 04:04 WBC 9.4 (4.3-11.1) K/mcL Hgb 11.8 (11.5-15.4) g/dL Hct 36.7 (35.3-44.9) % Plt Count 253 (140-400) K/mcL Neutrophils # 8.3 (1.6-8.9) K/mcL BMP 09/27/18 09/28/18 12:22 04:04 Sodium 131 L 131 L Potassium 3.8 3.8 Chloride 91 L 95 L Carbon Dioxide 23 26 BUN 20 35 H Creatinine 0.99 1.06 Glucose 517 H* 407 H Calcium 9.4 8.9 Cardiac Enzymes 09/27/18 Range/Units 12:22 Troponin I < 0.03 (< 0.04) ng/mL - Impressions Impressions Echocardiogram Limited Views 09/27/18 09:17 Impressions: LVEF 30%. Severe global LV systolic dysfunction. Mildly dilated left ventricle. There is no LV thrombus. Definity echo contrast was used. Left Ventricular Wall Motion: Rest Echo Findings The apex, apical inferior, mid inferior, basal inferior, apical anterior, mid anterior, basal anterior, apical septal, mid inferior septal, basal inferior septal, apical lateral, mid anterior lateral, basal anterior lateral, mid anterior septal, mid inferior lateral, basal anterior septal and basal inferior lateral [place] were hypokinetic. Findings: Study Quality * Technically adequate exam. ECG Findings * Normal sinus rhythm. Left Ventricle * Mildly dilated left ventricle. * LVEF 30%. * There is no LV thrombus. * Definity echo contrast was used. Consult Discharge Plan - Plan Referrals: NONE,PCP [Primary Care Provider] - (3) Hyperlipemia Qualifiers: Hyperlipidemia type: mixed hyperlipidemia Qualified Code(s): E78.2 - Mixed hyperlipidemia (4) Hypertension Qualifiers: Hypertension type: essential hypertension Qualified Code(s): I10 - Essential (primary) hypertension (5) Diabetes Qualifiers: Diabetes mellitus type: type 2 Qualified Code(s): E11.9 - Type 2 diabetes mellitus without complications
[2018-09-28] MEDS: Pregabalin 75 MG CAPSULE PO SCH ×2 (08:52→20:46)
[2018-09-28] MEDS: Spironolactone 25 MG TABLET PO SCH (08:52)
[2018-09-28] MEDS: Levofloxacin 750 MG/150 ML 750 MG/150 ML BAG IVPB SCH (08:54)
[2018-09-28] MEDS: Insulin DETEMIR 100 UNIT/ML X5UNITS SQ SCH (09:06)
[2018-09-28] MEDS: Furosemide 20 MG/2 ML VIAL IVP SCH (09:34)
--- NOTE | 2018-09-28 09:59 | Electrocardiograph Report ---
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
[2018-09-29] MEDS: Ipratropium/Albuterol Neb 3 ML IH SCH ×5 (04:46→20:42)
[2018-09-29] MEDS: *HR* Heparin 5,000 UNIT/ML VIAL SQ SCH ×2 (06:12→17:19)
[2018-09-29 07:00] LABS: Estimated Average Glucose 280 mg/dl; Hemoglobin A1C 11.4 %
[2018-09-29] MEDS: Insulin DETEMIR 100 UNIT/ML X5UNITS SQ SCH (07:48)
[2018-09-29] MEDS: Spironolactone 25 MG TABLET PO SCH (07:49)
[2018-09-29] MEDS: Insulin LISPRO 300 UNITS/3 ML VIAL SQ SCH ×4 (07:50→21:12)
[2018-09-29] MEDS: Pregabalin 75 MG CAPSULE PO SCH ×2 (07:50→20:31)
[2018-09-29] MEDS: methylPREDNISolone 125 MG/2 ML VIAL IVP SCH ×2 (07:50→17:27)
[2018-09-29] MEDS: Budesonide/Formoterol 160/4.5 1 PUFF INH IH SCH ×2 (07:51→20:42)
[2018-09-29] MEDS: Chloraseptic Spray 177 ML BOTTLE MM PRN ×2 (07:52→18:05)
[2018-09-29 09:53] LABS: Basophils % 0.1 %; Hematocrit 35.7 % (35.3-44.9); Hemoglobin 11.5 g/dL (11.5-15.4); Immature Granulocytes % 1.1 % (0-4); Lymphocytes # 0.8 K/mcL (0.6-4.6); Lymphocytes % 7.6 %; Mean Corpuscular HGB Conc 32.2 g/dL (31.6-35.5); Mean Corpuscular Hemoglobin 27.2 pg (28.0-33.3); Mean Corpuscular Volume 84.4 fL (83.0-100.0); Mean Platelet Volume 11.5 fL (9.4-12.4); Monocytes # 0.1 K/mcL (0.0-1.3); Monocytes % 1.4 %; Neutrophils # 9.2 K/mcL (1.6-8.9); Platelet Count 261 K/mcL (140-400); Red Blood Count 4.23 M/mcL (3.82-4.97); Red Cell Distribution Width 14.2 % (11.5-14.5); Segmented Neutrophils % 89.8 %
[2018-09-29 10:10] LABS: BUN/Creatinine Ratio 33 (6-26); Blood Urea Nitrogen 28 mg/dL (6-20); Calcium 8.9 mg/dL (8.6-10.3); Carbon Dioxide 24 mEq/L (23-29); Chloride 97 mEq/L (98-107); Glucose 463 mg/dL (70-105); Osmolality,Calculated 300 (280-300); Potassium 4.1 mEq/L (3.5-5.1); Sodium 132 mEq/L (136-145); eGFR For Non-African Americans > 60 (> 60)
[2018-09-29] MEDS: traMADol 50 MG TABLET PO PRN (11:04)
--- NOTE | 2018-09-29 11:49 | Internal Med Progress Note ---
Hospitalist Progress Note - Encounter Date of Encounter: 09/29/18 Time of Encounter: 11:31 - Subjective Interval History: Patient complains of migraine headache. SOB with slight improvement. - Exam Vitals: Temp Pulse Resp BP Pulse Ox 97.9 F 108 16 137/87 99 09/29/18 08:13 09/29/18 08:13 09/29/18 08:13 09/29/18 08:13 09/29/18 08:13 Exam: Gen: mild resp distress, AAO x3, cooperative with exam CVS: RRR lungs: diffuse wheezing with poor air entry. fine rales at bases bilaterally Abd: soft, nt/nd Ext: no edema. no cyanosis. - Assessment and Plan (1) Hyperlipemia Current Visit: Yes Status: Acute Assessment and Plan: Continue home meds (2) Hypertension Current Visit: Yes Status: Acute Assessment and Plan: Continue coreg and PRN hydralazine (3) COPD exacerbation Current Visit: Yes Status: Acute Assessment and Plan: Started on nebs, steroids and antibiotics (4) Acute on chronic systolic CHF (congestive heart failure) Current Visit: Yes Status: Acute Assessment and Plan: Pt comes in with shortness of breath and wheezing with pulmonary edema on chest xray likely secondary to acute worsening of chronic systolic CHF Last EF 30-35% On Lasix 20 mg IV BID, Lasix was held yesterday because of hypotension. BP improved and will resume today. (5) Diabetes Current Visit: Yes Status: Acute Assessment and Plan: Continue insulin, monitor fingersticks Glucose running in 400s, she has history of non-compliance with medication but also is on high dose steroids for COPD exacerbation. Give 12 units regular inslin now Increase Levemir Taper Solu Medrol to 40 mg Q8H. (6) DVT prophylaxis Current Visit: Yes Status: Acute - Time Spent with Patient Total time spent is greater than 50% in coordination of care (as documented) at patient's floor/unit and/or counseling patient: Internal Medicine: Result - Labs CBC & Chem 7: 09/29/18 09:31 09/29/18 09:31 Labs: Short CBC 09/29/18 Range/Units 09:31 WBC 10.2 (4.3-11.1) K/mcL Hgb 11.5 (11.5-15.4) g/dL Hct 35.7 (35.3-44.9) % Plt Count 261 (140-400) K/mcL Neutrophils # 9.2 H (1.6-8.9) K/mcL BMP 09/29/18 09:31 Sodium 132 L Potassium 4.1 Chloride 97 L Carbon Dioxide 24 BUN 28 H Creatinine 0.86 Glucose 463 H Calcium 8.9 Consult Discharge Plan - Plan Referrals: NONE,PCP [Primary Care Provider] - (1) Hyperlipemia Qualifiers: Hyperlipidemia type: mixed hyperlipidemia Qualified Code(s): E78.2 - Mixed hyperlipidemia (2) Hypertension Qualifiers: Hypertension type: essential hypertension Qualified Code(s): I10 - Essential (primary) hypertension (5) Diabetes Qualifiers: Diabetes mellitus type: type 2 Qualified Code(s): E11.9 - Type 2 diabetes mellitus without complications
[2018-09-29] MEDS ORDERED: *HR* Metoprolol 5 MG/5 ML VIAL IVP PRN (11:50)
[2018-09-29] MEDS ORDERED: Insulin LISPRO 300 UNITS/3 ML VIAL SQ ONE (12:02)
[2018-09-29] MEDS ORDERED: Insulin Human Regular 12 UNIT in 0.9 % Sodium Chloride 10 ML IV ONE (17:00)
[2018-09-29] MEDS: Furosemide 20 MG/2 ML VIAL IVP SCH (17:19)
[2018-09-29] MEDS: Acetaminophen 325 MG TABLET PO PRN (20:31)
[2018-09-29] MEDS ORDERED: Insulin DETEMIR 100 UNIT/ML X5UNITS SQ SCH (21:00)
[2018-09-29] MEDS: MethylPREDNISolone 40 MG/ML VIAL IVP SCH (23:35)
[2018-09-30] MEDS: Ipratropium/Albuterol Neb 3 ML IH SCH ×6 (00:04→20:07)
[2018-09-30 03:58] LABS: Basophils % 0.3 %; Hematocrit 37.6 % (35.3-44.9); Hemoglobin 11.7 g/dL (11.5-15.4); Immature Granulocytes % 2.5 % (0-4); Lymphocytes # 1.2 K/mcL (0.6-4.6); Lymphocytes % 13.5 %; Mean Corpuscular HGB Conc 31.1 g/dL (31.6-35.5); Mean Corpuscular Hemoglobin 26.1 pg (28.0-33.3); Mean Corpuscular Volume 83.7 fL (83.0-100.0); Mean Platelet Volume 11.4 fL (9.4-12.4); Monocytes # 0.3 K/mcL (0.0-1.3); Monocytes % 3.7 %; Neutrophils # 7.2 K/mcL (1.6-8.9); Platelet Count 260 K/mcL (140-400); Red Blood Count 4.49 M/mcL (3.82-4.97)
[2018-09-30 04:16] LABS: BUN/Creatinine Ratio 43 (6-26); Blood Urea Nitrogen 28 mg/dL (6-20); Calcium 8.6 mg/dL (8.6-10.3); Carbon Dioxide 27 mEq/L (23-29); Chloride 99 mEq/L (98-107); Glucose 352 mg/dL (70-105); Osmolality,Calculated 298 (280-300); Potassium 4.4 mEq/L (3.5-5.1); Sodium 134 mEq/L (136-145); eGFR For Non-African Americans > 60 (> 60)
[2018-09-30] MEDS: *HR* Heparin 5,000 UNIT/ML VIAL SQ SCH ×2 (05:30→17:20)
[2018-09-30] MEDS: Insulin DETEMIR 100 UNIT/ML X5UNITS SQ SCH ×3 (05:31→21:59)
[2018-09-30] MEDS ORDERED: *HR* Promethazine 25 MG/ML VIAL IVP PRN (06:46)
[2018-09-30] MEDS: Insulin LISPRO 300 UNITS/3 ML VIAL SQ SCH ×3 (07:57→17:11)
[2018-09-30] MEDS: Spironolactone 25 MG TABLET PO SCH (07:58)
[2018-09-30] MEDS: Pregabalin 75 MG CAPSULE PO SCH ×2 (07:58→21:59)
[2018-09-30] MEDS: Furosemide 20 MG/2 ML VIAL IVP SCH ×2 (07:58→17:11)
[2018-09-30] MEDS: MethylPREDNISolone 40 MG/ML VIAL IVP SCH ×2 (07:59→17:11)
[2018-09-30] MEDS: Budesonide/Formoterol 160/4.5 1 PUFF INH IH SCH ×2 (08:01→20:08)
[2018-09-30] MEDS: traMADol 50 MG TABLET PO PRN ×3 (08:04→21:59)
[2018-09-30] MEDS: Chloraseptic Spray 177 ML BOTTLE MM PRN (08:07)
[2018-09-30] MEDS ORDERED: Insulin DETEMIR 100 UNIT/ML X5UNITS SQ ONE (08:27)
[2018-09-30] MEDS ORDERED: Levofloxacin 750 MG/150 ML 750 MG/150 ML BAG IVPB SCH (09:00)
[2018-09-30] MEDS ORDERED: Insulin LISPRO 300 UNITS/3 ML VIAL SQ ONE (09:15)
[2018-09-30] MEDS ORDERED: Insulin LISPRO 300 UNITS/3 ML VIAL SQ SCH (11:54)
--- NOTE | 2018-09-30 12:00 | Internal Med Progress Note ---
<Morgan Fatiam - Last Filed: 09/30/18 18:51> Hospitalist Progress Note - Encounter Date of Encounter: 09/30/18 Time of Encounter: 10:10 - Subjective Interval History: Ms. Lorenzo is a 58F with PMH of arthritis CHF, COPD, CAD, diabetes, fibromyalgia, GERD, hyperlipidemia, hypertension, migraine, renal disease, peripheral arterial disease, and osteoporosis. She originally presented on 09/27/18 complaining of shortness of breath, coughing, and wheezing of 2-3 days duration. Patient states she is prescribed multiple medications for the aforementioned medical conditions, but got tired of taking the medications and thus stopped taking all of them and has not taken them for at least 2-3 months. She also began to smoke cigarettes again. Chest x-ray from the ED revealed pulmonary edema. She was started on scheduled DuoNeb nebs, Solu-Medrol, and IV Lasix. Patient seen and examined at bedside today. Patient is currently complaining of back discomfort related to "not moving much". Patient states shortness of breath has improved significantly. Endorses improvement in lower extremity edema. Denies any fever, chills, chest pain, palpitations, wheezing, increased cough, abdominal pain, nausea, vomiting, diarrhea, constipation, or urinary symptoms. - Exam Vitals: Temp Pulse Resp BP Pulse Ox 97.4 F L 103 16 120/79 94 09/30/18 08:18 09/30/18 08:18 09/30/18 11:38 09/30/18 08:18 09/30/18 11:38 Exam: Constitutional: Well-nourished, well-developed female in no acute distress Head: Normocephalic, atraumatic Eyes: PERRL, EOMI, conjunctiva pink, sclera anicteric Neck: Supple, trachea midline, no lymphadenopathy Lungs: Clear to auscultation bilaterally. Nonlabored breathing. No wheezes, rales, or rhonchi noted. Cardiac: RRR. +S1 +S2 No murmurs, clicks, or rubs noted. GI: Abdomen soft, nontender, nondistended. Normoactive bowel sounds Extremities: Warm, radial pulses palpable and symmetrical. No cyanosis, pedal edema, or calf tenderness. Neuro: Alert and oriented 3. No focal deficits. Normal speech. Skin: Warm, dry, and intact. - Assessment and Plan (1) Acute on chronic systolic CHF (congestive heart failure) Current Visit: Yes Status: Acute Assessment and Plan: Presented with shortness of breath and wheezing Chest x-ray from ED revealed pulmonary edema likely secondary to acute worsening of chronic systolic CHF All of this is secondary to medication noncompliance Echo from 09/27: LVEF 30% Severe global LV systolic dysfunction. Mildly dilated left ventricle. Continue 20 mg IV Lasix twice a day, as tolerated by blood pressure (2) COPD exacerbation Current Visit: Yes Status: Acute Assessment and Plan: Likely related to CHF exacerbation with medication noncompliance Respiratory status improved today no wheezes or rales on physical exam Continue scheduled DuoNeb's Continue Levaquin Continue Symbicort De-escalate Solu-Medrol to 40 mg twice a day (3) Diabetes Current Visit: Yes Status: Acute Assessment and Plan: Significant history of noncompliance Hemoglobin A1c during this visit is 11.4 Blood glucose was as high as 517 on day of admission Remains persistently elevated at 350 daily Continued elevation may be in part due to IV steroids for COPD exacerbation ACHS Accu-Cheks Continue 15 units of Levemir BID High-dose sliding scale insulin IV steroids deescalated as above (4) Hyperlipemia Current Visit: Yes Status: Acute Assessment and Plan: Continue home Crestor (5) Hypertension Current Visit: Yes Status: Acute Assessment and Plan: Controlled today at 120/79 Continue coreg and PRN hydralazine (6) Back pain Current Visit: Yes Status: Acute Assessment and Plan: Complaining of back pain this morning Patient states it is because she has not been ambulating PT/OT consult Patient to ambulate as tolerated DVT Prophylaxis: SQ Heparin - Time Spent with Patient Total time spent is greater than 50% in coordination of care (as documented) at patient's floor/unit and/or counseling patient: Internal Medicine: Result - Labs CBC & Chem 7: 09/30/18 03:35 09/30/18 03:35 Labs: Short CBC 09/30/18 Range/Units 03:35 WBC 9.0 (4.3-11.1) K/mcL Hgb 11.7 (11.5-15.4) g/dL Hct 37.6 (35.3-44.9) % Plt Count 260 (140-400) K/mcL Neutrophils # 7.2 (1.6-8.9) K/mcL BMP 09/30/18 03:35 Sodium 134 L Potassium 4.4 Chloride 99 Carbon Dioxide 27 BUN 28 H Creatinine 0.65 Glucose 352 H Calcium 8.6 Consult Discharge Plan - Plan Referrals: Jose A Tinoco [Resident] - 10/03/18 11:00 am <Mac Astudillo - Last Filed: 10/02/18 08:08> Hospitalist Progress Note - Encounter Date of Encounter: 10/02/18 - Exam Vitals: Temp Pulse Resp BP Pulse Ox 98.0 F 99 14 147/97 96 10/02/18 07:38 10/02/18 07:38 10/02/18 07:38 10/02/18 07:38 10/02/18 07:38 - Assessment and Plan (1) Hyperlipemia Current Visit: Yes Status: Acute (2) Hypertension Current Visit: Yes Status: Acute (3) COPD exacerbation Current Visit: Yes Status: Acute (4) Acute on chronic systolic CHF (congestive heart failure) Current Visit: Yes Status: Acute (5) Diabetes Current Visit: Yes Status: Acute (6) Back pain Current Visit: Yes Status: Acute - Time Spent with Patient Total time spent is greater than 50% in coordination of care (as documented) at patient's floor/unit and/or counseling patient: Internal Medicine: Result - Labs CBC & Chem 7: 10/02/18 03:59 10/02/18 03:59 Labs: Short CBC 10/02/18 Range/Units 03:59 WBC 10.7 (4.3-11.1) K/mcL Hgb 13.2 (11.5-15.4) g/dL Hct 40.5 (35.3-44.9) % Plt Count 285 (140-400) K/mcL Neutrophils # 6.9 (1.6-8.9) K/mcL BMP 10/02/18 03:59 Sodium 133 L Potassium 4.2 Chloride 94 L Carbon Dioxide 29 BUN 25 H Creatinine 0.67 Glucose 343 H Calcium 8.4 L - Attending Attestation I examined this patient and my medical decision-making was reviewed with the Resident Physician. I agree with the documented findings, disposition and treatment plan as described except to the extent set forth below. <Morgan Fatima - Last Filed: 09/30/18 18:51> (3) Diabetes Qualifiers: Diabetes mellitus type: type 2 Diabetes mellitus fpc insulin use: with clinique counter manager use Diabetes mellitus complication status: with unspecified complications Qualified Code(s): E11.8 - Type 2 diabetes mellitus with unspecified complications; Z79.4 - residential (current) use of insulin (4) Hyperlipemia Qualifiers: Hyperlipidemia type: mixed hyperlipidemia Qualified Code(s): E78.2 - Mixed hyperlipidemia (5) Hypertension Qualifiers: Hypertension type: essential hypertension Qualified Code(s): I10 - Essential (primary) hypertension (6) Back pain Qualifiers: Back pain location: low back pain Chronicity: unspecified Back pain laterality: bilateral Sciatica presence: without sciatica Qualified Code(s): M54.5 - Low back pain <Mac Astudillo - Last Filed: 10/02/18 08:08> (1) Hyperlipemia Qualifiers: Hyperlipidemia type: mixed hyperlipidemia Qualified Code(s): E78.2 - Mixed hyperlipidemia (2) Hypertension Qualifiers: Hypertension type: essential hypertension Qualified Code(s): I10 - Essential (primary) hypertension (5) Diabetes Qualifiers: Diabetes mellitus type: type 2 Diabetes mellitus fpc insulin use: with clinique counter manager use Diabetes mellitus complication status: with unspecified complications Qualified Code(s): E11.8 - Type 2 diabetes mellitus with unspecified complications; Z79.4 - saturator operator (current) use of insulin (6) Back pain Qualifiers: Back pain location: low back pain Chronicity: unspecified Back pain laterality: bilateral Sciatica presence: without sciatica Qualified Code(s): M54.5 - Low back pain
--- NOTE | 2018-09-30 16:25 | Electrocardiograph Report ---
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
[2018-10-01] MEDS: Ipratropium/Albuterol Neb 3 ML IH SCH ×7 (00:05→23:51)
[2018-10-01] MEDS: Insulin LISPRO 300 UNITS/3 ML VIAL SQ SCH ×10 (01:21→21:33)
--- NOTE | 2018-10-01 02:32 | Event Note ---
Date of Encounter: 09/30/18 Time of Encounter: 21:54 Alerted by patient's nurse CIRO Arteaga that patient was admitted for difficulty in breathing and hyperglycemia. Blood sugar 437 then rechecked per protocol and was for 48. Patient was told she was not having another snack due to BG. Patient went to [employer] and got herself a candy bar. BG checked which was 577 with recheck of 595. 15 units of Levemir scheduled. Nurse instructed to hold at bedtime dosing and give the units of Levemir and check BG every hour. Alerted at 02:14 the BG was 419. Levemir administered at 22:00. Nurse instructed to give at bedtime SS dosing and continue monitoring BG Q1HR. Will administer another dose of Levemir if BG continues to remain high. BG at 03:00 was 381. 10 units of Levemir once ordered. Nurse instructed to continue monitoring BG closely and keep me informed of results. Pt. requires diabetic education on discharge.
[2018-10-01] MEDS ORDERED: Insulin DETEMIR 100 UNIT/ML X5UNITS SQ ONE (04:42)
[2018-10-01 05:05] LABS: Hematocrit 40.8 % (35.3-44.9); Hemoglobin 12.9 g/dL (11.5-15.4); Mean Corpuscular HGB Conc 31.6 g/dL (31.6-35.5); Mean Corpuscular Hemoglobin 26.7 pg (28.0-33.3); Mean Corpuscular Volume 84.5 fL (83.0-100.0); Mean Platelet Volume 11.7 fL (9.4-12.4); Nucleated Red Blood Cells 0.3 /100 WBC (0); Platelet Count 240 K/mcL (140-400); Red Blood Count 4.83 M/mcL (3.82-4.97); Red Cell Distribution Width 13.6 % (11.5-14.5)
[2018-10-01 05:33] LABS: BUN/Creatinine Ratio 40 (6-26); Blood Urea Nitrogen 30 mg/dL (6-20); Calcium 8.6 mg/dL (8.6-10.3); Carbon Dioxide 27 mEq/L (23-29); Chloride 97 mEq/L (98-107); Glucose 346 mg/dL (70-105); Osmolality,Calculated 292 (280-300); Potassium 4.2 mEq/L (3.5-5.1); Sodium 131 mEq/L (136-145); eGFR For Non-African Americans > 60 (> 60)
[2018-10-01 05:34] LABS: Lymphocytes # 2.5 K/mcL (0.6-4.6); Monocytes # 0.2 K/mcL (0.0-1.3); Neutrophils # 7.6 K/mcL (1.6-8.9); Platelet Estimate Normal (Normal)
[2018-10-01] MEDS: *HR* Heparin 5,000 UNIT/ML VIAL SQ SCH ×2 (05:56→16:45)
[2018-10-01] MEDS: MethylPREDNISolone 40 MG/ML VIAL IVP SCH (05:56)
[2018-10-01] MEDS: Budesonide/Formoterol 160/4.5 1 PUFF INH IH SCH ×2 (07:19→19:34)
[2018-10-01] MEDS: Furosemide 20 MG/2 ML VIAL IVP SCH (08:29)
[2018-10-01] MEDS: Pregabalin 75 MG CAPSULE PO SCH ×2 (08:29→21:31)
[2018-10-01] MEDS: Insulin DETEMIR 100 UNIT/ML X5UNITS SQ SCH ×2 (08:29→21:32)
[2018-10-01] MEDS: Spironolactone 25 MG TABLET PO SCH (08:30)
--- NOTE | 2018-10-01 08:40 | Internal Med Progress Note ---
<Morgan Fatima - Last Filed: 10/01/18 18:38> Hospitalist Progress Note - Encounter Date of Encounter: 10/01/18 Time of Encounter: 10:15 - Subjective Interval History: Ms. Lorenzo is a 58F with PMH of arthritis CHF, COPD, CAD, diabetes, fibromyalgia, GERD, hyperlipidemia, hypertension, migraine, renal disease, peripheral arterial disease, and osteoporosis. She originally presented on 09/27/18 complaining of shortness of breath, coughing, and wheezing of 2-3 days duration. Patient states she is prescribed multiple medications for the aforementioned medical conditions, but got tired of taking the medications and thus stopped taking all of them and has not taken them for at least 2-3 months. She also began to smoke cigarettes again. Chest x-ray from the ED revealed pulmonary edema. She was started on scheduled DuoNeb nebs, Solu-Medrol, and IV Lasix. Patient seen and examined at bedside today. No new or acute complaints. Patient states shortness of breath has improved significantly. Endorses improvement in lower extremity edema. Denies any fever, chills, chest pain, palpitations, wheezing, increased cough, abdominal pain, nausea, vomiting, diarrhea, constipation, or urinary symptoms. - Exam Vitals: Temp Pulse Resp BP Pulse Ox 97.8 F 97 18 125/86 95 10/01/18 07:57 10/01/18 07:57 10/01/18 07:57 10/01/18 07:57 10/01/18 07:57 Exam: Constitutional: Well-nourished, well-developed female in no acute distress Head: Normocephalic, atraumatic Eyes: PERRL, EOMI, conjunctiva pink, sclera anicteric Neck: Supple, trachea midline, no lymphadenopathy Lungs: Clear to auscultation bilaterally. Nonlabored breathing. No wheezes, rales, or rhonchi noted. Cardiac: RRR. +S1 +S2 No murmurs, clicks, or rubs noted. GI: Abdomen soft, nontender, nondistended. Normoactive bowel sounds Extremities: Warm, radial pulses palpable and symmetrical. No cyanosis, pedal edema, or calf tenderness. Neuro: Alert and oriented 3. No focal deficits. Normal speech. Skin: Warm, dry, and intact. - Assessment and Plan (1) Acute on chronic systolic CHF (congestive heart failure) Current Visit: Yes Status: Acute Assessment and Plan: Presented with shortness of breath and wheezing Chest x-ray from ED revealed pulmonary edema likely secondary to acute worsening of chronic systolic CHF All of this is secondary to medication noncompliance Echo from 09/27: LVEF 30% Severe global LV systolic dysfunction. Mildly dilated left ventricle. Transition to po Lasix (2) COPD exacerbation Current Visit: Yes Status: Acute Assessment and Plan: Likely related to CHF exacerbation with medication noncompliance Respiratory status improved today no wheezes or rales on physical exam Continue scheduled DuoNeb's Continue Levaquin Continue Symbicort Continue Solumedrol 40 BID today (3) Diabetes Current Visit: Yes Status: Acute Assessment and Plan: Significant history of noncompliance Hemoglobin A1c during this visit is 11.4 Blood glucose was as high as 517 on day of admission Remains persistently elevated at 346 today Continued elevation may be in part due to IV steroids for COPD exacerbation Also some component of pt persistently getting snacks from the vending machine despite significant diabetes education ACHS Accu-Cheks Increased to 35 units of Levemir BID High-dose sliding scale insulin plus 6u prandial IV steroids deescalated as above (4) Hyperlipemia Current Visit: Yes Status: Acute Assessment and Plan: Continue home Crestor (5) Hypertension Current Visit: Yes Status: Acute Assessment and Plan: Controlled today at 125/86 Continue coreg and PRN hydralazine (6) Back pain Current Visit: Yes Status: Acute Assessment and Plan: Complaining of back pain this morning Patient states it is because she has not been ambulating PT/OT consult Patient to ambulate as tolerated Has Tramadol 50mg q6hr prn DVT Prophylaxis: SQ Heparin - Time Spent with Patient Total time spent is greater than 50% in coordination of care (as documented) at patient's floor/unit and/or counseling patient: Internal Medicine: Result - Labs CBC & Chem 7: 10/01/18 04:09 10/01/18 04:09 Labs: Short CBC 10/01/18 Range/Units 04:09 WBC 10.3 (4.3-11.1) K/mcL Hgb 12.9 (11.5-15.4) g/dL Hct 40.8 (35.3-44.9) % Plt Count 240 (140-400) K/mcL Neutrophils # 7.6 (1.6-8.9) K/mcL BMP 10/01/18 04:09 Sodium 131 L Potassium 4.2 Chloride 97 L Carbon Dioxide 27 BUN 30 H Creatinine 0.75 Glucose 346 H Calcium 8.6 Consult Discharge Plan - Plan Referrals: Jose A Tinoco [Resident] - 10/03/18 11:00 am <Mac Astudillo - Last Filed: 10/02/18 08:08> Hospitalist Progress Note - Encounter Date of Encounter: 10/02/18 - Exam Vitals: Temp Pulse Resp BP Pulse Ox 98.0 F 99 14 147/97 96 10/02/18 07:38 10/02/18 07:38 10/02/18 07:38 10/02/18 07:38 10/02/18 07:38 - Assessment and Plan (1) Hyperlipemia Current Visit: Yes Status: Acute (2) Hypertension Current Visit: Yes Status: Acute (3) COPD exacerbation Current Visit: Yes Status: Acute (4) Acute on chronic systolic CHF (congestive heart failure) Current Visit: Yes Status: Acute (5) Diabetes Current Visit: Yes Status: Acute (6) Back pain Current Visit: Yes Status: Acute - Time Spent with Patient Total time spent is greater than 50% in coordination of care (as documented) at patient's floor/unit and/or counseling patient: Internal Medicine: Result - Labs CBC & Chem 7: 10/02/18 03:59 10/02/18 03:59 Labs: Short CBC 10/02/18 Range/Units 03:59 WBC 10.7 (4.3-11.1) K/mcL Hgb 13.2 (11.5-15.4) g/dL Hct 40.5 (35.3-44.9) % Plt Count 285 (140-400) K/mcL Neutrophils # 6.9 (1.6-8.9) K/mcL [facility] 10/02/18 03:59 Sodium 133 L Potassium 4.2 Chloride 94 L Carbon Dioxide 29 BUN 25 H Creatinine 0.67 Glucose 343 H Calcium 8.4 L - Attending Attestation I examined this patient and my medical decision-making was reviewed with the Resident Physician. I agree with the documented findings, disposition and treatment plan as described except to the extent set forth below. <Morgan Fatima - Last Filed: 10/01/18 18:38> (3) Diabetes Qualifiers: Diabetes mellitus type: type 2 Diabetes mellitus halfway insulin use: with bending machine operator use Diabetes mellitus complication status: with unspecified complications Qualified Code(s): E11.8 - Type 2 diabetes mellitus with unspecified complications; Z79.4 - USP (current) use of insulin (4) Hyperlipemia Qualifiers: Hyperlipidemia type: mixed hyperlipidemia Qualified Code(s): E78.2 - Mixed hyperlipidemia (5) Hypertension Qualifiers: Hypertension type: essential hypertension Qualified Code(s): I10 - Essential (primary) hypertension (6) Back pain Qualifiers: Back pain location: low back pain Chronicity: unspecified Back pain laterality: bilateral Sciatica presence: without sciatica Qualified Code(s): M54.5 - Low back pain <Mac Astudillo - Last Filed: 10/02/18 08:08> (1) Hyperlipemia Qualifiers: Hyperlipidemia type: mixed hyperlipidemia Qualified Code(s): E78.2 - Mixed hyperlipidemia (2) Hypertension Qualifiers: Hypertension type: essential hypertension Qualified Code(s): I10 - Essential (primary) hypertension (5) Diabetes Qualifiers: Diabetes mellitus type: type 2 Diabetes mellitus bending machine operator insulin use: with halfway use Diabetes mellitus complication status: with unspecified complications Qualified Code(s): E11.8 - Type 2 diabetes mellitus with unspecified complications; Z79.4 - USP (current) use of insulin (6) Back pain Qualifiers: Back pain location: low back pain Chronicity: unspecified Back pain laterality: bilateral Sciatica presence: without sciatica Qualified Code(s): M54.5 - Low back pain
[2018-10-01] MEDS: Furosemide 20 MG TABLET PO SCH (16:20)
[2018-10-01] MEDS ORDERED: MethylPREDNISolone 40 MG/ML VIAL IVP ONE (18:00)
[2018-10-01] MEDS: traMADol 50 MG TABLET PO PRN (18:14)
[2018-10-01] MEDS ORDERED: Insulin DETEMIR 100 UNIT/ML X5UNITS SQ SCH (21:00)
[2018-10-02] MEDS: Ipratropium/Albuterol Neb 3 ML IH SCH ×2 (04:12→07:53)
[2018-10-02 05:12] LABS: Hematocrit 40.5 % (35.3-44.9); Hemoglobin 13.2 g/dL (11.5-15.4); Mean Corpuscular HGB Conc 32.6 g/dL (31.6-35.5); Mean Corpuscular Hemoglobin 26.8 pg (28.0-33.3); Mean Corpuscular Volume 82.3 fL (83.0-100.0); Mean Platelet Volume 11.6 fL (9.4-12.4); Nucleated Red Blood Cells 0.5 /100 WBC (0); Platelet Count 285 K/mcL (140-400); Red Blood Count 4.92 M/mcL (3.82-4.97); Red Cell Distribution Width 13.6 % (11.5-14.5)
[2018-10-02 05:29] LABS: BUN/Creatinine Ratio 37 (6-26); Blood Urea Nitrogen 25 mg/dL (6-20); Calcium 8.4 mg/dL (8.6-10.3); Carbon Dioxide 29 mEq/L (23-29); Chloride 94 mEq/L (98-107); Glucose 343 mg/dL (70-105); Osmolality,Calculated 294 (280-300); Potassium 4.2 mEq/L (3.5-5.1); Sodium 133 mEq/L (136-145); eGFR For Non-African Americans > 60 (> 60)
[2018-10-02] MEDS: traMADol 50 MG TABLET PO PRN (05:38)
[2018-10-02] MEDS: *HR* Heparin 5,000 UNIT/ML VIAL SQ SCH (05:39)
[2018-10-02 05:42] LABS: Platelet Estimate Normal (Normal)
[2018-10-02 05:44] LABS: Lymphocytes # 3.6 K/mcL (0.6-4.6); Monocytes # 0.2 K/mcL (0.0-1.3); Neutrophils # 6.9 K/mcL (1.6-8.9)
[2018-10-02 07:40] VITALS: BP 147/97
[2018-10-02] MEDS: Budesonide/Formoterol 160/4.5 1 PUFF INH IH SCH (07:53)
[2018-10-02] MEDS ORDERED: Ipratropium/Albuterol Neb 3 ML IH PRN (07:59)
[2018-10-02] MEDS ORDERED: Insulin LISPRO 300 UNITS/3 ML VIAL SQ SCH (08:45)
[2018-10-02] MEDS: Chloraseptic Spray 177 ML BOTTLE MM PRN (08:53)
[2018-10-02] MEDS: Pregabalin 75 MG CAPSULE PO SCH (08:54)
[2018-10-02] MEDS: Furosemide 20 MG TABLET PO SCH (08:54)
[2018-10-02] MEDS: Spironolactone 25 MG TABLET PO SCH (08:54)
[2018-10-02] MEDS: Insulin LISPRO 300 UNITS/3 ML VIAL SQ SCH ×2 (08:55→09:07)
[2018-10-02] MEDS: Insulin DETEMIR 100 UNIT/ML X5UNITS SQ SCH (08:55)
[2018-10-02] MEDS ORDERED: predniSONE 20 MG TABLET PO SCH (09:00)
--- NOTE | 2018-10-02 11:43 | Discharge Summary ---
<Morgan Fatima - Last Filed: 10/02/18 20:17> - NOTES TO OUTPATIENT PROVIDER Notes to Outpatient Provider: Ms. Lorenzo was admitted for a CHF/COPD exacerbation on 09/28/18 due to non-compliance with medications. She tolerated diuresis and a course of steroids well. Of note, pt's blood glucose levels were difficult to control during this admission. Hgb A1c was 10.5. Patient was instructed to follow up with PCP for further management of chronic issues including diabetes. She was provided prescriptions for Carvedilol 6.5mg BID, Lasix 20mg BID, Lisinopril 10mg daily, Crestor 40mg daily, and Aldactone 12.5mg daily. Date of Encounter: 10/02/18 Time of Encounter: 10:20 - Discharge Diagnosis (1) Acute on chronic systolic CHF (congestive heart failure) Priority: Primary Status: Acute Assessment and Plan: Presented with shortness of breath and wheezing Chest x-ray from ED revealed pulmonary edema likely secondary to acute worsening of chronic systolic CHF All of this is secondary to medication noncompliance Echo from 09/27: LVEF 30% Severe global LV systolic dysfunction. Mildly dilated left ventricle. Continue 20mg BID po Lasix at home (2) COPD exacerbation Priority: Primary Status: Acute Assessment and Plan: Likely related to CHF exacerbation with medication noncompliance Respiratory status improved today no wheezes or rales on physical exam Continue prn DuoNeb's Continue Symbicort Discontinue Levaquin Discontinue steroids (3) Diabetes Priority: Secondary Status: Acute Assessment and Plan: Significant history of noncompliance Hemoglobin A1c during this visit is 11.4 Blood glucose was as high as 517 on day of admission Remains persistently elevated at 255 today Continued elevation may be in part due to IV steroids for COPD exacerbation Also some component of pt persistently getting snacks from the vending machine despite significant diabetes education Discharged on a regimen of 45u Levemir BID, Metformin, and Januvia Qualifiers: Diabetes mellitus type: type 2 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 use: with alf use Diabetes mellitus complication status: with unspecified complications Qualified Code(s): E11.8 - Type 2 diabetes mellitus with unspecified complications; Z79.4 - retirement (current) use of insulin (4) Hyperlipemia Priority: Secondary Status: Acute Assessment and Plan: Continue home Crestor Qualifiers: Hyperlipidemia type: mixed hyperlipidemia Qualified Code(s): E78.2 - Mixed hyperlipidemia (5) Hypertension Priority: Secondary Status: Acute Assessment and Plan: Controlled today at 147/97 Continue coreg and lisinopril Qualifiers: Hypertension type: essential hypertension Qualified Code(s): I10 - Essential (primary) hypertension (6) Back pain Priority: Secondary Status: Acute Assessment and Plan: Complaining of back pain this morning Patient states it is because she has not been ambulating PT/OT consult Patient to ambulate as tolerated Follow up with PCP for further management after discharge Qualifiers: Back pain location: low back pain Chronicity: unspecified Back pain laterality: bilateral Sciatica presence: without sciatica Qualified Code(s): M54.5 - Low back pain Hospital course: Ms. Lorenzo is a 58 year old female with PMH of arthritis CHF, COPD, CAD, diabetes, fibromyalgia, GERD, hyperlipidemia, hypertension, migraine, renal disease, peripheral arterial disease, and osteoporosis. She originally presented on 09/27/18 complaining of shortness of breath, coughing, and wheezing of 2-3 days duration. Patient states she is prescribed multiple medications for the aforementioned medical conditions, but got tired of taking the medications and thus stopped taking all of them and has not taken them for at least 2-3 months. She also began to smoke cigarettes again. Chest x-ray from the ED revealed pulmonary edema. She was started on scheduled DuoNeb nebs, Solu- Medrol, Levaquin and IV Lasix. Her respiratory status improved significantly throughout admission and pt was transitioned to po Lasix. She completed a steroid burst and a renally dosed course of Levaquin during this admission. The pt remained persistently hyperglycemic throughout the admission. Hgb A1c was 11.4 reflecting poorly controlled type 2 diabetes. The hyperglycemia control was complicated by the patient continually walking to the vending machine despite multiple discussions about proper diabetic diet practices. At time of discharge pt was to continue Metformin and Januvia, along with 45u Levemir BID. Pt was given scripts for Coreg and Lisinopril for HTN control, along with Symbicort and Albuterol inhalers, and prn Duonebs. A follow up appointment was set up with a new PCP for 10/03/18. Discharge discussed with: patient, nurse - Time Spent with Patient Total time spent providing and/or coordinating discharge services: - Discharge Medications Prescriptions: RX: Ipratropium/Albuterol Neb [Duoneb] 3 ml IH Q6HR PRN 30 Days #30 inhsol PRN Reason: Shortness Of Breath/Wheezing Albuterol Sulfate [Ventolin Hfa] 8 gm IH Q4H PRN 30 Days #1 hfa.aer.ad PRN Reason: Shortness Of Breath/Wheezing RX: Budesonide/Formoterol 160/4.5 [Symbicort 160/4.5] 2 puff IH BIDR 30 Days #1 inh RX: Carvedilol [Coreg] 6.25 mg PO BIDWM 30 Days #60 tablet RX: Furosemide [Lasix] 20 mg PO BID 30 Days #60 tablet RX: Insulin DETEMIR [Levemir] 45 unit SQ BID 30 Days #1 [id number] RX: Lisinopril [Zestril] 10 mg PO DAILY 30 Days #30 tablet RX: Spironolactone [Aldactone] 12.5 mg PO DAILY 30 Days #30 tablet Home Medications: RX: Cyclosporine [Restasis] 1 drop BOTH EYES BID 09/20/17 [History] RX: Insulin Glargine [Lantus] 15 unit SQ QAM 09/20/17 [History] RX: DULoxetine [Cymbalta] 30 mg PO DAILY #30 capsule. 09/27/17 [Rx] RX: Lidocaine [Lidoderm] 1 each TP DAILY #7 adh..patch 09/27/17 [Rx] RX: Magnesium Oxide [Mag-Ox] 400 mg PO BID #1 tablet 09/27/17 [Rx] RX: Metformin HCl [Metformin ER Gastric] 1,000 mg PO BID #60 [id number] 09/27/17 [Rx] RX: Nitroglycerin 0.4 mg SL Q5MIN PRN #30 tab.subl 09/27/17 [Rx] RX: SitaGLIPtin [Januvia] 100 mg PO DAILY #30 tablet 09/27/17 [Rx] RX: Buspirone HCl [Buspar] 7.5 mg PO BID 11/04/17 [History] RX: Famotidine [Pepcid] 20 mg PO DAILY PRN 11/04/17 [History] RX: Meloxicam 7.5 mg PO DAILY 11/04/17 [History] RX: [place]-3/Dha/Epa/Fish Oil [Fish Oil 1,000 mg Softgel] 1,000 mg PO DAILY 11/04/17 [History] RX: Pregabalin [Lyrica] 150 mg PO BID 11/04/17 [History] RX: Quetiapine Fumarate [Seroquel Xr] 50 mg PO HS 11/04/17 [History] RX: SUMAtriptan Succinate [Imitrex] 100 mg PO DAILY PRN 10 Days #10 tablet 11/07/17 [Rx] RX: hydrOXYzine pamoate [HydrOXYzine Pamoate] 50 mg PO TID PRN 10 Days #30 capsule 11/07/17 [Rx] RX: Buspirone HCl [Buspar] 10 mg PO BID 09/27/18 [History] RX: Rosuvastatin Calcium [Crestor] 40 mg PO HS 09/27/18 [History] Albuterol Sulfate [Ventolin Hfa] 8 gm IH Q4H PRN 30 Days #1 hfa.aer.ad 10/02/18 [Rx] RX: Budesonide/Formoterol 160/4.5 [Symbicort 160/4.5] 2 puff IH BIDR 30 Days #1 inh 10/02/18 [Rx] RX: Carvedilol [Coreg] 6.25 mg PO BIDWM 30 Days #60 tablet 10/02/18 [Rx] RX: Furosemide [Lasix] 20 mg PO BID 30 Days #60 tablet 10/02/18 [Rx] RX: Insulin DETEMIR [Levemir] 45 unit SQ BID 30 Days #1 [id number] 10/02/18 [Rx] RX: Ipratropium/Albuterol Neb [Duoneb] 3 ml IH Q6HR PRN 30 Days #30 inhsol 10/02/18 [Rx] RX: Lisinopril [Zestril] 10 mg PO DAILY 30 Days #30 tablet 10/02/18 [Rx] RX: Spironolactone [Aldactone] 12.5 mg PO DAILY 30 Days #30 tablet 10/02/18 [Rx] Allergies/Adverse Reactions: Allergy/AdvReac Type Severity Reaction Status Date / Time latex Allergy Hives Verified 11/04/17 12:47 fluoxetine [From Prozac] AdvReac Agitated Verified 11/04/17 12:47 Date of admission: 09/27/18 07:18 Primary care physician: PCP NONE Consults: 09/27/18 08:44 Consult to Nurse Navigator [CONS] Routine Comment: CHF/COPD 09/30/18 14:37 Consult to Physical Therapy [CONS] Routine Comment: Evaluate, develop and implement POC Reason for Consult: back pain Does patient have active BEDREST order?: No Is patient medically & hemodynamically stable?: Yes Discharging clinician: Morgan Fatima - Constitutional Vitals: Temp Pulse Resp BP Pulse Ox 98.0 F 99 16 147/97 96 10/02/18 07:38 10/02/18 07:38 10/02/18 07:53 10/02/18 07:38 10/02/18 07:53 General appearance: Present: cooperative, A&O X 3, pleasant, no acute distress, answers questions appropriately Exam: Constitutional: Well-nourished, well-developed female in no acute distress Head: Normocephalic, atraumatic Eyes: PERRL, EOMI, conjunctiva pink, sclera anicteric Neck: Supple, trachea midline, no lymphadenopathy Lungs: Clear to auscultation bilaterally. Nonlabored breathing. No wheezes, rales, or rhonchi noted. Cardiac: RRR. +S1 +S2 No murmurs, clicks, or rubs noted. GI: Abdomen soft, nontender, nondistended. Normoactive bowel sounds Extremities: Warm, radial pulses palpable and symmetrical. No cyanosis, pedal edema, or calf tenderness. Neuro: Alert and oriented 3. No focal deficits. Normal speech. Skin: Warm, dry, and intact. - Patient Status Disposition: Home, Self-Care Condition: Fair Functional capacity at discharge: independent ambulation Overall status at discharge: patient is back to baseline - Discharge Instructions Instructions: Spironolactone (By mouth), Lisinopril (By mouth), Furosemide (By mouth), Albuterol (By breathing), Ipratropium/Albuterol (By breathing), Insulin Detemir (Injection), Budesonide/Formoterol (By breathing), Heart Failure (DC), Diabetes Mellitus Type 2 in Adults (DC), Chronic Obstructive Pulmonary Disease (DC) Follow Up With: Jose A Tinoco [Resident] - 10/03/18 11:00 am - Diet and Activity Activity: increase activity as tolerated, resume usual activities as tolerated Diet: diabetic diet <Niko Garnerniranjan M - Last Filed: 10/03/18 07:43> Date of Encounter: 10/03/18 - Discharge Diagnosis (1) Hyperlipemia Status: Acute Qualifiers: Hyperlipidemia type: mixed hyperlipidemia Qualified Code(s): E78.2 - Mixed hyperlipidemia (2) Hypertension Status: Acute Qualifiers: Hypertension type: essential hypertension Qualified Code(s): I10 - Essential (primary) hypertension (3) COPD exacerbation Status: Acute (4) Acute on chronic systolic CHF (congestive heart failure) Status: Acute (5) Diabetes Status: Acute Qualifiers: Diabetes mellitus type: type 2 Diabetes mellitus alf insulin use: with alf use Diabetes mellitus complication status: with unspecified complications Qualified Code(s): E11.8 - Type 2 diabetes mellitus with unspe cified complications; 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 Lorenzo is a 58 year old female - Time Spent with Patient Total time spent providing and/or coordinating discharge services: Date of admission: 09/27/18 07:18 Primary care physician: PCP NONE Consults: 09/27/18 08:44 Consult to Nurse Navigator [CONS] Routine Comment: CHF/COPD 09/30/18 14:37 Consult to Physical Therapy [CONS] Routine Comment: Evaluate, develop and implement POC Reason for Consult: back pain Does patient have active BEDREST order?: No Is patient medically & hemodynamically stable?: Yes - Constitutional Vitals: Temp Pulse Resp BP Pulse Ox 98.0 F 99 16 147/97 96 10/02/18 07:38 10/02/18 07:38 10/02/18 07:53 10/02/18 07:38 10/02/18 07:53 - Attending Attestation I examined this patient and my medical decision-making was reviewed with the Resident Physician. I agree with the documented discharge as above. GEN: NAD CVS: RRR. S1, S2, No m/r/g RESP: CTAB ABD: Soft, NT, ND, +BS EXT: No edema. 2+ DP. No rashes NEURO: Nonfocal
== END 2018-10-02 12:32 | disposition home or self-care (01) | DRG 292 ==
LOC: EMEROOARM 05:07 → 3BNU 05:07 → SUATTDRO 07:18 → 3BNU 08:32
PROVIDERS: ADMIT Internal Medicine; ATTEND Internal Medicine